=== PATIENT | male | born 1945 | race Caucasian/White ===

== ENCOUNTER 2025-03-20 02:02 | Inpatient (IN) | payer MEDICARE, SELFPAY ==
[2025-03-20] VITALS (24 sets, daily range): BP systolic 103–162; BP diastolic 69–100; PULSE 60–98; RESP 12–35; TEMP 36.1–36.6; O2SAT 90–100; BMI 31.8; BMI 26.6
--- NOTE | 2025-03-20 02:09 | EKG12_ITS ---
Test Reason : CP Blood Pressure : */* mmHG Vent. Rate : 97 BPM Atrial Rate : 97 BPM P-R Int : 174 ms QRS Dur : 152 ms QT Int : 402 ms P-R-T Axes : 20 11 187 degrees QTcB Int : 510 ms Sinus rhythm with occasional and consecutive Premature ventricular complexes Left bundle branch block Abnormal ECG Confirmed by Eder Pickett ([id number]), editor map LIN GIBSON ([id number]) on 03/22/2025 1:12:44 PM Referred By: KEMAR Confirmed By: Eder Pickett
[2025-03-20] MEDS: 0.9% Normal Saline (500mL Bag) 500 ML 999 ML IV (02:18)
[2025-03-20 02:21] LABS: Hematocrit 50.5 % (40-54); Hemoglobin 16.5 g/dL (13.0-16.5); Immature Granulocytes Count 0.040 X10^3/uL (0.0-0.0); Mean Corp Hgb Conc 32.7 g/dL (32-36); Mean Corpuscular Volume 99.6 fL (80-94); Mean Platelet Vol. 9.3 fl (6.2-12.0); NRBC Flagged by Analyzer 0 % (0-5); Platelet Count 245 K/mm3 (150-450); RBC Distribution Width CV 13.6 % (11.6-14.6); RBC Distribution Width SD 49.9 fl (35.1-43.9); Red Blood Count 5.07 M/mm3 (4.6-6.2); White Blood Count 10.4 K/mm3 (4.4-11.0)
--- NOTE | 2025-03-20 02:21 | ED.VIS.CHEST ---
HPI History of Present Illness Chief Complaint: Chest Pain Narrative Narrative: Chief complaint and HPI: 80-year-old male with past medical history of CAD with history of CABG/PCI, ICD/pacemaker, DM, CHF presents via EMS for evaluation of shortness of breath. Daughter gives majority of the history. Daughter states her father is visiting from [place] since January after he had a mechanical fall that resulted in rib fractures and pneumothorax. She states he has been doing well until the past couple days he has had increasing shortness of breath and cough. This evening shortness of breath worsened. He endorses chest tightness associated with it. He denies any fever, chills, abdominal pain, nausea, vomiting. Tobacco abuser. Review of systems: See HPI Medications: As listed on the chart Allergies: As listed on the chart PFSH: Per chart Vital signs: As listed on the chart. Reviewed. Physical exam: Gen: A&O x3 Head: Normocephalic, atraumatic Eyes: No sclera icterus, conjunctiva clear, PERRL ENT: Mildly dry mucous membranes Neck: Trachea midline, No JVD CV: RRR, no murmurs, +1 pitting peripheral bilateral edema, midline scar healed well, no cellulitis overlying pacemaker/ICD Resp: Lungs diminished in the bilateral bases, mildly coarse, tachypneic, respiratory distress GI: Abd soft, non-distended, non-tender, no r/r/g Musc: Full ROM, no deformity Skin: Warm, dry Neuro: Alert, oriented, grossly intact, sensation intact Psych: Cooperative [facility] Medical History (Updated 03/20/25 @ 02:06 by Nidia Leo) Heart failure Presence of combination internal cardiac defibrillator (ICD) and pacemaker Diabetes Home Medications ?Medication ?Instructions ?Recorded ?Last Taken ?Type aspirin 81 mg tablet 81 mg PO DAILY 03/20/25 Unknown History atorvastatin 40 mg tablet (Lipitor) 40 mg PO DAILY 03/20/25 Unknown History clopidogrel 75 mg tablet 75 mg PO DAILY 03/20/25 Unknown History empagliflozin 10 mg tablet 10 mg PO DAILY 03/20/25 Unknown History (Jardiance) finasteride 5 mg tablet 5 mg PO DAILY 03/20/25 Unknown History hydralazine 10 mg tablet 10 mg PO BID 03/20/25 Unknown History insulin lispro protamine-lispro 20 unit subcut BID 03/20/25 Unknown History 100 unit/mL (75-25) subcutaneous pen (Humalog Mix 75-25 KwikPen) isosorbide mononitrate 60 mg 60 mg PO DAILY 03/20/25 Unknown History tablet,extended release 24 hr methocarbamol 500 mg tablet 500 mg PO Q6H PRN muscle spasm 03/20/25 Unknown History ranolazine 1,000 mg 1,000 mg PO BID 03/20/25 Unknown History tablet,extended release,12 hr spironolactone 25 mg tablet 25 mg PO DAILY 03/20/25 Unknown History (Aldactone) Allergy/AdvReac Type Severity Reaction Status Date / Time No Known Allergies Allergy Verified 03/20/25 02:04 Surgical History (Updated 03/20/25 @ 02:06 by Nidia Leo) H/O heart artery stent Social History Smoking Status: Current every day smoker tobacco type: cigarettes EXAM Physical Exam Const Vital Signs: 03/20/25 02:03 03/20/25 02:09 03/20/25 02:09 Temperature 97.3 F L 97.3 F L Temperature Source Temporal Temporal Pulse Rate 98 96 Respiratory Rate 25 H 35 H Respiratory Effort Respiratory Depth Respiratory Pattern Blood Pressure 162/100 H 162/100 H Blood Pressure Mean 120 120 Pulse Ox 100 100 Oxygen Delivery Method CPAP CPAP Bi-pap Fraction of Inspired Oxygen (FIO2) 60 60 60 03/20/25 02:12 03/20/25 02:18 03/20/25 02:19 Temperature Temperature Source Pulse Rate 89 90 Respiratory Rate 33 H 30 H Respiratory Effort Short of Breath Respiratory Depth Deep Respiratory Pattern Tachypnea Tachypnea Tachypnea Blood Pressure Blood Pressure Mean Pulse Ox 99 Oxygen Delivery Method CPAP Fraction of Inspired Oxygen (FIO2) 60 30 03/20/25 02:33 03/20/25 03:09 03/20/25 03:30 Temperature 97.8 F Temperature Source Temporal Pulse Rate 78 87 85 Respiratory Rate 19 H 26 H 24 H Respiratory Effort Respiratory Depth Respiratory Pattern Blood Pressure 144/85 H 144/85 H Blood Pressure Mean 104 104 Pulse Ox 100 95 95 Oxygen Delivery Method Bi-pap Bi-pap Bi-pap Fraction of Inspired Oxygen (FIO2) 30 30 30 03/20/25 04:00 03/20/25 04:30 03/20/25 04:30 Temperature Temperature Source Pulse Rate 83 73 76 Respiratory Rate 20 H 21 H 21 H Respiratory Effort Respiratory Depth Respiratory Pattern Tachypnea Blood Pressure 136/90 H 133/76 H Blood Pressure Mean 105 95 Pulse Ox 96 95 97 Oxygen Delivery Method Bi-pap Bi-pap Fraction of Inspired Oxygen (FIO2) 30 30 30 MDM MDM MDM Narrative Medical decision making narrative: 80-year-old male with past medical history of CAD with history of CABG/PCI, ICD/pacemaker, DM, CHF presents via EMS for evaluation of shortness of breath. Daughter gives majority of the history. Daughter states her father is visiting from [place] since January after he had a mechanical fall that resulted in rib fractures and pneumothorax. She states he has been doing well until the past couple days he has had increasing shortness of breath and cough. This evening shortness of breath worsened. He endorses chest tightness associated with it. On arrival, patient arrives on CPAP machine. He is tachypneic in respiratory distress. He received nitro, 4 baby aspirin, and DuoNeb prior to arrival. Patient was switched over to BiPAP with improvement in respiratory distress. Differential diagnosis includes but is not limited to COPD exacerbation, pneumonia, CHF, ACS, PE, electrolyte abnormality, arrhythmia. EKG reviewed. Chest x-ray reviewed, suspect more pulmonary edema/CHF exacerbation however given I cannot rule out pneumonia we will give Rocephin and azithromycin. ABG with mild acidosis of 7.32. Oxygenating well on BiPAP. Will decrease FiO2. No hypercapnia. CBC without leukocytosis, anemia, platelet dysfunction. D-dimer elevated at 1.03. Cannot rule out PE. CT chest ordered. BMP shows renal insufficiency of 1.42. Unknown patient's baseline. May be chronic versus acute. Lactic acid 2.2. Patient receiving only 500 cc bolus. Will be judicial with fluids given CHF. BNP elevated at 7412. IV Lasix ordered. Troponin 61 and 56. CTA chest cannot be read by radiology secondary to having technical difficulties. I did personally review the CTA. No obvious PE. Patient has bilateral pulmonary effusions, worse on the right compared to the left. Right sided atelectasis. On reevaluation, patient's respiratory status has improved on BiPAP. We did try to take him off during CT however patient could not tolerate this. Patient was updated of all the results and the plan for admission. He confirmed understanding the plan. Patient discussed with Dr. Menezes. He accepted admission. EKG: Interpreted by me/EM physician: EKG shows sinus rhythm with PVCs. Left bundle branch block. Heart rate 97. Diagnostic: Interpreted by me/EM physician: No pneumothorax. Patient has cardiomegaly. Bilateral effusions. Worse on the right compared to the left. Cannot rule out pneumonia. Cannot compare to radiology read as we are having technical difficulties and they cannot see any of the imaging. 30 minutes of critical care time utilized in managing the patient. This is due to high probability of and deterioration of the patient based on the patient's condition and excludes any separately billable procedures. Impression: 1. Acute hypoxia with respiratory distress requiring BiPAP 2. CHF exacerbation 3. Possible pneumonia 4. Elevated troponin likely secondary to #2 5. Lactic acidosis 6. Renal insufficiency, acute versus chronic Lab Data Labs: Laboratory Results - last 24 hr 03/20/25 03/20/25 03/20/25 02:05 02:08 04:20 WBC 10.4 RBC 5.07 Hgb 16.5 Hct 50.5 MCV 99.6 H MCH 32.5 H MCHC 32.7 RDW Std Deviation 49.9 H RDW Coeff of Adri 13.6 Plt Count 245 MPV 9.3 Immature Gran % (Auto) 0.400 Neut % (Auto) 55.6 Lymph % (Auto) 30.1 Burke % (Auto) 12.9 H Eos % (Auto) 0.4 Baso % (Auto) 0.6 Absolute Neuts (auto) 5.8 Absolute Lymphs (auto) 3.12 Nucleated RBC % 0 D-Dimer Quant (PE/DVT) 1.03 H* Sodium 141 Potassium 4.2 Chloride 105 Carbon Dioxide 22.4 Anion Gap 13 BUN 22 H Creatinine 1.42 H Estim Creat Clear Calc 42.05 L Est GFR (MDRD) Non-Af 49 L BUN/Creatinine Ratio 15.1 Glucose 170 H Lactic Acid 2.2 H* Calcium 9.0 Troponin T High Sens 61 H* Troponin T Hi Sens 2 Hr 56 H* NT pro BNP II 7412 H ABG Data ABG results: ABG 03/20/25 02:20 Specimen Type ART Sample Site L Radial pH 7.32 L Bicarbonate Actual 23.1 Total CO2 25 Base Excess -3 L O2 Saturation 99 O2 % 40.0 ABG pCO2 45.0 ABG pO2 141 H Kee Test Positive O2 Delivery Device BiPAP Vent Mode Not entered POC PEEP 8 Peak Inspir Pressure 16 Discharge Plan Triage Chief Complaint: Chest Pain ED Provider: Jhoan Maldonado Dx/Rx/DC Orders Prescriptions: No Action methocarbamol 500 mg tablet 500 mg PO Q6H PRN (Reason: muscle spasm) isosorbide mononitrate 60 mg tablet extended release 24 hr 60 mg PO DAILY atorvastatin [Lipitor] 40 mg tablet 40 mg PO DAILY finasteride 5 mg tablet 5 mg PO DAILY spironolactone [Aldactone] 25 mg tablet 25 mg PO DAILY hydralazine 10 mg tablet 10 mg PO BID ranolazine 1,000 mg tablet extended release 12 hr 1,000 mg PO BID aspirin 81 mg tablet 81 mg PO DAILY clopidogrel 75 mg tablet 75 mg PO DAILY Jardiance 10 mg tablet 10 mg PO DAILY insulin lispro protamin-lispro [Humalog Mix 75-25 KwikPen] 100 unit/mL (75-25) insulin pen 20 unit subcut BID Primary Care Provider: ULI ALCALA Referrals: [facility] Doctor,Out of [Non-Staff] - Print Language: Macedonian
[2025-03-20 02:23] LABS: Allen Test Positive; Base Excess -3 mmol/L (-2 to +2); FI02 40.0; PEEP 8; PIP 16; PO2 141 mmHG (75-100); SITE L Radial; SO2 99 % (95-99)
--- NOTE | 2025-03-20 02:32 | RAD_ITS ---
PROCEDURE: CHEST 1 VIEW (PORTABLE) 03/20/2025 REASON FOR EXAM: SHORTNESS OF BREATH TECHNIQUE: Frontal view of the chest. COMPARISON: CT chest from earlier today FINDINGS: Hardware: EKG leads overlie the chest. Stable appearance of the left subclavian pacemaker Heart: Remote CABG Lungs: Lungs are expanded with superimposed interstitial edema and bilateral pleural effusions with bibasilar atelectasis suggesting CHF. Follow-up recommended to ensure resolution. Bones: Bony structures show degenerative change. There are acute displaced right rib fractures and old healed and healing left rib fractures. Other: Despite the right rib fractures, no pneumothorax is noted RAD/Chest 1 View (Portable) IMPRESSION: Diffuse interstitial edema with free-flowing bilateral pleural effusions and bi basilar atelectasis. Findings suggest CHF. Follow-up recommended to ensure resolution Minimally displaced right rib fractures, no clearly demonstrated pneumothorax Old healed and healing left rib fractures Remote CABG Reading Location: [id number]
--- NOTE | 2025-03-20 02:35 | CPS ---
[0218] 6mL Duoneb administered to pt. in ER at this time
[2025-03-20 02:48] LABS: Anion Gap 13 (5-15); BUN 22 mg/dL (4-19); BUN/Creat Ratio 15.1 RATIO (10-20); Calcium,Total 9.0 mg/dL (7.6-11.0); Carbon Dioxide 22.4 mmol/L (21.0-32.0); Chloride 105 mmol/L (98-108); Estimated Creatinine Clearance 42.05 ml/min (50-250); Glucose 170 mg/dL (70-99); Potassium 4.2 mmol/L (3.3-5.1)
[2025-03-20 02:49] LABS: Pro- Brain NATRIURETIC PEPTIDE 7412 pg/mL (<=1800); Troponin T High Sensitivity 61 ng/L (<=22)
[2025-03-20 02:51] LABS: D-Dimer Quantitative (DVT/PE) 1.03 FEU/ug/m (0.27-0.49)
--- NOTE | 2025-03-20 02:59 | CT_ITS ---
PROCEDURE: CTA CHEST W/WO CONTRAST 03/20/2025 REASON FOR EXAM: PE, ELEVATED DIMER TECHNIQUE: Procedure Code: [id number] Modality: CT Procedure: CTA CHEST W/WO CONTRAST Multiplanar Sagittal and Coronal images were obtained. CONTRAST: Isovue 370 VOLUME: 100 mL One or more dose reduction techniques were used (e.g., Automated exposure control, adjustment of the mA and/or kV according to patient size, use of iterative reconstruction technique). RADIATION DOSE SUMMARY: CTDlvol: 15.45 mGy DLP: 466 mGycm COMPARISON: Chest radiograph on 03/20/2025. FINDINGS: Mild cardiomegaly. Prior CABG. Moderate bilateral pleural effusions. Passive atelectatic airspace disease/consolidations of the lower lobes, possibly representing passive atelectasis and/or superimposed pneumonia. Mild interstitial pulmonary congestion. Moderate diffuse spondylosis. AICD is in good position. Mild hepatomegaly with diffuse irregularity of the hepatic contour, possibly chronic parenchymal liver disease. Mild ascites. Normal enhancement of the main pulmonary artery and right and left pulmonary arteries. Normal enhancement of the bilateral peripheral pulmonary arteries. There is no demonstrated pulmonary embolism. Suboptimal enhancement of the thoracic aorta limiting its evaluation. There is no demonstrated aortic dissection. Normal pericardium. Normal mediastinum. Normal hilar regions. Normal visualized trachea and bronchi. CT/CTA Chest W/WO Contrast IMPRESSION: No demonstrated pulmonary embolism. Mild cardiomegaly. Prior CABG. Moderate bilateral pleural effusions. Passive atelectatic airspace disease/consolidations of the lower lobes, possibl y representing passive atelectasis and/or superimposed pneumonia. Mild interstitial pulmonary congestion. Moderate diffuse spondylosis. AICD is in good position. Mild hepatomegaly with diffuse irregularity of the hepatic contour, possibly ch ronic parenchymal liver disease. Reading Location: [facility]
--- NOTE | 2025-03-20 03:37 | ED.RN ---
DAFNE from Dr. Braun to draw x1 blood culture now.
[2025-03-20] MEDS: Azithromycin 500 MG in 0.9% Normal Saline (250mL Bag) 250 ML 250 MG IV (04:20)
[2025-03-20 04:50] LABS: Troponin T High Sens 2 HR 56 ng/L (<=22)
--- NOTE | 2025-03-20 04:54 | HP.PCM.HOS_ITS ---
[facility] - General General Date of Admission: 03/20/25 Date of Service: 03/20/25 Chief Complaint: Chest Tightness and SOB. [facility] Narrative CECILIA FRAGOSO, is a 80 M with a past medical history of essential hypertension; on hydralazine and spironolactone, hyperlipidemia; on atorvastatin, chronic tobacco abuse, obesity (class I); with BMI of 31.9 this admission, DM-2; of unknown control on empagliflozin plus insulin lispro BID, CAD; s/p CABG and stent on BASA, clopidogrel, ISMO and ranolazine BID, history of CHF; of uncertain type, history of arrhythmia; s/p PPM/AICD, BPH; on finasteride, OA; with muscle spasms on methocarbamol QID prn and history of mechanical fall with multiple rib fractures and pneumothorax in January 2025 causing him to leave [place] to stay with his daughter locally who presents to [facility] ER complaining of chest tightness and SOB. Mr. Fragoso reports his symptoms began approximately 2-3 days prior to admission with SAUER that progressed to SOB at rest in addition to cough. He also admits to associated chest tightness that is mild but made worse with activity along with ~1+ bilateral lower extremity edema so his daughter activated EMS with patient treated en-route with SL NTG, 4 BASA and Duo-Neb. He arrived here on CPAP due to respiratory distress. There was no report of fever, chills, runny nose, sore throat, ear pain, abdominal pain, nausea, vomiting, diarrhea, constipation, dysuria, hematuria, headache or rash. In the ER he was noted to have an elevated NT pro-BNP of 7,412 pg/mL present on admission with a CXR that revealed pulmonary vascular congestion with moderate Right pleural effusion with PPM in place in addition to sternotomy wires in place consistent with AE CHF; of uncertain type complicated by clinical evidence of Acute Hypoxic Respiratory Failure evidenced by ABG of 7.32/ PCO2 45 mmHg/ PO2 141 mmHg/ HCO3 23.1 mmol/L on BiPAP with 40% FiO2 and rate of 16 with 8 PEEP compounded by mildly elevated troponin T of 61 ng/L and Lactic Acidosis of 2.2 mmol/L with ER physician suspecting superimposed AE COPD with underlying Pneumonia. He was then admitted to the PCU for ongoing care for a stay that is expected to extend beyond 2 midnights. [facility] Medical History (Updated 03/20/25 @ 05:[address] Matthew Ho DO) Pleural effusion Heart failure Presence of combination internal cardiac defibrillator (ICD) and pacemaker Diabetes Home Medications ?Medication ?Instructions ?Recorded ?Last Taken ?Type aspirin 81 mg tablet 81 mg PO DAILY 03/20/25 Unkn own History atorvastatin 40 mg tablet (Lipitor) 40 mg PO DAILY Unknown History clopidogrel 75 mg tablet 75 mg PO DAILY 03/20/25 Unkn own History empagliflozin 10 mg tablet 10 mg PO DAILY 03/20/25 Unk nown History (Jardiance) finasteride 5 mg tablet 5 mg PO DAILY 03/20/25 Unkno wn History hydralazine 10 mg tablet 10 mg PO BID 03/20/25 Unknow n History insulin lispro protamine-lispro 20 unit subcut BID Unknown History 100 unit/mL (75-25) subcutaneous pen (Humalog Mix 75-25 KwikPen) isosorbide mononitrate 60 mg 60 mg PO DAILY 03/20/25 U nknown History tablet,extended release 24 hr methocarbamol 500 mg tablet 500 mg PO Q6H PRN muscle s pasm 03/20/25 Unknown History ranolazine 1,000 mg 1,000 mg PO BID 03/20/25 Unk nown History tablet,extended release,12 hr spironolactone 25 mg tablet 25 mg PO DAILY 03/20/25 Un known History (Aldactone) Allergy/AdvReac Type Severity Reaction Status Date / Time No Known Allergies Allergy Verified 03/20/25 02:04 Surgical History (Updated 03/20/25 @ 05:[address] Matthew Ho DO) H/O heart artery stent Social History Smoking Status: Current every day smoker tobacco type: cigarettes ROS ROS Narrative Review of Systems: Constitutional: Patient denies fever or chills. Eyes: Patient denies changes in vision or discharge from eyes. ENT: Patient denies runny nose, sore throat or ear pain. Resp: Patient admits to SOB an cough. CV: Patient admits to chest tightness and ~1+ LE edema as per HPI. He denies palpitations or heart racing. GI: Patient denies abdominal pain, nausea, vomiting, diarrhea or constipation. : Patient denies dysuria or hematuria. MSK: Patient denies arthralgias or myalgias. Skin: Patient denies rash, abscess, wounds or jaundice. Psych: Patient denies symptoms of uncontrolled depression or anxiety. Neuro: Patient denies headache, paresthesias or focal neurologic deficits. Allergy: Patient denies lip swelling, tongue swelling or urticaria. Hematology: Patient denies easy bleeding or easy bruisability. Endocrinology: Patient denies polyuria, polydipsia, polyphagia or heat/cold intolerance. 14 point ROS otherwise negative except for positives noted above in HPI. Vital Signs Vital Signs Vital Signs: 03/20/25 02:03 03/20/25 02:09 03/20/25 02:09 Temperature 97.3 F L 97.3 F L Temperature Source Temporal Temporal Pulse Rate 98 96 Respiratory Rate 25 H 35 H Respiratory Effort Respiratory Depth Respiratory Pattern Blood Pressure 162/100 H 162/100 H Blood Pressure Mean 120 120 Pulse Ox 100 100 Oxygen Delivery Method CPAP CPAP Bi-pap Fraction of Inspired Oxygen (FIO2) 60 60 60 03/20/25 02:12 03/20/25 02:18 03/20/25 02:19 Temperature Temperature Source Pulse Rate 89 90 Respiratory Rate 33 H 30 H Respiratory Effort Short of Breath Respiratory Depth Deep Respiratory Pattern Tachypnea Tachypnea Tachypnea Blood Pressure Blood Pressure Mean Pulse Ox 99 Oxygen Delivery Method CPAP Fraction of Inspired Oxygen (FIO2) 60 30 03/20/25 02:33 03/20/25 03:09 03/20/25 03:30 Temperature 97.8 F Temperature Source Temporal Pulse Rate 78 87 85 Respiratory Rate 19 H 26 H 24 H Respiratory Effort Respiratory Depth Respiratory Pattern Blood Pressure 144/85 H 144/85 H Blood Pressure Mean 104 104 Pulse Ox 100 95 95 Oxygen Delivery Method Bi-pap Bi-pap Bi-pap Fraction of Inspired Oxygen (FIO2) 30 30 30 03/20/25 04:00 03/20/25 04:30 03/20/25 04:30 Temperature Temperature Source Pulse Rate 83 73 76 Respiratory Rate 20 H 21 H 21 H Respiratory Effort Respiratory Depth Respiratory Pattern Tachypnea Blood Pressure 136/90 H 133/76 H Blood Pressure Mean 105 95 Pulse Ox 96 95 97 Oxygen Delivery Method Bi-pap Bi-pap Fraction of Inspired Oxygen (FIO2) 30 30 30 Weight Weight: 197 lb 8.547 oz Body Mass Index (BMI) 31.8 Physical Exam Const alert and oriented x3 Constitutional Narrative: Patient appears comfortable on BiPAP. General Appearance: cooperative HEENT normocephalic, head/scalp atraumatic and hearing grossly normal bilaterally HEENT Narrative: Mucous membraes dry. Eyes PERRL, EOMs intact bilaterally and conjunctivae normal Neck no lymphadenopathy, supple and no JVD Resp Resp Narrative: Diminished breath sounds throughout with coarse bibasilar rales and increased work of breathing. Auscultation: rales Cardio regular rate and regular rhythm GI normal to inspection, nondistended, normoactive bowel sounds, soft to palpation, non-tender and non-distended GI Narrative: Obese. Extremity Extremity Narrative: ~1+ bilateral LE edema. Skin Skin Narrative: Patient has no evidence of rash, abscess, wounds or jaundice. Neuro oriented x3, CN's II-XII intact bilaterally, moves all extremities and no focal motor deficits Sensorium / Orientation: awake, alert, oriented to person, oriented to place and oriented to time Speech: speech normal Psych affect normal Results Medical Records Data Attestation: I reviewed the patient's medical records Lab / Micro Data Attestation: I reviewed the patient's lab results. 03/20/25 02:08 03/20/25 02:08 Labs: Laboratory Results - last 24 hr 03/20/25 02:05: Lactic Acid 2.2 H* 03/20/25 02:08: WBC 10.4, RBC 5.07, Hgb 16.5, Hct 50.5, MCV 99.6 H, MCH 32.5 H, MCHC 32.7, RDW Std Deviation 49.9 H, RDW Coeff of Adri 13.6, Plt Count 245, MPV 9.3, Immature Gran % (Auto) 0.400, Neut % (Auto) 55.6, Lymph % (Auto) 30.1, [place] % (Auto) 12.9 H, Eos % (Auto) 0.4, Baso % (Auto) 0.6, Absolute Neuts (auto) 5.8, Absolute Lymphs (auto) 3.12, Nucleated RBC % 0, D-Dimer Quant (PE/DVT) 1.03 H*, Sodium 141, Potassium 4.2, Chloride 105, Carbon Dioxide 22.4, Anion Gap 13, BUN 22 H, Creatinine 1.42 H, Estim Creat Clear Calc 42.05 L, Est GFR (MDRD) Non-Af 49 L, BUN/Creatinine Ratio 15.1, Glucose 170 H, Calcium 9.0, Troponin T High Sens 61 H*, NT pro BNP II 7412 H 03/20/25 04:20: Troponin T Hi Sens 2 Hr 56 H* Micro: Microbiology 03/20/25 02:16 Mucosa - Nose SARS-CoV-2, Influenza & RSV (PCR) - Final ABG Data ABG results: ABG 03/20/25 02:20 Specimen Type ART Sample Site L Radial pH 7.32 L Bicarbonate Actual 23.1 Total CO2 25 Base Excess -3 L O2 Saturation 99 O2 % 40.0 ABG pCO2 45.0 ABG pO2 141 H Kee Test Positive O2 Delivery Device BiPAP Vent Mode Not entered POC PEEP 8 Peak Inspir Pressure 16 Imaging [facility] Imaging Services [address] [place] [id number] Chest 1 View (Portable) MR#: [id number] Acct: [id number] Name: CECILIA FRAGOSO Rep #: [id number] : 1945 M 80 From: César Salazar MD PCP: [facility] ALCALA Status: ADM IN Study: Chest 1 View (Portable) Date of Exam: 03/20/25 Exam# [id number] Ordering Dr: Jhoan Maldonado DO PROCEDURE: CHEST 1 VIEW (PORTABLE) 03/20/2025 REASON FOR EXAM: SHORTNESS OF BREATH TECHNIQUE: Frontal view of the chest. COMPARISON: CT chest from earlier today FINDINGS: Hardware: EKG leads overlie the chest. Stable appearance of the left subclavian pacemaker Heart: Remote CABG Lungs: Lungs are expanded with superimposed interstitial edema and bilateral pleural effusions with bibasilar atelectasis suggesting CHF. Follow-up recommended to ensure resolution. Bones: Bony structures show degenerative change. There are acute displaced right rib fractures and old healed and healing left rib fractures. Other: Despite the right rib fractures, no pneumothorax is noted RAD/Chest 1 View (Portable) IMPRESSION: Diffuse interstitial edema with free-flowing bilateral pleural effusions and bibasilar atelectasis. Findings suggest CHF. Follow-up recommended to ensure resolution Minimally displaced right rib fractures, no clearly demonstrated pneumothorax Old healed and healing left rib fractures Remote CABG Reading Location: [id number] CC: Dr. Jhoan Maldonado DO; [facility] ~ [employer] Agent: Signed [facility] Imaging Services [address] [place] [address] CTA Chest W/WO Contrast MR#: [id number] Acct: [id number] Name: CECILIA FRAGOSO Rep #: [id number] : 1945 80 From: Blanco Salazar MD PCP: [facility] ALCALA Status: ADM IN Study: CTA Chest W/WO Contrast Date of Exam: 03/20/25 Exam# [id number] Ordering Dr: Jhoan Maldonado DO ADDENDUM by Dr. Blanco Salazar MD on 03/20/25 at 0606 Subacute fractures in the axillary and posterior arches of the right 5th, 6, 7th, 8th and 9th ribs. Reading Location: [facility] 03/20/25 0607 Date cc: Dr. Jhoan Maldonado DO; [facility] ALCALA ~* Signed PROCEDURE: CTA CHEST W/WO CONTRAST 03/20/2025 REASON FOR EXAM: PE, ELEVATED DIMER TECHNIQUE: Procedure Code: [id number] Modality: CT Procedure: CTA CHEST W/WO CONTRAST Multiplanar Sagittal and Coronal images were obtained. CONTRAST: Isovue 370 VOLUME: 100 mL One or more dose reduction techniques were used (e.g., Automated exposure control, adjustment of the mA and/or kV according to patient size, use of iterative reconstruction technique). RADIATION DOSE SUMMARY: CTDlvol: 15.45 mGy DLP: 466 mGycm COMPARISON: Chest radiograph on 03/20/2025. FINDINGS: Mild cardiomegaly. Prior CABG. Moderate bilateral pleural effusions. Passive atelectatic airspace disease/consolidations of the lower lobes, possibly representing passive atelectasis and/or superimposed pneumonia. Mild interstitial pulmonary congestion. Moderate diffuse spondylosis. AICD is in good position. Mild hepatomegaly with diffuse irregularity of the hepatic contour, possibly chronic parenchymal liver disease. Mild ascites. Normal enhancement of the main pulmonary artery and right and left pulmonary arteries. Normal enhancement of the bilateral peripheral pulmonary arteries. There is no demonstrated pulmonary embolism. Suboptimal enhancement of the thoracic aorta limiting its evaluation. There is no demonstrated aortic dissection. Normal pericardium. Normal mediastinum. Normal hilar regions. Normal visualized trachea and bronchi. CT/CTA Chest W/WO Contrast IMPRESSION: No demonstrated pulmonary embolism. Mild cardiomegaly. Prior CABG. Moderate bilateral pleural effusions. Passive atelectatic airspace disease/consolidations of the lower lobes, possibly representing passive atelectasis and/or superimposed pneumonia. Mild interstitial pulmonary congestion. Moderate diffuse spondylosis. AICD is in good position. Mild hepatomegaly with diffuse irregularity of the hepatic contour, possibly chronic parenchymal liver disease. Reading Location: [id number] CC: Dr. Jhoan Maldonado DO; [facility] ~ [employer] Agent: Signed Assessment & Plan Assessment/Plan (1) Acute exacerbation of chronic heart failure: (2) Pleural effusion: (3) COPD exacerbation: (4) Pneumonia: QUALIFIERS: Laterality: unspecified laterality Lung location: u nspecified part of lung Pneumonia type: due to unspecified organism Qualified Code(s): J18.9 - Pneumonia, unspecified organism (5) Acute hypoxic respiratory failure: (6) Elevated troponin: (7) Chest tightness: (8) History of coronary artery bypass graft: (9) History of coronary artery stent placement: (10) Lactic acidosis: (11) Obesity (BMI 30.0-34.9): (12) Tobacco abuse: PLAN: Plan 1. Elevated NT pro-BNP of 7,412 pg/mL present on admission with a CXR that revealed pulmonary vascular congestion with moderate Right pleural effusion with PPM in place in addition to sternotomy wires in place consistent with AE of chronic CHF; of uncertain type - Admit to PCU. Continue IV furosemide begun in the ER and add supplemental KCl and magnesium. Check echocardiogram to evaluate LVEF. Give ondansetron IV prn for nausea or vomiting. Give acetaminophen prn for [id number] (level 1-5/10) pain or fever. Give morphine IV prn for severe (level 6-10/10) pain. Finally, we will consult [facility] to see this patient on-rounds in the AM for further recommendations with help appreciated in advance. 2. AE COPD with possible superimposed Pneumonia causing Acute Hypoxic Respiratory Failure requiring BiPAP in the setting of ongoing Tobacco abuse complicating #1 - Continue IV methylprednisolone in addition to IV ceftriaxone and IV azithromycin begun in ER and check viral respiratory panel and urinary antigens to Streptococcus pneumonia and Legionella. Wean BiPAP as tolerated. Tobacco Cessation will be strongly encouraged with Nicotine patch offered to control cravings. 3. Elevated troponin T of 61 ng/L arising from Acute Cardiac Strain with Chest Tightness due to #1 & #2 in the setting of previously known CAD; s/p CABG plus stent and PPM/AICD - Serialize troponin. 4. Lactic Acidosis of 2.2 mmol/L present on admission adding to the medical complexity of #1 - #3 - Serialize lactate to follow trend. 5. Obesity (class I); with BMI of 31.9 this admission adding to the burden of disease outlined from #1 - #4 - Weight loss will be recommended. Check TSH. This complicates his case and may hamper recovery. 6. History of mechanical fall with multiple rib fractures and pneumothorax in January 2025 causing him to leave [place] to stay with his daughter locally - Noted. PT/OT and Case Management to consult and treat on-rounds in AM for further recommendations with help appreciated in advance. 7. Essential hypertension; on hydralazine and spironolactone - Home regimen to be maintained as previous. 8. Hyperlipidemia; on atorvastatin - Continue statin and check Lipid Profile. 9. DM-2; of unknown control on empagliflozin plus insulin lispro BID - Keep NPO while on BiPAP. Resume insulin lispro. Check FSBS q. 6 hours plus lowest intensity SSI. Check HgbA1c to objectively assess quality of diabetic control. 10. BPH; on finasteride - Maintain present therapy. 11. OA; with muscle spasms on methocarbamol QID prn - Continue current treatment. 12. DVT/GI prophylaxis - Start enoxaparin 40 mg sq daily plus SCD's. Pantoprazole 40 mg IV daily. Total time: Approximately (but not less than) 75 minutes. Charges/Coding Visit Charges Inpatient E&M: 58078 Init Hosp L3
[2025-03-20 06:17] LABS: Reflex Lactate? Y
--- NOTE | 2025-03-20 06:49 | ECHOCS_ITS ---
Reason For Study Reason For Study: chf Procedure This was a 2D Doppler, Color Flow transthoracic echocardiogram. The study was technically difficult. Contrast injection was performed. Exam performed portable in patient room. Left Ventricle Severely dilated left ventricle. Severe global left ventricular systolic dysfunction. The LV ejection fraction is 10 %. Stage 3 diastolic dysfunction. Right Ventricle ICD or pacer leads identified within the right ventricle. Mild segmental dysfunction of right ventricle. Atria The left and right atria are normal. Mitral Valve Trivial mitral valve insufficiency. Tricuspid Valve Unable to estimate RV systolic pressure due to inadequate jet, pulmonary artery pressure probably normal. Aortic Valve There is no aortic stenosis. No aortic valve insufficiency. Great Vessels Normal inferior vena cava. Pericardium/Pleural Moderate Pleural Effusion. Medication Diluted definity 3ml given slow IV push to enhance endocardial definition. MMode/2D Measurements & Calculations LVIDd: 5.8 cm IVSd: 1.7 cm LVOT diam: 2.0 cm LVIDs: 5.5 cm LVPWd: 1.1 cm LVOT area: 3.1 cm2 FS: 5.1 % Ao root diam: 3.8 cm LAV(MOD-bp): 68.4 ml LVAd ap4: 52.7 cm2 LAV(MOD-bp) Indexed: 35.4 ml/m2 LVLd ap4: 10.0 cm LAV(MOD-sp2): 59.1 ml EDV(MOD-sp4): 225.8 ml LAV(MOD-sp4): 75.0 ml EDV(sp4-el): 236.3 ml LVAs ap4: 49.9 cm2 LVLs ap4: 10.0 cm ESV(MOD-sp4): 203.2 ml ESV(sp4-el): 211.2 ml EF(MOD-sp4): 10.0 % EF(sp4-el): 10.6 % SV(MOD-sp4): 22.5 ml SV(sp4-el): 25.1 ml LA A4 area: 23.4 cm2 SI(MOD-sp4): 11.7 ml/m2 LA dimension(2D): 4.7 cm RA A4 area: 13.3 cm2 Time Measurements MV dec time: 0.16 sec Doppler Measurements & Calculations MV E max robin: 79.5 cm/sec Lat Peak E' Robin: 9.2 cm/sec Med Peak E' Robin: 3.6 cm/sec MV A max robin: 67.6 cm/sec E/E' lat: 8.6 E/E' med: 22.0 MV E/A: 1.2 MV V2 max: 86.3 cm/sec Ao V2 max: 118.3 cm/sec MV max P.0 mmHg MV dec slope: 497.0 cm/sec2 Ao max P.6 mmHg MV V2 mean: 52.1 cm/sec Ao V2 mean: 81.1 cm/sec MV mean P.2 mmHg Ao mean P.1 mmHg MV V2 VTI: 29.9 cm Ao V2 VTI: 20.5 cm AV (velocity ratio): 0.61 MVA(VTI): 1.3 cm2 JEN(I,D): 1.9 cm2 JEN(V,D): 2.1 cm2 LV V1 max: 81.1 cm/sec SV(LVOT): 38.4 ml PA V2 max: 82.9 cm/sec LV V1 max P.6 mmHg PA V2 mean: 61.9 cm/sec LV V1 mean P.1 mmHg LV V1 mean: 46.1 cm/sec LV V1 VTI: 12.5 cm ECHO/Echo Complete W/ Contrast Interpretation Summary The LV ejection fraction is 10 %. Stage 3 diastolic dysfunction. Severe global left ventricular systolic dysfunction. Severely dilated left ventricle. Mild segmental dysfunction of right ventricle. Ordering Physician: Matthew Ho Referring Physician: mason pcp Performed By: Qian White RCS
[2025-03-20 06:50] LABS: Magnesium 1.7 mg/dL (1.5-2.2)
--- NOTE | 2025-03-20 06:50 | EKG12_ITS ---
Test Reason : Blood Pressure : */* mmHG Vent. Rate : 81 BPM Atrial Rate : 81 BPM P-R Int : 188 ms QRS Dur : 190 ms QT Int : 478 ms P-R-T Axes : 15 -3 156 degrees QTcB Int : 555 ms Sinus rhythm with occasional atrial-paced complexes and Premature atrial complexes with Aberrant conduction Left bundle branch block Abnormal ECG When compared with ECG of 20-Mar-2025 02:08, MANUAL COMPARISON REQUIRED DATA IS UNCONFIRMED Confirmed by Eder Pickett ([id number]), assistant film editor LIN GIBSON ([id number]) on 03/22/2025 1:29:01 PM Referred By: GRULLON Confirmed By: Eder Pickett
[2025-03-20] MEDS: Nicotine (PBKC) 14 MG Patch TD (06:54)
--- NOTE | 2025-03-20 07:07 | PCM.PN.HOSP ---
Reason for Visit Chief Complaint: Chest Tightness and SOB. Subjective Subjective Patient states he feels much better overall. Still somewhat short of breath but was able to move with therapy and felt okay. Has not been seen here formally by cardiology. Unfortunately, no records are available at this time. Objective Data Objective Data Vital Signs: Vital Signs Temp Pulse Resp BP Pulse Ox O2 Del Method O2 Flow Rate 97.8 F 78 22 H 131/78 H 95 Bi-pap 30 03/20/25 05:02 03/20/25 06:00 03/20/25 06:00 03/20/25 06:00 03/20/25 06:00 03/20/25 06:00 03/20/25 05:30 FiO2 30 03/20/25 06:00 Oxygen Flow Rate (L/min) 30 Oxygen Delivery Method Bi-pap Weight: 89.6 kg Body Mass Index (BMI) 31.8 Intake & Output: Intake and Output for Last 24 Hours 03/18/25 03/19/25 03/20/25 23:59 23:59 23:59 Intake Total 550 / 550 Balance 550 / 550 Lab / Micro Data 03/20/25 02:08 03/20/25 02:08 Labs: Laboratory Results - last 24 hr 03/20/25 02:05: Lactic Acid 2.2 H* 03/20/25 02:08: WBC 10.4, RBC 5.07, Hgb 16.5, Hct 50.5, MCV 99.6 H, MCH 32.5 H, MCHC 32.7, RDW Std Deviation 49.9 H, RDW Coeff of Adri 13.6, Plt Count 245, MPV 9.3, Immature Gran % (Auto) 0.400, Neut % (Auto) 55.6, Lymph % (Auto) 30.1, [place] % (Auto) 12.9 H, Eos % (Auto) 0.4, Baso % (Auto) 0.6, Absolute Neuts (auto) 5.8, Absolute Lymphs (auto) 3.12, Nucleated RBC % 0, D-Dimer Quant (PE/DVT) 1.03 H*, Sodium 141, Potassium 4.2, Chloride 105, Carbon Dioxide 22.4, Anion Gap 13, BUN 22 H, Creatinine 1.42 H, Estim Creat Clear Calc 42.05 L, Est GFR (MDRD) Non-Af 49 L, BUN/Creatinine Ratio 15.1, Glucose 170 H, Calcium 9.0, Troponin T High Sens 61 H*, NT pro BNP II 7412 H 03/20/25 04:20: Magnesium 1.7, Troponin T Hi Sens 2 Hr 56 H* 03/20/25 06:08: Lactic Acid 1.1 Micro: Microbiology 03/20/25 02:16 Mucosa - Nose SARS-CoV-2, Influenza & RSV (PCR) - Final ABG Data ABG results: ABG 03/20/25 02:20 Specimen Type ART Sample Site L Radial pH 7.32 L Bicarbonate Actual 23.1 Total CO2 25 Base Excess -3 L O2 Saturation 99 O2 % 40.0 ABG pCO2 45.0 ABG pO2 141 H Kee Test Positive O2 Delivery Device BiPAP Vent Mode Not entered POC PEEP 8 Peak Inspir Pressure 16 Radiography Diagnostic Testing: Radiology Impression Chest X-Ray 03/20/25 02:32 IMPRESSION: Diffuse interstitial edema with free-flowing bilateral pleural effusions and bibasilar atelectasis. Findings suggest CHF. Follow-up recommended to ensure resolution Minimally displaced right rib fractures, no clearly demonstrated pneumothorax Old healed and healing left rib fractures Remote CABG Reading Location: [facility] Chest CTA 03/20/25 02:59 IMPRESSION: No demonstrated pulmonary embolism. Mild cardiomegaly. Prior CABG. Moderate bilateral pleural effusions. Passive atelectatic airspace disease/consolidations of the lower lobes, possibly representing passive atelectasis and/or superimposed pneumonia. Mild interstitial pulmonary congestion. Moderate diffuse spondylosis. AICD is in good position. Mild hepatomegaly with diffuse irregularity of the hepatic contour, possibly chronic parenchymal liver disease. Reading Location: [facility] Physical Exam Const alert, oriented x3, no apparent distress, average body habitus and well nourished; Negative for healthy appearing Constitutional Narrative: Elderly, white male, sitting up in a chair at the bedside, family at bedside, appears comfortable, nontoxic HEENT head/scalp atraumatic and moist oral mucous membranes Head and Scalp: normocephalic Resp normal respiratory effort, no retractions, no use of accessory muscles and No clear to auscultation bilaterally Resp Narrative: Crackles at bases bilaterally, no current conversational dyspnea or signs of distress Auscultation: Negative for wheezes Cardio regular rate, regular rhythm, S1 normal heart sound, S2 normal heart sound, no murmurs, no rub, no gallops and no clicks GI normal to inspection, nondistended, normoactive bowel sounds, soft to palpation and non-tender Extremity Extremity Narrative: 1+ bilateral lower extremity pitting edema, no cyanosis or clubbing Neuro oriented x3, moves all extremities and no focal motor deficits Speech: speech normal Psych affect normal Assessment & Plan Assessment/Plan (1) Acute hypoxic respiratory failure: (2) Acute exacerbation of chronic heart failure: (3) Elevated troponin: (4) Chest tightness: (5) Lactic acidosis: PLAN: Plan Acute hypoxic respiratory failure secondary to acute on chronic heart failure with reduced ejection fraction - Baseline EF is unknown but patient does appear to have ischemic cardiomyopathy -Currently has been weaned off BiPAP to 2 L nasal cannula and is doing well - Records have been requested from [facility] as that were his previous care had been provided - Current echocardiogram shows an EF of 10% with stage III diastolic dysfunction, severe global LV dysfunction, severely dilated LV and mild segmental dysfunction of the RV - Restart home Jardiance - Increase hydralazine to 25 3 times daily - Continue Imdur as ordered -Continue Aldactone - Hold off on beta-glo and show acute exacerbation has resolved but plan is to discharge with this unless previous records indicate why we should not - Continue IV diuretics as ordered and patient will likely need to be discharged on oral diuretics - Patient has defibrillator - Discontinue antibiotics and steroids as this does not appear to be consistent with COPD exacerbation - Cardiology following-appreciate input Lactic acidosis - Secondary to the above - Resolved quickly Elevated troponin/chest tightness - Suspect related to acute decompensated heart failure and demand ischemia from hypoxemia - Echocardiogram with no specific LV wall motion abnormality - Cardiology is following Elevated serum creatinine - No baseline established in our records - We have requested records from [facility] - Highly suspect patient has CKD but unclear at this time - Monitor response to diuresis as patient may have component of cardiorenal syndrome especially with EF of 10% DM-2 - A1c is pending - Continue home 75/25 insulin - Restart home Jardiance - SSI as ordered - Accu-Cheks as ordered Essential hypertension/hyperlipidemia/CAD - Continue aspirin - Continue atorvastatin - Continue Plavix - Continue hydralazine but increase dose as noted above - Continue isosorbide mononitrate - Continue home Ranexa - Continue home Aldactone Suspected COPD - Patient is a chronic longtime smoker of cigarettes and still smokes - nicotine patch available - Recommend cessation - Does not appear to be in acute exacerbation so we will discontinue steroids - continue as needed nebulizers 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 Extensive conversation with patient and his family at the bedside today with regards to overall prognosis especially with his markedly depressed EF and his overall cardiac conditions. They have elected to transition his CODE STATUS to DNR CCA okay for short-term intubation but patient indicates he would not want long-term mechanical ventilation. Charges/Coding Visit Charges Inpatient E&M: 84112 Subs Hosp L2
[2025-03-20 07:55] LABS: Mucous, Urine 0 SEEN /hpf (<or=2+); Red Blood Cells-Urine 0 SEEN /hpf (0-5)
[2025-03-20 08:06] LABS: Color, Urine Yellow (Yellow); Glucose, Dipstick 1000 mg/dl (Normal); Ketone-Dipstick Negative (Negative); Leukocyte Esterase-Dipstick 25 /ul (Negative); Nitrite-Dipstick Negative (Negative); Occult Blood-Urine Negative /ul (Negative); Protein-Dipstick 30 mg/dl (Negative); Specific Gravity, Urine 1.010 (1.002-1.030); Urine Bilirubin Dipstick Negative (Negative)
[2025-03-20 08:08] LABS: Squamous Epithelial Cells - UA 0-5 SEEN /hpf (0-5)
[2025-03-20 08:20] LABS: Troponin T High Sens 4 HR 75 ng/L (<=22)
[2025-03-20] MEDS: Pantoprazole Sodium 40 MG in 0.9% Normal Saline (100mL MB+) 100 ML 330 MG IV (09:45)
--- NOTE | 2025-03-20 09:47 | CASEMGMT ---
GEORGINA CM Assessment: Face to Face with pt for initial transition planning/care coordination assessment. Pt granddaughter in room as well; pt agreeable to granddaughter remaining present. SW introduced self and role at [facility], pt voices understanding and consents to assessment. Pt is A&O x4 and answers all questions appropriately at this time. Care providers, pharmacy, and demographics verified/updated. Admitting Dx: AE CHF, AE COPD, PNA, Resp failure PCP: Sj Donis Preferred Pharmacy: [facility] Insurance: [facility] Prescription Benefit: yes LNOK: Daughter, Alondra Living Arrangements: Pt lives in [place], but has been staying with daughter locally since a fall in January that resulted in fx ribs and a pneumothorax. Pt reports that there are 5 steps to enter. Pt has a room on the first floor and sleeps in a recliner due to not being able to lie down (d/t pain/breathing). There is a bathroom on the first floor with a shower chair. No grab bars. Pt uses a cane. Pt does not have oxygen at home and does not use a CPAP. Pt is staing with dtr and granddaughter. Someone is home at all times with pt. Pt dtr assists with bathing and dressing, as well as meal prep, household tasks such as laundry, and transportation. Pt reports strong relationships with family. There is a cousin that assists in transport as well. Transportation: Pt drives self and denies concerns with transportation. DME:Shower chair, cane HHC/SNF: previous SNF in [place]; no HHC hx Pt states no concerns with going home at time of dc. Pt states no further concerns/needs. Pt agreeable to [employer] for oxygen if needed at d/c. SW to follow. Advised pt to ask SW if any further questions/concerns/needs arise, voices understanding. Pt Goal: Return to daughter's home with plans to return to [place] when medically stable. NATE Knapp
[2025-03-20] MEDS: Aspirin E.C. 81 MG Tablet PO (09:53)
[2025-03-20] MEDS: Potassium Chloride Oral Tablet 20 MEQ PO (09:53)
[2025-03-20] MEDS: Magnesium Chloride 64 MG Delay Rel.Tablet 128 MG PO ×2 (09:56→21:27)
[2025-03-20] MEDS: Insulin Human 75/25 Kwickpen 20 UNIT SC ×2 (09:58→21:28)
--- NOTE | 2025-03-20 10:11 | PCM.CONS.C ---
Assessment & Plan Assessment/Plan (1) Acute exacerbation of chronic heart failure: PLAN: Acute on chronic decompensated HF 10% with RV failure Currently reaching euvolemia, switch IV lasix to once daily 40 mg Increase Hydralazine to 25 TID Continue with IMDUR 60 mg daily Once we have a better idea if this ANTHONY or CKD,we will switch him to ACEi restart Jardiance 10 mg daily Continue with Spironolactone 25 mg daily Hold off starting beta glo now in the setting of lactic acidosis and decompensated HF (2) History of coronary artery bypass graft: PLAN: Continue with aspirin 81 mg daily Continue with Atorvastatin 40 mg daily Continue with clopidogrel 75 mg daily Continue with Ranolazine Once kidney function improve. we will proceed with ischemic evaluation (3) Acute hypoxic respiratory failure: PLAN: In the setting of HFrEF and COPD exacerbation HPI Consult Data Date of Consult: 03/20/25 HPI Narrative HPI Narrative: CECILIA FRAGOSO, is a 80 M with a past medical history of: # Hypertension # Diabetes # CAD status post CABG and PCI in the past # COPD # Hyperlipidemia # History of HFrEF status post ICD # Smoker # Mechanical fall with multiple rib fractures and pneumothorax 01/2025 # BMI 31 He moved recently from [facility] and he lives with his daughter presented with shortness of breath, orthopnea and PND. On presentation he had chest tightness. He denies any chest pain now. He has NYHA class III. He has bilateral lower extremity edema. He denies any fever, chills and recent infection. He has shortness of breath with minimal exertion. His breathing has been getting worse over the last few months. n the ER he was noted to have an elevated NT pro-BNP of 7,412 pg/mL present on admission with a CXR that revealed pulmonary vascular congestion with moderate Right pleural effusion He had Acute Hypoxic Respiratory Failure requiring BIPAP. [facility] Medical History Pleural effusion Heart failure Presence of combination internal cardiac defibrillator (ICD) and pacemaker Diabetes Home Medications ?Medication ?Instructions ?Recorded ?Last Taken ?Type aspirin 81 mg tablet 81 mg PO DAILY 03/20/25 Unknown History atorvastatin 40 mg tablet (Lipitor) 40 mg PO DAILY 03/20/25 Unknown History clopidogrel 75 mg tablet 75 mg PO DAILY 03/20/25 Unknown History empagliflozin 10 mg tablet 10 mg PO DAILY 03/20/25 Unknown History (Jardiance) finasteride 5 mg tablet 5 mg PO DAILY 03/20/25 Unknown History hydralazine 10 mg tablet 10 mg PO BID 03/20/25 Unknown History insulin lispro protamine-lispro 20 unit subcut BID 03/20/25 Unknown History 100 unit/mL (75-25) subcutaneous pen (Humalog Mix 75-25 KwikPen) isosorbide mononitrate 60 mg 60 mg PO DAILY 03/20/25 Unknown History tablet,extended release 24 hr methocarbamol 500 mg tablet 500 mg PO Q6H PRN muscle spasm 03/20/25 Unknown History ranolazine 1,000 mg 1,000 mg PO BID 03/20/25 Unknown History tablet,extended release,12 hr spironolactone 25 mg tablet 25 mg PO DAILY 03/20/25 Unknown History (Aldactone) Allergy/AdvReac Type Severity Reaction Status Date / Time No Known Allergies Allergy Verified 03/20/25 02:04 Surgical History H/O heart artery stent Social History Smoking Status: Current some day smoker tobacco type: cigars Physical Exam Const alert and oriented x3 HEENT normocephalic Eyes PERRL Neck full ROM Lymph Lymphatic: no lymphadenopathy noted Chest inspection of chest normal Resp normal respiratory effort Cardio regular rate and regular rhythm Jugular Venous Distention: JVD GI normal to inspection, nondistended, normoactive bowel sounds no CVA tenderness Back/Spine no CVA tenderness Extremity normal to inspection Skin no rashes or lesions noted Objective Data Vital Signs: Vital Signs Temp Pulse Resp BP Pulse Ox O2 Del Method O2 Flow Rate 97.6 F L 65 24 H 145/83 H 96 Bi-pap 30 03/20/25 09:37 03/20/25 09:53 03/20/25 09:37 03/20/25 09:37 03/20/25 09:37 03/20/25 09:37 03/20/25 05:30 FiO2 25 03/20/25 09:37 Oxygen Flow Rate (L/min) 30 Oxygen Delivery Method Bi-pap Weight: 185 lb 6.54 oz Body Mass Index (BMI) 26.6 Intake & Output: Intake and Output for Last 24 Hours 03/18/25 03/19/25 03/20/25 23:59 23:59 23:59 Intake Total 800 / 800 Balance 800 / 800 Lab / Micro Data 03/20/25 02:08 03/20/25 02:08 Labs: Laboratory Results - last 24 hr 03/20/25 02:05: Lactic Acid 2.2 H* 03/20/25 02:08: WBC 10.4, RBC 5.07, Hgb 16.5, Hct 50.5, MCV 99.6 H, MCH 32.5 H, MCHC 32.7, RDW Std Deviation 49.9 H, RDW Coeff of Adri 13.6, Plt Count 245, MPV 9.3, Immature Gran % (Auto) 0.400, Neut % (Auto) 55.6, Lymph % (Auto) 30.1, [place] % (Auto) 12.9 H, Eos % (Auto) 0.4, Baso % (Auto) 0.6, Absolute Neuts (auto) 5.8, Absolute Lymphs (auto) 3.12, Nucleated RBC % 0, D-Dimer Quant (PE/DVT) 1.03 H*, Sodium 141, Potassium 4.2, Chloride 105, Carbon Dioxide 22.4, Anion Gap 13, BUN 22 H, Creatinine 1.42 H, Estim Creat Clear Calc 42.05 L, Est GFR (MDRD) Non-Af 49 L, BUN/Creatinine Ratio 15.1, Glucose 170 H, Calcium 9.0, Troponin T High Sens 61 H*, NT pro BNP II 7412 H 03/20/25 04:20: Magnesium 1.7, Troponin T Hi Sens 2 Hr 56 H*, TSH 1.400 03/20/25 06:08: Lactic Acid 1.1 03/20/25 07:08: Troponin T Hi Sens 4Hr 75 H* 03/20/25 07:10: POC Glucose 199 H 03/20/25 07:45: Urine Color Yellow, Urine Clarity Clear, Urine pH 6.0, Ur Specific [place] 1.010, Urine Protein 30 H, Urine Glucose (UA) 1000 H, Urine Ketones Negative, Urine Occult Blood Negative, Urine Nitrite Negative, Urine Bilirubin Negative, Urine Urobilinogen Normal, Ur Leukocyte Esterase 25 H, Urine RBC 0 SEEN, Urine WBC 0 SEEN, Ur Squamous Epith Cells 0-5 SEEN, Urine Bacteria 0 SEEN, Urine Mucus 0 SEEN Micro: Microbiology 03/20/25 07:30 Urine, Clean Catch Legionella Antigen - Final 03/20/25 07:30 Urine, Clean Catch Streptococcus pneumoniae Antigen (M - Final 03/20/25 02:16 Mucosa - Nose SARS-CoV-2, Influenza & RSV (PCR) - Final ABG Data ABG results: ABG 03/20/25 02:20 Specimen Type ART Sample Site L Radial pH 7.32 L Bicarbonate Actual 23.1 Total CO2 25 Base Excess -3 L O2 Saturation 99 O2 % 40.0 ABG pCO2 45.0 ABG pO2 141 H Kee Test Positive O2 Delivery Device BiPAP Vent Mode Not entered POC PEEP 8 Peak Inspir Pressure 16 Cardiology Labs/Tests 03/20/25 02:05: Lactic Acid 2.2 H* 03/20/25 02:08: WBC 10.4, RBC 5.07, Hgb 16.5, Hct 50.5, MCV 99.6 H, MCH 32.5 H, MCHC 32.7, Plt Count 245, MPV 9.3, Immature Gran % (Auto) 0.400, Neut % (Auto) 55.6, Lymph % (Auto) 30.1, [place] % (Auto) 12.9 H, Eos % (Auto) 0.4, Baso % (Auto) 0.6, Absolute Neuts (auto) 5.8, Nucleated RBC % 0, D-Dimer Quant (PE/DVT) 1.03 H*, Sodium 141, Potassium 4.2, Chloride 105, Carbon Dioxide 22.4, Anion Gap 13, BUN 22 H, Creatinine 1.42 H, Est GFR (MDRD) Non-Af 49 L, BUN/Creatinine Ratio 15.1, Glucose 170 H, Calcium 9.0 03/20/25 02:20: pH 7.32 L, Bicarbonate Actual 23.1, Base Excess -3 L, O2 Saturation 99, ABG pCO2 45.0, ABG pO2 141 H, Kee Test Positive 03/20/25 04:20: Magnesium 1.7 03/20/25 06:08: Lactic Acid 1.1 03/20/25 07:45: Urine Color Yellow, Urine Clarity Clear, Urine pH 6.0, Ur Specific [place] 1.010, Urine Protein 30 H, Urine Glucose (UA) 1000 H, Urine Ketones Negative, Urine Occult Blood Negative, Urine Nitrite Negative, Urine Bilirubin Negative, Urine Urobilinogen Normal, Ur Leukocyte Esterase 25 H, Urine RBC 0 SEEN, Urine WBC 0 SEEN EKG: NSR ECHO: EF 15% Radiography Diagnostic Testing: Radiology Impression Chest X-Ray 03/20/25 02:32 IMPRESSION: Diffuse interstitial edema with free-flowing bilateral pleural effusions and bibasilar atelectasis. Findings suggest CHF. Follow-up recommended to ensure resolution Minimally displaced right rib fractures, no clearly demonstrated pneumothorax Old healed and healing left rib fractures Remote CABG Reading Location: [id number] Chest CTA 03/20/25 02:59 IMPRESSION: No demonstrated pulmonary embolism. Mild cardiomegaly. Prior CABG. Moderate bilateral pleural effusions. Passive atelectatic airspace disease/consolidations of the lower lobes, possibly representing passive atelectasis and/or superimposed pneumonia. Mild interstitial pulmonary congestion. Moderate diffuse spondylosis. AICD is in good position. Mild hepatomegaly with diffuse irregularity of the hepatic contour, possibly chronic parenchymal liver disease. [facility] Risk Score for UA/STEMI Assesmment (YES = 1) Risk Stratification Applicable: No
[2025-03-20] MEDS: Doxycycline 100 MG in 0.9% Normal Saline (250mL Bag) 250 ML 250 MG IV (11:37)
[2025-03-21] VITALS (13 sets, daily range): BP systolic 110–141; BP diastolic 65–94; PULSE 54–73; RESP 12–24; TEMP 36.4–36.6; O2SAT 84–99; BMI 26.3
[2025-03-21 06:32] LABS: Hematocrit 44.5 % (40-54); Hemoglobin 15.0 g/dL (13.0-16.5); Immature Granulocytes Count 0.070 X10^3/uL (0.0-0.0); Mean Corp Hgb Conc 33.7 g/dL (32-36); Mean Corpuscular Volume 96.5 fL (80-94); Mean Platelet Vol. 9.2 fl (6.2-12.0); NRBC Flagged by Analyzer 0 % (0-5); Platelet Count 201 K/mm3 (150-450); RBC Distribution Width CV 13.5 % (11.6-14.6); RBC Distribution Width SD 48.4 fl (35.1-43.9); Red Blood Count 4.61 M/mm3 (4.6-6.2); White Blood Count 13.4 K/mm3 (4.4-11.0)
[2025-03-21 07:13] LABS: AST(SGOT) 20 U/L (<=37); Alanine Aminotransfer ALT/SGPT 13 U/L (<=46); Albumin, Serum 3.5 g/dL (3.4-4.8); Alkaline Phosphatase 64 U/L (40-129); Anion Gap 11 (5-15); BUN 32 mg/dL (4-19); BUN/Creat Ratio 19.6 RATIO (10-20); Calcium,Total 9.0 mg/dL (7.6-11.0); Carbon Dioxide 21.6 mmol/L (21.0-32.0); Chloride 102 mmol/L (98-108); Cholesterol 117 mg/dL (<=200); Estimated Creatinine Clearance 36.30 ml/min (50-250); Globulin 3.4 g/dL (2.2-4.2); Glucose 190 mg/dL (70-99); Low Density Lipoprotein Calc. 47 mg/dL; Potassium 4.6 mmol/L (3.3-5.1); Pro- Brain NATRIURETIC PEPTIDE 11422 pg/mL (<=1800); Triglycerides 65 mg/dL; Very Low Density Lipoprotein 13 mg/dL (5-40); cholesterol:hdl ratio screen 2.06
--- NOTE | 2025-03-21 07:28 | PCM.PN.HOSP ---
Reason for Visit Chief Complaint: Chest Tightness and SOB. Subjective Subjective Patient states he is feeling better today. States his shortness of breath is improved. States he had a good night overall and felt it was beneficial for him to wear BiPAP. Objective Data Objective Data Vital Signs: Vital Signs Temp Pulse Resp BP Pulse Ox O2 Del Method O2 Flow Rate 97.7 F L 54 L 21 H 118/94 H 96 Room Air 2 03/21/25 03:25 03/21/25 06:42 03/21/25 04:30 03/21/25 03:25 03/21/25 04:30 03/21/25 03:25 03/21/25 02:30 FiO2 03/21/25 04:30 Oxygen Flow Rate (L/min) 2 Oxygen Delivery Method Room Air Weight: 83.2 kg Body Mass Index (BMI) 26.3 Intake & Output: Intake and Output for Last 24 Hours 03/19/25 03/20/25 03/21/25 23:59 23:59 23:59 Intake Total 1150 / 1390 240 / 240 Output Total 775 / 775 Balance 1150 / 965 -535 / -535 Lab / Micro Data 03/21/25 05:25 03/21/25 05:25 Labs: Laboratory Results - last 24 hr 03/20/25 04:20: TSH 1.400 03/20/25 07:08: Troponin T Hi Sens 4Hr 75 H* 03/20/25 07:10: POC Glucose 199 H 03/20/25 07:45: Urine Color Yellow, Urine Clarity Clear, Urine pH 6.0, Ur Specific [place] 1.010, Urine Protein 30 H, Urine Glucose (UA) 1000 H, Urine Ketones Negative, Urine Occult Blood Negative, Urine Nitrite Negative, Urine Bilirubin Negative, Urine Urobilinogen Normal, Ur Leukocyte Esterase 25 H, Urine RBC 0 SEEN, Urine WBC 0 SEEN, Ur Squamous Epith Cells 0-5 SEEN, Urine Bacteria 0 SEEN, Urine Mucus 0 SEEN 03/20/25 11:33: POC Glucose 274 H 03/20/25 17:00: POC Glucose 175 H 03/20/25 21:22: POC Glucose 227 H 03/21/25 05:25: WBC 13.4 H, RBC 4.61, Hgb 15.0, Hct 44.5, MCV 96.5 H, MCH 32.5 H, MCHC 33.7, RDW Std Deviation 48.4 H, RDW Coeff of Adri 13.5, Plt Count 201, MPV 9.2, Immature Gran % (Auto) 0.500, Neut % (Auto) 87.1 H, Lymph % (Auto) 5.9 L, Bureau % (Auto) 6.4, Eos % (Auto) 0.0, Baso % (Auto) 0.1, Absolute Neuts (auto) 11.7 H, Absolute Lymphs (auto) 0.79 L, Nucleated RBC % 0, Sodium 135, Potassium 4.6, Chloride 102, Carbon Dioxide 21.6, Anion Gap 11, BUN 32 H, Creatinine 1.62 H, Estim Creat Clear Calc 36.30 L, Est GFR (MDRD) Non-Af 42 L, BUN/Creatinine Ratio 19.6, Glucose 190 H, Hemoglobin A1c 5.9 H, Calcium 9.0, Phosphorus 3.7, Total Bilirubin 0.54, AST 20, ALT 13, Alkaline Phosphatase 64, [place] [address] H, Total Protein 6.9, Albumin 3.5, Globulin 3.4, Albumin/Globulin Ratio 1.1, Triglycerides 65, Cholesterol 117, LDL Cholesterol, Calc 47, VLDL Cholesterol 13, HDL Cholesterol 57, Cholesterol/HDL Ratio 2.06 03/21/25 06:40: POC Glucose 196 H Micro: Microbiology 03/20/25 07:12 Mucosa - Nasopharyngeal Respiratory Panel (PCR) - Final 03/20/25 07:30 Urine, Clean Catch Legionella Antigen - Final 03/20/25 07:30 Urine, Clean Catch Streptococcus pneumoniae Antigen (M - Final 03/20/25 02:16 Mucosa - Nose SARS-CoV-2, Influenza & RSV (PCR) - Final Radiography Diagnostic Testing: Radiology Impression Echocardiogram 03/20/25 06:49 Interpretation Summary The LV ejection fraction is 10 %. Stage 3 diastolic dysfunction. Severe global left ventricular systolic dysfunction. Severely dilated left ventricle. Mild segmental dysfunction of right ventricle. Ordering Physician: Mattehw Ho Referring Physician: no pcp Performed By: Qian White RCS Physical Exam Const alert, oriented x3, no apparent distress, average body habitus and well nourished; Negative for healthy appearing Constitutional Narrative: Elderly, white male, reclining in a chair at the bedside, watching television, appears comfortable, nontoxic General Appearance: cooperative HEENT normocephalic, head/scalp atraumatic and moist oral mucous membranes HEENT Narrative: Mallampati 3, no thrush Resp normal respiratory effort, no retractions, no use of accessory muscles and No clear to auscultation bilaterally Resp Narrative: Diminished at bases bilaterally with decreased crackles Auscultation: crackles; Negative for rhonchi or wheezes Cardio regular rate, regular rhythm, S1 normal heart sound, S2 normal heart sound, no murmurs, no rub, no gallops and no clicks GI normal to inspection, nondistended, normoactive bowel sounds, soft to palpation and non-tender GI Narrative: Obese. Extremity Extremity Narrative: Trace to 1+ bilateral lower extremity pitting edema, no cyanosis or clubbing Neuro moves all extremities and no focal motor deficits Speech: speech normal Psych affect normal Assessment & Plan Assessment/Plan (1) Acute hypoxic respiratory failure: (2) Acute exacerbation of chronic heart failure: (3) Elevated troponin: (4) Chest tightness: (5) Lactic acidosis: PLAN: Plan Acute hypoxic respiratory failure secondary to acute on chronic heart failure with reduced ejection fraction - Baseline EF is unknown but patient does appear to have ischemic cardiomyopathy -Currently has been weaned off BiPAP to 2 L nasal cannula and is doing well - Records have been requested from [facility] as that were his previous care had been provided - Current echocardiogram shows an EF of 10% with stage III diastolic dysfunction, severe global LV dysfunction, severely dilated LV and mild segmental dysfunction of the RV - Continue home Jardiance - Continue hydralazine to 25 3 times daily - Continue Imdur as ordered - Continue Aldactone - Start metoprolol 25 mg XL daily - Will transition to oral diuretics - Patient has defibrillator - Cardiology following-appreciate input Bilateral pleural effusion - Small to moderate - May need to consider thoracentesis depending on respiratory status - Reevaluate tomorrow with ambulatory pulse ox - Repeat chest x-ray in a.m. Leukocytosis - Patient was initially given steroids - No signs of infection - Suspect demargination related to steroid dosing Lactic acidosis - Secondary to the above - Resolved quickly Elevated troponin/chest tightness - Suspect related to acute decompensated heart failure and demand ischemia from hypoxemia - Echocardiogram with no specific LV wall motion abnormality however patient does have a globally depressed EF - Plan is for cardiac catheterization once renal function stabilizes - Cardiology is following Elevated serum creatinine - No baseline established in our records - We have requested records from [facility] - Highly suspect patient has CKD but unclear at this time - Monitor response to diuresis as patient may have component of cardiorenal syndrome especially with EF of 10% - Creatinine is relatively stable with slight trend up despite diuresis will transition from IV diuretics to oral diuretics DM-2 - A1c is 5.9 - Continue home 75/25 insulin - Continue home Jardiance - SSI as ordered - Accu-Cheks as ordered Essential hypertension/hyperlipidemia/CAD - Continue aspirin - Continue atorvastatin - Continue Plavix - Continue hydralazine but increase dose as noted above - Continue isosorbide mononitrate - Continue home Ranexa - Continue home Aldactone Suspected COPD - Patient is a chronic longtime smoker of cigarettes and still smokes - nicotine patch available - Recommend cessation - Does not appear to be in acute exacerbation so we will discontinue steroids - continue as needed nebulizers 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
[2025-03-21] MEDS: Magnesium Chloride 64 MG Delay Rel.Tablet 128 MG PO ×2 (09:00→21:35)
[2025-03-21] MEDS: Potassium Chloride Oral Tablet 20 MEQ PO (09:01)
[2025-03-21] MEDS: Aspirin E.C. 81 MG Tablet PO (09:01)
[2025-03-21] MEDS: Insulin Human 75/25 Kwickpen 20 UNIT SC (09:02)
[2025-03-21] MEDS: Pantoprazole Sodium 40 MG in 0.9% Normal Saline (100mL MB+) 100 ML 330 MG IV (09:12)
--- NOTE | 2025-03-21 12:53 | PN.CARD_ITS ---
Subjective Subjective His breathing is getting better. Objective Data Vital Signs: Vital Signs Temp Pulse Resp BP Pulse Ox O2 Del Method O2 Flow Rate 97.7 F L 73 20 H 127/88 H 97 Nasal Cannula 2 03/21/25 09:25 03/21/25 09:25 03/21/25 09:25 03/21/25 09:25 03/21/25 09:25 03/21/25 10:00 03/21/25 10:00 FiO2 25 03/21/25 04:30 Oxygen Flow Rate (L/min) 2 Oxygen Delivery Method Nasal Cannula Weight: 183 lb 6.793 oz Body Mass Index (BMI) 26.3 Intake & Output: Intake and Output for Last 24 Hours 03/19/25 03/20/25 03/21/25 23:59 23:59 23:59 Intake Total 1150 / 1390 340 / 340 Output Total 775 / 775 Balance 1150 / 965 -435 / -435 Lab / Micro Data 03/21/25 05:25 03/21/25 05:25 Labs: Laboratory Results - last 24 hr 03/20/25 17:00: POC Glucose 175 H 03/20/25 21:22: POC Glucose 227 H 03/21/25 05:25: WBC 13.4 H, RBC 4.61, Hgb 15.0, Hct 44.5, MCV 96.5 H, MCH 32.5 H , MCHC 33.7, RDW Std Deviation 48.4 H, RDW Coeff of Adri 13.5, Plt Count 201, MPV 9.2, Immature Gran % (Auto) 0.500, Neut % (Auto) 87.1 H, Lymph % (Auto) 5.9 L, [place] % (Auto) 6.4, Eos % (Auto) 0.0, Baso % (Auto) 0.1, Absolute Neuts (auto) 11.7 H, Absolute Lymphs (auto) 0.79 L, Nucleated RBC % 0, Sodium 135, Potassium 4.6, Chloride 102, Carbon Dioxide 21.6, Anion Gap 11, BUN 32 H, Creatinine 1.62 H, Estim Creat Clear Calc 36.30 L, Est GFR (MDRD) Non-Af 42 L, BUN/Creatinine Ratio 19.6, Glucose 190 H, Hemoglobin A1c 5.9 H, Calcium 9.0, Phosphorus 3.7, Total Bilirubin 0.54, AST 20, ALT 13, Alkaline Phosphatase 64, [place] [address] H, Total Protein 6.9, Albumin 3.5, Globulin 3.4, Albumin/Globulin Ratio 1.1, Triglycerides 65, Cholesterol 117, LDL Cholesterol, Calc 47, VLDL Cholesterol 13, HDL Cholesterol 57, Cholesterol/HDL Ratio 2.06 03/21/25 06:40: POC Glucose 196 H Micro: Microbiology 03/20/25 07:12 Mucosa - Nasopharyngeal Respiratory Panel (PCR) - Final Cardiology Labs/Tests 03/21/25 05:25: WBC 13.4 H, RBC 4.61, Hgb 15.0, Hct 44.5, MCV 96.5 H, MCH 32.5 H , MCHC 33.7, Plt Count 201, MPV 9.2, Immature Gran % (Auto) 0.500, Neut % (Auto) 87.1 H, Lymph % (Auto) 5.9 L, [place] % (Auto) 6.4, Eos % (Auto) 0.0, Baso % (Auto) 0.1, Absolute Neuts (auto) 11.7 H, Nucleated RBC % 0, Sodium 135, Potassium 4.6, Chloride 102, Carbon Dioxide 21.6, Anion Gap 11, BUN 32 H, Creatinine 1.62 H, E st GFR (MDRD) Non-Af 42 L, BUN/Creatinine Ratio 19.6, Glucose 190 H, Hemoglobin A1c 5.9 H, Calcium 9.0, Phosphorus 3.7, Total Bilirubin 0.54, Triglycerides 65, Cholesterol 117, VLDL Cholesterol 13, HDL Cholesterol 57, Cholesterol/HDL Ratio 2.06 Rhythm: EKG: NSR ECHO: 10% Physical Exam Const alert HEENT normocephalic Eyes PERRL Neck full ROM Lymph Lymphatic: no lymphadenopathy noted Chest inspection of chest normal Resp Auscultation: crackles Cardio regular rate, regular rhythm, S1 normal heart sound and S2 normal heart sound GI normal to inspection, nondistended, normoactive bowel sounds no CVA tenderness Back/Spine no CVA tenderness Extremity normal to inspection Skin no rashes or lesions noted Assessment & Plan Assessment/Plan (1) Acute exacerbation of chronic heart failure: PLAN: Acute on chronic decompensated HF 10% with RV failure NYHA III stage C Currently reaching euvolemia, switch IV lasix to once daily 40 mg Continue with Hydralazine to 25 TID Continue with IMDUR 60 mg daily Once we have a better idea if this ANTHONY or CKD,we will switch him to ACEi Restart Jardiance 10 mg daily Continue with Spironolactone 25 mg daily Start metoprolol succinate 25 mg daily (2) Acute hypoxic respiratory failure: PLAN: In the setting of HFrEF and COPD exacerbation (3) History of coronary artery bypass graft: PLAN: Continue with aspirin 81 mg daily Continue with Atorvastatin 40 mg daily Continue with clopidogrel 75 mg daily Continue with Ranolazine Once kidney function improve. we will proceed with ischemic evaluation
[2025-03-22] VITALS (10 sets, daily range): BP systolic 117–126; BP diastolic 72–85; PULSE 60–62; RESP 12–23; TEMP 36.2–36.5; O2SAT 95–99
--- NOTE | 2025-03-22 04:55 | RAD_ITS ---
PROCEDURE: CHEST 1 VIEW (PORTABLE) 03/22/2025 REASON FOR EXAM: B PLEURAL EFFUSION FOLLOWUP TECHNIQUE: Frontal view of the chest. COMPARISON: 03/20/2025. FINDINGS: AICD is in good position. Unremarkable median sternotomy wires. Unchanged bilateral pleural effusions with passive atelectatic airspace disease of the lower lobes. Unchanged central pulmonary venous congestion. Enlarged cardiac silhouette. Unchanged displaced fractures of the right ribs. Normal mediastinum and apul. Normal visualized pulmonary arteries. Atheromatous plaques of the visualized aortic arch and descending thoracic aorta. Diffuse spondylosis of the visualized thoracic spine. Normal visualized ribs, clavicles. Degenerative joint disease. There is no demonstrated abnormality of the visualized soft tissue structures of the upper abdomen. RAD/Chest 1 View (Portable) IMPRESSION: AICD is in good position. Unremarkable median sternotomy wires. Unchanged bilateral pleural effusions with passive atelectatic airspace disease of the lower lobes. Unchanged central pulmonary venous congestion. Enlarged cardiac silhouette. Unchanged displaced fractures of the right ribs. Reading Location: [facility]
[2025-03-22 05:40] LABS: Hematocrit 46.9 % (40-54); Hemoglobin 15.6 g/dL (13.0-16.5); Mean Corp Hgb Conc 33.3 g/dL (32-36); Mean Corpuscular Volume 96.9 fL (80-94); Mean Platelet Vol. 9.4 fl (6.2-12.0); Platelet Count 198 K/mm3 (150-450); RBC Distribution Width CV 13.6 % (11.6-14.6); RBC Distribution Width SD 49.1 fl (35.1-43.9); Red Blood Count 4.84 M/mm3 (4.6-6.2); White Blood Count 9.5 K/mm3 (4.4-11.0)
[2025-03-22 06:06] LABS: Magnesium 2.3 mg/dL (1.5-2.2)
[2025-03-22 06:13] LABS: Anion Gap 11 (5-15); BUN 48 mg/dL (4-19); BUN/Creat Ratio 28.9 RATIO (10-20); Calcium,Total 9.1 mg/dL (7.6-11.0); Carbon Dioxide 22.8 mmol/L (21.0-32.0); Chloride 104 mmol/L (98-108); Estimated Creatinine Clearance 35.21 ml/min (50-250); Glucose 79 mg/dL (70-99); Potassium 4.6 mmol/L (3.3-5.1)
[2025-03-22] MEDS: Aspirin E.C. 81 MG Tablet PO (09:40)
[2025-03-22] MEDS: Magnesium Chloride 64 MG Delay Rel.Tablet 128 MG PO ×2 (09:40→21:03)
[2025-03-22] MEDS: Potassium Chloride Oral Tablet 20 MEQ PO (09:40)
[2025-03-22] MEDS: Pantoprazole Sodium 40 MG in 0.9% Normal Saline (100mL MB+) 100 ML 330 MG IV (09:44)
--- NOTE | 2025-03-22 10:25 | PN.CARD_ITS ---
Subjective Subjective Patient is tolerating his guideline directed medical therapy. He reports he is breathing easier his hemodynamics are adequate. His lower extremity edema is getting better his left is slightly worse than his right. The patient does have a history of ischemic mediated heart failure with reduced ejection fraction. 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 He is planning on going back to [place] for follow-up. Patient's telemetry shows that he is in normal sinus rhythm at 65 bpm with occasional atrially paced rhythm. ECG shows normal sinus rhythm left bundle branch block within demand atrial paced rhythm. Objective Data Vital Signs: Vital Signs Temp Pulse Resp BP Pulse Ox O2 Del Method O2 Flow Rate 97.4 F L 60 20 H 118/85 H 96 Nasal Cannula 2 03/22/25 09:30 03/22/25 09:30 03/22/25 09:30 03/22/25 09:30 03/22/25 09:30 03/22/25 09:30 03/22/25 09:30 FiO2 25 03/22/25 03:33 Oxygen Flow Rate (L/min) 2 Oxygen Delivery Method Nasal Cannula Weight: 183 lb 6.793 oz Body Mass Index (BMI) 26.3 Intake & Output: Intake and Output for Last 24 Hours 03/20/25 03/21/25 03/22/25 23:59 23:59 23:59 Intake Total 1150 / 1390 340 / 340 Output Total 775 / 1100 700 / 700 Balance 1150 / 965 -435 / -760 -700 / -700 Lab / Micro Data Attestation: I reviewed the patient's lab results. 03/22/25 04:53 03/22/25 04:53 Labs: Laboratory Results - last 24 hr 03/21/25 12:38: POC Glucose 182 H 03/21/25 16:51: POC Glucose 211 H 03/21/25 21:30: POC Glucose 103 03/22/25 04:53: WBC 9.5, RBC 4.84, Hgb 15.6, Hct 46.9, MCV 96.9 H, MCH 32.2 H, MCHC 33.3, RDW Std Deviation 49.1 H, RDW Coeff of Adri 13.6, Plt Count 198, MPV 9.4, Sodium 138, Potassium 4.6, Chloride 104, Carbon Dioxide 22.8, Anion Gap 11, BUN 48 H, Creatinine 1.67 H, Estim Creat Clear Calc 35.21 L, Est GFR (MDRD) Non- Af 41 L, BUN/Creatinine Ratio 28.9 H, Glucose 79, Calcium 9.1, Phosphorus 3.7, M agnesium 2.3 H 03/22/25 06:10: POC Glucose 104 Micro: Microbiology 03/20/25 03:42 Blood Culture (Wb) - Anticubital Right Blood Culture - Preliminary No growth in 48 hours. Rhythm Strip Rhythm Strip: Sinus Rhythm Rate: 65 Cardiology Labs/Tests 03/22/25 04:53: WBC 9.5, RBC 4.84, Hgb 15.6, Hct 46.9, MCV 96.9 H, MCH 32.2 H, MCHC 33.3, Plt Count 198, MPV 9.4, Sodium 138, Potassium 4.6, Chloride 104, Carbon Dioxide 22.8, Anion Gap 11, BUN 48 H, Creatinine 1.67 H, Est GFR (MDRD) Non-Af 41 L, BUN/Creatinine Ratio 28.9 H, Glucose 79, Calcium 9.1, Phosphorus 3.7, Magnesium 2.3 H Rhythm: EKG: ECHO: Stress Test: Cardiac Cath: PCI: CT Surgery: Holter monitor: EPS: PPM: CXR: Chest CT Scan: Radiography Diagnostic Testing: Radiology Impression Chest X-Ray 03/22/25 04:55 IMPRESSION: AICD is in good position. Unremarkable median sternotomy wires. Unchanged bilateral pleural effusions with passive atelectatic airspace disease of the lower lobes. Unchanged central pulmonary venous congestion. Enlarged cardiac silhouette. Unchanged displaced fractures of the right ribs. Reading Location: [place] [address] Physical Exam Const alert and oriented x3 HEENT normocephalic Neck no JVD Chest Chest: midline sternotomy incision and left pectoral incision Resp Effort and Inspection: uses accessory muscles Auscultation: crackles bilateral base and diminished lung sounds bilateral lower Cardio Cardio Narrative: Distant heart tones due to body habitus Rate: regular rate Rhythm: regular rhythm Heart Sounds: S1 normal and S2 normal; Negative for click, gallop or murmur GI GI Narrative: Obese Extremity General Extremity: edema right lower extremity mild and left lower extremity moderate Neuro Neuro Narrative: Alert and oriented x 3 Psych mental status grossly normal Assessment & Plan Assessment/Plan (1) Acute exacerbation of chronic heart failure: PLAN: Patient has a history of ischemic cardiomyopathy. He is known to be severely impaired with an EF in the 10% range. He does have an ICD in place and has a chronic left bundle branch block. His guideline directed medical therapy has been titrated over the last couple of days. He now appears to be tolerating 4 drug therapy. Patient is status post bypass graft surgery and stenting. He denies any anginal symptoms at this point in time. He does plan on following up with his waiter/waitress take out in [place] I have asked that we try to get records from [place] to know where his coronary anatomy is bypass. The patient is on Jardiance 10 mg daily, furosemide 40 mg daily, hydralazine 25 mg 3 times daily Imdur 60 mg daily, and metoprolol succinate 25 mg daily. He is also on spironolactone 25 mg daily. Renal function and electrolytes are tolerating his current medical regiment. The patient continues to have some lower extremity edema but he reports it is improving over the last couple of days. (2) Presence of combination internal cardiac defibrillator (ICD) and pacemaker: PLAN: Patient is not aware if this is COMM[employer]ICATION[employer] ASSISTANT?D implant or if it was not just an ICD with pacemaker. I do not have access to the records from [place] yet. (3) CKD (chronic kidney disease): QUALIFIERS: Chronic kidney disease stage: stage 3 (moderate) C hronic kidney disease stage 3 subtype: stage 3b (GFR 30-44) Qualified Code(s): N18.32 - Chronic kidney disease, stage 3b PLAN: Patient's GFR is 41. Need to monitor this closely and watch his potassium. PLAN: Plan 1. Continue current medical therapy. 2. Monitor electrolytes and renal function. Would avoid ARB/PADMINI inhibitor therapy at this point in time. 3. Continue hydralazine and nitrates in combination with spironolactone Jardiance and beta-glo therapy. 4. If the patient cannot get back to [place] for follow-up we would be more than happy to see him in the [place] office. Charges/Coding Visit Charges Inpatient E&M: 79499 Subs Hosp L2
[2025-03-22] MEDS: Metoprolol(XL)Succ 25 MG Tablet PO (10:34)
--- NOTE | 2025-03-22 14:45 | PN_ITS ---
Subjective Subjective Patient seen and examined. He was sitting comfortably in his chair and had no active complaints. He denied any shortness of breath, chest pain, fever chills or any other symptoms. He denied any shortness of breath also. Review of systems otherwise negative. Objective Data Objective Data Vital Signs: Vital Signs Temp Pulse Resp BP Pulse Ox O2 Del Method O2 Flow Rate 97.4 F L 60 20 H 118/85 H 96 Nasal Cannula 2 03/22/25 09:30 03/22/25 10:34 03/22/25 09:30 03/22/25 09:30 03/22/25 09:30 03/22/25 09:30 03/22/25 09:30 FiO2 25 03/22/25 03:33 Oxygen Flow Rate (L/min) 2 Oxygen Delivery Method Nasal Cannula Weight: 183 lb 6.793 oz Body Mass Index (BMI) 26.3 Intake & Output: Intake and Output for Last 24 Hours 03/20/25 03/21/25 03/22/25 23:59 23:59 23:59 Intake Total 1150 / 1390 340 / 340 400 / 400 Output Total 775 / 1100 700 / 700 Balance 1150 / 965 -435 / -760 -300 / -300 Lab / Micro Data 03/22/25 04:53 03/22/25 04:53 Labs: Laboratory Results - last 24 hr 03/21/25 16:51: POC Glucose 211 H 03/21/25 21:30: POC Glucose 103 03/22/25 04:53: WBC 9.5, RBC 4.84, Hgb 15.6, Hct 46.9, MCV 96.9 H, MCH 32.2 H, MCHC 33.3, RDW Std Deviation 49.1 H, RDW Coeff of Adri 13.6, Plt Count 198, MPV 9.4, Sodium 138, Potassium 4.6, Chloride 104, Carbon Dioxide 22.8, Anion Gap 11, BUN 48 H, Creatinine 1.67 H, Estim Creat Clear Calc 35.21 L, Est GFR (MDRD) Non- Af 41 L, BUN/Creatinine Ratio 28.9 H, Glucose 79, Calcium 9.1, Phosphorus 3.7, M agnesium 2.3 H 03/22/25 06:10: POC Glucose 104 03/22/25 11:31: POC Glucose 86 Micro: Microbiology 03/20/25 03:42 Blood Culture (Wb) - Anticubital Right Blood Culture - Preliminary No growth in 48 hours. 03/20/25 07:12 Mucosa - Nasopharyngeal Respiratory Panel (PCR) - Final 03/20/25 07:30 Urine, Clean Catch Legionella Antigen - Final 03/20/25 07:30 Urine, Clean Catch Streptococcus pneumoniae Antigen (M - Final 03/20/25 02:16 Mucosa - Nose SARS-CoV-2, Influenza & RSV (PCR) - Final Radiography Diagnostic Testing: Radiology Impression Chest X-Ray 03/22/25 04:55 IMPRESSION: AICD is in good position. Unremarkable median sternotomy wires. Unchanged bilateral pleural effusions with passive atelectatic airspace disease of the lower lobes. Unchanged central pulmonary venous congestion. Enlarged cardiac silhouette. Unchanged displaced fractures of the right ribs. Reading Location: [place] [address] Rhythm Strip Rhythm Strip: Sinus Rhythm Rate: 65 Physical Exam Const alert, oriented x3 and no apparent distress General Appearance: cooperative HEENT normocephalic, head/scalp atraumatic, moist oral mucous membranes and oropharynx normal Eyes EOMs intact bilaterally Neck supple and no JVD Lymph Lymphatic: no lymphedema noted Resp Resp Narrative: Mildly diminished breath sounds bibasilarly. No wheezes or crackles.On room air. Cardio regular rate, regular rhythm, S1 normal heart sound, S2 normal heart sound and no murmurs GI normal to inspection, nondistended, normoactive bowel sounds, soft to palpation and non-tender Extremity normal capillary refill, no clubbing, cyanosis or edema and no calf tenderness General Extremity: no tenderness to palpation of joints or extremities Skin General Skin Exam: no breakdown Neuro no focal motor deficits Motor Exam: general weakness Psych thought process normal, cooperative and affect normal Appearance: appropriate Assessment & Plan Assessment/Plan (1) Acute exacerbation of chronic heart failure: PLAN: Plan #Acute hypoxic respiratory failure due to acute on chronic heart failure with reduced ejection fraction * Currently on 2 L of oxygen. Previously was on BiPAP. * 2D echo done here showed EF of 10% with stage III diastolic dysfunction and severe global left ventricular dysfunction as well as severely dilated left ventricle and mild segmental systolic dysfunction of the right ventricle * On oral Lasix. On metoprolol, hydralazine and Jardiance as well as Imdur and Aldactone * Has ICD placed. Awaiting records follow[facility]up from [facility] where patient had his previous care. * Cardiology on board. Per cardiology note today, patient planning on going back to [place] for further follow-up. If he chooses to stay in [place] cardiology to follow him about outpatient basis. * #Elevated troponin: Thought to be due to demand ischemia in light of the hypoxia. 2D echo as above. For cardiac cath once kidney function improves #Elevated creatinine: Creatinine today is 1.67. Was 1.42 yesterday. No clear baseline 1. Records pending from [facility]. I do suspect that this is likely CKD and not ANTHONY. Will monitor closely. #Type 2 diabetes mellitus: On NPH insulin. On Jardiance. Insulin sliding scale. Accu-Cheks ACHS. #Benign essential hypertension: On Imdur and hydralazine as well as Aldactone and metoprolol #hyperlipidemia: On statin #CAD: On aspirin and statin as well as Plavix. 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 Patient is a longtime chronic smoker. Counseled to quit. 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 #DVT prophylaxis: On Lovenox Charges/Coding Visit Charges Inpatient E&M: 76408 Subs Hosp L2
--- NOTE | 2025-03-22 15:41 | CHAPLAIN ---
Type of Pastoral Visit ___ Initial Visit ___ Follow-up Visit ___ On-call Visit ___ General Patient Visit ___ Spiritual Assessment ___ Family Conference ___ Bereavement ___ Rapid Response ___ Code Blue ___ Other (describe below) Pastoral Care Referral From ___ Patient ___ Family ___ Nurse ___ Physician ___ Servicer Travel Trailers ___ Exec. Creative Director ___ Other (describe below) Sacrament/Intervention ___ Active listening ___ Anointing ___ Anabaptist ___ Bereavement ___ Communion ___ Michelle exploration ___ ___ Life review ___ Prayer ___ Reconciliation ___ Sacrament of Sick ___ Supportive presence ___ Wedding ___ Other (describe below) Pastoral Comments patient had several family members in the room; pt had a RN ENDOSCOPY assisting him at this time; offer of return visit another time or day is accepted
[2025-03-23] VITALS (13 sets, daily range): BP systolic 115–130; BP diastolic 65–74; PULSE 59–62; RESP 12–20; TEMP 36.2–36.6; O2SAT 92–99; BMI 25.9
--- NOTE | 2025-03-23 00:06 | CPS ---
Pt declined use of hospital bipap at this time.
[2025-03-23 05:48] LABS: Hematocrit 45.2 % (40-54); Hemoglobin 15.1 g/dL (13.0-16.5); Immature Granulocytes Count 0.040 X10^3/uL (0.0-0.0); Mean Corp Hgb Conc 33.4 g/dL (32-36); Mean Corpuscular Volume 96.8 fL (80-94); Mean Platelet Vol. 9.2 fl (6.2-12.0); NRBC Flagged by Analyzer 0 % (0-5); Platelet Count 191 K/mm3 (150-450); RBC Distribution Width CV 13.5 % (11.6-14.6); RBC Distribution Width SD 48.5 fl (35.1-43.9); Red Blood Count 4.67 M/mm3 (4.6-6.2); White Blood Count 7.3 K/mm3 (4.4-11.0)
[2025-03-23 06:23] LABS: Anion Gap 9 (5-15); BUN 47 mg/dL (4-19); BUN/Creat Ratio 29.6 RATIO (10-20); Calcium,Total 8.8 mg/dL (7.6-11.0); Carbon Dioxide 24.3 mmol/L (21.0-32.0); Chloride 103 mmol/L (98-108); Estimated Creatinine Clearance 37.22 ml/min (50-250); Glucose 100 mg/dL (70-99); Potassium 5.1 mmol/L (3.3-5.1)
--- NOTE | 2025-03-23 08:40 | PN.CARD_ITS ---
Subjective Subjective Patient sitting in chair at the bedside resting comfortably. He reports he slept well with his BiPAP machine. He also reports that his lower extremity edema has improved and he is breathing much easier. Renal function is stabilized his creatinine initially was 1.62 up to 1.67 now is 1.58 today with a GFR of 43. Objective Data Vital Signs: Vital Signs Temp Pulse Resp BP Pulse Ox O2 Del Method O2 Flow Rate 97.4 F L 60 18 122/74 H 97 Nasal Cannula 2 03/23/25 03:07 03/23/25 06:46 03/23/25 03:07 03/23/25 06:46 03/23/25 03:07 03/23/25 08:12 03/22/25 21:00 FiO2 25 03/23/25 03:05 Oxygen Flow Rate (L/min) 2 Oxygen Delivery Method Nasal Cannula Weight: 180 lb 12.465 oz Body Mass Index (BMI) 25.9 Intake & Output: Intake and Output for Last 24 Hours 03/21/25 03/22/25 03/23/25 23:59 23:59 23:59 Intake Total 340 / 340 800 / 800 Output Total 775 / 1100 700 / 700 250 / 250 Balance -435 / -760 100 / 100 -250 / -250 Lab / Micro Data Attestation: I reviewed the patient's lab results. 03/23/25 04:44 03/23/25 04:44 Labs: Laboratory Results - last 24 hr 03/22/25 11:31: POC Glucose 86 03/22/25 16:45: POC Glucose 74 03/22/25 20:50: POC Glucose 159 H 03/23/25 04:44: WBC 7.3, RBC 4.67, Hgb 15.1, Hct 45.2, MCV 96.8 H, MCH 32.3 H, MCHC 33.4, RDW Std Deviation 48.5 H, RDW Coeff of Adri 13.5, Plt Count 191, MPV 9.2, Immature Gran % (Auto) 0.500, Neut % (Auto) 71.2 H, Lymph % (Auto) 13.6 L, Sandoval % (Auto) 14.3 H, Eos % (Auto) 0.1, Baso % (Auto) 0.3, Absolute Neuts (auto) 5.2, Absolute Lymphs (auto) 1.00, Nucleated RBC % 0, Sodium 136, Potassium 5.1, Chloride 103, Carbon Dioxide 24.3, Anion Gap 9, BUN 47 H, Creatinine 1.58 H, E stim Creat Clear Calc 37.22 L, Est GFR (MDRD) Non-Af 43 L, BUN/Creatinine Ratio 29.6 H, Glucose 100 H, Calcium 8.8 03/23/25 06:44: POC Glucose 103 Micro: Microbiology 03/20/25 03:42 Blood Culture (Wb) - Anticubital Right Blood Culture - Preliminary No growth in 48 hours. Rhythm Strip Rhythm Strip: Atrially paced rhythm Rate: 61 Ectopy: PVC(s) Cardiology Labs/Tests 03/23/25 04:44: WBC 7.3, RBC 4.67, Hgb 15.1, Hct 45.2, MCV 96.8 H, MCH 32.3 H, MCHC 33.4, Plt Count 191, MPV 9.2, Immature Gran % (Auto) 0.500, Neut % (Auto) 71.2 H, Lymph % (Auto) 13.6 L, Sandoval % (Auto) 14.3 H, Eos % (Auto) 0.1, Baso % (Auto) 0.3, Absolute Neuts (auto) 5.2, Nucleated RBC % 0, Sodium 136, Potassium 5.1, Chloride 103, Carbon Dioxide 24.3, Anion Gap 9, BUN 47 H, Creatinine 1.58 H , Est GFR (MDRD) Non-Af 43 L, BUN/Creatinine Ratio 29.6 H, Glucose 100 H, Calcium 8.8 Rhythm: EKG: ECHO: Stress Test: Cardiac Cath: PCI: CT Surgery: Holter monitor: EPS: PPM: CXR: Chest CT Scan: Physical Exam Const alert and oriented x3 HEENT normocephalic Eyes EOMs intact bilaterally Neck no JVD Neck Narrative: No JVD at 90 degrees Chest inspection of chest normal Chest: midline sternotomy incision and left pectoral incision Resp normal respiratory effort Auscultation: crackles bilateral base (Scant relatively clear) and diminished lung sounds bilateral lower (Decreased breath sounds bilateral very basal segments.) Cardio Rate: regular rate Rhythm: regular rhythm Heart Sounds: S1 normal and S2 normal; Negative for click, gallop or murmur Extremity General Extremity: edema bilateral lower extremity Details: trace Skin Skin Narrative: Hyperpigmentation bilateral lower extremities Neuro Neuro Narrative: Alert and oriented x 3 Psych mental status grossly normal Assessment & Plan Assessment/Plan (1) Acute exacerbation of chronic heart failure: PLAN: Patient appears to me compensating for his severe LV dysfunction. EF is known to be chronically in the 10% range. His edema is improving he reports his respiratory status is also improving he remains on 2 L nasal cannula. Lower extremity edema is resolving slowly. The patient's initial BNP was 11,422. I recommend we recheck that today the order was placed. I would like to make certain that it is decreasing and get a new baseline for when he is better compensated. Given the addition of spironolactone would recommend discontinuing the potassium and monitoring of BMP tomorrow morning. (2) CKD (chronic kidney disease): QUALIFIERS: Chronic kidney disease stage: stage 3 (moderate) C hronic kidney disease stage 3 subtype: stage 3b (GFR 30-44) Qualified Code(s): N18.32 - Chronic kidney disease, stage 3b PLAN: Patient's renal function appears to have stabilized as with a GFR of around 43. Recheck BMP tomorrow off of potassium and on spironolactone. (3) Presence of combination internal cardiac defibrillator (ICD) and pacemaker: PLAN: Patient's ICD is currently followed through his [place] manager immunology office. The patient is to decide whether he is going to follow-up back in [place] or if he is going to be seek care in the [facility] office. (4) Elevated troponin: PLAN: Patient's troponins were minimally elevated at 61, 56, and 75. I feel this represents a demand ischemia in a patient with a known severe LV dysfunction and I do not feel that further invasive or noninvasive ischemic evaluation is indicated at this point in time. He has no signs or symptoms of clinical ischemia. PLAN: Plan 1. DC potassium supplement 2. Repeat BNP today and BMP tomorrow 3. From a cardiovascular perspective the patient is decided he is can to follow-up in [place] with his primary manager immunology or if he is going to be seen in the [facility] which ever he needs to be seen in 7 to 10 days after discharge. 4. From a cardiovascular perspective the patient should be able to be discharged in the next 24 to 48 hours. 5. If further assistance is needed please contact Dr. Ching starting tomorrow morning he will be taken over the service. If there are questions that arise please call me directly. Charges/Coding Visit Charges Inpatient E&M: 17958 Subs Hosp L2
[2025-03-23 10:04] LABS: Pro- Brain NATRIURETIC PEPTIDE 8187 pg/mL (<=1800)
[2025-03-23] MEDS: Magnesium Chloride 64 MG Delay Rel.Tablet 128 MG PO ×2 (10:15→21:43)
[2025-03-23] MEDS: Metoprolol(XL)Succ 25 MG Tablet PO (10:15)
[2025-03-23] MEDS: Aspirin E.C. 81 MG Tablet PO (10:15)
--- NOTE | 2025-03-23 11:41 | CHAPLAIN ---
Type of Pastoral Visit ___ Initial Visit _x__ Follow-up Visit ___ On-call Visit ___ General Patient Visit ___ Spiritual Assessment ___ Family Conference ___ Bereavement ___ Rapid Response ___ Code Blue ___ Other (describe below) Pastoral Care Referral From _x__ Patient _x__ Family ___ Nurse ___ Physician ___ Piercer Operator ___ Sales Professional ___ Other (describe below) Sacrament/Intervention _x__ Active listening ___ Anointing ___ Sikh ___ Bereavement ___ Communion ___ Michelle exploration ___ _x__ Life review _x__ Prayer ___ Reconciliation ___ Sacrament of Sick _x__ Supportive presence ___ Wedding ___ Other (describe below) Pastoral Comments patient is more available today as the attempt yesterday came up against more visitors and staff interventions; pt is shaving and 'wanting to look and feel better'; pt hopes to be discharged tomorrow and says he is better, not even using O2 at this time; daughter and granddaughter are in the room; daughter requests prayer and father agrees; asked about pt's life with work and family; family expresses thanks for the support
--- NOTE | 2025-03-23 13:50 | PN_ITS ---
Subjective Subjective Patient seen and examined. He was sitting comfortably in his chair having breakfast. He had no active complaints and review of systems otherwise negative. He was on 2 L of oxygen at time of review but was subsequently weaned down to room air. Review of systems otherwise negative. Objective Data Objective Data Vital Signs: Vital Signs Temp Pulse Resp BP Pulse Ox O2 Del Method O2 Flow Rate 97.8 F 62 18 130/65 H 95 Room Air 2 03/23/25 10:11 03/23/25 10:15 03/23/25 10:11 03/23/25 10:11 03/23/25 10:38 03/23/25 10:38 03/23/25 10:11 FiO2 25 03/23/25 03:05 Oxygen Flow Rate (L/min) 2 Oxygen Delivery Method Room Air Weight: 180 lb 12.465 oz Body Mass Index (BMI) 25.9 Intake & Output: Intake and Output for Last 24 Hours 03/21/25 03/22/25 03/23/25 23:59 23:59 23:59 Intake Total 340 / 340 800 / 800 Output Total 775 / 1100 700 / 700 250 / 250 Balance -435 / -760 100 / 100 -250 / -250 Lab / Micro Data 03/23/25 04:44 03/23/25 04:44 Labs: Laboratory Results - last 24 hr 03/22/25 16:45: POC Glucose 74 03/22/25 20:50: POC Glucose 159 H 03/23/25 04:44: WBC 7.3, RBC 4.67, Hgb 15.1, Hct 45.2, MCV 96.8 H, MCH 32.3 H, MCHC 33.4, RDW Std Deviation 48.5 H, RDW Coeff of Adri 13.5, Plt Count 191, MPV 9.2, Immature Gran % (Auto) 0.500, Neut % (Auto) 71.2 H, Lymph % (Auto) 13.6 L, Larue % (Auto) 14.3 H, Eos % (Auto) 0.1, Baso % (Auto) 0.3, Absolute Neuts (auto) 5.2, Absolute Lymphs (auto) 1.00, Nucleated RBC % 0, Sodium 136, Potassium 5.1, Chloride 103, Carbon Dioxide 24.3, Anion Gap 9, BUN 47 H, Creatinine 1.58 H, E stim Creat Clear Calc 37.22 L, Est GFR (MDRD) Non-Af 43 L, BUN/Creatinine Ratio 29.6 H, Glucose 100 H, Calcium 8.8, NT pro BNP II 8187 H 03/23/25 06:44: POC Glucose 103 03/23/25 12:40: POC Glucose 212 H Micro: Microbiology 03/20/25 03:42 Blood Culture (Wb) - Anticubital Right Blood Culture - Preliminary No growth in 48 hours. 03/20/25 07:12 Mucosa - Nasopharyngeal Respiratory Panel (PCR) - Final 03/20/25 07:30 Urine, Clean Catch Legionella Antigen - Final 03/20/25 07:30 Urine, Clean Catch Streptococcus pneumoniae Antigen (M - Final 03/20/25 02:16 Mucosa - Nose SARS-CoV-2, Influenza & RSV (PCR) - Final Rhythm Strip Rhythm Strip: Atrially paced rhythm Rate: 61 Ectopy: PVC(s) Physical Exam Const alert, oriented x3, no apparent distress and average body habitus General Appearance: cooperative HEENT normocephalic, head/scalp atraumatic, hearing grossly normal bilaterally, moist oral mucous membranes and oropharynx normal Eyes PERRL, EOMs intact bilaterally and conjunctivae normal Neck no lymphadenopathy, supple and no JVD Lymph Lymphatic: no lymphedema noted Resp normal respiratory effort Resp Narrative: Mildly diminished breath sounds bibasilarly. No wheezes or crackles.On room air. Auscultation: crackles and rales; Negative for rhonchi or wheezes Cardio regular rate, regular rhythm, S1 normal heart sound, S2 normal heart sound and no murmurs GI normal to inspection, nondistended, normoactive bowel sounds, soft to palpation, non-tender and non-distended GI Narrative: Obese. Extremity normal capillary refill Extremity Narrative: Trace to 1+ bilateral lower extremity pitting edema, no cyanosis or clubbing General Extremity: no tenderness to palpation of joints or extremities Skin General Skin Exam: no breakdown Neuro oriented x3, CN's II-XII intact bilaterally, moves all extremities and no focal motor deficits Sensorium / Orientation: awake and alert Speech: speech normal Motor Exam: general weakness Psych thought process normal, cooperative and affect normal Appearance: appropriate Assessment & Plan Assessment/Plan (1) Acute exacerbation of chronic heart failure: PLAN: Plan #Acute hypoxic respiratory failure due to acute on chronic heart failure with reduced ejection fraction * Now down to room air. * 2D echo done here showed EF of 10% with stage III diastolic dysfunction and severe global left ventricular dysfunction as well as severely dilated left ventricle and mild segmental systolic dysfunction of the right ventricle * On oral Lasix. On metoprolol, hydralazine and Jardiance as well as Imdur and Aldactone * Has ICD placed. Awaiting records follow-up from [facility] where patient had his previous care. * Cardiology on board. Per cardiology note today, patient planning on going back to [place] for further follow-up. If he chooses to stay in [place] cardiology to follow him about outpatient basis. * #Elevated troponin: Thought to be due to demand ischemia in light of the hypoxia. 2D echo as above. For cardiac cath once kidney function improves #Elevated creatinine: Creatinine today is 1.67. Was 1.42 yesterday. No clear baseline 1. Records pending from [facility]. I do suspect that this is likely CKD and not ANTHONY. Will monitor closely. #Type 2 diabetes mellitus: On NPH insulin. On Jardiance. Insulin sliding scale. Accu-Cheks ACHS. #Benign essential hypertension: On Imdur and hydralazine as well as Aldactone and metoprolol #hyperlipidemia: On statin #CAD: On aspirin and statin as well as Plavix. 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 Patient is a longtime chronic smoker. Counseled to quit. 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 * However today patient tells me that his daughter makes decisions for him and so he is waiting for his daughter to call so she has this discussion with cardiology to determine whether he will get follow up care in [place]. Charges/Coding Visit Charges Inpatient E&M: 51064 Subs Hosp L2
--- NOTE | 2025-03-23 15:44 | CASEMGMT ---
Social Work SW spoke with the patient regrading HH at discharge. Patient reported he does not want HH. Patient may need a RW at discharge. Patient is currently using a RW during therapy. KEIRA Tompkins
[2025-03-23] MEDS: Insulin Human 75/25 Kwickpen 20 UNIT SC (21:43)
[2025-03-24 01:20] VITALS: BP 110/70; PULSE 61; RESP 18; TEMP 35.9; O2SAT 96
[2025-03-24 05:13] VITALS: BP 136/74; PULSE 61
[2025-03-24 05:51] VITALS: BMI 25.0
[2025-03-24 05:59] LABS: Hematocrit 47.8 % (40-54); Hemoglobin 16.2 g/dL (13.0-16.5); Immature Granulocytes Count 0.040 X10^3/uL (0.0-0.0); Mean Corp Hgb Conc 33.9 g/dL (32-36); Mean Corpuscular Volume 95.2 fL (80-94); Mean Platelet Vol. 9.5 fl (6.2-12.0); NRBC Flagged by Analyzer 0 % (0-5); Platelet Count 191 K/mm3 (150-450); RBC Distribution Width CV 13.1 % (11.6-14.6); RBC Distribution Width SD 46.0 fl (35.1-43.9); Red Blood Count 5.02 M/mm3 (4.6-6.2); White Blood Count 7.2 K/mm3 (4.4-11.0)
[2025-03-24 06:11] LABS: Anion Gap 13 (5-15); BUN 48 mg/dL (4-19); BUN/Creat Ratio 31.0 RATIO (10-20); Calcium,Total 9.1 mg/dL (7.6-11.0); Carbon Dioxide 21.9 mmol/L (21.0-32.0); Chloride 100 mmol/L (98-108); Estimated Creatinine Clearance 38.44 ml/min (50-250); Glucose 80 mg/dL (70-99); Potassium 4.6 mmol/L (3.3-5.1)
[2025-03-24 08:14] VITALS: BP 117/72; PULSE 60; RESP 16; TEMP 36.4; O2SAT 96
[2025-03-24] MEDS: Aspirin E.C. 81 MG Tablet PO (09:35)
[2025-03-24] MEDS: Insulin Human 75/25 Kwickpen 20 UNIT SC (09:35)
[2025-03-24] MEDS: Magnesium Chloride 64 MG Delay Rel.Tablet 128 MG PO (09:36)
[2025-03-24 09:37] VITALS: BP 117/72; PULSE 60
[2025-03-24] MEDS: Metoprolol(XL)Succ 25 MG Tablet PO (09:37)
--- NOTE | 2025-03-24 11:57 | DCINST_ITS ---
Discharge Instructions DC O2, CPAP, BIPAP needs Home O2 Discharge instructions: No Dressing / Incision Discharge Activity: Return to Normal Activity Weight Bearing Status: Weight bearing as tolerated Dressing / Incision Call your doctor if you observe: Fever of 101 or Higher, Shortness of breath, Dizziness, Swelling in the ankles, Chest pain and Increased palpitations (irregular heartbeat) Follow Up Care Test Results: Test results from this visit will be discussed in further detail at your follow- up appointment, if applicable. Discharge Plan Admission Admit Date/Time: 03/20/25 05:38 Primary Reason for Your Visit: acute exacerbation of heart failure Attending Provider: Lisha Ramirez Primary Care Provider: ULI ALCALA Consulting Providers: ANGEL LUIS ZAMORA; Matthew Ho; Faheem Pantoja; Sherin Webb; Aniyah Fried; Rene Nava; Chun Dallas; Jordi Odell; Nate Tavarez; Jerome Ching; Matthew Dunne; Fred Machado; Eder Pickett; Balwinder Faustin; Romi Boss; Bryn Garcia; Ron Holman; Robert Ahn NP; Mariana Downs PA; Sam Tabor; Dipti Pathak Instructions Patient Instructions: Coping with Heart Failure Additional Instructions / Restrictions: 1. Limit fluid intake to 1.5 L daily 2. Limit salt and take to no more than 2 to 3 g daily 3. Weigh yourself in the morning without close on on a daily basis and keep track of your weight. If your weight increases by more than 2 to 3 pounds in a 24-hour period please take an extra dose of Lasix and call the cardiology office Discharge Orders/Prescriptions Prescriptions: New furosemide 40 mg Tablet 40 mg PO DAILY Qty: 30 2RF hydralazine 25 mg Tablet 25 mg PO TID Qty: 90 2RF metoprolol succinate 25 mg Tablet Extended Release 24 Hr 25 mg PO DAILY Qty: 30 2RF Continued methocarbamol 500 mg tablet 500 mg PO Q6H PRN (Reason: muscle spasm) isosorbide mononitrate 60 mg tablet extended release 24 hr 60 mg PO DAILY atorvastatin [Lipitor] 40 mg tablet 40 mg PO DAILY finasteride 5 mg tablet 5 mg PO DAILY spironolactone [Aldactone] 25 mg tablet 25 mg PO DAILY ranolazine 1,000 mg tablet extended release 12 hr 1,000 mg PO BID aspirin 81 mg tablet 81 mg PO DAILY clopidogrel 75 mg tablet 75 mg PO DAILY Jardiance 10 mg tablet 10 mg PO DAILY insulin lispro protamin-lispro [Humalog Mix 75-25 KwikPen] 100 unit/mL (75-25) insulin pen 20 unit subcut BID Discontinued hydralazine 10 mg tablet 10 mg PO BID Referrals / Follow Up: ULI ALCALA [Other] - Within 1 Week Chun Dallas MD [Med Staff - Active Staff, Cardiology] - Within 2 Weeks [facility],Out of [Non-Staff, Medical] Disposition Disposition (needs filled in before D/C Order can be placed): Home, Self Care
--- NOTE | 2025-03-24 11:58 | DS.PCM_ITS ---
Providers Date of Admission: 03/20/25 Primary Care Physician: ULI ALCALA Consultations 03/20/25 06:49 Consult: Cardiology Routine Consulting Provider: [facility] Reason for Consult: AE CHF and Chest Tightness. EMERGENT Consult: No MD Notified: Yes Date Notified: 03/20/25 Time Notified: 07:58 Method of Notification: Verbal Method of Consult:: In-Person Reason For Visit: AE CHF, AE COPD, PNA, RESP FAILURE & Diagnosis Discharge Diagnosis (1) Acute exacerbation of chronic heart failure: Status: Acute Code(s): I50.9 - Heart failure, unspecified Plan #Acute hypoxic respiratory failure due to acute on chronic heart failure with reduced ejection fraction * Now down to room air. * 2D echo done here showed EF of 10% with stage III diastolic dysfunction and severe global left ventricular dysfunction as well as severely dilated left ventricle and mild segmental systolic dysfunction of the right ventricle * On oral Lasix. On metoprolol, hydralazine and Jardiance as well as Imdur and Aldactone * Has ICD placed. Awaiting records follow-up from [facility] where patient had his previous care. * Cardiology on board. Per cardiology note today, patient planning on going back to [place] for further follow-up. If he chooses to stay in [place] cardiology to follow him about outpatient basis. * #Elevated troponin: Thought to be due to demand ischemia in light of the hypoxia. 2D echo as above. For cardiac cath once kidney function improves #Elevated creatinine: Creatinine today is 1.67. Was 1.42 yesterday. No clear baseline 1. Records pending from [facility]. I do suspect that this is likely CKD and not ANTHONY. Will monitor closely. #Type 2 diabetes mellitus: On NPH insulin. On Jardiance. Insulin sliding scale. Accu-Cheks ACHS. #Benign essential hypertension: On Imdur and hydralazine as well as Aldactone and metoprolol #hyperlipidemia: On statin #CAD: On aspirin and statin as well as Plavix. 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 Patient is a longtime chronic smoker. Counseled to quit. 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 * However today patient tells me that his daughter makes decisions for him and so he is waiting for his daughter to call so she has this discussion with cardiology to determine whether he will get follow up care in [place]. Medications at Discharge Home Medications aspirin 81 mg tablet 81 mg PO DAILY 03/20/25 atorvastatin 40 mg tablet (Lipitor) 40 mg PO DAILY 03/20/25 clopidogrel 75 mg tablet 75 mg PO DAILY 03/20/25 empagliflozin 10 mg tablet (Jardiance) 10 mg PO DAILY 03/20/25 finasteride 5 mg tablet 5 mg PO DAILY 03/20/25 insulin lispro protamine-lispro 100 unit/mL (75-25) subcutaneous pen (Humalog Mix 75-25 KwikPen) 20 unit subcut BID 03/20/25 isosorbide mononitrate 60 mg tablet,extended release 24 hr 60 mg PO DAILY 03/20/25 methocarbamol 500 mg tablet 500 mg PO Q6H PRN muscle spasm 03/20/25 ranolazine 1,000 mg tablet,extended release,12 hr 1,000 mg PO BID 03/20/25 spironolactone 25 mg tablet (Aldactone) 25 mg PO DAILY 03/20/25 furosemide 40 mg tablet 40 mg PO DAILY #30 tabs 03/24/25 hydralazine 25 mg tablet 25 mg PO TID #90 tabs 03/24/25 metoprolol succinate 25 mg tablet,extended release 24 hr 25 mg PO DAILY #30 tabs 03/24/25 Weight / BMI Weight Weight: 174 lb 13.225 oz Body Mass Index (BMI) 25.0 ABG / Lab / Microbiology Data 03/24/25 05:04 03/24/25 05:04 Laboratory: Laboratory Results - last 24 hr 03/23/25 12:40: POC Glucose 212 H 03/23/25 16:11: POC Glucose 222 H 03/23/25 21:37: POC Glucose 232 H 03/24/25 05:04: WBC 7.2, RBC 5.02, Hgb 16.2, Hct 47.8, MCV 95.2 H, MCH 32.3 H, MCHC 33.9, RDW Std Deviation 46.0 H, RDW Coeff of Adri 13.1, Plt Count 191, MPV 9.5, Immature Gran % (Auto) 0.600, Neut % (Auto) 72.5 H, Lymph % (Auto) 13.0 L, Dane % (Auto) 13.2 H, Eos % (Auto) 0.3, Baso % (Auto) 0.4, Absolute Neuts (auto) 5.2, Absolute Lymphs (auto) 0.94, Nucleated RBC % 0, Sodium 135, Potassium 4.6, Chloride 100, Carbon Dioxide 21.9, Anion Gap 13, BUN 48 H, Creatinine 1.53 H, E stim Creat Clear Calc 38.44 L, Est GFR (MDRD) Non-Af 45 L, BUN/Creatinine Ratio 31.0 H, Glucose 80, Calcium 9.1 03/24/25 06:34: POC Glucose 110 H Microbiology: Microbiology 03/20/25 03:42 Blood Culture (Wb) - Anticubital Right Blood Culture - Preliminary No growth in 48 hours. 03/20/25 07:12 Mucosa - Nasopharyngeal Respiratory Panel (PCR) - Final 03/20/25 07:30 Urine, Clean Catch Legionella Antigen - Final 03/20/25 07:30 Urine, Clean Catch Streptococcus pneumoniae Antigen (M - Final 03/20/25 02:16 Mucosa - Nose SARS-CoV-2, Influenza & RSV (PCR) - Final D/C Instructions Weight Bearing Status: Weight bearing as tolerated Call your doctor if you observe: Fever of 101 or Higher, Shortness of breath, Dizziness, Swelling in the ankles, Chest pain and Increased palpitations (irregular heartbeat) DC O2, CPAP, BIPAP Needs Home O2 Discharge instructions: No Discharge Plan Admission Admit Date/Time: 03/20/25 05:38 Primary Reason for Your Visit: acute exacerbation of heart failure Attending Provider: Lisha Ramirez Primary Care Provider: ULI ALCALA Consulting Providers: ANGEL LUIS ZAMORA; Matthew Ho; Faheem Pantoja; Sherin Webb; Aniyah Fried; Rene Nava; Chun Dallas; Jordi Odell; Nate Tavarez; Jerome Ching; Matthew Dunne; Fred Machado; Eder Pickett; Balwinder Faustin; Gera,Romi; Radha,Bryn; Ron Holman; Robert Ahn NP; Mariana Downs; Sam Tabor; Dipti Pathak Instructions Patient Instructions: Coping with Heart Failure Additional Instructions / Restrictions: 1. Limit fluid intake to 1.5 L daily 2. Limit salt and take to no more than 2 to 3 g daily 3. Weigh yourself in the morning without close on on a daily basis and keep track of your weight. If your weight increases by more than 2 to 3 pounds in a 24-hour period please take an extra dose of Lasix and call the cardiology office Discharge Orders/Prescriptions Prescriptions: New furosemide 40 mg Tablet 40 mg PO DAILY Qty: 30 2RF hydralazine 25 mg Tablet 25 mg PO TID Qty: 90 2RF metoprolol succinate 25 mg Tablet Extended Release 24 Hr 25 mg PO DAILY Qty: 30 2RF Continued methocarbamol 500 mg tablet 500 mg PO Q6H PRN (Reason: muscle spasm) isosorbide mononitrate 60 mg tablet extended release 24 hr 60 mg PO DAILY atorvastatin [Lipitor] 40 mg tablet 40 mg PO DAILY finasteride 5 mg tablet 5 mg PO DAILY spironolactone [Aldactone] 25 mg tablet 25 mg PO DAILY ranolazine 1,000 mg tablet extended release 12 hr 1,000 mg PO BID aspirin 81 mg tablet 81 mg PO DAILY clopidogrel 75 mg tablet 75 mg PO DAILY Jardiance 10 mg tablet 10 mg PO DAILY insulin lispro protamin-lispro [Humalog Mix 75-25 KwikPen] 100 unit/mL (75-25) insulin pen 20 unit subcut BID Discontinued hydralazine 10 mg tablet 10 mg PO BID Referrals / Follow Up: ULI ALCALA [Other] - Within 1 Week Chun Dallas MD [Med Staff - Active Staff] - Within 2 Weeks [facility] Doctor,Out of [Non-Staff] Disposition Disposition (needs filled in before D/C Order can be placed): Home, Self Care
--- NOTE | 2025-03-24 11:58 | PCM.DC.SUM ---
Providers Date of Admission: 03/20/25 Date of Discharge: 03/24/25 Primary Care Physician: ULI ALCALA Consultations 03/20/25 06:49 Consult: Cardiology Routine Consulting Provider: Conrad Welsh Reason for Consult: AE CHF and Chest Tightness. EMERGENT Consult: No MD Notified: Yes Date Notified: 03/20/25 Time Notified: 07:58 Method of Notification: Verbal Method of Consult:: In-Person Reason For Visit: AE CHF, AE COPD, PNA, RESP FAILURE & Diagnosis Discharge Diagnosis (1) Acute exacerbation of chronic heart failure: Status: Acute Code(s): I50.9 - Heart failure, unspecified Plan #Acute hypoxic respiratory failure due to acute on chronic heart failure with reduced ejection fraction Now down to room air. 2D echo done here showed EF of 10% with stage III diastolic dysfunction and severe global left ventricular dysfunction as well as severely dilated left ventricle and mild segmental systolic dysfunction of the right ventricle On oral Lasix. On metoprolol, hydralazine and Jardiance as well as Imdur and Aldactone Has ICD placed. Awaiting records follow-up from [facility] where patient had his previous care. Cardiology on board. Per cardiology note today, patient planning on going back to [place] for further follow-up. If he chooses to stay in [place] cardiology to follow him about outpatient basis. #Elevated troponin: Thought to be due to demand ischemia in light of the hypoxia. 2D echo as above. For cardiac cath once kidney function improves #Elevated creatinine: Creatinine today is 1.67. Was 1.42 yesterday. No clear baseline 1. Records pending from [facility]. I do suspect that this is likely CKD and not ANTHONY. Will monitor closely. #Type 2 diabetes mellitus: On NPH insulin. On Jardiance. Insulin sliding scale. Accu-Cheks ACHS. #Benign essential hypertension: On Imdur and hydralazine as well as Aldactone and metoprolol #hyperlipidemia: On statin #CAD: On aspirin and statin as well as Plavix. 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 Patient is a longtime chronic smoker. Counseled to quit. 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 However today patient tells me that his daughter makes decisions for him and so he is waiting for his daughter to call so she has this discussion with cardiology to determine whether he will get follow up care in [place]. Medications at Discharge Home Medications aspirin 81 mg tablet 81 mg PO DAILY heart health 03/20/25 atorvastatin 40 mg tablet (Lipitor) 40 mg PO DAILY cholesterol 03/20/25 clopidogrel 75 mg tablet 75 mg PO DAILY anti platelet 03/20/25 empagliflozin 10 mg tablet (Jardiance) 10 mg PO DAILY diabetes 03/20/25 finasteride 5 mg tablet 5 mg PO DAILY prostate 03/20/25 insulin lispro protamine-lispro 100 unit/mL (75-25) subcutaneous pen (Humalog Mix 75-25 KwikPen) 20 unit subcut BID diabetes 03/20/25 methocarbamol 500 mg tablet 500 mg PO Q6H PRN muscle spasm 03/20/25 ranolazine 1,000 mg tablet,extended release,12 hr 1,000 mg PO BID heart 03/20/25 spironolactone 25 mg tablet (Aldactone) 25 mg PO DAILY diuretic 03/20/25 furosemide 40 mg tablet 40 mg PO DAILY #30 tabs 03/24/25 hydralazine 25 mg tablet 25 mg PO TID #90 tabs 03/24/25 isosorbide mononitrate 60 mg tablet,extended release 24 hr 60 mg PO DAILY #30 tabs 03/24/25 metoprolol succinate 25 mg tablet,extended release 24 hr 25 mg PO DAILY #30 tabs 03/24/25 Hospital Course Operations None Procedures 2-D Echocardiogram Summary of Care Provided Minutes Spent on Discharge: 45 Hospital Course: Patient is an 80-year-old male with a past medical history as outlined was admitted to the ED on 03/20/2025 with complaint of chest tightness and shortness of breath. He has a history of CHF and CAD s/p CABG and stents. He had a history of mechanical fall with multiple rib fractures and resulting pneumothorax in January 2025 which have resulted in him leaving [place] to stay with his daughter locally. He came into the ED with the above-mentioned complaints which have been going on for 2 days. He claims compliance with his medications and said he had bilateral lower extremity edema. He has no other complaints. proBNP was elevated at 7412 and chest x-ray showed pulmonary vascular congestion with moderate right pleural effusion with pacemaker in place in addition to sternotomy wires in place consistent with acute exacerbation of heart failure. EF was unknown as he had had all his previous workup done and was retaining. He was admitted and managed for acute hypoxic respiratory failure also as he was requiring BiPAP. ABG done showed pH of 7.32 with pCO2 of 45 and pO2 of 141 whilst on BiPAP. There was also concern for pneumonia. He was admitted and managed for acute hypoxic respiratory failure due to acute exacerbation of COPD with probable superimposed pneumonia as well as acute exacerbation of heart failure with unknown EF. He was diuresed with IV Lasix and started on IV ceftriaxone and azithromycin. Urine for strep and Legionella were negative. Cardiology was consulted. He had 2D echo which showed EF of 10% and stage III diastolic dysfunction as well as severe global left ventricular systolic dysfunction and severely dilated left ventricle. His Lasix was switched to oral Lasix per cardiology. He was continued on his metoprolol, hydralazine and Jardiance. Records were requested from [facility] where patient had his previous care. Cardiology reviewed him and felt that patient could follow-up on outpatient basis for any further workup as needed after they reviewed his [place] cardiology reports. Of note his troponins were minimally elevated at 61, 56 and 75 and was thought that this represented a demand ischemia in a patient with known left ventricular dysfunction and cardiology did not feel that any further invasive or noninvasive ischemic evaluation was indicated at this point in time. Patient was therefore discharged home as his daughter preferred that he stayed in the area and did not return to [place] for follow-up care. He was discharged home on 03/24/2025 on p.o. Lasix. His hydralazine was increased from 10 mg 3 times daily to 25 mg 3 times daily. He was also placed on metoprolol 25 mg daily. He was continued on his Imdur and high intensity statin as well as aspirin, Plavix and ranolazine, Jardiance and spironolactone. He is to follow-up with his primary care doctor and follow-up with cardiology within 1 to 2 weeks. Patient seen and examined prior to discharge. He had no active complaints. He was on room air. He had an uneventful night. Review of systems otherwise negative. Labs and vitals reviewed. Home medication reviewed and reconciled. Physical Exam Const alert, oriented x3, no apparent distress and average body habitus General Appearance: cooperative and comfortable Orientation / Consciousness: awake HEENT normocephalic, head/scalp atraumatic, hearing grossly normal bilaterally, moist oral mucous membranes and oropharynx normal Mouth: oral and palatal mucosa normal Eyes PERRL, EOMs intact bilaterally and conjunctivae normal Neck no lymphadenopathy, supple and no JVD Lymph Lymphatic: no lymphedema noted Resp normal respiratory effort, no retractions, no use of accessory muscles and clear to auscultation bilaterally Cardio regular rate, regular rhythm, S1 normal heart sound, S2 normal heart sound and no murmurs GI normal to inspection, nondistended, normoactive bowel sounds, soft to palpation, non-tender and non-distended GI Narrative: Obese. Extremity normal to inspection, full ROM, normal capillary refill, no clubbing, cyanosis or edema and no calf tenderness General Extremity: no tenderness to palpation of joints or extremities Skin Skin Narrative: Patient has no evidence of rash, abscess, wounds or jaundice. General Skin Exam: no breakdown Neuro oriented x3, CN's II-XII intact bilaterally, moves all extremities and no focal motor deficits Sensorium / Orientation: awake, alert, oriented to person, oriented to place and oriented to time Speech: speech normal Motor Exam: general weakness Psych thought process normal, cooperative and affect normal Appearance: appropriate Weight / BMI Weight Weight: 174 lb 13.225 oz Body Mass Index (BMI) 25.0 ABG / Lab / Microbiology Data 03/24/25 05:04 03/24/25 05:04 Laboratory: Laboratory Results - last 24 hr 03/23/25 16:11: POC Glucose 222 H 03/23/25 21:37: POC Glucose 232 H 03/24/25 05:04: WBC 7.2, RBC 5.02, Hgb 16.2, Hct 47.8, MCV 95.2 H, MCH 32.3 H, MCHC 33.9, RDW Std Deviation 46.0 H, RDW Coeff of Adri 13.1, Plt Count 191, MPV 9.5, Immature Gran % (Auto) 0.600, Neut % (Auto) 72.5 H, Lymph % (Auto) 13.0 L, [place] % (Auto) 13.2 H, Eos % (Auto) 0.3, Baso % (Auto) 0.4, Absolute Neuts (auto) 5.2, Absolute Lymphs (auto) 0.94, Nucleated RBC % 0, Sodium 135, Potassium 4.6, Chloride 100, Carbon Dioxide 21.9, Anion Gap 13, BUN 48 H, Creatinine 1.53 H, Estim Creat Clear Calc 38.44 L, Est GFR (MDRD) Non-Af 45 L, BUN/Creatinine Ratio 31.0 H, Glucose 80, Calcium 9.1 03/24/25 06:34: POC Glucose 110 H 03/24/25 11:46: POC Glucose 190 H Microbiology: Microbiology 03/20/25 03:42 Blood Culture (Wb) - Anticubital Right Blood Culture - Preliminary No growth in 48 hours. 03/20/25 07:12 Mucosa - Nasopharyngeal Respiratory Panel (PCR) - Final 03/20/25 07:30 Urine, Clean Catch Legionella Antigen - Final 03/20/25 07:30 Urine, Clean Catch Streptococcus pneumoniae Antigen (M - Final 03/20/25 02:16 Mucosa - Nose SARS-CoV-2, Influenza & RSV (PCR) - Final D/C Instructions Discharge Activity: Return to Normal Activity Weight Bearing Status: Weight bearing as tolerated Call your doctor if you observe: Fever of 101 or Higher, Shortness of breath, Dizziness, Swelling in the ankles, Chest pain and Increased palpitations (irregular heartbeat) DC O2, CPAP, BIPAP Needs Home O2 Discharge instructions: No DC home with Oxygen: No Meaningful Use Info Meaningful Use Meaningful Use Diagnoses (Choose all that apply): CHF CHF PADMINI/ARB ordered at discharge?: No Reason PADMINI/ARB not ordered?: Worsening renal disease Documented LVEF (%): 10 Discharge Plan Admission Admit Date/Time: 03/20/25 05:38 Primary Reason for Your Visit: acute exacerbation of heart failure Attending Provider: Lisha Ramirez Primary Care Provider: ULI ALCALA Consulting Providers: ANGEL LUIS ZAMORA; Matthew Ho; Faheem Pantoja; Sherin Webb; Aniyah Fried; Rene Nava; Chun Dallas; Jordi Odell; Nate Tavarez; Jerome Ching; Matthew Dunne; Fred Machado; Eder Pickett; Balwinder Faustin; Romi Boss; Bryn Garcia; Ron Holman; Robert Ahn NP; Mariana Downs; Sam Tabor; Dipti Pathak Instructions Patient Instructions: Coping with Heart Failure Additional Instructions / Restrictions: 1. Limit fluid intake to 1.5 L daily 2. Limit salt and take to no more than 2 to 3 g daily 3. Weigh yourself in the morning without close on on a daily basis and keep track of your weight. If your weight increases by more than 2 to 3 pounds in a 24-hour period please take an extra dose of Lasix and call the cardiology office Discharge Orders/Prescriptions Prescriptions: New furosemide 40 mg Tablet 40 mg PO DAILY Qty: 30 2RF hydralazine 25 mg Tablet 25 mg PO TID Qty: 90 2RF metoprolol succinate 25 mg Tablet Extended Release 24 Hr 25 mg PO DAILY Qty: 30 2RF isosorbide mononitrate 60 mg Tablet Extended Release 24 Hr 60 mg PO DAILY Qty: 30 2RF Continued methocarbamol 500 mg tablet 500 mg PO Q6H PRN (Reason: muscle spasm) atorvastatin [Lipitor] 40 mg tablet 40 mg PO DAILY finasteride 5 mg tablet 5 mg PO DAILY spironolactone [Aldactone] 25 mg tablet 25 mg PO DAILY ranolazine 1,000 mg tablet extended release 12 hr 1,000 mg PO BID aspirin 81 mg tablet 81 mg PO DAILY clopidogrel 75 mg tablet 75 mg PO DAILY Jardiance 10 mg tablet 10 mg PO DAILY insulin lispro protamin-lispro [Humalog Mix 75-25 KwikPen] 100 unit/mL (75-25) insulin pen 20 unit subcut BID Discontinued isosorbide mononitrate 60 mg tablet extended release 24 hr 60 mg PO DAILY hydralazine 10 mg tablet 10 mg PO BID Referrals / Follow Up: ULI ALCALA [Other] - Within 1 Week Chun Dallas MD [Med Staff - Active Staff, Cardiology] - Within 2 Weeks [facility] Doctor,Out of [Non-Staff, Medical] Disposition Disposition (needs filled in before D/C Order can be placed): Home, Self Care Charges/Coding Visit Charges Inpatient E&M: 67919 Disch Hosp >30min
--- NOTE | 2025-03-24 12:38 | CASEMGMT ---
Addendum entered by Dahlia Chacon 03/24/25 12:49: SW spoke with the daughter and patient regarding HH. The daughter reported they do not want HH right now. The daughter reported the patient has an appt. at [facility] and she is going to wait until then and see how he is doing. Original Note: Social Work SW ordered the rolling walker. SW informed the patient that the rolling walker has been ordered. KEIRA Tompkins
--- NOTE | 2025-03-24 13:22 | CASEMGMT ---
Social Work SW delivered the patient a RW per [facility] at [facility] request. GEORGINA got the RW from stock on hand. KEIRA Tompkins
--- NOTE | 2025-03-24 15:19 | PHA.DC_ITS ---
Pharmacy [facility] Counseling Pharmacy Service has performed discharge medication reconciliation and counseling for this patient. 1. LASIX 40MG PO DAILY 2. METOPROLOL SUCCINATE 25MG PO DAILY 3. HYDRALAZINE CHANGED TO 25MG PO TID The patient's discharge medication list was reviewed for discrepancies and discrepancies were resolved. The patient was counseled on the following discharge medications and changes in medications for homegoing were reviewed. The Reason for Use, instructions for use, and potential side effects were reviewed for all new medications. The patient's questions regarding all of their medications were answered. The patient was able to verbally demonstrate an understanding of their discharge medications. Medications at Discharge Home Medications aspirin 81 mg tablet 81 mg PO DAILY heart health 03/20/25 atorvastatin 40 mg tablet (Lipitor) 40 mg PO DAILY cholesterol 03/20/25 clopidogrel 75 mg tablet 75 mg PO DAILY anti platelet 03/20/25 empagliflozin 10 mg tablet (Jardiance) 10 mg PO DAILY diabetes 03/20/25 finasteride 5 mg tablet 5 mg PO DAILY prostate 03/20/25 insulin lispro protamine-lispro 100 unit/mL (75-25) subcutaneous pen (Humalog Mix 75-25 KwikPen) 20 unit subcut BID diabetes 03/20/25 methocarbamol 500 mg tablet 500 mg PO Q6H PRN muscle spasm 03/20/25 ranolazine 1,000 mg tablet,extended release,12 hr 1,000 mg PO BID heart 03/20/25 spironolactone 25 mg tablet (Aldactone) 25 mg PO DAILY diuretic 03/20/25 furosemide 40 mg tablet 40 mg PO DAILY #30 tabs 03/24/25 hydralazine 25 mg tablet 25 mg PO TID #90 tabs 03/24/25 isosorbide mononitrate 60 mg tablet,extended release 24 hr 60 mg PO DAILY #30 tabs 03/24/25 metoprolol succinate 25 mg tablet,extended release 24 hr 25 mg PO DAILY #30 tabs 03/24/25
[2025-03-24 15:25] VITALS: BP 118/70; PULSE 60; RESP 16; TEMP 36.5; O2SAT 98
== END 2025-03-24 16:01 | disposition home or self-care (01) | DRG 291 ==
LOC: ED 02:48 → PCU 05:54
PROVIDERS: Internal Medicine; Internal Medicine Cardiovascular Disease; Admitting Provider Internal Medicine; Emergency Provider Surgery; Visit Provider Student in an Organized Health Care Education/Training Program
DX: I13.0 Hypertensive heart and chronic kidney disease with heart failure and stage 1 through stage 4 chronic kidney disease, or unspecified chronic kidney disease (principal); J96.01 Acute respiratory failure with hypoxia; J18.9 Pneumonia, unspecified organism; I50.23 Acute on chronic systolic (congestive) heart failure; I24.89 Other forms of acute ischemic heart disease; E87.20 Acidosis, unspecified; J44.1 Chronic obstructive pulmonary disease with (acute) exacerbation; N13.8 Other obstructive and reflux uropathy; Z66 Do not resuscitate; E11.22 Type 2 diabetes mellitus with diabetic chronic kidney disease; N18.32 Chronic kidney disease, stage 3b; Z68.31 Body mass index [BMI] 31.0-31.9, adult; I25.5 Ischemic cardiomyopathy; M47.9 Spondylosis, unspecified; I25.10 Atherosclerotic heart disease of native coronary artery without angina pectoris; E78.5 Hyperlipidemia, unspecified; F17.210 Nicotine dependence, cigarettes, uncomplicated; I44.7 Left bundle-branch block, unspecified; Z79.4 Long term (current) use of insulin; W19.XXXD Unspecified fall, subsequent encounter; F17.290 Nicotine dependence, other tobacco product, uncomplicated; Z95.5 Presence of coronary angioplasty implant and graft; Z79.52 Long term (current) use of systemic steroids; Z79.01 Long term (current) use of anticoagulants; Z79.899 Other long term (current) drug therapy; Z79.82 Long term (current) use of aspirin; E66.811 Obesity, class 1; Z79.02 Long term (current) use of antithrombotics/antiplatelets; N40.1 Benign prostatic hyperplasia with lower urinary tract symptoms; Z95.1 Presence of aortocoronary bypass graft; S22.49XD Multiple fractures of ribs, unspecified side, subsequent encounter for fracture with routine healing; Z95.810 Presence of automatic (implantable) cardiac defibrillator
CPT/HCPCS: 36415; 36600; 71045; 71275; 80048; 80053; 80061; 81001; 82803; 82962; 83036; 83605; 83735; 83880; 84100; 84443; 84484; 85025; 85027; 85379; 87040; 87449; 87631; 87633; 93005; 93306; 94002; 94003; 94640; 94668; 97116; 97162; 97166; 97530; 97535; 97802; 99252; 99285; Q9957; Q9967; A4216; C8929; G0463; J1938

== ENCOUNTER → 2025-04-23 | Outpatient (CLI) | payer MEDICARE, SELFPAY ==
[2025-04-23 11:34] LABS: AST(SGOT) 20 U/L (<=37); Alanine Aminotransfer ALT/SGPT 22 U/L (<=46); Albumin, Serum 3.8 g/dL (3.4-4.8); Alkaline Phosphatase 72 U/L (40-129); Anion Gap 9 (5-15); BUN 31 mg/dL (4-19); BUN/Creat Ratio 18.2 RATIO (10-20); Calcium,Total 9.2 mg/dL (7.6-11.0); Carbon Dioxide 24.4 mmol/L (21.0-32.0); Chloride 105 mmol/L (98-108); Globulin 3.5 g/dL (2.2-4.2); Glucose 69 mg/dL (70-99); Potassium 4.4 mmol/L (3.3-5.1); Pro- Brain NATRIURETIC PEPTIDE 5608 pg/mL (<=1800)
== END | disposition home or self-care (01) ==
LOC: LAB 10:52
PROVIDERS: Referring Provider Internal Medicine Cardiovascular Disease; Visit Provider Internal Medicine Cardiovascular Disease
DX: I50.9 Heart failure, unspecified (principal)
CPT/HCPCS: 36415; 80053; 83880

== ENCOUNTER → 2025-05-25 | Outpatient (CLI) | payer MEDICARE, SELFPAY ==
[2025-05-25 15:20] LABS: Hematocrit 50.7 % (40-54); Hemoglobin 17.0 g/dL (13.0-16.5); Immature Granulocytes Count 0.030 X10^3/uL (0.0-0.0); Mean Corp Hgb Conc 33.5 g/dL (32-36); Mean Corpuscular Volume 96.0 fL (80-94); Mean Platelet Vol. 9.4 fl (6.2-12.0); NRBC Flagged by Analyzer 0 % (0-5); Platelet Count 189 K/mm3 (150-450); RBC Distribution Width CV 12.8 % (11.6-14.6); RBC Distribution Width SD 45.5 fl (35.1-43.9); Red Blood Count 5.28 M/mm3 (4.6-6.2); White Blood Count 7.1 K/mm3 (4.4-11.0)
[2025-05-25 15:56] LABS: Cholesterol 137 mg/dL (<=200); Low Density Lipoprotein Calc. 50 mg/dL; PSA,Total - Annual Screen 0.96 ng/mL (0.02-4.00); Triglycerides 240 mg/dL; Very Low Density Lipoprotein 48 mg/dL (5-40); cholesterol:hdl ratio screen 2.78
--- OUTSIDE RECORDS SUMMARY | 2025-05-25 17:41 | XMS RPT_ITS | CCD ---
Author Organization [facility] Care Team Providers Care Computer Numerical Control Operator Name Role Phone Joel RAGLAND, Dr. Staples Emergency Provider ULI ALCALA Primary Care Provider [phone] ANGEL LUIS ZAMORA Other Provider de Sherman RAGLAND, Dr. Castro Admit Provider Unavail able Grullon DO, Dr. Castro Attending Provider Unav ailDr. Jhoan Begum DO Emergency Departmen t Physician ULI ALCALA Primary Care Physician [phone] ANGEL LUIS ZAMORA Nurse Practitioner de Sherman RAGLAND, Dr. Castro Admitting Physician Judit vailable de Sherman RAGLAND, Dr. Castro Nurse Practitioner Unav ailable Scarlett JUNIOR, Dr. Mayen Nurse Practitioner Unavailabl tsering Webb MD, Dr. Duff Nurse Practitioner Unavailab gabriela Fried MD, Dr. Dill Nurse Practitioner Unavailab gabriela Nava MD, Dr. López Nurse Practitioner Burt JUNIOR, Dr. Mccollum Nurse Practitioner Jose R JUNIOR, Dr. Bacon Nurse Practitioner Corby JUNIOR, Dr. Sullivan Nurse Practitioner Unavaildulce maria Ching MD, Dr. Cano Nurse Practitioner Dr. Matthew Dunne DO Nurse Practitioner Carter JUNIOR, Dr. Ibarra Nurse Practitioner Piyush JUNIOR, Dr. Gaines Nurse Practitioner Ramin JUNIOR, Dr. Britt Nurse Practitioner Gera JUNIOR, Dr. Llanos Nurse Practitioner Unavailab gabriela Garcia MD, Dr. Clemente Nurse Practitioner [phone] River JUNIOR, Dr. Velasquez Nurse Practitioner Jimy WALL COVERING CONTRACTOR-C, Robert Dyer Nurse Practitioner Himanshu GONCALVES, Mariana Santiago Nurse Practitioner [phone] Sam Enamorado Nurse Practitioner [phone] Ashley JUNIOR, Dr. Lisha Elizabeth Attending Physician Lawson RAGLAND, Dr. Resendez Nurse Practitioner Jon JUNIOR, Dr. Duff Attending Physician Unavaila [facility] Lawson RAGLAND, Dr. Resendez Attending Physician Piyush JUNIOR, Dr. Gaines Attending Physician [phone] Ashley JUNIOR, Dr. Lisha Elizabeth Nurse Practitioner Care Physician, No Primary Primary Care Unava ilable Care Physician, No Primary Referring Unava ilable Eder Pickett Attending Unavailable Jerome Ching Attending Unavailable Eryn Bolden Primary Care Unavailable Care Physician, No Primary Referring Unava ilable Eryn Bolden Primary Care Unavailable Aliyah Garvey Attending Unavailable Matthew Grullon Admitting Unavailable Lisha Ramirez Attending Unavailable DM Consulting Unavailable DM Primary Care Unavailable Matthew Grullon Consulting Unavailable Amro, Ahmed Consulting Unavailable Sherin Webb Consulting Unavailable Karim, Adham Consulting Unavailable Mostafa, Rene Consulting Unavailable Burt, Chun Consulting Unavailable Jordi Odell Consulting Unavailable Nate Tavarez Consulting Unavailable Ciro Chingril Consulting Unavailable Matthew Dunne Consulting Unavailable Fred Machado Consulting Unavailable Eder Pickett Consulting Unavailable Balwinder Faustin Consulting UnavailRomi Melvin Consulting Unavailable Bryn Garcia Consulting Unavailable Ron Holman Consulting Unavailable Jimy WALL COVERING CONTRACTOR, Robert Dyer Consulting Unavailable Himanshu GONCALVES, Mariana M Consulting Unavail able Sam Tabor Consulting Unavailable Dipti Pathak Consulting Unavailable Eder Pickett Referring Unavailable Eder Pickett Attending Unavailable Care Physician, No Primary Primary Care Unava ilable Matthew Grullon Admitting Unavailable DM Primary Care Unavailable DM Consulting Unavailable Eder Pickett Attending Unavailable Matthew Grullon Consulting Unavailable Faheem Pantoja Consulting Unavailable Sherin Webb Consulting Unavailable Aniyah Fried Consulting Unavailable Rene Nava Consulting Unavailable Chun Dallas Consulting Unavailable Jordi Odell Consulting Unavailable Nate Tavarez Consulting Unavailable Jerome Ching Consulting Unavailable Matthew Dunne Consulting Unavailable BelFred gaytan Consulting Unavailable Eder Pickett Consulting Unavailable Franciscojomary ann, Nagapradee Consulting Unavailcristian e Azouz, Samer Consulting Unavailable Satti, Bryn Consulting Unavailable River Ron Consulting Unavailable Jimy PATTERSON, Robert Dyer Consulting Unavailable Himanshu GONCALVES, Mariana Santiago Consulting Unavail able Sam Tabor Consulting Unavailable Dipti Pathak Consulting Unavailable Lisha Ramirez Clara Consulting Unavailable Ashley Lisha Clara Attending Unavailable Sherin Webb Attending Unavailable Dipti Pathak Attending Unavailable Matthew Grullon Attending Unavailable Care Physician, No Primary Primary Care Physicia n Unavailable Care Physician, No Primary Referring Provider Un available Dr. Eder Pickett MD Referring Provider Yuan PATTERSON-C, Eryn Primary Care Physician Dr. Jerome Ching MD Attending Physician Aliyah Garvey Attending Physician Unavailable Dr. Jhoan Maldonado DO Emergency Departmen t Physician ULI ALCALA Primary Care Physician ANGEL LUIS ZAMORA Nurse Practitioner Dr. Matthew Grullon DO Admitting Physician Judit vailable Grullon DO, Dr. Castro Nurse Practitioner Unav ailable Scarlett JUNIOR, Dr. Mayen Nurse Practitioner Unavailcristian Webb MD, Dr. Duff Nurse Practitioner Unavailab gabriela Fried MD, Dr. Dill Nurse Practitioner Unavailab gabriela Nava MD, Dr. López Nurse Practitioner Burt JUNIOR, Dr. Mccollum Nurse Practitioner Jose R JUNIOR, Dr. Bacon Nurse Practitioner Corby JUNIOR, Dr. Sullivan Nurse Practitioner Unavaildulce maria Ching MD, Dr. Cano Nurse Practitioner Uzair RAGLAND, Dr. Matthew Mahmood Nurse Practitioner Carter JUNIOR, Dr. Ibarra Nurse Practitioner Piyush JUNIOR, Dr. Gaines Nurse Practitioner Ramin JUNIOR, Dr. Britt Nurse Practitioner Gera JUNIOR, Dr. Llanos Nurse Practitioner Unavailab gabriela Garcia MD, Dr. lCemente Nurse Practitioner River JUNIOR, Dr. Velasquez Nurse Practitioner Jimy WALL COVERING CONTRACTOR-C, Robert Dyer Nurse Practitioner Mariana Doherty Nurse Practitioner Sam Enamorado Nurse Practitioner Ashley JUNIOR, Dr. Lisha Elizabeth Attending Physician Lawson RAGLAND, Dr. Resendez Nurse Practitioner Jon JUNIOR, Dr. Duff Attending Physician Unavaila omi Pathak DO, Dr. Resendez Attending Physician Dr. Eder Pickett MD Attending Physician Ashley JUNIOR, Dr. Lisha Elizabeth Nurse Practitioner Care Physician, No Primary Primary Care Physicia n Unavailable Care Physician, No Primary Referring Provider Un available Dr. Eder Pickett MD Referring Provider Yuan WALL COVERING CONTRACTOR-C, Eryn Primary Care Physician Humza JUNIOR, Dr. Cano Attending Physician [phone] Aliyah Garvey Attending Physician Unavailable Medications Current Medications Medication Drug Class(es) Dates Sig (Normalized) Sig (Original) aspirin 81 mg oral tablet (5 sources) Platelet Aggregation Inhibitor, Nonsteroidal Anti-inflammatory Drug Start: 03-20-2025 take 1 tablet by mouth once daily atorvastatin 40 mg oral tablet (8 sources) HMG-CoA Reductase Inhibitor Start: 03-20-2025 End: 04-23-2025 take 1 tablet by mouth once daily clopidogrel 75 mg oral tablet (8 sources) P2Y12 Platelet Inhibitor Start: 03-20-2025 End: 04-23-2025 take 1 tablet by mouth once daily empagliflozin 10 mg oral tablet (8 sources) Sodium-Glucose Cotransporter 2 Inhibitor Start: 03-20-2025 End: 04-23-2025 take 1 tablet by mouth once daily finasteride 5 mg oral tablet (5 sources) 5-alpha Reductase Inhibitor Start: 03-20-2025 take 1 tablet by mouth once daily furosemide 40 mg oral tablet (7 sources) Loop Diuretic Start: 03-24-2025 End: 04-23-2025 take 1 tablet by mouth once daily hydrALAZINE hydrochloride 25 mg oral tablet (12 sources) Arteriolar Vasodilator Start: 03-24-2025 End: 04-23-2025 take 1 tablet by mouth three times daily Start: 03-20-2025 End: 03-24-2025 take 1 tablet by mouth twice daily Hydralazine 10 mg tablet Discontinued 10 mg PO TWICE A DAY March 19, 2025 11:00pm March 24, 2025 10:54am 3 ml insulin lispro 25 unt/m l / insulin lispro protamine, human 75 unt/ml pen injector (11 sources) Insulin Analog Start: 04-23-2025 End: 04-23-2025 Start: 03-20-2025 End: 04-23-2025 Insulin Lispro Protamin-Lisp ro (Humalog Mix 75-25 Kwikpen) 100 unit/mL (75-25) insulin pen Discontinued 20 U SC TWICE A DAY March 19, 2025 11:00pm April 23, 2025 9:54am diabetes methocarbamol 500 mg oral tablet (5 sources) Muscle Relaxant Start: 03-20-2025 take 1 tablet by mouth every six hours as needed for muscle spasms 24 hr metoprolol succinate 25 mg extended release oral tablet (4 sources) beta-Adrenergic Glo Start: 03-24-2025 take 1 tablet by mouth once daily nitroglycerin 0.4 mg sublingual tablet (3 sources) Nitrate Vasodilator Start: 04-23-2025 12 hr ranolazine 1000 mg extended release oral tablet (8 sources) Anti-anginal Start: 03-20-2025 End: 04-23-2025 take 1 tablet by mouth twice daily Semaglutide (3 sources) Start: 04-23-2025 Start: 04-23-2025 spironolactone 25 mg oral tablet (8 sources) Aldosterone Antagonist Start: 03-20-2025 End: 04-23-2025 take 1 tablet by mouth once daily Completed/Discontinued Medications Medication Drug Class(es) Dates Sig (Normalized) Sig (Original) 24 hr isosorbide mononitrate 60 mg extended release oral tablet (12 sources) Nitrate Vasodilator Start: 03-20-2025 End: 04-23-2025 take 1 tablet by mouth once daily, then take 1 tablet by mouth every twenty-four hours Isosorbide Mononitrate 60 mg Tablet Extended Release 24 Hr Discontinued 60 mg PO DAILY 30 2 March 23, 2025 11:00pm April 23, 2025 9:53am Problems Problem Classification Problem Date Documented Date Episodic/Chronic Chronic kidney disease (14 sources) Chronic kidney disease; Translations: [Chronic kidney disease, unspecified] 03-22-2025 Chronic Chronic kidney disease (2 sources) Chronic kidney disease; Translations: [Chronic kidney disease, stage 3b] Onset: 04-14-2025 Chronic obstructive pulmonary disease and bronchiectasis (11 sources) Acute exacerbation of chronic obstructive airways disease; Translations: [Chronic obstructive pulmonary disease with (acute) exacerbation] Onset: 04-14-2025 03-20-2025 Chronic Conduction disorders (19 sources) Combination internal cardiac defibrillator and pacemaker in situ; Translations: [Presence of automatic (implantable) cardiac defibrillator] Onset: 04-14-2025 03-22-2025 Chronic Congestive heart failure; nonhypertensive (20 sources) Heart failure, unspecified; Translations: [Acute exacerbation of chronic heart failure] Onset: 04-14-2025 03-20-2025 Chronic Congestive heart failure; nonhypertensive (3 sources) Congestive heart failure; nonhypertensive Coronary atherosclerosis and other heart disease (7 sources) Ischemic cardiomyopathy; Translations: [Ischemic myocardial dysfunction] Onset: 04-28-2025 04-27-2025 Chronic Coronary atherosclerosis and other heart disease (2 sources) Presence of aortocoronary bypass graft; Translations: [Presence of coronary angioplasty implant and graft] Onset: 04-14-2025 Episodic Diabetes mellitus without complication (10 sources) Type 2 diabetes mellitus without complications; Translations: [Diabetes mellitus] Onset: 04-23-2025 Chronic Fluid and electrolyte disorders (10 sources) Lactic acidosis; Translations: [Lactic acidosis] 03-20-2025 Episodic Nonspecific chest pain (11 sources) Tight chest; Translations: [Other chest pain] Onset: 04-14-2025 03-20-2025 Episodic Other lower respiratory disease (1 source) Shortness of breath; Translations: [Shortness of breath] Onset: 04-14-2025 Episodic Other nutritional; endocrine; and metabolic disorders (10 sources) Obese class I; Translations: [Class 1 obesity] 03-20-2025 Chronic Other screening for suspected conditions (not mental disorders or infectious disease) (11 sources) Raised cardiac enzyme or marker; Translations: [Other specified abnormal findings of blood chemistry] Onset: 04-14-2025 03-20-2025 Episodic Pleurisy; pneumothorax; pulmonary collapse (11 sources) Pleural effusion; Translations: [Pleural effusion, not elsewhere classified] Onset: 04-14-2025 03-20-2025 Episodic Pneumonia (except that caused by tuberculosis or sexually transmitted disease) (11 sources) Pneumonia; Translations: [Pneumonia, unspecified organism] Onset: 04-14-2025 03-20-2025 Episodic Residual codes; unclassified (10 sources) Tobacco user; Translations: [Tobacco use] 03-20-2025 Episodic Residual codes; unclassified (1 source) Tobacco use; Translations: [Tobacco use] Onset: 04-14-2025 Episodic Respiratory failure; insufficiency; arrest (adult) (11 sources) Acute respiratory failure; Translations: [Acute respiratory failure with hypoxia] Onset: 04-14-2025 03-20-2025 Episodic Unclassified (1 source) Acidosis, unspecified; Translations: [Acidosis, unspecified] Onset: 04-14-2025 Unclassified (1 source) Obesity, class 1; Translations: [Obesity, class 1] Onset: 04-14-2025 Results Test Name Value Interpretation Reference Range Facility Pacemaker Checkon 04-27-2025 Pacemaker Check [facility] [address] [place] [address] Pacemaker Check Date of Service: 04/27/25 1539 MR#: [id number] Acct: [id number] Name: CECILIA KUHN LAWSON Rep #: [id number] : 1945 From: Aliyah Garvey Age/Sex: 80/M [place] [facility] [place]: Signed Billing Codes ICD Device Billin ICD Dev Prog Eval, Dual Assessment and Plan Assessment and Plan (1) Presence of combination internal cardiac defibrillator (ICD) and pacemaker: Status: Chronic (2) Ischemic cardiomyopathy: Status: Chronic 04/27/25 1541 Date Aliyah Shaver Signature: Date (if applicable) CC: Normal [facility] Anion gap in Serum or Plasma Ordered By: Eder Pickett on 04-23-2025 Anion gap [Moles/Vol] 9 mmol/L 11-19 [facility] BUN/creatinine ratioOrdered By: Eder Pickett on 04-23-2025 Urea nitrogen/Creatinine [Mass ratio] 18.2 mg/mg 04-26 [facility] Bilirubin, totalOrdered By: Eder Pickett on 04-23-2025 Bilirubin [Mass/Vol] 0.77 mg/dL 0.00-1.30 [facility] Carbon dioxide, total [Moles /volume] in Central venous bloodOrdered By: Eder Pickett on 04-23-2025 CO2 [Moles/Vol] 24.4 mmol/L 21.0-32.0 [facility] Cardiology Visit Reporton Cardiology Visit Report [facility] [address] [place] [address]. [address] [place], [place] [address] OFFICE VISIT Date of Service: 04/23/25 MR#: [id number] Acct: [id number] Name: BAMCECILIACapo PATHAK Rep #: [id number] : 1945 Provider: Dr. Eder cage MD Age/Sex: 80/M Location: [facility] Status: Signed with Addenda ADDENDUM by Dr. 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 He had a vein graft to the first diagonal with proximal stents that were patent there was a 90% hazy thrombotic lesion that was treated with restenting. The left circumflex artery had mild disease the vein graft to the OM branch was occluded. The right coronary in the mid was totally occluded the distal right coronary fills via collaterals from the left system and the vein graft to the RCA was noted to be occluded. The left ventricular end- diastolic pressure was normal. The LAD is well-perfused with a FLORES and the vein graft to the diagonal which was revascularized August 2022. The vein graft to the OM branch of the circumflex is occluded and the vein graft to the distal right coronary is occluded. I am not sure where the fifth graft was located it may have been that either the circumflex or the right coronary artery grafts were sequential grafts. Assessment and Plan Assessment and Plan (1) Heart failure: Status: Acute Qualifiers: Heart failure type: systolic Heart failure chronicity: chronic Qualified Code(s): I50.22 - Chronic systolic (congestive) heart failure (2) CKD (chronic kidney disease): Status: Chronic Qualifiers: Chronic kidney disease stage: stage 3 (moderate) Chronic kidney disease stage 3 subtype: stage 3b (GFR 30-44) Qualified Code(s): N18.32 - Chronic kidney disease, stage 3b (3) Presence of combination internal cardiac defibrillator (ICD) and pacemaker: Status: Acute (4) Diabetes: Status: Acute Qualifiers: Diabetes mellitus type: type 2 Diabetes mellitus group home insulin use: with middle or intermediate school principal use Diabetes mellitus complication status: with circulatory complication Diabetes mellitus complication detail: with other circulatory complications Qualified Code(s): E11.59 - Type 2 diabetes mellitus with other circulatory complications; Z79.4 - shelter (current) use of insulin Orders: Orders Comprehensive Metabolic Profil Today I50.9 - Heart failure, unspecified Pro- Brain NATRIURETIC PEPTIDE Today I50.9 - Heart failure, unspecified Referrals Cardiology E11.9 - Type 2 diabetes mellitus without complications, I50.9 - Heart failure, unspecified, N18.32 - Chronic kidney disease, stage 3b, Z95.810 - Presence of automatic (implantable) cardiac defibrillator Plan Details Follow Up: 3 Months (With JAREN and as needed) 6 Months (With Dr. Pickett and as needed) 04/23/25 164 Date Eder Pickett MD cc: * Signed HPI HPI History of Present Illness Details: Patient is a 80-year-old white male that comes in today for monitor of his cardiovascular status. Patient carries a history of heart failure with reduced ejection fraction EF was estimated 10% on the recent echocardiogram March 2025. Patient has a long history of an ischemic cardiomyopathy dating back to bypass surgery in 2005 that was redone at [facility]. He subsequently underwent a reevaluation invasively in [facility] in 2022 where he had a stent placed to an unknown vessel. He had a 5 vessel bypass in 2005 he does not know where the grafts are and I do not have access to any of his records. We are trying to obtain the records from [place]. The patient also has a history of an ICD implanted in 2016 in [place] he is transferring his device care to the [place] [facility] as he is relocated from [place] to live with his family here in [place]. The patient is also diabetic his last hemoglobin A1c was 6.3. He has a history of chronic kidney disease when he was hospitalized in March his BUN was 48 creatinine 1.53. Since discharge the patient reports that he is getting around in his home he uses a cane for ambulation he has no lower extremity edema he denies any PND orthopnea but he does have shortness of breath with activities. He feels that he is pretty much back to baseline. He denies any anginal type symptoms. Intake Vital Signs 03/20/25 13:44 04/23/25 06:57 Height 5 ft 10 in 5 ft 10 in Weight: 177 lb BMI 25.4 BP 128/72 H Blood Pressure Location Lt brachial Position Sitting Respiration 20 H Pulse 60 Pulse Source Monitor Pulse Oximetry (%) 98 (more content not included)... Normal [facility] Chloride assayOrdered By: Jaky Pickett on 04-23-2025 Chloride [Moles/Vol] 105 mmol/L 98-108 [facility] Comprehensive Metabolic Prof ilon 04-23-2025 Albumin [Mass/Vol] 3.8 g/dL Normal 3.4-4.8 [facility] Comment on above: Performed By: #### L 501.2300, L501.5200, L500.2500 #### [facility] [address] [place], [address] Albumin/Globulin [Mass ratio] 1.1 {ratio} Normal 0.9-2.4 [facility] Comment on above: Performed By: #### L 501.2300, L501.5200, L500.2500 #### [facility] [address] [place], [address] ALK PHOS 72 U/L Normal 40-129 [facility] Comment on above: Performed By: #### L 501.2300, L501.5200, L500.2500 #### [facility] [address] [place], [address] ALT [Catalytic activity/Vol] 22 U/L Normal <=46 [facility] Comment on above: Performed By: #### L 501.2300, L501.5200, L500.2500 #### [facility] [address] [place], [address] AST [Catalytic activity/Vol] 20 U/L Normal <=37 [facility] Comment on above: Performed By: #### L 501.2300, L501.5200, L500.2500 #### [facility] [address] [place], [address] Bilirubin [Mass/Vol] 0.77 mg/dL Normal 0.00-1.30 [facility] Comment on above: Performed By: #### L 501.2300, L501.5200, L500.2500 #### [facility] [address] [place], [address] BUN/CRE 18.2 RATIO Normal 10-20 [facility] Comment on above: Performed By: #### L 501.2300, L501.5200, L500.2500 #### [facility] [address] [place], [address] Calcium [Mass/Vol] 9.2 mg/dL Normal 7.6-11.0 [facility] Comment on above: Performed By: #### L 501.2300, L501.5200, L500.2500 #### [facility] [address] [place], [address] Chloride [Moles/Vol] 105 mmol/L Normal 98-108 [facility] Comment on above: Performed By: #### L 501.2300, L501.5200, L500.2500 #### [facility] [address] [place], [address] CO2 [Moles/Vol] 24.4 mmol/L Normal 21.0-32.0 [facility] Comment on above: Performed By: #### L 501.2300, L501.5200, L500.2500 #### [facility] [address] [place], [address] Creatinine [Mass/Vol] 1.70 mg/dL High 0.70-1.20 [facility] Comment on above: Performed By: #### L 501.2300, L501.5200, L500.2500 #### [facility] [address] [place], [address] GAP 9 Normal 5-15 [facility] Comment on above: Performed By: #### L 501.2300, L501.5200, L500.2500 #### [facility] [address] [place], [address] GFR/1.73 sq M.predicted among non-blacks MDRD (S/P/Bld) [Vol rate/Area] 40 mL/min/{1.73_m2} Low >60 [facility] Comment on above: Result Comment: mL/m in/1.73m2 CKD-EPI Creatinine Equation (2020) Performed By: #### L 501.2300, L501.5200, L500.2500 #### [facility] [address] [place], [address] Globulin (S) [Mass/Vol] 3.5 g/dL Normal 2.2-4.2 [facility] Comment on above: Performed By: #### L 501.2300, L501.5200, L500.2500 #### [facility] [address] [place], [address] Glucose [Mass/Vol] 69 mg/dL Low 70-99 [facility] Comment on above: Performed By: #### L 501.2300, L501.5200, L500.2500 #### [facility] [address] [place], [address] Potassium [Moles/Vol] 4.4 mmol/L Normal 3.3-5.1 [facility] Comment on above: Performed By: #### L 501.2300, L501.5200, L500.2500 #### [facility] [address] [place], [address] Sodium [Moles/Vol] 139 mmol/L Normal 133-145 [facility] Comment on above: Performed By: #### L 501.2300, L501.5200, L500.2500 #### [facility] [address] [place], [address] T PROT 7.3 g/dL Normal 5.9-8.4 [facility] Comment on above: Performed By: #### L 501.2300, L501.5200, L500.2500 #### [facility] [address] [place], [address] Urea nitrogen [Mass/Vol] 31 mg/dL High 4-19 [facility] Comment on above: Performed By: #### L 501.2300, L501.5200, L500.2500 #### [facility] [address] [place], [address] Glomerular filtration rate ( GFR) estimation/1.73 sq m using serum, plasma, or whole bOrdered By: Eder Pickett on 04-23-2025 GFR/1.73 sq M.predicted among non-blacks MDRD (S/P/Bld) [Vol rate/Area] 40 mL/min/{1.73_m2} Low >60 [facility] [facility] Comment on above: mL/min/1.73m2 CKD-EP I Creatinine Equation (2020) Laboratory - Chemistry and C hemistry - challengeOrdered By: Eder Pickett on 04-23-2025 AST [Catalytic activity/Vol] 20 U/L <38 [facility] Natriuretic peptide.B prohor mónica N-Terminal [Mass/volume] in Serum or PlasmaOrdered By: Eder Pickett on 04-23-2025 Natriuretic peptide.B prohormone N-Terminal [Mass/Vol] 5608 pg/mL High <1800 [facility] Comment on above: Heart Failure Unlike ly: < 300 pg/mLHeart Failure Likely< 50 Years: > 450 pg/mL50-75 Years: > 900 pg/mL>75 Years: > 1800 pg/mL Potassium measurement (mass/ volume)Ordered By: Eder Pickett on 04-23-2025 Potassium (Unsp spec) [Mass/Vol] 4.4 mmol/L 3.3-5.1 [facility] Pro- Brain NATRIURETIC PEPTI Lyssa 04-23-2025 Natriuretic peptide B (Bld) [Mass/Vol] 5608 pg/mL High <=1800 [facility] Comment on above: Result Comment: Hear t Failure Unlikely: < 300 pg/mL Heart Failure Likely < 50 Years: > 450 pg/mL 50-75 Years: > 900 pg/mL >75 Years: > 1800 pg/mL Performed By: #### L 501.2300, L501.5200, L500.2500 #### [facility] Laboratory [address] [place], [place], [id number] Serum creatinine measurement (mass/volume)Ordered By: Eder Pickett on 04-23-2025 Creatinine [Mass/Vol] 1.70 mg/dL High 0.70-1.20 [facility] Serum globulin measurementOr dered By: Eder Pickett on 04-23-2025 Globulin (S) [Mass/Vol] 3.5 g/dL 2.2-4.2 [facility] Serum glucose measurement (m ass/volume)Ordered By: Eder Pickett on 04-23-2025 Glucose [Mass/Vol] 69 mg/dL Low 70-99 [facility] Serum or plasma alanine campbell otransferase (ALT) measurementOrdered By: Eder Pickett on 04-23-2025 ALT [Catalytic activity/Vol] 22 U/L <47 [facility] Serum or plasma albumin adalgisa urement (mass/volume)Ordered By: Eder Pickett on 04-23-2025 Albumin [Mass/Vol] 3.8 g/dL 3.4-4.8 [facility] Serum or plasma albumin/glob ulin mass ratioOrdered By: Eedr Pickett on 04-23-2025 Albumin/Globulin [Mass ratio] 1.1 {ratio} 0.9-2.4 [facility] Serum or plasma alkaline gustavo sphatase measurementOrdered By: Eder Pickett on 04-23-2025 ALP [Catalytic activity/Vol] 72 U/L 40-129 [facility] Serum or plasma calcium adalgisa urement (mass/volume)Ordered By: Eder Pickett on 04-23-2025 Calcium [Mass/Vol] 9.2 mg/dL 7.6-11.0 [facility] Serum or plasma urea nitroge n measurement (mass/volume)Ordered By: Eder Pickett on 04-23-2025 Urea nitrogen [Mass/Vol] 31 mg/dL High 4-19 [facility] Sodium levelOrdered By: Drew Pickett on 04-23-2025 Sodium [Moles/Vol] 139 mmol/L 133-145 [facility] Total proteinOrdered By: Ernst Pickett on 04-23-2025 Protein [Mass/Vol] 7.3 g/dL 5.9-8.4 [facility] Basic Metabolic Profile (BMP )on 03-30-2025 BUN Normal - [facility] Comment on above: Result Comment: Canc elled via OM: Order cancelled - Patient discharged Performed By: #### L 501.2300, L501.5200, L500.2500 #### [facility] Laboratory [address] [place], [address] BUN/CRE Normal 10- [facility] Comment on above: Result Comment: Canc elled via OM: Order cancelled - Patient discharged Performed By: #### L 501.2300, L501.5200, L500.2500 #### [facility] Laboratory [address] [place], [address] Calcium Normal 7.6-11.0 [facility] Comment on above: Result Comment: Canc elled via OM: Order cancelled - Patient discharged Performed By: #### L 501.2300, L501.5200, L500.2500 #### [facility] Laboratory [address] [place], [address] CL Normal 98-108 [facility] Comment on above: Result Comment: Canc elled via OM: Order cancelled - Patient discharged Performed By: #### L 501.2300, L501.5200, L500.2500 #### [facility] Laboratory [address] [place], [address] CO2 Normal 21.0-32.0 [facility] Comment on above: Result Comment: Canc elled via OM: Order cancelled - Patient discharged Performed By: #### L 501.2300, L501.5200, L500.2500 #### [facility] Laboratory [address] [place], [address] CREAT,SERUM Normal 0.70-1.20 [facility] Comment on above: Result Comment: Canc elled via OM: Order cancelled - Patient discharged Performed By: #### L 501.2300, L501.5200, L500.2500 #### [facility] Laboratory [address] [place], [address] eGFR Normal >60 [facility] Comment on above: Result Comment: Canc elled via OM: Order cancelled - Patient discharged Performed By: #### L 501.2300, L501.5200, L500.2500 #### [facility] Laboratory [address] [place], [address] GAP Normal 5-15 [facility] Comment on above: Result Comment: Canc elled via OM: Order cancelled - Patient discharged Performed By: #### L 501.2300, L501.5200, L500.2500 #### [facility] Laboratory [address] [place], [address] GLU Normal 70-99 [facility] Comment on above: Result Comment: Canc elled via OM: Order cancelled - Patient discharged Performed By: #### L 501.2300, L501.5200, L500.2500 #### [facility] Laboratory [address] [place], [address] Potassium Normal 3.3-5.1 [facility] Comment on above: Result Comment: Canc elled via OM: Order cancelled - Patient discharged Performed By: #### L 501.2300, L501.5200, L500.2500 #### [facility] [address] [place], [address] Basic Metabolic Profile (BMP) Normal 133-145 [facility] Comment on above: Result Comment: Canc elled via OM: Order cancelled - Patient discharged Performed By: #### L 501.2300, L501.5200, L500.2500 #### [facility] Laboratory [address] [place], [address] CBC W/Diff, Automatedon 09-2 Absolute Neut Normal 2.0-7.7 [facility] Comment on above: Result Comment: Canc elled via OM: Order cancelled - Patient discharged Performed By: #### L 501.2300, L501.5200, L500.2500 #### [facility] Laboratory [address] [place], [address] HCT Normal 40-54 [facility] Comment on above: Result Comment: Canc elled via OM: Order cancelled - Patient discharged Performed By: #### L 501.2300, L501.5200, L500.2500 #### [facility] Laboratory [address] [place], [address] HGB Normal 13.0-16.5 [facility] Comment on above: Result Comment: Canc elled via OM: Order cancelled - Patient discharged Performed By: #### L 501.2300, L501.5200, L500.2500 #### [facility] Laboratory [address] [place], [address] MCH Normal 27.0-32.0 [facility] Comment on above: Result Comment: Canc elled via OM: Order cancelled - Patient discharged Performed By: #### L 501.2300, L501.5200, L500.2500 #### [facility] Laboratory [address] [place], [address] MCHC Normal 32-36 [facility] Comment on above: Result Comment: Canc elled via OM: Order cancelled - Patient discharged Performed By: #### L 501.2300, L501.5200, L500.2500 #### [facility] Laboratory [address] [place], [address] MCV Normal 80-94 [facility] Comment on above: Result Comment: Canc elled via OM: Order cancelled - Patient discharged Performed By: #### L 501.2300, L501.5200, L500.2500 #### [facility] Laboratory [address] [place], [address] NEUT% Normal 47-70 [facility] Comment on above: Result Comment: Canc elled via OM: Order cancelled - Patient discharged Performed By: #### L 501.2300, L501.5200, L500.2500 #### [facility] Laboratory [address] [place], [address] PLT Normal 150-450 [facility] Comment on above: Result Comment: Canc elled via OM: Order cancelled - Patient discharged Performed By: #### L 501.2300, L501.5200, L500.2500 #### [facility] Laboratory [address] [place], [address] RBC Normal 4.6-6.2 [facility] Comment on above: Result Comment: Canc elled via OM: Order cancelled - Patient discharged Performed By: #### L 501.2300, L501.5200, L500.2500 #### [facility] Laboratory [address] [place], [address] RDW CV Normal 11.6-14.6 [facility] Comment on above: Result Comment: Canc elled via OM: Order cancelled - Patient discharged Performed By: #### L 501.2300, L501.5200, L500.2500 #### [facility] Laboratory [address] [place], [address] RDW SD Normal 35.1-43.9 [facility] Comment on above: Result Comment: Canc elled via OM: Order cancelled - Patient discharged Performed By: #### L 501.2300, L501.5200, L500.2500 #### [facility] Laboratory [address] [place], [address] WBC Normal 4.4-11.0 [facility] Comment on above: Result Comment: Canc elled via OM: Order cancelled - Patient discharged Performed By: #### L 501.2300, L501.5200, L500.2500 #### [facility] Laboratory [address] [place], [address] Basic Metabolic Profile (BMP )on 03-29-2025 BUN Normal 4-19 [facility] Comment on above: Result Comment: Canc elled via OM: Order cancelled - Patient discharged Performed By: #### L 501.2300, L501.5200, L500.2500 #### [facility] Laboratory [address] [place], [address] BUN/CRE Normal 10-20 [facility] Comment on above: Result Comment: Canc elled via OM: Order cancelled - Patient discharged Performed By: #### L 501.2300, L501.5200, L500.2500 #### [facility] Laboratory [address] [place], [address] Calcium Normal 7.6-11.0 [facility] Comment on above: Result Comment: Canc elled via OM: Order cancelled - Patient discharged Performed By: #### L 501.2300, L501.5200, L500.2500 #### [facility] Laboratory [address] [place], [address] CL Normal 98-108 [facility] Comment on above: Result Comment: Canc elled via OM: Order cancelled - Patient discharged Performed By: #### L 501.2300, L501.5200, L500.2500 #### [facility] Laboratory [address] [place], [address] CO2 Normal 21.0-32.0 [facility] Comment on above: Result Comment: Canc elled via OM: Order cancelled - Patient discharged Performed By: #### L 501.2300, L501.5200, L500.2500 #### [facility] Laboratory [address] [place], [address] CREAT,SERUM Normal 0.70-1.20 [facility] Comment on above: Result Comment: Canc elled via OM: Order cancelled - Patient discharged Performed By: #### L 501.2300, L501.5200, L500.2500 #### [facility] Laboratory [address] [place], [address] eGFR Normal >60 [facility] Comment on above: Result Comment: Canc elled via OM: Order cancelled - Patient discharged Performed By: #### L 501.2300, L501.5200, L500.2500 #### [facility] Laboratory [address] [place], [address] GAP Normal 5-15 [facility] Comment on above: Result Comment: Canc elled via OM: Order cancelled - Patient discharged Performed By: #### L 501.2300, L501.5200, L500.2500 #### [facility] [address] [place], [address] GLU Normal 70-99 [facility] Comment on above: Result Comment: Canc elled via OM: Order cancelled - Patient discharged Performed By: #### L 501.2300, L501.5200, L500.2500 #### [facility] Laboratory [address] [place], [address] Potassium Normal 3.3-5.1 [facility] Comment on above: Result Comment: Canc elled via OM: Order cancelled - Patient discharged Performed By: #### L 501.2300, L501.5200, L500.2500 #### [facility] [address] [place], [address] Basic Metabolic Profile (BMP) Normal 133-145 [facility] Comment on above: Result Comment: Canc elled via OM: Order cancelled - Patient discharged Performed By: #### L 501.2300, L501.5200, L500.2500 #### [facility] [address] [place], [address] CBC W/Diff, Automatedon 09-2 Absolute Neut Normal 2.0-7.7 [facility] Comment on above: Result Comment: Canc elled via OM: Order cancelled - Patient discharged Performed By: #### L 100.0500 #### [facility] Laboratory [address] [place], [address] HCT Normal 40-54 [facility] Comment on above: Result Comment: Canc elled via OM: Order cancelled - Patient discharged Performed By: #### L 100.0500 #### [facility] [address] [place], [address] HGB Normal 13.0-16.5 [facility] Comment on above: Result Comment: Canc elled via OM: Order cancelled - Patient discharged Performed By: #### L 100.0500 #### [facility] [address] [place], [address] MCH Normal 27.0-32.0 [facility] Comment on above: Result Comment: Canc elled via OM: Order cancelled - Patient discharged Performed By: #### L 100.0500 #### [facility] Laboratory [address] [place], [address] MCHC Normal 32-36 [facility] Comment on above: Result Comment: Canc elled via OM: Order cancelled - Patient discharged Performed By: #### L 100.0500 #### [facility] [address] [place], [address] MCV Normal 80-94 [facility] Comment on above: Result Comment: Canc elled via OM: Order cancelled - Patient discharged Performed By: #### L 100.0500 #### [facility] Laboratory [address] [place], [address] NEUT% Normal 47-70 [facility] Comment on above: Result Comment: Canc elled via OM: Order cancelled - Patient discharged Performed By: #### L 100.0500 #### [facility] [address] [place], [address] PLT Normal 150-450 [facility] Comment on above: Result Comment: Canc elled via OM: Order cancelled - Patient discharged Performed By: #### L 100.0500 #### [facility] [address] [place], [address] RBC Normal 4.6-6.2 [facility] Comment on above: Result Comment: Canc elled via OM: Order cancelled - Patient discharged Performed By: #### L 100.0500 #### [facility] [address] [place], [address] RDW CV Normal 11.6-14.6 [facility] Comment on above: Result Comment: Canc elled via OM: Order cancelled - Patient discharged Performed By: #### L 100.0500 #### [facility] Laboratory [address] [place], [address] RDW SD Normal 35.1-43.9 [facility] Comment on above: Result Comment: Canc elled via OM: Order cancelled - Patient discharged Performed By: #### L 100.0500 #### [facility] Laboratory [address] [place], [address] WBC Normal 4.4-11.0 [facility] Comment on above: Result Comment: Canc elled via OM: Order cancelled - Patient discharged Performed By: #### L 100.0500 #### [facility] [address] [place], [address] Basic Metabolic Profile (BMP )on 03-28-2025 BUN Normal 4-19 [facility] Comment on above: Result Comment: Canc elled via OM: Order cancelled - Patient discharged Performed By: #### L 501.2300, L501.5200, L500.2500 #### [facility] [address] [place], [address] BUN/CRE Normal 10-20 [facility] Comment on above: Result Comment: Canc elled via OM: Order cancelled - Patient discharged Performed By: #### L 501.2300, L501.5200, L500.2500 #### [facility] [address] [place], [address] Calcium Normal 7.6-11.0 [facility] Comment on above: Result Comment: Canc elled via OM: Order cancelled - Patient discharged Performed By: #### L 501.2300, L501.5200, L500.2500 #### [facility] [address] [place], [address] CL Normal 98-108 [facility] Comment on above: Result Comment: Canc elled via OM: Order cancelled - Patient discharged Performed By: #### L 501.2300, L501.5200, L500.2500 #### [facility] [address] [place], [address] CO2 Normal 21.0-32.0 [facility] Comment on above: Result Comment: Canc elled via OM: Order cancelled - Patient discharged Performed By: #### L 501.2300, L501.5200, L500.2500 #### [facility] [address] [place], [address] CREAT,SERUM Normal 0.70-1.20 [facility] Comment on above: Result Comment: Canc elled via OM: Order cancelled - Patient discharged Performed By: #### L 501.2300, L501.5200, L500.2500 #### [facility] [address] [place], [address] eGFR Normal >60 [facility] Comment on above: Result Comment: Canc elled via OM: Order cancelled - Patient discharged Performed By: #### L 501.2300, L501.5200, L500.2500 #### [facility] [address] [place], [address] GAP Normal 5-15 [facility] Comment on above: Result Comment: Canc elled via OM: Order cancelled - Patient discharged Performed By: #### L 501.2300, L501.5200, L500.2500 #### [facility] [address] [place], [address] GLU Normal 70-99 [facility] Comment on above: Result Comment: Canc elled via OM: Order cancelled - Patient discharged Performed By: #### L 501.2300, L501.5200, L500.2500 #### [facility] [address] [place], [address] Potassium Normal 3.3-5.1 [facility] Comment on above: Result Comment: Canc elled via OM: Order cancelled - Patient discharged Performed By: #### L 501.2300, L501.5200, L500.2500 #### [facility] [address] [place], [address] Basic Metabolic Profile (BMP) Normal 133-145 [facility] Comment on above: Result Comment: Canc elled via OM: Order cancelled - Patient discharged Performed By: #### L 501.2300, L501.5200, L500.2500 #### [facility] [address] [place], [address] CBC W/Diff, Automatedon 09-2 Absolute Neut Normal 2.0-7.7 [facility] Comment on above: Result Comment: Canc elled via OM: Order cancelled - Patient discharged Performed By: #### L 501.2300, L501.5200, L500.2500 #### [facility] [address] [place], [address] HCT Normal 40-54 [facility] Comment on above: Result Comment: Canc elled via OM: Order cancelled - Patient discharged Performed By: #### L 501.2300, L501.5200, L500.2500 #### [facility] [address] [place], [address] HGB Normal 13.0-16.5 [facility] Comment on above: Result Comment: Canc elled via OM: Order cancelled - Patient discharged Performed By: #### L 501.2300, L501.5200, L500.2500 #### [facility] [address] [place], [address] MCH Normal 27.0-32.0 [facility] Comment on above: Result Comment: Canc elled via OM: Order cancelled - Patient discharged Performed By: #### L 501.2300, L501.5200, L500.2500 #### [facility] [address] [place], [address] MCHC Normal 32-36 [facility] Comment on above: Result Comment: Canc elled via OM: Order cancelled - Patient discharged Performed By: #### L 501.2300, L501.5200, L500.2500 #### [facility] [address] [place], [address] MCV Normal 80-94 [facility] Comment on above: Result Comment: Canc elled via OM: Order cancelled - Patient discharged Performed By: #### L 501.2300, L501.5200, L500.2500 #### [facility] [address] [place], [address] NEUT% Normal 47-70 [facility] Comment on above: Result Comment: Canc elled via OM: Order cancelled - Patient discharged Performed By: #### L 501.2300, L501.5200, L500.2500 #### [facility] [address] [place], [address] PLT Normal 150-450 [facility] Comment on above: Result Comment: Canc elled via OM: Order cancelled - Patient discharged Performed By: #### L 501.2300, L501.5200, L500.2500 #### [facility] [address] [place], [address] RBC Normal 4.6-6.2 [facility] Comment on above: Result Comment: Canc elled via OM: Order cancelled - Patient discharged Performed By: #### L 501.2300, L501.5200, L500.2500 #### [facility] [address] [place], [address] RDW CV Normal 11.6-14.6 [facility] Comment on above: Result Comment: Canc elled via OM: Order cancelled - Patient discharged Performed By: #### L 501.2300, L501.5200, L500.2500 #### [facility] [address] [place], [address] RDW SD Normal 35.1-43.9 [facility] Comment on above: Result Comment: Canc elled via OM: Order cancelled - Patient discharged Performed By: #### L 501.2300, L501.5200, L500.2500 #### [facility] [address] [place], [address] WBC Normal 4.4-11.0 [facility] [facility] Comment on above: Result Comment: Canc elled via OM: Order cancelled - Patient discharged Performed By: #### L 501.2300, L501.5200, L500.2500 #### [facility] [address] [place], [address] Basic Metabolic Profile (BMP )on 03-27-2025 BUN Normal 4-19 [facility] Comment on above: Result Comment: Canc elled via OM: Order cancelled - Patient discharged Performed By: #### L 100.0500 #### [facility] [address] [place], [address] BUN/CRE Normal 10-20 [facility] Comment on above: Result Comment: Canc elled via OM: Order cancelled - Patient discharged Performed By: #### L 100.0500 #### [facility] [address] [place], [address] Calcium Normal 7.6-11.0 [facility] Comment on above: Result Comment: Canc elled via OM: Order cancelled - Patient discharged Performed By: #### L 100.0500 #### [facility] [address] [place], [address] CL Normal 98-108 [facility] Comment on above: Result Comment: Canc elled via OM: Order cancelled - Patient discharged Performed By: #### L 100.0500 #### [facility] [address] [place], [address] CO2 Normal 21.0-32.0 [facility] Comment on above: Result Comment: Canc elled via OM: Order cancelled - Patient discharged Performed By: #### L 100.0500 #### [facility] [address] [place], [address] CREAT,SERUM Normal 0.70-1.20 [facility] Comment on above: Result Comment: Canc elled via OM: Order cancelled - Patient discharged Performed By: #### L 100.0500 #### [facility] [address] [place], [address] eGFR Normal >60 [facility] Comment on above: Result Comment: Canc elled via OM: Order cancelled - Patient discharged Performed By: #### L 100.0500 #### [facility] [address] [place], [address] GAP Normal 5-15 [facility] Comment on above: Result Comment: Canc elled via OM: Order cancelled - Patient discharged Performed By: #### L 100.0500 #### [facility] [address] [place], [address] GLU Normal 70-99 [facility] Comment on above: Result Comment: Canc elled via OM: Order cancelled - Patient discharged Performed By: #### L 100.0500 #### [facility] [address] [place], [address] Potassium Normal 3.3-5.1 [facility] Comment on above: Result Comment: Canc elled via OM: Order cancelled - Patient discharged Performed By: #### L 100.0500 #### [facility] [address] [place], [address] Basic Metabolic Profile (BMP) Normal 133-145 [facility] Comment on above: Result Comment: Canc elled via OM: Order cancelled - Patient discharged Performed By: #### L 100.0500 #### [facility] [address] [place], [address] CBC W/Diff, Automatedon 09-2 0-2024 Absolute Neut Normal 2.0-7.7 [facility] Comment on above: Result Comment: Canc elled via OM: Order cancelled - Patient discharged Performed By: #### L 100.0500 #### [facility] [address] [place], [address] HCT Normal 40-54 [facility] Comment on above: Result Comment: Canc elled via OM: Order cancelled - Patient discharged Performed By: #### L 100.0500 #### [facility] [address] [place], [address] HGB Normal 13.0-16.5 [facility] Comment on above: Result Comment: Canc elled via OM: Order cancelled - Patient discharged Performed By: #### L 100.0500 #### [facility] [address] [place], [address] MCH Normal 27.0-32.0 [facility] Comment on above: Result Comment: Canc elled via OM: Order cancelled - Patient discharged Performed By: #### L 100.0500 #### [facility] [address] [place], [address] MCHC Normal 32-36 [facility] Comment on above: Result Comment: Canc elled via OM: Order cancelled - Patient discharged Performed By: #### L 100.0500 #### [facility] [address] [place], [address] MCV Normal 80-94 [facility] Comment on above: Result Comment: Canc elled via OM: Order cancelled - Patient discharged Performed By: #### L 100.0500 #### [facility] [address] [place], [address] NEUT% Normal 47-70 [facility] Comment on above: Result Comment: Canc elled via OM: Order cancelled - Patient discharged Performed By: #### L 100.0500 #### [facility] [address] [place], [address] PLT Normal 150-450 [facility] Comment on above: Result Comment: Canc elled via OM: Order cancelled - Patient discharged Performed By: #### L 100.0500 #### [facility] [address] [place], [address] RBC Normal 4.6-6.2 [facility] Comment on above: Result Comment: Canc elled via OM: Order cancelled - Patient discharged Performed By: #### L 100.0500 #### [facility] [address] [place], [address] RDW CV Normal 11.6-14.6 [facility] Comment on above: Result Comment: Canc elled via OM: Order cancelled - Patient discharged Performed By: #### L 100.0500 #### [facility] [address] [place], [address] RDW SD Normal 35.1-43.9 [facility] Comment on above: Result Comment: Canc elled via OM: Order cancelled - Patient discharged Performed By: #### L 100.0500 #### [facility] [address] [place], [address] WBC Normal 4.4-11.0 [facility] Comment on above: Result Comment: Canc elled via OM: Order cancelled - Patient discharged Performed By: #### L 100.0500 #### [facility] [address] [place], [address] Basic Metabolic Profile (BMP )on 03-26-2025 BUN Normal 4-19 [facility] Comment on above: Result Comment: Canc elled via OM: Order cancelled - Patient discharged Performed By: #### L 100.0500 #### [facility] [address] [place], [address] BUN/CRE Normal 10-20 [facility] Comment on above: Result Comment: Canc elled via OM: Order cancelled - Patient discharged Performed By: #### L 100.0500 #### [facility] [address] [place], [address] Calcium Normal 7.6-11.0 [facility] Comment on above: Result Comment: Canc elled via OM: Order cancelled - Patient discharged Performed By: #### L 100.0500 #### [facility] [address] [place], [address] CL Normal 98-108 [facility] Comment on above: Result Comment: Canc elled via OM: Order cancelled - Patient discharged Performed By: #### L 100.0500 #### [facility] [address] [place], [address] CO2 Normal 21.0-32.0 [facility] Comment on above: Result Comment: Canc elled via OM: Order cancelled - Patient discharged Performed By: #### L 100.0500 #### [facility] [address] [place], [address] CREAT,SERUM Normal 0.70-1.20 [facility] Comment on above: Result Comment: Canc elled via OM: Order cancelled - Patient discharged Performed By: #### L 100.0500 #### [facility] [address] [place], [address] eGFR Normal >60 [facility] Comment on above: Result Comment: Canc elled via OM: Order cancelled - Patient discharged Performed By: #### L 100.0500 #### [facility] [address] [place], [address] GAP Normal 5-15 [facility] Comment on above: Result Comment: Canc elled via OM: Order cancelled - Patient discharged Performed By: #### L 100.0500 #### [facility] [address] [place], [address] GLU Normal 70-99 [facility] Comment on above: Result Comment: Canc elled via OM: Order cancelled - Patient discharged Performed By: #### L 100.0500 #### [facility] [address] [place], [address] Potassium Normal 3.3-5.1 [facility] Comment on above: Result Comment: Canc elled via OM: Order cancelled - Patient discharged Performed By: #### L 100.0500 #### [facility] [address] [place], [address] Basic Metabolic Profile (BMP) Normal 133-145 [facility] Comment on above: Result Comment: Canc elled via OM: Order cancelled - Patient discharged Performed By: #### L 100.0500 #### [facility] [address] [place], [address] CBC W/Diff, Automatedon 09-1 Absolute Neut Normal 2.0-7.7 [facility] Comment on above: Result Comment: Canc elled via OM: Order cancelled - Patient discharged Performed By: #### L 100.0500 #### [facility] [address] [place], [address] HCT Normal 40-54 [facility] Comment on above: Result Comment: Canc elled via OM: Order cancelled - Patient discharged Performed By: #### L 100.0500 #### [facility] [address] [place], [address] HGB Normal 13.0-16.5 [facility] Comment on above: Result Comment: Canc elled via OM: Order cancelled - Patient discharged Performed By: #### L 100.0500 #### [facility] [address] [place], [address] MCH Normal 27.0-32.0 [facility] Comment on above: Result Comment: Canc elled via OM: Order cancelled - Patient discharged Performed By: #### L 100.0500 #### [facility] [address] [place], [address] MCHC Normal 32-36 [facility] Comment on above: Result Comment: Canc elled via OM: Order cancelled - Patient discharged Performed By: #### L 100.0500 #### [facility] [address] [place], [address] MCV Normal 80-94 [facility] Comment on above: Result Comment: Canc elled via OM: Order cancelled - Patient discharged Performed By: #### L 100.0500 #### [facility] [address] [place], [address] NEUT% Normal 47-70 [facility] Comment on above: Result Comment: Canc elled via OM: Order cancelled - Patient discharged Performed By: #### L 100.0500 #### [facility] [address] [place], [address] PLT Normal 150-450 [facility] Comment on above: Result Comment: Canc elled via OM: Order cancelled - Patient discharged Performed By: #### L 100.0500 #### [facility] [address] [place], [address] RBC Normal 4.6-6.2 [facility] Comment on above: Result Comment: Canc elled via OM: Order cancelled - Patient discharged Performed By: #### L 100.0500 #### [facility] [address] [place], [address] RDW CV Normal 11.6-14.6 [facility] Comment on above: Result Comment: Canc elled via OM: Order cancelled - Patient discharged Performed By: #### L 100.0500 #### [facility] [address] [place], [address] RDW SD Normal 35.1-43.9 [facility] Comment on above: Result Comment: Canc elled via OM: Order cancelled - Patient discharged Performed By: #### L 100.0500 #### [facility] [address] [place], [address] WBC Normal 4.4-11.0 [facility] Comment on above: Result Comment: Canc elled via OM: Order cancelled - Patient discharged Performed By: #### L 100.0500 #### [facility] [address] [place], [address] Basic Metabolic Profile (BMP )on 03-25-2025 BUN Normal 4-19 [facility] Comment on above: Result Comment: Canc elled via OM: Order cancelled - Patient discharged Performed By: #### L 400.0001 #### [facility] [address] [place], [address] BUN/CRE Normal 10-20 [facility] Comment on above: Result Comment: Canc elled via OM: Order cancelled - Patient discharged Performed By: #### L 400.0001 #### [facility] [address] [place], [address] Calcium Normal 7.6-11.0 [facility] Comment on above: Result Comment: Canc elled via OM: Order cancelled - Patient discharged Performed By: #### L 400.0001 #### [facility] [address] [place], [address] CL Normal 98-108 [facility] Comment on above: Result Comment: Canc elled via OM: Order cancelled - Patient discharged Performed By: #### L 400.0001 #### [facility] [address] [place], [address] CO2 Normal 21.0-32.0 [facility] Comment on above: Result Comment: Canc elled via OM: Order cancelled - Patient discharged Performed By: #### L 400.0001 #### [facility] [address] [place], [address] CREAT,SERUM Normal 0.70-1.20 [facility] Comment on above: Result Comment: Canc elled via OM: Order cancelled - Patient discharged Performed By: #### L 400.0001 #### [facility] [address] [place], [address] eGFR Normal >60 [facility] Comment on above: Result Comment: Canc elled via OM: Order cancelled - Patient discharged Performed By: #### L 400.0001 #### [facility] [address] [place], [address] GAP Normal 5-15 [facility] Comment on above: Result Comment: Canc elled via OM: Order cancelled - Patient discharged Performed By: #### L 400.0001 #### [facility] [address] [place], [address] GLU Normal 70-99 [facility] Comment on above: Result Comment: Canc elled via OM: Order cancelled - Patient discharged Performed By: #### L 400.0001 #### [facility] [address] [place], [address] Potassium Normal 3.3-5.1 [facility] Comment on above: Result Comment: Canc elled via OM: Order cancelled - Patient discharged Performed By: #### L 400.0001 #### [facility] [address] [place], [address] Basic Metabolic Profile (BMP) Normal 133-145 [facility] Comment on above: Result Comment: Canc elled via OM: Order cancelled - Patient discharged Performed By: #### L 400.0001 #### [facility] [address] [place], [address] CBC W/Diff, Automatedon - Absolute Neut Normal 2.0-7.7 [facility] Comment on above: Result Comment: Canc elled via OM: Order cancelled - Patient discharged Performed By: #### L 400.0001 #### [facility] [address] [place], [address] HCT Normal 40-54 [facility] Comment on above: Result Comment: Canc elled via OM: Order cancelled - Patient discharged Performed By: #### L 400.0001 #### [facility] [address] [place], [address] HGB Normal 13.0-16.5 [facility] Comment on above: Result Comment: Canc elled via OM: Order cancelled - Patient discharged Performed By: #### L 400.0001 #### [facility] [address] [place], [address] MCH Normal 27.0-32.0 [facility] Comment on above: Result Comment: Canc elled via OM: Order cancelled - Patient discharged Performed By: #### L 400.0001 #### [facility] [address] [place], [address] MCHC Normal 32-36 [facility] Comment on above: Result Comment: Canc elled via OM: Order cancelled - Patient discharged Performed By: #### L 400.0001 #### [facility] [address] [place], [address] MCV Normal 80-94 [facility] Comment on above: Result Comment: Canc elled via OM: Order cancelled - Patient discharged Performed By: #### L 400.0001 #### [facility] [address] [place], [address] NEUT% Normal 47-70 [facility] Comment on above: Result Comment: Canc elled via OM: Order cancelled - Patient discharged Performed By: #### L 400.0001 #### [facility] [address] [place], [address] PLT Normal 150-450 [facility] Comment on above: Result Comment: Canc elled via OM: Order cancelled - Patient discharged Performed By: #### L 400.0001 #### [facility] [address] [place], [address] RBC Normal 4.6-6.2 [facility] Comment on above: Result Comment: Canc elled via OM: Order cancelled - Patient discharged Performed By: #### L 400.0001 #### [facility] [address] [place], [address] RDW CV Normal 11.6-14.6 [facility] Comment on above: Result Comment: Canc elled via OM: Order cancelled - Patient discharged Performed By: #### L 400.0001 #### [facility] [address] [place], [address] RDW SD Normal 35.1-43.9 [facility] Comment on above: Result Comment: Canc elled via OM: Order cancelled - Patient discharged Performed By: #### L 400.0001 #### [facility] [address] [place], [address] WBC Normal 4.4-11.0 [facility] Comment on above: Result Comment: Canc elled via OM: Order cancelled - Patient discharged Performed By: #### L 400.0001 #### [facility] [address] [place], [address] Culture, Blood (WB)on 2024 CUB No growth in [address] [facility] Comment on above: Performed By: #### L 501.5200, L503.6005 #### [facility] [address] [place], [address] Absolute lymphocyte countOrd ered By: Lisha Ramirez on 03-24-2025 Lymphocytes Auto (Unsp spec) [#/Vol] 0.94 10*3/uL 0.83-4.51 [facility] Absolute neutrophil countOrd ered By: Lisha Ramirez on 03-24-2025 Neutrophils (Bld) [#/Vol] 5.2 10*3/uL 2.0-7.7 [facility] Anion gap in Serum or Plasma Ordered By: Lisha Ramirez on 03-24-2025 Anion gap [Moles/Vol] 13 mmol/L 5-15 [facility] Automated lymphocyte count a s percentage of total leukocytesOrdered By: Lisha Ramirez on 03-24-2025 Lymphocytes/100 WBC Auto (Unsp spec) 13.0 % Low 19-41 [facility] BUN/creatinine ratioOrdered By: Lisha Ramirez on 03-24-2025 Urea nitrogen/Creatinine [Mass ratio] 31.0 mg/mg High 10-20 [facility] Basic Metabolic Profile (BMP )on 03-24-2025 BUN/CRE 31.0 RATIO High 04-26 [facility] Comment on above: Performed By: #### L 501.5200, L503.6005 #### [facility] [address] [place], [address] Calcium [Mass/Vol] 9.1 mg/dL Normal 7.6-11.0 [facility] Comment on above: Performed By: #### L 501.5200, L503.6005 #### [facility] [address] [place], [address] Chloride [Moles/Vol] 100 mmol/L Normal 98-108 [facility] Comment on above: Performed By: #### L 501.5200, L503.6005 #### [facility] [address] [place], [address] CO2 [Moles/Vol] 21.9 mmol/L Normal 21.0-32.0 [facility] Comment on above: Performed By: #### L 501.5200, L503.6005 #### [facility] [address] [place], [address] Creatinine [Mass/Vol] 1.53 mg/dL High 0.70-1.20 [facility] Comment on above: Performed By: #### L 501.5200, L503.6005 #### [facility] [address] [place], [address] ECRCL 38.44 ml/min Low 50-250 [facility] Comment on above: Performed By: #### L 501.5200, L503.6005 #### [facility] [address] [place], [address] GAP 13 Normal 5-15 [facility] Comment on above: Performed By: #### L 501.5200, L503.6005 #### [facility] [address] [place], [address] GFR/1.73 sq M.predicted among non-blacks MDRD (S/P/Bld) [Vol rate/Area] 45 mL/min/{1.73_m2} Low >60 [facility] Comment on above: Result Comment: mL/m in/1.73m2 CKD-EPI Creatinine Equation (2020) Performed By: #### L 501.5200, L503.6005 #### [facility] [address] [place], [address] Glucose [Mass/Vol] 80 mg/dL Normal 70-99 [facility] Comment on above: Performed By: #### L 501.5200, L503.6005 #### [facility] [address] [place], [address] Potassium [Moles/Vol] 4.6 mmol/L Normal 3.3-5.1 [facility] Comment on above: Result Comment: Hemo lysis present, Results??could be affected. ?? Performed By: #### L 501.5200, L503.6005 #### [facility] [address] [place], [address] Sodium [Moles/Vol] 135 mmol/L Normal 133-145 [facility] Comment on above: Performed By: #### L 501.5200, L503.6005 #### [facility] [address] [place], [address] Urea nitrogen [Mass/Vol] 48 mg/dL High 4-19 [facility] Comment on above: Performed By: #### L 501.5200, L503.6005 #### [facility] [address] [place], [address] Basophil percentageOrdered B y: Lisha Ashley on 03-24-2025 Basophils/100 WBC (Bld) 0.4 % 0-1 [facility] Bedside Glucoseon 03-24-2025 FINGERSTICK GLU 190 mg/dL High 74-106 [facility] Comment on above: Result Comment: JACKLYN DUDLEY OF PATIENT CARE PER NURSING PROTOCOL Performed By: #### L 501.2300, L501.5200, L500.2500 #### [facility] [address] [place], [address] FINGERSTICK GLU 110 mg/dL High 74-106 [facility] Comment on above: Result Comment: JACKLYN DUDLEY OF PATIENT CARE PER NURSING PROTOCOL Performed By: #### L 501.2300, L501.5200, L500.2500 #### [facility] [address] [place], [address] CBC W/Diff, Automatedon 03-08 Absolute Lymph 0.94 X10 3/uL Normal 0.83-4.51 [facility] Comment on above: Performed By: #### L 501.5200, L503.6005 #### [facility] [address] [place], [address] Absolute Neut 5.2 X10 3/uL Normal 2.0-7.7 [facility] Comment on above: Performed By: #### L 501.5200, L503.6005 #### [facility] [address] [place], [address] Basophils/100 WBC (Bld) 0.4 % Normal 0-1 [facility] Comment on above: Performed By: #### L 501.5200, L503.6005 #### [facility] [address] [place], [address] Eosinophils/100 WBC (Bld) 0.3 % Normal 0-5 [facility] Comment on above: Performed By: #### L 501.5200, L503.6005 #### [facility] [address] [place], [address] Erythrocyte distribution width (RBC) [Ratio] 13.1 % Normal 11.6-14.6 [facility] Comment on above: Performed By: #### L 501.5200, L503.6005 #### [facility] [address] [place], [address] Hematocrit (Bld) [Volume fraction] 47.8 % Normal 40-54 [facility] Comment on above: Performed By: #### L 501.5200, L503.6005 #### [facility] [address] [place], [address] Hemoglobin (Bld) [Mass/Vol] 16.2 g/dL Normal 13.0-16.5 [facility] Comment on above: Performed By: #### L 501.5200, L503.6005 #### [facility] [address] [place], [address] IG% 0.600 Normal 0.0-0.9 [facility] Comment on above: Result Comment: IG% - Immature Granulocytes (promyelocytes, myelocytes and metamyelocytes) > 1% indicates that a LEFT SHIFT is Present. Performed By: #### L 501.5200, L503.6005 #### [facility] [address] [place], [address] Lymphocytes/100 WBC (Bld) 13.0 % Low 19-41 [facility] Comment on above: Performed By: #### L 501.5200, L503.6005 #### [facility] [address] [place], [address] MCH (RBC) [Entitic mass] 32.3 pg High 27.0-32.0 [facility] Comment on above: Performed By: #### L 501.5200, L503.6005 #### [facility] [address] [place], [address] MCHC (RBC) [Mass/Vol] 33.9 g/dL Normal 32-36 [facility] Comment on above: Performed By: #### L 501.5200, [id number] #### [facility] [address] [place], [address] MCV (RBC) [Entitic vol] 95.2 fL High 80-94 [facility] Comment on above: Performed By: #### L 501.5200, L503.6005 #### [facility] [address] [place], [address] Monocytes/100 WBC (Bld) 13.2 % High 0-10 [facility] Comment on above: Performed By: #### L 501.5200, L503.6005 #### [facility] [address] [place], [address] Neutrophils/100 WBC (Bld) 72.5 % High 47-70 [facility] Comment on above: Performed By: #### L 501.5200, L503.6005 #### [facility] [address] [place], [address] Nucleated RBC (Bld) [#/Vol] 0 10*3/uL Normal 0-5 [facility] Comment on above: Performed By: #### L 501.5200, L503.6005 #### [facility] [address] [place], [address] Platelet mean volume (Bld) [Entitic vol] 9.5 fL Normal 6.2-12.0 [facility] Comment on above: Performed By: #### L 501.5200, L503.6005 #### [facility] [address] [place], [address] Platelets (Bld) [#/Vol] 191 10*3/uL Normal 150-450 [facility] Comment on above: Performed By: #### L 501.5200, L503.6005 #### [facility] [address] [place], [address] RBC (Bld) [#/Vol] 5.02 10*6/uL Normal 4.6-6.2 [facility] Comment on above: Performed By: #### L 501.5200, L503.6005 #### [facility] [address] [place], [address] RDW SD 46.0 fl High 35.1-43.9 [facility] Comment on above: Performed By: #### L 501.5200, L503.6005 #### [facility] [address] [place], [place], [address] WBC (Bld) [#/Vol] 7.2 10*3/uL Normal 4.4-11.0 [facility] Comment on above: Performed By: #### L 501.5200, L503.6005 #### [facility] [address] [place], [address] Carbon dioxide, total [Moles /volume] in Central venous bloodOrdered By: Lisha Ramirez on 03-24-2025 CO2 [Moles/Vol] 21.9 mmol/L 21.0-32.0 [facility] Chloride assayOrdered By: Marian Ramirez on 03-24-2025 Chloride [Moles/Vol] 100 mmol/L 98-108 [facility] Discharge Instructionon 03-08 Discharge Instruction [facility] Medical Records Department [address] [place] [address] Instructions for Home/Discharge Instructions 03/24/25 1157 MR#: [id number] Acct: [id number] Name: CECILIA KUHN Rep #: [id number] : 1945 80 From: Lisha Ramirez MD PCP: [facility] ALCALA Status:ADM IN Discharge Instructions DC O2, CPAP, BIPAP needs Home O2 Discharge instructions: No Dressing / Incision Discharge Activity: Return to Normal Activity Weight Bearing Status: Weight bearing as tolerated Dressing / Incision Call your doctor if you observe: Fever of 101 or Higher, Shortness of breath, Dizziness, Swelling in the ankles, Chest pain and Increased palpitations (irregular heartbeat) Follow Up Care Test Results: Test results from this visit will be discussed in further detail at your follow-up appointment, if applicable. Discharge Plan Admission Admit Date/Time: 03/20/25 05:38 Primary Reason for Your Visit: acute exacerbation of heart failure Attending Provider: Lisha Ramirez Primary Care Provider: ULI ALCALA Consulting Providers: ANGEL LUIS ZAMORA; Matthew Grullon; Faheem Pantoja; Sherin Webb; Aniyah Fried; Rene Nava; Chun Dallas; Jordi Odell; Nate Tavarez; Jerome Ching; Matthew Dunne; Fred Machado; Eder Pickett; Balwinder Faustin ; Romi Boss; Bryn Garcia; Ron Holman; Robert Ahn NP; Mariana Downs; Sam Tabor; Dipti Pathak Instructions Patient Instructions: Coping with Heart Failure Additional Instructions / Restrictions: 1. Limit fluid intake to 1.5 L daily 2. Limit salt and take to no more than 2 to 3 g daily 3. Weigh yourself in the morning without close on on a daily basis and keep track of your weight. If your weight increases by more than 2 to 3 pounds in a 24-hour period please take an extra dose of Lasix and call the cardiology office Discharge Orders/Prescriptions Prescriptions: New furosemide 40 mg Tablet 40 mg PO DAILY Qty: 30 2RF hydralazine 25 mg Tablet 25 mg PO TID Qty: 90 2RF metoprolol succinate 25 mg Tablet Extended Release 24 Hr 25 mg PO DAILY Qty: 30 2RF Continued methocarbamol 500 mg tablet 500 mg PO Q6H PRN (Reason: muscle spasm) isosorbide mononitrate 60 mg tablet extended release 24 hr 60 mg PO DAILY atorvastatin [Lipitor] 40 mg tablet 40 mg PO DAILY finasteride 5 mg tablet 5 mg PO DAILY spironolactone [Aldactone] 25 mg tablet 25 mg PO DAILY ranolazine 1,000 mg tablet extended release 12 hr 1,000 mg PO BID aspirin 81 mg tablet 81 mg PO DAILY clopidogrel 75 mg tablet 75 mg PO DAILY Jardiance 10 mg tablet 10 mg PO DAILY insulin lispro protamin-lispro [Humalog Mix 75-25 KwikPen] 100 unit/mL (75-25) insulin pen 20 unit subcut BID Discontinued hydralazine 10 mg tablet 10 mg PO BID Referrals / Follow Up: [facility] ALCALA [Other] - Within 1 Week Chun Dallas MD [Med Staff - Active Staff, Cardiology] - Within 2 Weeks [facility] Doctor,Out of [Non-Staff, Medical] Disposition Disposition (needs filled in before D/C Order can be placed): Home, Self Care 03/24/25 1158 Lisha Ramirez MD CC: SUSAN Ahn; Dr. Aniyah Fried MD; Dr. Sherin Webb MD; Dr. Faheem Pantoja MD; Dr. Chun Dallas MD; Dr. Rene Nava MD; Dr. Jordi Odell MD; Dr. Nate Tavarez MD; Dr. Jerome Ching MD; Dr. Matthew Dunne DO; Dr. Matthew Grullon DO; Dr. Fred Machado MD; Dr. Dipti Pathak DO; Dr. Eder Pickett MD; Dr. Balwinder Faustin MD; Dr. Ron Holman MD; Dr. Romi Boss MD; Dr. Bryn Garcia MD; IVANNA Turner; ANGEL LUIS ZAMORA; IVANNA Newman; ULI ALCALA Signed Normal [facility] Eosinophil percentageOrdered By: Lisha Ramirez on 03-24-2025 Eosinophils/100 WBC (Bld) 0.3 % 0-5 [facility] Erythrocyte distribution wid th ratioOrdered By: Lisha Ramirez on 03-24-2025 Erythrocyte distribution width (RBC) [Ratio] 13.1 % 11.6-14.6 [facility] Erythrocyte distribution wid th standard deviationOrdered By: Lisha Ramirez on 03-24-2025 Erythrocyte distribution width (RBC) [Ratio] 46.0 fl High 35.1-43.9 [facility] Glomerular filtration rate ( GFR) estimation/1.73 sq m using serum, plasma, or whole bOrdered By: Lisha Ramirez on 03-24-2025 GFR/1.73 sq M.predicted among non-blacks MDRD (S/P/Bld) [Vol rate/Area] 45 mL/min/{1.73_m2} Low >60 [facility] Comment on above: mL/min/1.73m2 CKD-EP I Creatinine Equation (2020) Glucose measurement at bedsi deOrdered By: Lisha Ramirez on 03-24-2025 Glucose [Mass/Vol] 190 mg/dL High 74-106 [facility] Comment on above: MANAGEMENT OF PATIEN T CARE PER NURSING PROTOCOL Hematocrit Auto (Bld) [Volum e fraction]Ordered By: Lisha Ramirez on 03-24-2025 Hematocrit (Bld) [Volume fraction] 47.8 % 40-54 [facility] Hemoglobin measurementOrdere d By: Lisha Ramirez on 03-24-2025 Hemoglobin (Bld) [Mass/Vol] 16.2 g/dL 13.0-16.5 [facility] Immature granulocytes/100 WB C Auto (Bld)Ordered By: Lisha Ramirez on 03-24-2025 Immature granulocytes/100 WBC (Bld) 0.600 % 0.0-0.9 [facility] Comment on above: IG% - Immature Granu locytes (promyelocytes, myelocytes and metamyelocytes) > 1% indicates that a LEFT SHIFT is Present. MCV (mean corpuscular volume ) determinationOrdered By: Lisha Ramirez on 03-24-2025 MCV (RBC) [Entitic vol] 95.2 fL High 80-94 [facility] Mean corpuscular hemoglobin (MCH) determinationOrdered By: Lisha Ramirez 03-24-2025 MCH (RBC) [Entitic mass] 32.3 pg High 27.0-32.0 [facility] Mean corpuscular hemoglobin concentration (MCHC) determinationOrdered By: Lisha Ramirez 03-24-2025 MCHC (RBC) [Mass/Vol] 33.9 g/dL 32-36 [facility] Mean platelet volume determi nationOrdered By: Lisha Ramirez on 03-24-2025 Platelet mean volume (Bld) [Entitic vol] 9.5 fL 6.2-12.0 [facility] Monocyte percentageOrdered B y: Lisha Ramirez on 03-24-2025 Monocytes/100 WBC (Bld) 13.2 % High 0-10 [facility] Neutrophil percentageOrdered By: Lisha Ramirez on 03-24-2025 Neutrophils/100 WBC (Bld) 72.5 % High 47-70 [facility] Nucleated red blood cell per centageOrdered By: Lisha Ramirez on 03-24-2025 Nucleated RBC/100 WBC (Bld) [Ratio] 0 % 0-5 [facility] Platelet countOrdered By: Marian Ramirez on 03-24-2025 Platelets (Bld) [#/Vol] 191 10*3/uL 150-450 [facility] Potassium measurement (mass/ volume)Ordered By: Lisha Ramirez on 03-24-2025 Potassium (Unsp spec) [Mass/Vol] 4.6 mmol/L 3.3-5.1 [facility] Comment on above: Hemolysis present, R esults could be affected. RBC Auto (Bld) [#/Vol]Ordere d By: Lisha Ramirez on 03-24-2025 RBC (Bld) [#/Vol] 5.02 10*6/uL 4.6-6.2 [facility] Serum creatinine measurement (mass/volume)Ordered By: Lisha Ramirez on 03-24-2025 Creatinine [Mass/Vol] 1.53 mg/dL High 0.70-1.20 [facility] Serum glucose measurement (m ass/volume)Ordered By: Lisha Ramirez on 03-24-2025 Glucose [Mass/Vol] 80 mg/dL 70-99 [facility] Serum or plasma calcium adalgisa urement (mass/volume)Ordered By: Lisha Ramirez on 03-24-2025 Calcium [Mass/Vol] 9.1 mg/dL 7.6-11.0 [facility] Serum or plasma urea nitroge n measurement (mass/volume)Ordered By: Lisha Ramirez on 03-24-2025 Urea nitrogen [Mass/Vol] 48 mg/dL High 4-19 [facility] Sodium levelOrdered By: Lisha Ramirez on 03-24-2025 Sodium [Moles/Vol] 135 mmol/L 133-145 [facility] White blood cell (WBC) count Ordered By: Lisha Ramirez on 03-24-2025 WBC (Bld) [#/Vol] 7.2 10*3/uL 4.4-11.0 [facility] Basic Metabolic Profile (BMP )on 03-23-2025 BUN/CRE 29.6 RATIO High 10-20 [facility] Comment on above: Performed By: #### L 100.0500 #### [facility] [address] [place], [address] Calcium [Mass/Vol] 8.8 mg/dL Normal 7.6-11.0 [facility] Comment on above: Performed By: #### L 100.0500 #### [facility] [address] [place], [address] Chloride [Moles/Vol] 103 mmol/L Normal 98-108 [facility] Comment on above: Performed By: #### L 100.0500 #### [facility] [address] [place], [address] CO2 [Moles/Vol] 24.3 mmol/L Normal 21.0-32.0 [facility] Comment on above: Performed By: #### L 100.0500 #### [facility] [address] [place], [address] Creatinine [Mass/Vol] 1.58 mg/dL High 0.70-1.20 [facility] Comment on above: Performed By: #### L 100.0500 #### [facility] [address] [place], [address] ECRCL 37.22 ml/min Low 50-250 [facility] Comment on above: Performed By: #### L 100.0500 #### [facility] [address] [place], [address] GAP 9 Normal 5-15 [facility] Comment on above: Performed By: #### L 100.0500 #### [facility] [address] [place], [address] GFR/1.73 sq M.predicted among non-blacks MDRD (S/P/Bld) [Vol rate/Area] 43 mL/min/{1.73_m2} Low >60 [facility] Comment on above: Result Comment: mL/m in/1.73m2 CKD-EPI Creatinine Equation (2020) Performed By: #### L 100.0500 #### [facility] [address] [place], [address] Glucose [Mass/Vol] 100 mg/dL High 70-99 [facility] Comment on above: Performed By: #### L 100.0500 #### [facility] [address] [place], [address] Potassium [Moles/Vol] 5.1 mmol/L Normal 3.3-5.1 [facility] Comment on above: Performed By: #### L 100.0500 #### [facility] [address] [place], [address] Sodium [Moles/Vol] 136 mmol/L Normal 133-145 [facility] Comment on above: Performed By: #### L 100.0500 #### [facility] [address] [place], [address] Urea nitrogen [Mass/Vol] 47 mg/dL High 4-19 [facility] Comment on above: Performed By: #### L 100.0500 #### [facility] [address] [place], [address] Bedside Glucoseon 03-23-2025 FINGERSTICK GLU 232 mg/dL High 74-106 [facility] Comment on above: Result Comment: JACKLYN GEMENT OF PATIENT CARE PER NURSING PROTOCOL Performed By: #### L 100.0500 #### [facility] [address] [place], [address] FINGERSTICK GLU 222 mg/dL High 74-106 [facility] Comment on above: Result Comment: JACKLYN GEMENT OF PATIENT CARE PER NURSING PROTOCOL Performed By: #### L 100.0500 #### [facility] [address] [place], [address] FINGERSTICK GLU 212 mg/dL High 74-106 [facility] Comment on above: Result Comment: JACKLNY GEMENT OF PATIENT CARE PER NURSING PROTOCOL Performed By: #### L 100.0500 #### [facility] [address] [place], [address] FINGERSTICK GLU 103 mg/dL Normal 74-106 [facility] Comment on above: Result Comment: JACKLYN GEMENT OF PATIENT CARE PER NURSING PROTOCOL Performed By: #### L 400.0001 #### [facility] [address] [place], [address] CBC W/Diff, Automatedon 03-08 Absolute Lymph 1.00 X10 3/uL Normal 0.83-4.51 [facility] Comment on above: Performed By: #### L 100.0500 #### [facility] [address] [place], [address] Absolute Neut 5.2 X10 3/uL Normal 2.0-7.7 [facility] Comment on above: Performed By: #### L 100.0500 #### [facility] [address] [place], [address] Basophils/100 WBC (Bld) 0.3 % Normal 0-1 [facility] Comment on above: Performed By: #### L 100.0500 #### [facility] [address] [place], [address] Eosinophils/100 WBC (Bld) 0.1 % Normal 0-5 [facility] Comment on above: Performed By: #### L 100.0500 #### [facility] [address] [place], [address] Erythrocyte distribution width (RBC) [Ratio] 13.5 % Normal 11.6-14.6 [facility] Comment on above: Performed By: #### L 100.0500 #### [facility] [address] [place], [address] Hematocrit (Bld) [Volume fraction] 45.2 % Normal 40-54 [facility] Comment on above: Performed By: #### L 100.0500 #### [facility] [address] [place], [address] Hemoglobin (Bld) [Mass/Vol] 15.1 g/dL Normal 13.0-16.5 [facility] Comment on above: Performed By: #### L 100.0500 #### [facility] [address] [place], [address] IG% 0.500 Normal 0.0-0.9 [facility] Comment on above: Result Comment: IG% - Immature Granulocytes (promyelocytes, myelocytes and metamyelocytes) > 1% indicates that a LEFT SHIFT is Present. Performed By: #### L 100.0500 #### [facility] [address] [place], [address] Lymphocytes/100 WBC (Bld) 13.6 % Low 19-41 [facility] Comment on above: Performed By: #### L 100.0500 #### [facility] [address] [place], [address] MCH (RBC) [Entitic mass] 32.3 pg High 27.0-32.0 [facility] Comment on above: Performed By: #### L 100.0500 #### [facility] [address] [place], [address] MCHC (RBC) [Mass/Vol] 33.4 g/dL Normal 32-36 [facility] Comment on above: Performed By: #### L 100.0500 #### [facility] [address] [place], [address] MCV (RBC) [Entitic vol] 96.8 fL High 80-94 [facility] Comment on above: Performed By: #### L 100.0500 #### [facility] [address] [place], [address] Monocytes/100 WBC (Bld) 14.3 % High 0-10 [facility] Comment on above: Performed By: #### L 100.0500 #### [facility] [address] [place], [address] Neutrophils/100 WBC (Bld) 71.2 % High 47-70 [facility] Comment on above: Performed By: #### L 100.0500 #### [facility] [address] [place], [address] Nucleated RBC (Bld) [#/Vol] 0 10*3/uL Normal 0-5 [facility] Comment on above: Performed By: #### L 100.0500 #### [facility] [address] [place], [address] Platelet mean volume (Bld) [Entitic vol] 9.2 fL Normal 6.2-12.0 [facility] Comment on above: Performed By: #### L 100.0500 #### [facility] [address] [place], [address] Platelets (Bld) [#/Vol] 191 10*3/uL Normal 150-450 [facility] Comment on above: Performed By: #### L 100.0500 #### [facility] [address] [place], [address] RBC (Bld) [#/Vol] 4.67 10*6/uL Normal 4.6-6.2 [facility] Comment on above: Performed By: #### L 100.0500 #### [facility] [address] [place], [address] RDW SD 48.5 fl High 35.1-43.9 [facility] Comment on above: Performed By: #### L 100.0500 #### [facility] [address] [place], [address] WBC (Bld) [#/Vol] 7.3 10*3/uL Normal 4.4-11.0 [facility] Comment on above: Performed By: #### L 100.0500 #### [facility] [address] [place], [address] Natriuretic peptide.B prohor mónica N-Terminal [Mass/volume] in Serum or PlasmaOrdered By: Eder Pickett on 03-23-2025 Natriuretic peptide.B prohormone N-Terminal [Mass/Vol] 8187 pg/mL High <1800 [facility] Comment on above: Heart Failure Unlike ly: < 300 pg/mLHeart Failure Likely< 50 Years: > 450 pg/mL50-75 Years: > 900 pg/mL>75 Years: > 1800 pg/mL Pro- Brain NATRIURETIC PEPTI Lyssa 03-23-2025 Natriuretic peptide B (Bld) [Mass/Vol] 8187 pg/mL High <=1800 [facility] Comment on above: Result Comment: Hear t Failure Unlikely: < 300 pg/mL Heart Failure Likely < 50 Years: > 450 pg/mL 50-75 Years: > 900 pg/mL >75 Years: > 1800 pg/mL Performed By: #### L 501.5200, L503.6005 #### [facility] [address] [place], [address] Basic Metabolic Profile (BMP )on 03-22-2025 BUN/CRE 28.9 RATIO High 10-20 [facility] Comment on above: Performed By: #### L 501.2300, L501.5200, L500.2500 #### [facility] [address] [place], [address] Calcium [Mass/Vol] 9.1 mg/dL Normal 7.6-11.0 [facility] Comment on above: Performed By: #### L 501.2300, L501.5200, L500.2500 #### [facility] [address] [place], [address] Chloride [Moles/Vol] 104 mmol/L Normal 98-108 [facility] Comment on above: Performed By: #### L 501.2300, L501.5200, L500.2500 #### [facility] [address] [place], [address] CO2 [Moles/Vol] 22.8 mmol/L Normal 21.0-32.0 [facility] Comment on above: Performed By: #### L 501.2300, L501.5200, L500.2500 #### [facility] [address] [place], [address] Creatinine [Mass/Vol] 1.67 mg/dL High 0.70-1.20 [facility] Comment on above: Performed By: #### L 501.2300, L501.5200, L500.2500 #### [facility] [address] [place], [address] ECRCL 35.21 ml/min Low 50-250 [facility] Comment on above: Performed By: #### L 501.2300, L501.5200, L500.2500 #### [facility] [address] [place], [address] GAP 11 Normal 5-15 [facility] Comment on above: Performed By: #### L 501.2300, L501.5200, L500.2500 #### [facility] [address] [place], [address] GFR/1.73 sq M.predicted among non-blacks MDRD (S/P/Bld) [Vol rate/Area] 41 mL/min/{1.73_m2} Low >60 [facility] Comment on above: Result Comment: mL/m in/1.73m2 CKD-EPI Creatinine Equation (2020) Performed By: #### L 501.2300, L501.5200, L500.2500 #### [facility] [address] [place], [address] Glucose [Mass/Vol] 79 mg/dL Normal 70-99 [facility] Comment on above: Performed By: #### L 501.2300, L501.5200, L500.2500 #### [facility] [address] [place], [address] Potassium [Moles/Vol] 4.6 mmol/L Normal 3.3-5.1 [facility] Comment on above: Result Comment: Hemo lysis present, Results??could be affected. ?? Performed By: #### L 501.2300, L501.5200, L500.2500 #### [facility] [address] [place], [address] Sodium [Moles/Vol] 138 mmol/L Normal 133-145 [facility] Comment on above: Performed By: #### L 501.2300, L501.5200, L500.2500 #### [facility] [address] [place], [address] Urea nitrogen [Mass/Vol] 48 mg/dL High 4-19 [facility] Comment on above: Performed By: #### L 501.2300, L501.5200, L500.2500 #### [facility] [address] [place], [address] Bedside Glucoseon 03-22-2025 FINGERSTICK GLU 159 mg/dL High 74-106 [facility] Comment on above: Result Comment: JACKLYN GEMENT OF PATIENT CARE PER NURSING PROTOCOL Performed By: #### L 501.5200, L503.6005 #### [facility] [address] [place], [address] FINGERSTICK GLU 74 mg/dL Normal 74-106 [facility] Comment on above: Result Comment: JACKLYN GEMENT OF PATIENT CARE PER NURSING PROTOCOL Performed By: #### L 501.080 #### [facility] [address] [place], [address] FINGERSTICK GLU 86 mg/dL Normal 74-106 [facility] Comment on above: Result Comment: JACKLYN GEMENT OF PATIENT CARE PER NURSING PROTOCOL Performed By: #### L 400.0001 #### [facility] [address] [place], [address] FINGERSTICK GLU 104 mg/dL Normal 74-106 [facility] Comment on above: Result Comment: JACKLYN GEMENT OF PATIENT CARE PER NURSING PROTOCOL Performed By: #### L 501.080 #### [facility] [address] [place], [address] CBC-Complete Blood Cnt No Di ffon 03-22-2025 Erythrocyte distribution width (RBC) [Ratio] 13.6 % Normal 11.6-14.6 [facility] Comment on above: Performed By: #### L 100.0500 #### [facility] [address] [place], [address] Hematocrit (Bld) [Volume fraction] 46.9 % Normal 40-54 [facility] Comment on above: Performed By: #### L 100.0500 #### [facility] [address] [place], [address] Hemoglobin (Bld) [Mass/Vol] 15.6 g/dL Normal 13.0-16.5 [facility] Comment on above: Performed By: #### L 100.0500 #### [facility] [address] [place], [address] MCH (RBC) [Entitic mass] 32.2 pg High 27.0-32.0 [facility] Comment on above: Performed By: #### L 100.0500 #### [facility] [address] [place], [address] MCHC (RBC) [Mass/Vol] 33.3 g/dL Normal 32-36 [facility] Comment on above: Performed By: #### L 100.0500 #### [facility] [address] [place], [address] MCV (RBC) [Entitic vol] 96.9 fL High 80-94 [facility] Comment on above: Performed By: #### L 100.0500 #### [facility] [address] [place], [address] Platelet mean volume (Bld) [Entitic vol] 9.4 fL Normal 6.2-12.0 [facility] Comment on above: Performed By: #### L 100.0500 #### [facility] [address] [place], [address] Platelets (Bld) [#/Vol] 198 10*3/uL Normal 150-450 [facility] Comment on above: Performed By: #### L 100.0500 #### [facility] [address] [place], [address] RBC (Bld) [#/Vol] 4.84 10*6/uL Normal 4.6-6.2 [facility] Comment on above: Performed By: #### L 100.0500 #### [facility] [address] [place], [address] RDW SD 49.1 fl High 35.1-43.9 [facility] Comment on above: Performed By: #### L 100.0500 #### [facility] [address] [place], [address] WBC (Bld) [#/Vol] 9.5 10*3/uL Normal 4.4-11.0 [facility] Comment on above: Performed By: #### L 100.0500 #### [facility] [address] [place], [address] CNPNon 03-22-2025 CNPN Telephone ([facility]) CECILIA KUHN ([id number]) 1945 M Date Time Provider Department 03/22/25 RUTHY NGO [facility] During your visit today, we recorded the following information about you: Hailey Nash 03/22/2025 12:16 PM Signed Daughter Alondra called in to start referral with Dr. Ngo, email to daughter informing info and records still needed for a proper review. Cath 08/17/22 FCO 08/18/22 CT Chest 02/04/25 CTA Chest 01/18/25 Patient is currently admitted in the [facility], informed daughter if he had current tests performed we need those recent tests sent, electronically or mailed on a disc. Info provided to patients daughter, along with requesting copies of insurance card images. Hailey Nash 03/24/2025 1:05 PM Signed Email to alondra the daughter of the patient informing her of items still needed, and sent a [employer] message. Hailey Nash 03/30/2025 2:24 PM Signed Per email from daughter, stated all images were sent, we have yet to receive only Echo 03/20/25 but need report for that test. Informed the patients daughter. Hailey Nash 03/30/2025 3:47 PM Signed [facility] will send images and reports per daughter Alondra. Hailey Nash 04/02/2025 11:13 AM Signed Images and reports received, informed patient and we need the insurance cards for an auth check and will pass onto clinical for the review by Dr. Ngo once received. Hailey Nash 04/05/2025 9:48 AM Signed I replied to the daughter via email we are in need of the insurance card images still. Hailey Nash 04/12/2025 10:53 AM Signed Insurance cards received and uploaded into [employer], auth check sent over. Hailey Nash 04/12/2025 10:53 AM Signed LOCAL PATIENT Received Call from Patients daughter Alondra Vick Balbir Mancillaam is being referred to Ruthy Ngo MD by SELF Phone: N/A Fax: Patient diagnosis/Reason for consult: CAD Referral triage process explained: Yes Patient will receive a call from Cardiac NPM after triage review with surgeon to discuss any additional testing and/or consults that will be scheduled. Pt will then receive a call from our scheduling office for scheduling. Please call pt at [phone]. Patient Registration: Registration complete/updated: yes Insurance card(s) scanned in [facility] with in the past year: Yes: Date: 2024 INN Pt's [employer] is active. Ok to communicate to pt via [employer] yes Medical Records: Records in [facility] (internal CC records): N/A Imaging in [facility] (internal CC records): N/A Care Everywhere - queried yes, downloaded Yes Linked Outside Organizations (list): OSH Records Received: Yes Uploaded to [facility]: Yes Additional OSH Records Requested: Yes: Date: 03/22, 03/24, 03/30, 04/02, 04/05 Outside Hospital(s) requested records from: PATIENT Records Requested: N/A Radiology Imaging: OSH Radiology Imaging Received: Yes Uploaded: Yes Additional OS Radiology Imaging Requested: Yes: Date: 03/22, 03/24, 03/30, 04/02, 04/05 Outside Hospital(s) requested imaging from: PATIENT Imaging will be received via: Electronic Transfer Imaging Requested: Cath, CTA, CT, FCO, and TTE Additional providers added to Care Teams: Yes Additional Notes/Comments: Enct routed to: Yes, Cardiac NPM for triage Nahomi Chavis, RICARDO 04/14/2025 8:40 AM Signed Chart reviewed April 14, 2025. File given to Dr. Ngo for her review/plan of care. Cecilia Mcgregor Bam [id number] 80 year old Diagnosis: CAD Secondary Dx: CHF, HTN, AICD, HLD, DM2, CKD-3, BPH Previous Surgeries: 07/08/13 S/P CABG, 2019 S/P PCI, S/P AICD Symptoms: CP, Dyspnea on exertion EF%: 22 Thinners: Pavix Smoking status: Current-Cigars Note:Lacy Leggett RN Castillo, Auda, RN 04/20/2025 4:[address] Ngo has reviewed case and is not offering any surgery. Spoke to daughter Alondra and she has been following up with local [facility]. Will close chart. Nahomi Curtis RN Referring Provider: SELF [200] Allergies As of Date: 03/22/2025 (Not on File) Date Reviewed: Never Reviewed Reason for Visit: Referral Information [4063] Chart Review [Other] Problem List As Of Date: 03/22/2025 (None) Encounter Status:Closed by NAHOMI CURTIS on 04/20/25 Normal [facility] Chest 1 View (Portable)on Chest 1 View (Portable) [facility] Imaging Services [address] [place] [address] [id number] Chest 1 View (Portable) MR#: [id number] Acct: [id number] Name: CECILIA KUHN Rep #: [id number] : 1945 M 80 From: Blanco rivero MD PCP: ULI ALCALA Status: ADM IN Study: Chest 1 View (Portable) Date of Exam: 03/22/25 Exam# [id number] Ordering Dr: Dipti Pathak DO PROCEDURE: CHEST 1 VIEW (PORTABLE) 03/22/2025 REASON FOR EXAM: B PLEURAL EFFUSION FOLLOWUP TECHNIQUE: Frontal view of the chest. COMPARISON: 03/20/2025. FINDINGS: AICD is in good position. Unremarkable median sternotomy wires. Unchanged bilateral pleural effusions with passive atelectatic airspace disease of the lower lobes. Unchanged central pulmonary venous congestion. Enlarged cardiac silhouette. Unchanged displaced fractures of the right ribs. Normal mediastinum and paul. Normal visualized pulmonary arteries. Atheromatous plaques of the visualized aortic arch and descending thoracic aorta. Diffuse spondylosis of the visualized thoracic spine. Normal visualized ribs, clavicles. Degenerative joint disease. There is no demonstrated abnormality of the visualized soft tissue structures of the upper abdomen. RAD/Chest 1 View (Portable) IMPRESSION: AICD is in good position. Unremarkable median sternotomy wires. Unchanged bilateral pleural effusions with passive atelectatic airspace disease of the lower lobes. Unchanged central pulmonary venous congestion. Enlarged cardiac silhouette. Unchanged displaced fractures of the right ribs. Reading Location: [place] [address] CC: Dr. Dipti Pathak DO; ULI ALCALA Counter Maker: Signed Normal [facility] Electrocardiogram reportOrde red By: Eder Pickett on 03-22-2025 EKG study [facility] Cardiovascular Services [address] [place] [address] 12 Lead EKG 03/20/25 0703 MR#: [id number] Acct: [id number] Name: CECILIA KUHN Rep #:[id number] : 1945 80 From: Eder cage MD Attending Dr: Dr. Lisha Ramirez MD Status: ADM IN Ordering Dr: Matthew Grullon DO Date: 03/20/25 Location: [facility] Sex: M C Admitted: 03/20/25 Test Reason : Blood Pressure : */* mmHG Vent. Rate : 81 BPM Atrial Rate : 81 BPM P-R Int : 188 ms QRS Dur : 190 ms QT Int : 478 ms P-R-T Axes : 15 -3 156 degrees QTcB Int : 555 ms Sinus rhythm with occasional atrial-paced complexes and Premature atrial complexes with Aberrant conduction Left bundle branch block Abnormal ECG When compared with ECG of 20-Mar-2025 02:08, MANUAL COMPARISON REQUIRED DATA IS UNCONFIRMED Confirmed by Eder Pickett ([id number]), desk editor LIN GIBSON ([id number]) on 03/22/2025 1:29:01 PM Referred By: GRULLON Confirmed By: Eder Pickett 03/22/25 1329 Date _ Eder Pickett MD CC: Dr. Matthew Grullon DO; Dr. Lisha Ramirez MD; ULI ALCALA ~ Signed [facility] Work Phone: EKG study [facility] Cardi[facility] Services [address] [place] [address] 12 Lead EKG 03/20/25 0208 MR#: [id number] Acct: [id number] Name: CECILIA KUHN Rep #:[id number] : 1945 80 From: Eder cage MD Attending Dr: Dr. Lisha Ramirez MD Status: ADM IN Ordering Dr: Jhoan Maldonado ate: 03/20/25 Location: [facility] Sex: M C Admitted: 03/20/25 Test Reason : CP Blood Pressure : */* mmHG Vent. Rate : 97 BPM Atrial Rate : 97 BPM P-R Int : 174 ms QRS Dur : 152 ms QT Int : 402 ms P-R-T Axes : 20 11 187 degrees QTcB Int : 510 ms Sinus rhythm with occasional and consecutive Premature ventricular complexes Left bundle branch block Abnormal ECG Confirmed by Eder Pickett ([id number]), desk editor LIN GIBSON ([id number]) on 03/22/2025 1:12:44 PM Referred By: AK Confirmed By: Eder Pickett 03/22/25 1312 Date _ Eder Pickett MD CC: Dr. Jhoan Maldonado DO; Dr. Lisha Ramirez MD; ULI ALCALA ~ Signed [facility] Work Phone: [phone] Magnesiumon 03-22-2025 Magnesium [Mass/Vol] 2.3 mg/dL High 1.5-2.2 [facility] Comment on above: Performed By: #### L 324.1162, L572.0231, L500.8929 #### [facility] [address] [place], [address] Magnesium measurement (mass/ volume)Ordered By: Dipti Pathak on 03-22-2025 Magnesium (Unsp spec) [Mass/Vol] 2.3 mg/dL High 1.5-2.2 [facility] Phosphoruson 03-22-2025 Phosphate [Mass/Vol] 3.7 mg/dL Normal 2.7-4.5 [facility] Comment on above: Performed By: #### L 501.2300, L501.5200, L500.2500 #### [facility] [address] [place], [address] Bedside Glucoseon 03-21-2025 FINGERSTICK GLU 103 mg/dL Normal 74-106 [facility] Comment on above: Result Comment: JACKLYN GEMENT OF PATIENT CARE PER NURSING PROTOCOL Performed By: #### L 501.080 #### [facility] [address] [place], [address] FINGERSTICK GLU 211 mg/dL High -106 [facility] Comment on above: Result Comment: JACKLYN GEMENT OF PATIENT CARE PER NURSING PROTOCOL Performed By: #### L 501.080 #### [facility] [address] [place], [address] FINGERSTICK GLU 182 mg/dL High -[address] [place] [address] Comment on above: Result Comment: JACKLYN GEMENT OF PATIENT CARE PER NURSING PROTOCOL Performed By: #### L 501.080 #### [facility] [address] [place], [address] FINGERSTICK GLU 196 mg/dL High -[address] [place] [address] Comment on above: Result Comment: JACKLYN GEMENT OF PATIENT CARE PER NURSING PROTOCOL Performed By: #### L 501.2300, L501.5200, L500.2500 #### [facility] [address] [place], [address] FINGERSTICK GLU 227 mg/dL High 74-106 [facility] Comment on above: Result Comment: JACKLYN GEMENT OF PATIENT CARE PER NURSING PROTOCOL Performed By: #### L 501.2300, L501.5200, L500.2500 #### [facility] [address] [place], [address] Bilirubin, totalOrdered By: Matthew Whitaker on 03-21-2025 Bilirubin [Mass/Vol] 0.54 mg/dL 0.00-1.30 [facility] CBC W/Diff, Automatedon 03-08 Absolute Lymph 0.79 X10 3/uL Low 0.83-4.51 [facility] Comment on above: Performed By: #### L 501.080 #### [facility] [address] [place], [address] Absolute Neut 11.7 X10 3/uL High 2.0-7.7 [facility] Comment on above: Performed By: #### L 501.080 #### [facility] [address] [place], [address] Basophils/100 WBC (Bld) 0.1 % Normal 0-1 [facility] Comment on above: Performed By: #### L 501.080 #### [facility] [address] [place], [address] Eosinophils/100 WBC (Bld) 0.0 % Normal 0-5 [facility] Comment on above: Performed By: #### L 501.080 #### [facility] [address] [place], [address] Erythrocyte distribution width (RBC) [Ratio] 13.5 % Normal 11.6-14.6 [facility] Comment on above: Performed By: #### L 501.080 #### [facility] [address] [place], [address] Hematocrit (Bld) [Volume fraction] 44.5 % Normal 40-54 [facility] Comment on above: Performed By: #### L 501.080 #### [facility] [address] [place], [address] Hemoglobin (Bld) [Mass/Vol] 15.0 g/dL Normal 13.0-16.5 [facility] Comment on above: Performed By: #### L 501.080 #### [facility] [address] [place], [address] IG% 0.500 Normal 0.0-0.9 [facility] Comment on above: Result Comment: IG% - Immature Granulocytes (promyelocytes, myelocytes and metamyelocytes) > 1% indicates that a LEFT SHIFT is Present. Performed By: #### L 501.080 #### [facility] [address] [place], [address] Lymphocytes/100 WBC (Bld) 5.9 % Low 19-41 [facility] Comment on above: Performed By: #### L 501.080 #### [facility] [address] [place], [address] MCH (RBC) [Entitic mass] 32.5 pg High 27.0-32.0 [facility] Comment on above: Performed By: #### L 501.080 #### [facility] [address] [place], [address] MCHC (RBC) [Mass/Vol] 33.7 g/dL Normal 32-36 [facility] Comment on above: Performed By: #### L 501.080 #### [facility] [address] [place], [address] MCV (RBC) [Entitic vol] 96.5 fL High 80-94 [facility] Comment on above: Performed By: #### L 501.080 #### [facility] [address] [place], [address] Monocytes/100 WBC (Bld) 6.4 % Normal 0-10 [facility] Comment on above: Performed By: #### L 501.080 #### [facility] [address] [place], [address] Neutrophils/100 WBC (Bld) 87.1 % High 47-70 [facility] Comment on above: Performed By: #### L 501.080 #### [facility] [address] [place], [address] Nucleated RBC (Bld) [#/Vol] 0 10*3/uL Normal 0-5 [facility] Comment on above: Performed By: #### L 501.080 #### [facility] [address] [place], [address] Platelet mean volume (Bld) [Entitic vol] 9.2 fL Normal 6.2-12.0 [facility] Comment on above: Performed By: #### L 501.080 #### [facility] [address] [place], [address] Platelets (Bld) [#/Vol] 201 10*3/uL Normal 150-450 [facility] Comment on above: Performed By: #### L 501.080 #### [facility] [address] [place], [address] RBC (Bld) [#/Vol] 4.61 10*6/uL Normal 4.6-6.2 [facility] Comment on above: Performed By: #### L 501.080 #### [facility] [address] [place], [address] RDW SD 48.4 fl High 35.1-43.9 [facility] Comment on above: Performed By: #### L 501.080 #### [facility] [address] [place], [address] WBC (Bld) [#/Vol] 13.4 10*3/uL High 4.4-11.0 [facility] Comment on above: Performed By: #### L 501.080 #### [facility] [address] [place], [address] Calculated very low density lipoprotein (VLDL) cholesterol measurementOrdered By: Matthew Whitaker on 03-21-2025 Calculated very low density lipoprotein (VLDL) cholesterol measurement 13 mg/dL 5-40 [facility] Comprehensive Metabolic Prof ilon 03-21-2025 Albumin [Mass/Vol] 3.5 g/dL Normal 3.4-4.8 [facility] Comment on above: Performed By: #### L 501.080 #### [facility] [address] [place], [address] Albumin/Globulin [Mass ratio] 1.1 {ratio} Normal 0.9-2.4 [facility] Comment on above: Performed By: #### L 501.080 #### [facility] [address] [place], [address] ALK PHOS 64 U/L Normal 40-129 [facility] Comment on above: Performed By: #### L 501.080 #### [facility] [address] [place], [address] ALT [Catalytic activity/Vol] 13 U/L Normal <=46 [facility] Comment on above: Performed By: #### L 501.080 #### [facility] [address] [place], [address] AST [Catalytic activity/Vol] 20 U/L Normal <=37 [facility] Comment on above: Performed By: #### L 501.080 #### [facility] [address] [place], [address] Bilirubin [Mass/Vol] 0.54 mg/dL Normal 0.00-1.30 [facility] Comment on above: Performed By: #### L 501.080 #### [facility] [address] [place], [address] BUN/CRE 19.6 RATIO Normal 10-20 [facility] Comment on above: Performed By: #### L 501.080 #### [facility] [address] [place], [address] Calcium [Mass/Vol] 9.0 mg/dL Normal 7.6-11.0 [facility] Comment on above: Performed By: #### L 501.080 #### [facility] [address] [place], [address] Chloride [Moles/Vol] 102 mmol/L Normal 98-108 [facility] Comment on above: Performed By: #### L 501.080 #### [facility] [address] [place], [address] CO2 [Moles/Vol] 21.6 mmol/L Normal 21.0-32.0 [facility] Comment on above: Performed By: #### L 501.080 #### [facility] [address] [place], [address] Creatinine [Mass/Vol] 1.62 mg/dL High 0.70-1.20 [facility] Comment on above: Performed By: #### L 501.080 #### [facility] [address] [place], [address] ECRCL 36.30 ml/min Low 50-250 [facility] Comment on above: Performed By: #### L 501.080 #### [facility] [address] [place], [address] GAP 11 Normal 5-15 [facility] Comment on above: Performed By: #### L 501.080 #### [facility] [address] [place], [address] GFR/1.73 sq M.predicted among non-blacks MDRD (S/P/Bld) [Vol rate/Area] 42 mL/min/{1.73_m2} Low >60 [facility] Comment on above: Result Comment: mL/m in/1.73m2 CKD-EPI Creatinine Equation (2021) Performed By: #### L 501.080 #### [facility] [address] [place], [address] Globulin (S) [Mass/Vol] 3.4 g/dL Normal 2.2-4.2 [facility] Comment on above: Performed By: #### L 501.080 #### [facility] [address] [place], [address] Glucose [Mass/Vol] 190 mg/dL High 70-99 [facility] Comment on above: Performed By: #### L 501.080 #### [facility] [address] [place], [address] Potassium [Moles/Vol] 4.6 mmol/L Normal 3.3-5.1 [facility] Comment on above: Performed By: #### L 501.080 #### [facility] [address] [place], [address] Sodium [Moles/Vol] 135 mmol/L Normal 133-145 [facility] Comment on above: Performed By: #### L 501.080 #### [facility] [address] [place], [address] T PROT 6.9 g/dL Normal 5.9-8.4 [facility] Comment on above: Performed By: #### L 501.080 #### [facility] [address] [place], [address] Urea nitrogen [Mass/Vol] 32 mg/dL High 4-19 [facility] Comment on above: Performed By: #### L 501.080 #### [facility] [address] [place], [address] Hemoglobin A1con 03-21-2025 HbA1c (Bld) [Mass fraction] 5.9 % High <=5.6 [facility] Comment on above: Result Comment: Norm al < 5.7 % Prediabetic 5.7 - 6.4 % Diabetic >or= 6.5 % Please note range changes. Performed By: #### L 501.080 #### [facility] [address] [place], [address] (414) Hemoglobin A1c percentageOrd ered By: Matthew Whitaker on 03-21-2025 HbA1c (Bld) [Mass fraction] 5.9 % High <5.7 [facility] Comment on above: Normal < 5.7 % Predi abetic 5.7 - 6.4 % Diabetic >or= 6.5 % Please note range changes. LDL calc ser/plasOrdered By: Matthew Whitaker on 03-21-2025 Cholesterol in LDL [Mass/Vol] 47 mg/dL [facility] Comment on above: Xbmwhproca=715-200 m g/dL & Higher Qtmm=804 mg/dL or greaterFriedwald Equation for LDL-C Laboratory - Chemistry and C hemistry - challengeOrdered By: Matthew Whitaker on 03-21-2025 AST [Catalytic activity/Vol] 20 U/L <38 [facility] Lipid Profileon 03-21-2025 CHOL:HDL 2.06 Normal [facility] Comment on above: Performed By: #### L 501.080 #### [facility] [address] [place], [address] Cholesterol [Mass/Vol] 117 mg/dL Normal <=200 [facility] Comment on above: Result Comment: Chol esterol level, Desirable <200 mg/dL Borderline high cholesterol 200-239 mg/dL High cholesterol >=240 mg/dL Recommendations of the NCEP Adult Treatment Panel for the following risk-cutoff thresholds for the [place] population. Performed By: #### L 501.080 #### [facility] [address] [place], [place], [address] [phone] Cholesterol in HDL [Mass/Vol] 57 mg/dL Normal [facility] Comment on above: Result Comment: Peggy onal Cholesterol Education Program (NCEP) guidelines: <40 mg/dL: Low HDL-cholesterol (major risk factor for CHD) >= 60 mg/dL: High HDL-cholesterol (negative risk factor for CHD) HDL-cholesterol is affected by a number of factors, e.g. smoking, exercise, hormones, sex and age. Performed By: #### L 501.080 #### [facility] [address] [place], [address] Cholesterol in LDL [Mass/Vol] 47 mg/dL Normal [facility] Comment on above: Result Comment: Bord myjdtd=827-884 mg/dL Higher Zbya=604 mg/dL or greater Friedwald Equation for LDL-C Performed By: #### L 501.080 #### [facility] [address] [place], [address] Cholesterol in VLDL [Mass/Vol] 13 mg/dL Normal 5-40 [facility] Comment on above: Performed By: #### L 501.080 #### [facility] [address] [place], [address] Triglyceride [Mass/Vol] 65 mg/dL Normal [facility] Comment on above: Result Comment: The drugs N-Acetylcysteine and Metamizole may falsely depress this assay. Normal range: <150 mg/dL Borderline High: 150-199 mg/dL High: 200-499 mg/dL Very High: >500 mg/dL Performed By: #### L 501.080 #### [facility] [address] [place], [address] Phosphoruson 03-21-2025 Phosphate [Mass/Vol] 3.7 mg/dL Normal 2.7-4.5 [facility] Comment on above: Performed By: #### L 501.080 #### [facility] [address] [place], [address] Pro- Brain NATRIURETIC PEPTI Lyssa 03-21-2025 Natriuretic peptide B (Bld) [Mass/Vol] 42276 pg/mL High <=1800 [facility] Comment on above: Result Comment: Hear t Failure Unlikely: < 300 pg/mL Heart Failure Likely < 50 Years: > 450 pg/mL 50-75 Years: > 900 pg/mL >75 Years: > 1800 pg/mL Performed By: #### L 501.080 #### [facility] [address] [place], [address] Screening total cholesterol/ high density lipoprotein (HDL) cholesterol ratioOrdered By: Matthew Whitaker on 03-21-2025 Cholesterol.total/Choles terol in HDL [Mass ratio] 2.06 {ratio} [facility] Serum globulin measurementOr dered By: Matthew Whitaker on 03-21-2025 Globulin (S) [Mass/Vol] 3.4 g/dL 2.2-4.2 [facility] Serum or plasma alanine campbell otransferase (ALT) measurementOrdered By: Matthew Whitaker on 03-21-2025 ALT [Catalytic activity/Vol] 13 U/L <47 [facility] Serum or plasma albumin adalgisa urement (mass/volume)Ordered By: Matthew Whitaker on 03-21-2025 Albumin [Mass/Vol] 3.5 g/dL 3.4-4.8 [facility] Serum or plasma albumin/glob ulin mass ratioOrdered By: Matthew Whitaker on 03-21-2025 Albumin/Globulin [Mass ratio] 1.1 {ratio} 0.9-2.4 [facility] Serum or plasma alkaline gustavo sphatase measurementOrdered By: Matthew Whitaker on 03-21-2025 ALP [Catalytic activity/Vol] 64 U/L 40-129 [facility] Serum or plasma cholesterol in HDL measurement (mass/volume)Ordered By: Matthew Whitaker on 03-21-2025 Cholesterol in HDL [Mass/Vol] 57 mg/dL >40 [facility] Comment on above: National Cholesterol Education Program (NCEP) guidelines:<40 mg/dL: Low HDL-cholesterol (major risk factor for CHD)>= 60 mg/dL: High HDL-cholesterol (negative risk factor for CHD)HDL-cholesterol is affected by a number of factors, e.g. smoking, exercise, hormones, sex and age. Serum or plasma cholesterol measurement (mass/volume)Ordered By: Matthew Whitaker on 03-21-2025 Cholesterol [Mass/Vol] 117 mg/dL <201 [facility] Comment on above: Cholesterol level, D esirable <200 mg/dLBorderline high cholesterol 200-239 mg/dLHigh cholesterol >=240 mg/dLRecommendations of the NCEP Adult Treatment Panel for the following risk-cutoff thresholds for the [place] population. Total proteinOrdered By: Rafiq Whitaker on 03-21-2025 Protein [Mass/Vol] 6.9 g/dL 5.9-8.4 [facility] Triglycerides measurementOrd ered By: Matthew Whitaker on 03-21-2025 Triglyceride [Mass/Vol] 65 mg/dL <199 [facility] Comment on above: The drugs N-Acetylcy steine and Metamizole may falsely depress this assay. Normal range: <150 mg/dLBorderline High: 150-199 mg/dLHigh: 200-499 mg/dLVery High: >500 mg/dL 12 Lead EKGon 03-20-2025 12 Lead EKG [facility] [address] [place] [address] 12 Lead EKG 03/20/25 0703 MR#: [id number] Acct: [id number] Name: CECILIA KUHN Rep #: [id number] : 1945 80 From: Eder Pickett MD Attending Dr: Dr. Lisha Ramirez MD Status: AD M IN Ordering Dr: Matthew Grullon DO Date: 03/20/25 Location: [facility] Sex: M C Admitted: 03/20/25 Test Reason : Blood Pressure : */* mmHG Vent. Rate : 81 BPM Atrial Rate : 81 BPM P-R Int : 188 ms QRS Dur : 190 ms QT Int : 478 ms P-R-T Axes : 15 -3 156 degrees QTcB Int : 555 ms Sinus rhythm with occasional atrial-paced complexes and Premature atrial complexes with Aberrant conduction Left bundle branch block Abnormal ECG When compared with ECG of 20-Mar-2025 02:08, MANUAL COMPARISON REQUIRED DATA IS UNCONFIRMED Confirmed by Eder Pickett ([id number]), desk editor LIN GIBSON ([id number]) on 03/22/2025 1:29:01 PM Referred By: GRULLON Confirmed By: Eder Pickett 03/22/25 1329 Date Eder Pickett MD CC: Dr. Matthew Grullon DO; Dr. Lisha Ramirez MD; ULI ALCALA Signed Normal [facility] 12 Lead EKG [facility] [address] [place] [address] 12 Lead EKG 03/20/25 0208 MR#: [id number] Acct: [id number] Name: CECILIA KUHN Rep #: [id number] : 1945 80 From: Eder Pickett MD Attending Dr: Dr. Lisha Ramirez MD Status: AD M IN Ordering Dr: Jhoan Maldonado DO Date: 5 Location: [facility] Sex: M C Admitted: 03/20/25 Test Reason : CP Blood Pressure : */* mmHG Vent. Rate : 97 BPM Atrial Rate : 97 BPM P-R Int : 174 ms QRS Dur : 152 ms QT Int : 402 ms P-R-T Axes : 20 11 187 degrees QTcB Int : 510 ms Sinus rhythm with occasional and consecutive Premature ventricular complexes Left bundle branch block Abnormal ECG Confirmed by Eder Pickett ([id number]), desk editor LIN GIBSON ([id number]) on 03/22/2025 1:12:44 PM Referred By: AK Confirmed By: Eder Pickett 03/22/25 1312 Date Eder Pickett MD CC: Dr. Jhoan Maldonado DO; Dr. Lisha Ramirez MD; ULI ALCALA Signed [facility] Absolute lymphocyte countOrd ered By: Jhoan Maldonado on 03-20-2025 Lymphocytes Auto (Unsp spec) [#/Vol] 3.12 10*3/uL 0.83-4.51 [facility] Absolute neutrophil countOrd ered By: Jhoan Maldonado on 03-20-2025 Neutrophils (Bld) [#/Vol] 5.8 10*3/uL 2.0-7.7 [facility] Anion gap in Serum or Plasma Ordered By: Jhoan Maldonado on 03-20-2025 Anion gap [Moles/Vol] 13 mmol/L 11-19 [facility] Assessment of wrist artery p atency prior to arterial punctureOrdered By: Jhoan Maldonado on 03-20-2025 Arterial patency Wrist artery --pre arterial puncture Positive [facility] Automated lymphocyte count a s percentage of total leukocytesOrdered By: Jhoanelo Maldonado on 03-20-2025 Lymphocytes/100 WBC Auto (Unsp spec) 30.1 % [facility] BUN/creatinine ratioOrdered By: [facility] Center[facility] on 03-20-2025 Urea nitrogen/Creatinine [Mass ratio] 15.1 mg/mg - [facility] Basic Metabolic Profile (BMP )on 03-20-2025 BUN/CRE 15.1 RATIO Normal 04-26 [facility] Comment on above: Performed By: #### L 400.0001 #### [facility] [address] [place], [address] Calcium [Mass/Vol] 9.0 mg/dL Normal 7.6-11.0 [facility] Comment on above: Performed By: #### L 400.0001 #### [facility] [address] [place], [address] Chloride [Moles/Vol] 105 mmol/L Normal 98-108 [facility] Comment on above: Performed By: #### L 400.0001 #### [facility] [address] [place], [address] CO2 [Moles/Vol] 22.4 mmol/L Normal 21.0-32.0 [facility] Comment on above: Performed By: #### L 400.0001 #### [facility] [address] [place], [address] Creatinine [Mass/Vol] 1.42 mg/dL High 0.70-1.20 [facility] Comment on above: Performed By: #### L 400.0001 #### [facility] [address] [place], [address] ECRCL 42.05 ml/min Low 50-250 [facility] Comment on above: Performed By: #### L 400.0001 #### [facility] [address] [place], [address] GAP 13 Normal 5-15 [facility] Comment on above: Performed By: #### L 400.0001 #### [facility] [address] [place], [address] GFR/1.73 sq M.predicted among non-blacks MDRD (S/P/Bld) [Vol rate/Area] 49 mL/min/{1.73_m2} Low >60 [facility] Comment on above: Result Comment: mL/m in/1.73m2 CKD-EPI Creatinine Equation (2020) Performed By: #### L 400.0001 #### [facility] [address] [place], [address] Glucose [Mass/Vol] 170 mg/dL High 70-99 [facility] Comment on above: Performed By: #### L 400.0001 #### [facility] [address] [place], [address] Potassium [Moles/Vol] 4.2 mmol/L Normal 3.3-5.1 [facility] Comment on above: Performed By: #### L 400.0001 #### [facility] [address] [place], [address] Sodium [Moles/Vol] 141 mmol/L Normal 133-145 [facility] Comment on above: Performed By: #### L 400.0001 #### [facility] [address] [place], [address] Urea nitrogen [Mass/Vol] 22 mg/dL High 4-19 [facility] Comment on above: Performed By: #### L 400.0001 #### [facility] [address] [place], [address] Basophil percentageOrdered B y: Jhoan Braun-Yuri on 03-20-2025 Basophils/100 WBC (Bld) 0.6 % 0-1 [facility] Bedside Glucoseon 03-20-2025 FINGERSTICK GLU 175 mg/dL High 74-106 [facility] Comment on above: Result Comment: JACKLYN GEMENT OF PATIENT CARE PER NURSING PROTOCOL Performed By: #### L 400.0001 #### [facility] [address] [place], [address] FINGERSTICK GLU 274 mg/dL High 74-106 [facility] Comment on above: Result Comment: JACKLYN GEMENT OF PATIENT CARE PER NURSING PROTOCOL Performed By: #### L 501.2300, L501.5200, L500.2500 #### [facility] [address] [place], [address] FINGERSTICK GLU 199 mg/dL High 74-106 [facility] Comment on above: Result Comment: JACKLYN GEMENT OF PATIENT CARE PER NURSING PROTOCOL Performed By: #### L 501.2300, L501.5200, L500.2500 #### [facility] [address] [place], [address] Bilirubin Test strip Ql (U)O rdered By: Matthew Whitaker on 03-20-2025 Bilirubin Ql (U) Negative Negative [facility] Blood Gases by CPSon 025 MARTHA TEST Positive Normal [facility] Comment on above: Performed By: #### L 501.2300, L501.5200, L500.2500 #### [facility] [address] [place], [address] Base excess Calc (Bld) [Moles/Vol] -3 mmol/L Low -2 to +2 [facility] Comment on above: Performed By: #### L 501.2300, L501.5200, L500.2500 #### [facility] [address] [place], [address] Blood Gas Type ART Normal [facility] Comment on above: Performed By: #### L 501.2300, L501.5200, L500.2500 #### [facility] [address] [place], [address] CO2 [Moles/Vol] 25 mmol/L Normal [facility] Comment on above: Performed By: #### L 501.2300, L501.5200, L500.2500 #### [facility] [address] [place], [address] FI02 40.0 Normal [facility] Comment on above: Performed By: #### L 501.2300, L501.5200, L500.2500 #### [facility] [address] [place], [address] HCO3 (Bld) [Moles/Vol] 23.1 mmol/L Normal 22-26 [facility] Comment on above: Performed By: #### L 501.2300, L501.5200, L500.2500 #### [facility] [address] [place], [address] Mode Not entered Normal [facility] Comment on above: Performed By: #### L 501.2300, L501.5200, L500.2500 #### [facility] [address] [place], [address] O2 Delivery Dev BiPAP Normal [facility] Comment on above: Performed By: #### L 501.2300, L501.5200, L500.2500 #### [facility] [address] [place], [address] pCO2 45.0 mmHg Normal 35-45 [facility] Comment on above: Performed By: #### L 501.2300, L501.5200, L500.2500 #### [facility] [address] [place], [address] PEEP 8 Normal [facility] Comment on above: Performed By: #### L 501.2300, L501.5200, L500.2500 #### [facility] [address] [place], [address] pH (Bld) 7.32 [pH] Low 7.35-7.45 [facility] Comment on above: Performed By: #### L 501.2300, L501.5200, L500.2500 #### [facility] [address] [place], [address] PIP 16 Normal [facility] Comment on above: Performed By: #### L 501.2300, L501.5200, L500.2500 #### [facility] [address] [place], [address] PO2 141 mmHG High 75-100 [facility] Comment on above: Performed By: #### L 501.2300, L501.5200, L500.2500 #### [facility] [address] [place], [address] SITE L Radial Normal [facility] Comment on above: Performed By: #### L 501.2300, L501.5200, L500.2500 #### [facility] [address] [place], [address] SO2 99 Normal 95-99 [facility] Comment on above: Performed By: #### L 501.2300, L501.5200, L500.2500 #### [facility] [address] [place], [address] Blood base excess determinat ionOrdered By: Jhoan Maldonado on 03-20-2025 Base excess Calc (BldV) [Moles/Vol] -3 mmol/L Low -2-2 [facility] Blood bicarbonate measuremen tOrdered By: Jhoan Maldonado on 03-20-2025 HCO3 (Bld) [Moles/Vol] 23.1 mmol/L 22-26 [facility] Blood cultureOrdered By: Marshall elo Maldonado on 03-20-2025 Bacteria identified Cx Nom (Bld) No growth in 5 days. [facility] Bacteria identified Cx Nom (Bld) No growth in 5 days. [facility] CBC W/Diff, Automatedon 03-08 Absolute Lymph 3.12 X10 3/uL Normal 0.83-4.51 [facility] Comment on above: Performed By: #### L 400.0001 #### [facility] [address] [place], [address] Absolute Neut 5.8 X10 3/uL Normal 2.0-7.7 [facility] Comment on above: Performed By: #### L 400.0001 #### [facility] [address] [place], [address] Basophils/100 WBC (Bld) 0.6 % Normal 0-1 [facility] Comment on above: Performed By: #### L 400.0001 #### [facility] [address] [place], [address] Eosinophils/100 WBC (Bld) 0.4 % Normal 0-5 [facility] Comment on above: Performed By: #### L 400.0001 #### [facility] [address] [place], [address] Erythrocyte distribution width (RBC) [Ratio] 13.6 % Normal 11.6-14.6 [facility] Comment on above: Performed By: #### L 400.0001 #### [facility] [address] [place], [address] Hematocrit (Bld) [Volume fraction] 50.5 % Normal 40-54 [facility] Comment on above: Performed By: #### L 400.0001 #### [facility] [address] [place], [address] Hemoglobin (Bld) [Mass/Vol] 16.5 g/dL Normal 13.0-16.5 [facility] Comment on above: Performed By: #### L 400.0001 #### [facility] [address] [place], [address] IG% 0.400 Normal 0.0-0.9 [facility] Comment on above: Result Comment: IG% - Immature Granulocytes (promyelocytes, myelocytes and metamyelocytes) > 1% indicates that a LEFT SHIFT is Present. Performed By: #### L 400.0001 #### [facility] [address] [place], [address] Lymphocytes/100 WBC (Bld) 30.1 % Normal 19-41 [facility] Comment on above: Performed By: #### L 400.0001 #### [facility] [address] [place], [address] MCH (RBC) [Entitic mass] 32.5 pg High 27.0-32.0 [facility] Comment on above: Performed By: #### L 400.0001 #### [facility] [address] [place], [address] MCHC (RBC) [Mass/Vol] 32.7 g/dL Normal 32-36 [facility] Comment on above: Performed By: #### L 400.0001 #### [facility] [address] [place], [address] MCV (RBC) [Entitic vol] 99.6 fL High 80-94 [facility] Comment on above: Performed By: #### L 400.0001 #### [facility] [address] [place], [address] Monocytes/100 WBC (Bld) 12.9 % High 0-10 [facility] Comment on above: Performed By: #### L 400.0001 #### [facility] [address] [place], [address] Neutrophils/100 WBC (Bld) 55.6 % Normal 47-70 [facility] Comment on above: Performed By: #### L 400.0001 #### [facility] [address] [place], [address] Nucleated RBC (Bld) [#/Vol] 0 10*3/uL Normal 0-5 [facility] Comment on above: Performed By: #### L 400.0001 #### [facility] [address] [place], [address] Platelet mean volume (Bld) [Entitic vol] 9.3 fL Normal 6.2-12.0 [facility] Comment on above: Performed By: #### L 400.0001 #### [facility] [address] [place], [address] Platelets (Bld) [#/Vol] 245 10*3/uL Normal 150-450 [facility] Comment on above: Performed By: #### L 400.0001 #### [facility] [address] [place], [address] RBC (Bld) [#/Vol] 5.07 10*6/uL Normal 4.6-6.2 [facility] Comment on above: Performed By: #### L 400.0001 #### [facility] [address] [place], [address] RDW SD 49.9 fl High 35.1-43.9 [facility] Comment on above: Performed By: #### L 400.0001 #### [facility] [address] [place], [address] WBC (Bld) [#/Vol] 10.4 10*3/uL Normal 4.4-11.0 [facility] Comment on above: Performed By: #### L 400.0001 #### [facility] [address] [place], [address] CTA Chest W/WO Contraston CTA Chest W/WO Contrast [facility] Imaging Services [address] [place], [place] [address] CTA Chest W/WO Contrast MR#: [id number] Acct: [id number] Name: CECILIA KUHN Rep #: [id number] : 1945 M 80 From: Blanco rivero MD PCP: ULI ALCALA Status: ADM IN Study: CTA Chest W/WO Contrast Date of Exam: 03/20/25 Exam# [id number] Ordering Dr: Jhoan Maldonado DO ADDENDUM by Dr. Blanco Salazar MD on 03/20/25 at 0606 Subacute fractures in the axillary and posterior arches of the right 5th, 6, 7th, 8th and 9th ribs. Reading Location: [place] [address] 03/20/25 0607 Date cc: Dr. Jhoan Maldonado DO; ULI ALCALA * Signed PROCEDURE: CTA CHEST W/WO CONTRAST 03/20/2025 REASON FOR EXAM: PE, ELEVATED DIMER TECHNIQUE: Procedure Code: [id number] Modality: CT Procedure: CTA CHEST W/WO CONTRAST Multiplanar Sagittal and Coronal images were obtained. CONTRAST: Isovue 370 VOLUME: 100 mL One or more dose reduction techniques were used (e.g., Automated exposure control, adjustment of the mA and/or kV according to patient size, use of iterative reconstruction technique). RADIATION DOSE SUMMARY: CTDlvol: 15.45 mGy DLP: 466 mGycm COMPARISON: Chest radiograph on 03/20/2025. FINDINGS: Mild cardiomegaly. Prior CABG. Moderate bilateral pleural effusions. Passive atelectatic airspace disease/consolidatio ns of the lower lobes, possibly representing passive atelectasis and/or superimposed pneumonia. Mild interstitial pulmonary congestion. Moderate diffuse spondylosis. AICD is in good position. Mild hepatomegaly with diffuse irregularity of the hepatic contour, possibly chronic parenchymal liver disease. Mild ascites. Normal enhancement of the main pulmonary artery and right and left pulmonary arteries. Normal enhancement of the bilateral peripheral pulmonary arteries. There is no demonstrated pulmonary embolism. Suboptimal enhancement of the thoracic aorta limiting its evaluation. There is no demonstrated aortic dissection. Normal pericardium. Normal mediastinum. Normal hilar regions. Normal visualized trachea and bronchi. CT/CTA Chest W/WO Contrast IMPRESSION: No demonstrated pulmonary embolism. Mild cardiomegaly. Prior CABG. Moderate bilateral pleural effusions. Passive atelectatic airspace disease/consolidatio ns of the lower lobes, possibly representing passive atelectasis and/or superimposed pneumonia. Mild interstitial pulmonary congestion. Moderate diffuse spondylosis. AICD is in good position. Mild hepatomegaly with diffuse irregularity of the hepatic contour, possibly chronic parenchymal liver disease. Reading Location: [place] [address] CC: Dr. Jhoan Maldonado DO; ULI ALCALA Counter Maker: Signed Normal [facility] Carbon dioxide, total [Moles /volume] in Central venous bloodOrdered By: Jhoan Maldonado on 03-20-2025 CO2 [Moles/Vol] 22.4 mmol/L 21.0-32.0 [facility] Chest 1 View (Portable)on Chest 1 View (Portable) [facility] Imaging Services [address] [place], [place] [address] Chest 1 View (Portable) MR#: [id number] Acct: [id number] Name: CECILIA KUHN Rep #: [id number] : 1945 M 80 From: César Salazar MD PCP: ULI ALCALA Status: ADM IN Study: Chest 1 View (Portable) Date of Exam: 03/20/25 Exam# [id number] Ordering Dr: Jhoan Maldonado DO PROCEDURE: CHEST 1 VIEW (PORTABLE) 03/20/2025 REASON FOR EXAM: SHORTNESS OF BREATH TECHNIQUE: Frontal view of the chest. COMPARISON: CT chest from earlier today FINDINGS: Hardware: EKG leads overlie the chest. Stable appearance of the left subclavian pacemaker Heart: Remote CABG Lungs: Lungs are expanded with superimposed interstitial edema and bilateral pleural effusions with bibasilar atelectasis suggesting CHF. Follow-up recommended to ensure resolution. Bones: Bony structures show degenerative change. There are acute displaced right rib fractures and old healed and healing left rib fractures. Other: Despite the right rib fractures, no pneumothorax is noted RAD/Chest 1 View (Portable) IMPRESSION: Diffuse interstitial edema with free-flowing bilateral pleural effusions and bibasilar atelectasis. Findings suggest CHF. Follow-up recommended to ensure resolution Minimally displaced right rib fractures, no clearly demonstrated pneumothorax Old healed and healing left rib fractures Remote CABG Reading Location: [id number] CC: Dr. Jhoan Maldonado DO; ULI ALCALA Counter Maker: Signed Normal [facility] Chloride assayOrdered By: Reginaldo Maldonado on 03-20-2025 Chloride [Moles/Vol] 105 mmol/L 98-108 [facility] Consultation - Cardiologyon 03-20-2025 Consultation - Cardiology [facility] Medical Records Department [address] [place] [address] Consultation - Cardiology 03/20/25 1011 MR#: [id number] Acct: [id number] Name: CECILIA KUHN Rep #: [id number] : 1945 80 From: Sherin Webb MD PCP: ULI ALCALA Status:ADM IN Location: [facility] [id number] Assessment Plan Assessment/Plan (1) Acute exacerbation of chronic heart failure: PLAN: Acute on chronic decompensated HF 10% with RV failure Currently reaching euvolemia, switch IV lasix to once daily 40 mg Increase Hydralazine to 25 TID Continue with IMDUR 60 mg daily Once we have a better idea if this ANTHONY or CKD,we will switch him to ACEi restart Jardiance 10 mg daily Continue with Spironolactone 25 mg daily Hold off starting beta glo now in the setting of lactic acidosis and decompensated HF (2) History of coronary artery bypass graft: PLAN: Continue with aspirin 81 mg daily Continue with Atorvastatin 40 mg daily Continue with clopidogrel 75 mg daily Continue with Ranolazine Once kidney function improve. we will proceed with ischemic evaluation (3) Acute hypoxic respiratory failure: PLAN: In the setting of HFrEF and COPD exacerbation HPI Consult Data Date of Consult: 03/20/25 HPI Narrative HPI Narrative: CECILIA KUHN, is a 80 M with a past medical history of: # Hypertension # Diabetes # CAD status post CABG and PCI in the past # COPD # Hyperlipidemia # History of HFrEF status post ICD # Smoker # Mechanical fall with multiple rib fractures and pneumothorax 01/2025 # BMI 31 He moved recently from [facility] and he lives with his daughter presented with shortness of breath, orthopnea and PND. On presentation he had chest tightness. He denies any chest pain now. He has NYHA class III. He has bilateral lower extremity edema. He denies any fever, chills and recent infection. He has shortness of breath with minimal exertion. His breathing has been getting worse over the last few months. n the ER he was noted to have an elevated NT pro-BNP of 7,412 pg/mL present on admission with a CXR that revealed pulmonary vascular congestion with moderate Right pleural effusion He had Acute Hypoxic Respiratory Failure requiring BIPAP. [facility] Medical History Pleural effusion Heart failure Presence of combination internal cardiac defibrillator (ICD) and pacemaker Diabetes Home Medications ???Medication ???Instructions ???Recorded ???Last Taken ???Type aspirin 81 mg tablet 81 mg PO DAILY 03/20/25 Unknown Hi story atorvastatin 40 mg tablet (Lipitor) 40 mg PO DAILY 03/20/25 Unknown History clopidogrel 75 mg tablet 75 mg PO DAILY 03/20/25 Unknown Hi story empagliflozin 10 mg tablet 10 mg PO DAILY 03/20/25 Unknown Hi story (Jardiance) finasteride 5 mg tablet 5 mg PO DAILY 03/20/25 Unknown His tory hydralazine 10 mg tablet 10 mg PO BID 03/20/25 Unknown Hist ory insulin lispro protamine-lispro 20 unit subcut BID 03/20/25 Unknow n History 100 unit/mL (75-25) subcutaneous pen (Humalog Mix 75-25 KwikPen) isosorbide mononitrate 60 mg 60 mg PO DAILY 03/20/25 Unknown Hi story tablet,extended release 24 hr methocarbamol 500 mg tablet 500 mg PO Q6H PRN muscle spasm Unknown History ranolazine 1,000 mg 1,000 mg PO BID 03/20/25 Unknown H istory tablet,extended release,12 hr spironolactone 25 mg tablet 25 mg PO DAILY 03/20/25 Unknown Hi story (Aldactone) Allergy/AdvReac Type Severity Reaction Status Date / Time No Known Allergies Allergy Verified 03/20/25 02:04 Surgical History H/O heart artery stent Social History Smoking Status: Current some day smoker tobacco type: cigars Physical Exam Const alert and oriented x3 HEENT normocephalic Eyes PERRL Neck full ROM Lymph Lymphatic: no lymphadenopathy noted Chest inspection of chest normal Resp normal respiratory effort Cardio regular rate and regular rhythm Jugular Venous Distention: JVD GI normal to inspection, nondistended, normoactive bowel sounds no CVA tenderness Back/Spine no CVA tenderness Extremity normal to inspection Skin no rashes or lesions noted Objective Data Vital Signs: Vital Signs Temp Pulse Resp BP Pulse Ox O2 Del Method O2 Flow Rate 97.6 F L 65 24 H 145/83 H 96 Bi-pap 30 03/20/25 09:37 03/20/25 09:53 03/20/25 09:37 03/20/25 09:37 03/20/25 09:37 03/20/25 09:37 03/20/25 05:30 FiO2 25 03/20/25 09:37 Oxygen Flow Rate (L/min) 30 Oxygen Delivery Method Bi-pap Weight: 185 lb 6.54 oz Body Mass Index (BMI) 26.6 Intake Output: Intake and Output for Last 24 Hours 03/18/25 03/19/25 03/20/25 23:59 23:59 23:59 Int (more content not included)... Normal [facility] D-Dimer Quantitative (DVT/PE )on 03-20-2025 D-DIMER QUANT 1.03 FEU/ug/m Invalid Interpretation Code 0.27-0.49 [facility] Comment on above: Result Comment: D-Di alan ELEVATED (>0.49): Additional studies and clinical assessments are indicated to conclude diagnosis of: Deep Vein Thrombosis (DVT) or Pulmonary Embolism (PE) CRITICAL VALUE CALLED TO LANDON 03/20/25 0251 Thom Chau. RESULTS READ BACK BY SAME. Performed By: #### L 400.0001 #### [facility] [address] [place], [address] Echo Complete W/ Contraston 03-20-2025 Echo Complete W/ Contrast [facility] Cardiovascular Services [address] [place] [address] Echo Complete W/ Contrast 03/20/25 1022 MR#: [id number] Acct: [id number] Name: CECILIA KUHN Rep #: [id number] : 1945 80 From: Sherin Webb MD Attending Dr: Dr. Dipti Pathak, DO Status: ADM I N Ordering Dr: Matthew Grullon DO Date: 03/20/25 Location: [facility] Sex: M C Admitted: 03/20/25 Reason For Study Reason For Study: chf Procedure This was a 2D Doppler, Color Flow transthoracic echocardiogram. The study was technically difficult. Contrast injection was performed. Exam performed portable in patient room. Left Ventricle Severely dilated left ventricle. Severe global left ventricular systolic dysfunction. The LV ejection fraction is 10 %. Stage 3 diastolic dysfunction. Right Ventricle ICD or pacer leads identified within the right ventricle. Mild segmental dysfunction of right ventricle. Atria The left and right atria are normal. Mitral Valve Trivial mitral valve insufficiency. Tricuspid Valve Unable to estimate RV systolic pressure due to inadequate jet, pulmonary artery pressure probably normal. Aortic Valve There is no aortic stenosis. No aortic valve insufficiency. Great Vessels Normal inferior vena cava. Pericardium/Pleural Moderate Pleural Effusion. Medication Diluted definity 3ml given slow IV push to enhance endocardial definition. MMode/2D Measurements Calculations LVIDd: 5.8 cm IVSd: 1.7 cm LVOT diam: 2.0 cm LVIDs: 5.5 cm LVPWd: 1.1 cm LVOT area: 3.1 cm2 FS: 5.1 % Ao root diam: 3.8 cm LAV(MOD-bp): 68.4 ml LVAd ap4: 52.7 cm2 LAV(MOD-bp) Indexed: 35.4 ml/m2 LVLd ap4: 10.0 cm LAV(MOD-sp2): 59.1 ml EDV(MOD-sp4): 225.8 ml LAV(MOD-sp4): 75.0 ml EDV(sp4-el): 236.3 ml LVAs ap4: 49.9 cm2 LVLs ap4: 10.0 cm ESV(MOD-sp4): 203.2 ml ESV(sp4-el): 211.2 ml EF(MOD-sp4): 10.0 % EF(sp4-el): 10.6 % SV(MOD-sp4): 22.5 ml SV(sp4-el): 25.1 ml LA A4 area: 23.4 cm2 SI(MOD-sp4): 11.7 ml/m2 LA dimension(2D): 4.7 cm RA A4 area: 13.3 cm2 Time Measurements MV dec time: 0.16 sec Doppler Measurements Calculations MV E max jeana: 79.5 cm/sec Lat Peak E' Jeana: 9.2 cm/sec Med Peak E' Jeana: 3.6 cm/sec MV A max jeana: 67.6 cm/sec E/E' lat: 8.6 E/E' med: 22.0 MV E/A: 1.2 MV V2 max: 86.3 cm/sec Ao V2 max: 118.3 cm/sec MV max P.0 mmHg MV dec slope: 497.0 cm/sec2 Ao max P.6 mmHg MV V2 mean: 52.1 cm/sec Ao V2 mean: 81.1 cm/sec MV mean P.2 mmHg Ao mean P.1 mmHg MV V2 VTI: 29.9 cm Ao V2 VTI: 20.5 cm AV (velocity ratio): 0.61 MVA(VTI): 1.3 cm2 JEN(I,D): 1.9 cm2 JEN(V,D): 2.1 cm2 LV V1 max: 81.1 cm/sec SV(LVOT): 38.4 ml PA V2 max: 82.9 cm/sec LV V1 max P.6 mmHg PA V2 mean: 61.9 cm/sec LV V1 mean P.1 mmHg LV V1 mean: 46.1 cm/sec LV V1 VTI: 12.5 cm ECHO/Echo Complete W/ Contrast Interpretation Summary The LV ejection fraction is 10 %. Stage 3 diastolic dysfunction. Severe global left ventricular systolic dysfunction. Severely dilated left ventricle. Mild segmental dysfunction of right ventricle. Ordering Physician: Matthew Grullon Referring Physician: mason pcp Performed By: Qian White RCS 03/20/25 1234 Date Sherin Webb MD CC: Dr. Matthew Grullon DO; Dr. Dipti Pathak DO; ULI ALCALA Date Dictated: 03/20/25 1022 Date Transcribed: 03/20/25 1234 Counter Maker: Signed Normal [facility] Echocardiogram study reportO rdered By: Sherin Webb on 03-20-2025 Study report [facility] Cardiovascular Services [address] [place] [address] Echo Complete W/ Contrast 03/20/25 1022 MR#: [id number] Acct: [id number] Name: CECILIA KUHN Rep #:[id number] : 1945 80 From: Sherin Koch Attending Dr: Dr. Dipti Pathak DO S tatus: ADM IN Ordering Dr: Matthew Grullon DO Date: 03/20/25 Location: [facility] Sex: M C Admitted: 03/20/25 Reason For Study Reason For Study: chf Procedure This was a 2D Doppler, Color Flow transthoracic echocardiogram. The study was technically difficult. Contrast injection was performed. Exam performed portable in patient room. Left Ventricle Severely dilated left ventricle. Severe global left ventricular systolic dysfunction. The LV ejection fraction is 10 %. Stage 3 diastolic dysfunction. Right Ventricle ICD or pacer leads identified within the right ventricle. Mild segmental dysfunction of right ventricle. Atria The left and right atria are normal. Mitral Valve Trivial mitral valve insufficiency. Tricuspid Valve Unable to estimate RV systolic pressure due to inadequate jet, pulmonary artery pressure probably normal. Aortic Valve There is no aortic stenosis. No aortic valve insufficiency. Great Vessels Normal inferior vena cava. Pericardium/Pleural Moderate Pleural Effusion. Medication Diluted definity 3ml given slow IV push to enhance endocardial definition. MMode/2D Measurements & Calculations LVIDd: 5.8 cm IVSd: 1.7 cm LVOT diam: 2.0 cm LVIDs: 5.5 cm LVPWd: 1.1 cm LVOT area: 3.1 cm2 FS: 5.1 % Ao root diam: 3.8 cm LAV(MOD-bp): 68.4 ml LVAd ap4: 52.7 cm2 LAV(MOD-bp) Indexed: 35.4 ml/m2 LVLd ap4: 10.0 cm LAV(MOD-sp2): 59.1 ml EDV(MOD-sp4): 225.8 ml LAV(MOD-sp4): 75.0 ml EDV(sp4-el): 236.3 ml LVAs ap4: 49.9 cm2 LVLs ap4: 10.0 cm ESV(MOD-sp4): 203.2 ml ESV(sp4-el): 211.2 ml EF(MOD-sp4): 10.0 % EF(sp4-el): 10.6 % SV(MOD-sp4): 22.5 ml SV(sp4-el): 25.1 ml LA A4 area: 23.4 cm2 SI(MOD-sp4): 11.7 ml/m2 LA dimension(2D): 4.7 cm RA A4 area: 13.3 cm2 Time Measurements MV dec time: 0.16 sec Doppler Measurements & Calculations MV E max jeana: 79.5 cm/sec Lat Peak E' Jeana: 9.2 cm/sec Med Peak E' Jeana: 3.6 cm/sec MV A max jeana: 67.6 cm/sec E/E' lat: 8.6 E/E' med: 22.0 MV E/A: 1.2 MV V2 max: 86.3 cm/sec Ao V2 max: 118.3 cm/sec MV max P.0 mmHg MV dec slope: 497.0 cm/sec2 Ao max P.6 mmHg MV V2 mean: 52.1 cm/sec Ao V2 mean: 81.1 cm/sec MV mean P.2 mmHg Ao mean P.1 mmHg MV V2 VTI: 29.9 cm Ao V2 VTI: 20.5 cm AV (velocity ratio): 0.61 MVA(VTI): 1.3 cm2 JEN(I,D): 1.9 cm2 JEN(V,D): 2.1 cm2 LV V1 max: 81.1 cm/sec SV(LVOT): 38.4 ml PA V2 max: 82.9 cm/sec LV V1 max P.6 mmHg PA V2 mean: 61.9 cm/sec LV V1 mean P.1 mmHg LV V1 mean: 46.1 cm/sec LV V1 VTI: 12.5 cm ECHO/Echo Complete W/ Contrast Interpretation Summary The LV ejection fraction is 10 %. Stage 3 diastolic dysfunction. Severe global left ventricular systolic dysfunction. Severely dilated left ventricle. Mild segmental dysfunction of right ventricle. Ordering Physician: Matthew Grullon Referring Physician: no pcp Performed By: Qian White RCS 03/20/25 1234 Date _ Sherin Webb MD CC: Dr. Matthew Grullon DO; Dr. Ditpi Pathak, DO; ULI ALCALA ~ Date Dictated: 03/20/25 1022 Date Transcribed: 03/20/25 1234 Counter Maker: Signed [facility] Emergency Department Summary on 03-20-2025 Emergency Department Summary [facility] Medical Records Department [address] [place] [address] Emergency Department Summary 03/20/25 MR#: [id number] Acct: [id number] Name: CECILIA KUHN Rep #: [id number] : 1945 80 From: Jhoan Maldonado DO PCP: ULI ALCALA Status:ADM IN Location: [place] [address] HPI History of Present Illness Chief Complaint: Chest Pain Narrative Narrative: Chief complaint and HPI: 80-year-old male with past medical history of CAD with history of CABG/PCI, ICD/pacemaker, DM, CHF presents via EMS for evaluation of shortness of breath. Daughter gives majority of the history. Daughter states her father is visiting from [place] since January after he had a mechanical fall that resulted in rib fractures and pneumothorax. She states he has been doing well until the past couple days he has had increasing shortness of breath and cough. This evening shortness of breath worsened. He endorses chest tightness associated with it. He denies any fever, chills, abdominal pain, nausea, vomiting. Tobacco abuser. Review of systems: See HPI Medications: As listed on the chart Allergies: As listed on the chart PFSH: Per chart Vital signs: As listed on the chart. Reviewed. Physical exam: Gen: A O x3 Head: Normocephalic, atraumatic Eyes: No sclera icterus, conjunctiva clear, PERRL ENT: Mildly dry mucous membranes Neck: Trachea midline, No JVD CV: RRR, no murmurs, +1 pitting peripheral bilateral edema, midline scar healed well, no cellulitis overlying pacemaker/ICD Resp: Lungs diminished in the bilateral bases, mildly coarse, tachypneic, respiratory distress GI: Abd soft, non-distended, non-tender, no r/r/g Musc: Full ROM, no deformity Skin: Warm, dry Neuro: Alert, oriented, grossly intact, sensation intact Psych: Cooperative [facility] Medical History (Updated 03/20/25 @ 02:06 by Nidia Leo) Heart failure Presence of combination internal cardiac defibrillator (ICD) and pacemaker Diabetes Home Medications ???Medication ???Instructions ???Recorded ???Last Taken ???Type aspirin 81 mg tablet 81 mg PO DAILY 03/20/25 Unknown Hi story atorvastatin 40 mg tablet (Lipitor) 40 mg PO DAILY 03/20/25 Unknown History clopidogrel 75 mg tablet 75 mg PO DAILY 03/20/25 Unknown Hi story empagliflozin 10 mg tablet 10 mg PO DAILY 03/20/25 Unknown Hi story (Jardiance) finasteride 5 mg tablet 5 mg PO DAILY 03/20/25 Unknown His tory hydralazine 10 mg tablet 10 mg PO BID 03/20/25 Unknown Hist ory insulin lispro protamine-lispro 20 unit subcut BID 03/20/25 Unknow n History 100 unit/mL (75-25) subcutaneous pen (Humalog Mix 75-25 KwikPen) isosorbide mononitrate 60 mg 60 mg PO DAILY 03/20/25 Unknown Hi story tablet,extended release 24 hr methocarbamol 500 mg tablet 500 mg PO Q6H PRN muscle spasm Unknown History ranolazine 1,000 mg 1,000 mg PO BID 03/20/25 Unknown H istory tablet,extended release,12 hr spironolactone 25 mg tablet 25 mg PO DAILY 03/20/25 Unknown Hi story (Aldactone) Allergy/AdvReac Type Severity Reaction Status Date / Time No Known Allergies Allergy Verified 03/20/25 02:04 Surgical History (Updated 03/20/25 @ 02:06 by Nidia Leo) H/O heart artery stent Social History Smoking Status: Current every day smoker tobacco type: cigarettes EXAM Physical Exam Const Vital Signs: 03/20/25 02:03 03/20/25 02:09 03/20/25 02:09 Temperature 97.3 F L 97.3 F L Temperature Source Temporal Temporal Pulse Rate 98 96 Respiratory Rate 25 H 35 H Respiratory Effort Respiratory Depth Respiratory Pattern Blood Pressure 162/100 H 162/100 H Blood Pressure Mean 120 120 Pulse Ox 100 100 Oxygen Delivery Method CPAP CPAP Bi-pap Fraction of Inspired Oxygen (FIO2) 60 60 60 03/20/25 02:12 03/20/25 02:18 03/20/25 02:19 Temperature Temperature Source Pulse Rate 89 90 Respiratory Rate 33 H 30 H Respiratory Effort Short of Breath Respiratory Depth Deep Respiratory Pattern Tachypnea Tachypnea Tachypnea Blood Pressure Blood Pressure Mean Pulse Ox 99 Oxygen Delivery Method CPAP Fraction of Inspired Oxygen (FIO2) 60 30 03/20/25 02:33 03/20/25 03:09 03/20/25 03:30 Temperature 97.8 F Temperature Source Temporal Pulse Rate 78 87 85 Respiratory Rate 19 H 26 H 24 H Respiratory Effort Respiratory Depth Respiratory Pattern Blood Pressure 144/85 H 144/85 H Blood Pressure Mean 104 104 Pulse Ox 100 95 95 Oxygen Delivery Method Bi-pap Bi-pap Bi-pap Fraction of Inspired Oxygen (FIO2) 30 30 30 03/20/25 04:00 03/20/25 04:30 03/20/25 04:30 Temperature Temperature Source Pulse Rate 83 73 76 Respiratory Rate 20 H 21 H 21 H Respiratory Effort Res (more content not included)... Normal [facility] Eosinophil percentageOrdered By: Jhoan Maldonado on 03-20-2025 Eosinophils/100 WBC (Bld) 0.4 % 0-5 [facility] Erythrocyte distribution wid th ratioOrdered By: [facility] Hospitalgett on 03-20-2025 Erythrocyte distribution width (RBC) [Ratio] 13.6 % 11.6-14.6 [facility] Erythrocyte distribution wid th standard deviationOrdered By: [facility] Hospitalyosi Welch on 03-20-2025 Erythrocyte distribution width (RBC) [Ratio] 49.9 fl High 35.1-43.9 [facility] Glomerular filtration rate ( GFR) estimation/1.73 sq m using serum, plasma, or whole bOrdered By: Leola Joel on 03-20-2025 GFR/1.73 sq M.predicted among non-blacks MDRD (S/P/Bld) [Vol rate/Area] 49 mL/min/{1.73_m2} Low >60 [facility] Comment on above: mL/min/1.73m2 CKD-EP I Creatinine Equation (2020) [facility] H&P Exam - Hospitalist [facility] Medical Records Department [address] [place] [address] H P Exam - Hospitalist 03/20/25 0454 MR#: [id number] Acct: [id number] Name: CECILIA KUHN Rep #: [id number] : 1945 80 From: Matthew Grullon DO PCP: ULI ALCALA Status:ADM IN Location: [place] [address] HPI - General General Date of Admission: 03/20/25 Date of Service: 03/20/25 Chief Complaint: Chest Tightness and SOB. HPI Narrative CECILIA KUHN, is a 80 M with a past medical history of essential hypertension; on hydralazine and spironolactone, hyperlipidemia; on atorvastatin, chronic tobacco abuse, obesity (class I); with BMI of 31.9 this admission, DM-2; of unknown control on empagliflozin plus insulin lispro BID, CAD; s/p CABG and stent on BASA, clopidogrel, ISMO and ranolazine BID, history of CHF; of uncertain type, history of arrhythmia; s/p PPM/AICD, BPH; on finasteride, OA; with muscle spasms on methocarbamol QID prn and history of mechanical fall with multiple rib fractures and pneumothorax in January 2025 causing him to leave [place] to stay with his daughter locally who presents to [facility] ER complaining of chest tightness and SOB. Mr. Kuhn reports his symptoms began approximately 2-3 days prior to admission with SAUER that progressed to SOB at rest in addition to cough. He also admits to associated chest tightness that is mild but made worse with activity along with 1+ bilateral lower extremity edema so his daughter activated EMS with patient treated en-route with SL NTG, 4 BASA and Duo-Neb. He arrived here on CPAP due to respiratory distress. There was no report of fever, chills, runny nose, sore throat, ear pain, abdominal pain, nausea, vomiting, diarrhea, constipation, dysuria, hematuria, headache or rash. In the ER he was noted to have an elevated NT pro-BNP of 7,412 pg/mL present on admission with a CXR that revealed pulmonary vascular congestion with moderate Right pleural effusion with PPM in place in addition to sternotomy wires in place consistent with AE CHF; of uncertain type complicated by clinical evidence of Acute Hypoxic Respiratory Failure evidenced by ABG of 7.32/ PCO2 45 mmHg/ PO2 141 mmHg/ HCO3 23.1 mmol/L on BiPAP with 40% FiO2 and rate of 16 with 8 PEEP compounded by mildly elevated troponin T of 61 ng/L and Lactic Acidosis of 2.2 mmol/L with ER physician suspecting superimposed AE COPD with underlying Pneumonia. He was then admitted to the PCU for ongoing care for a stay that is expected to extend beyond 2 midnights. [facility] Medical History (Updated 03/20/25 @ 05:[address] Matthew Grullon DO) Pleural effusion Heart failure Presence of combination internal cardiac defibrillator (ICD) and pacemaker Diabetes Home Medications ???Medication ???Instructions ???Recorded ???Last Taken ???Type aspirin 81 mg tablet 81 mg PO DAILY 03/20/25 Unknown Hi story atorvastatin 40 mg tablet (Lipitor) 40 mg PO DAILY 03/20/25 Unknown History clopidogrel 75 mg tablet 75 mg PO DAILY 03/20/25 Unknown Hi story empagliflozin 10 mg tablet 10 mg PO DAILY 03/20/25 Unknown Hi story (Jardiance) finasteride 5 mg tablet 5 mg PO DAILY 03/20/25 Unknown His tory hydralazine 10 mg tablet 10 mg PO BID 03/20/25 Unknown Hist ory insulin lispro protamine-lispro 20 unit subcut BID 03/20/25 Unknow n History 100 unit/mL (75-25) subcutaneous pen (Humalog Mix 75-25 KwikPen) isosorbide mononitrate 60 mg 60 mg PO DAILY 03/20/25 Unknown Hi story tablet,extended release 24 hr methocarbamol 500 mg tablet 500 mg PO Q6H PRN muscle spasm Unknown History ranolazine 1,000 mg 1,000 mg PO BID 03/20/25 Unknown H istory tablet,extended release,12 hr spironolactone 25 mg tablet 25 mg PO DAILY 03/20/25 Unknown Hi story (Aldactone) Allergy/AdvReac Type Severity Reaction Status Date / Time No Known Allergies Allergy Verified 03/20/25 02:04 Surgical History (Updated 03/20/25 @ 05:[address] Matthew Grullon DO) H/O heart artery stent Social History Smoking Status: Current every day smoker tobacco type: cigarettes ROS ROS Narrative Review of Systems: Constitutional: Patient denies fever or chills. Eyes: Patient denies changes in vision or discharge from eyes. ENT: Patient denies runny nose, sore throat or ear pain. Resp: Patient admits to SOB an cough. CV: Patient admits to chest tightness and 1+ LE edema as per HPI. He denies palpitations or heart racing. GI: Patient denies abdominal pain, nausea, vomiting, diarrhea or constipation. : Patient denies dysuria or hematuria. MSK: Patient denies arthralgias or myalgias. Skin: Patient denies rash, abscess, wounds or jaundice. Psych: Patient denies symptoms of uncontrolled depression or anxiety. Neuro: Patient denies hea (more content not included)... Normal [facility] Hematocrit Auto (Bld) [Volum e fraction]Ordered By: Jhoan Larisa on 03-20-2025 Hematocrit (Bld) [Volume fraction] 50.5 % 40-54 [facility] Hemoglobin measurementOrdere d By: [facility]hoan [facility] 03-20-2025 Hemoglobin (Bld) [Mass/Vol] 16.5 g/dL 13.0-16.5 [facility] Immature granulocytes/100 WB C Auto (Bld)Ordered By: [facility] on 03-20-2025 Immature granulocytes/100 WBC (Bld) 0.400 % 0.0-0.9 [facility] Comment on above: IG% - Immature Granu locytes (promyelocytes, myelocytes and metamyelocytes) > 1% indicates that a LEFT SHIFT is Present. Influenza virus A and B and SARS-CoV-2 (COVID-19) and Respiratory syncytial virus RNAOrdered By: Jhoan Maldonado on 03-20-2025 SARS-CoV-2 (COVID-19) RNA ANGELA+probe Ql (Unsp spec) [facility] SARS-CoV-2 (COVID-19) RNA ANGELA+probe Ql (Unsp spec) [facility] Ketones Test strip Ql (U)Ord ered By: Matthew Whitaker on 03-20-2025 Ketones Ql (U) Negative Negative [facility] L501.4021on 03-20-2025 Trop T High Sen 61 ng/L Invalid Interpretation Code <=22 [facility] Comment on above: Result Comment: Crit ical Result(s) Called at: 02:48 03-20-25 to Jose Leo 2 by:??Shima Clark Results read back by same. Performed By: #### L 501.2300, L501.5200, L500.2500 #### [facility] Laboratory [address] [place], [address] Lactic Acidon 03-20-2025 Lactate [Moles/Vol] 1.1 mmol/L Normal 0.0-2.0 [facility] Comment on above: Order Comment: Y Performed By: #### L 501.5200, L503.6005 #### [facility] [address] [place], [address] Lactate [Moles/Vol] 2.2 mmol/L Invalid Interpretation Code 0.0-2.0 [facility] Comment on above: Order Comment: Y Result Comment: Crit ical Result(s) Called at: 02:50 03-20-25 to Jose Leo 2by:??Shima Clark Results read back by same. Performed By: #### L 501.4021, L503.6005, L503.7505 #### [facility] [address] [place], [address] Lactic acid measurementOrder ed By: Matthew Whitaker on 03-20-2025 Lactate [Moles/Vol] 1.1 mmol/L 0.0-2.0 [facility] Lactic acid measurementOrder ed By: Jhoan Maldonado on 03-20-2025 Lactate [Moles/Vol] 2.2 mmol/L High 0.0-2.0 [facility] Comment on above: Critical Result(s) C alled at: 02:50 03-20-25 to Jose Leo 2by: Shima Clark Results read back by same. Legionella Antigen Urineon 0 03-20-2025 LEGU URINE, CLEAN CATCH Legionella Antigen result interpretation: L pneumo Ag Ur Ql Negative Presumptive negative for Legionella pneumophila serogroup 1 antigen in urine, suggesting no recent or current infection. Legionella Ag, Urine Negative (See interpretation below) Normal [facility] Comment on above: Performed By: #### L 501.5200, L503.6005 #### [facility] [address] [place], [address] M100.678on 03-20-2025 M100.678 SARS-CoV-2 (COVID 19) Negative INFLUENZA A Negative INFLUENZA B Negative RSV PCR Negative Normal [facility] Comment on above: Performed By: #### L 501.2300, L501.5200, L500.2500 #### [facility] [address] [place], [address] MCV (mean corpuscular volume ) determinationOrdered By: Jhoan Maldonado on 03-20-2025 MCV (RBC) [Entitic vol] 99.6 fL High 80-94 [facility] Magnesiumon 03-20-2025 Magnesium [Mass/Vol] 1.7 mg/dL Normal 1.5-2.2 [facility] Comment on above: Performed By: #### L 501.5200, L503.6005 #### [facility] Laboratory [address] [place], [address] Mean corpuscular hemoglobin (MCH) determinationOrdered By: Jhoan Maldonado on 03-20-2025 MCH (RBC) [Entitic mass] 32.5 pg High 27.0-32.0 [facility] Mean corpuscular hemoglobin concentration (MCHC) determinationOrdered By: Jhoan Maldonado on 03-20-2025 MCHC (RBC) [Mass/Vol] 32.7 g/dL 32-36 [facility] Mean platelet volume determi nationOrdered By: Jhoan Maldonado on 03-20-2025 Platelet mean volume (Bld) [Entitic vol] 9.3 fL 6.2-12.0 [facility] Measurement, pHOrdered By: Dulce Maria Maldonado on 03-20-2025 pH (Unsp spec) 7.32 [pH] Low 7.35-7.45 [facility] Microscopic analysis of urin e for red blood cells (RBC)Ordered By: Matthew Whitaker on 03-20-2025 Microscopic analysis of urine for red blood cells (RBC) 0 SEEN /hpf 0-5 [facility] Monocyte percentageOrdered B y: Jhoan Maldonado on 03-20-2025 Monocytes/100 WBC (Bld) 12.9 % High 0-10 [facility] Mucus LM Ql (Urine sed)Order ed By: Matthew Whitaker on 03-20-2025 Mucus Ql (Urine sed) 0 SEEN /hpf [facility] Natriuretic peptide.B prohor mónica N-Terminal [Mass/volume] in Serum or PlasmaOrdered By: Jhoan Maldonado on 03-20-2025 Natriuretic peptide.B prohormone N-Terminal [Mass/Vol] 7412 pg/mL High <1800 [facility] Comment on above: Heart Failure Unlike ly: < 300 pg/mLHeart Failure Likely< 50 Years: > 450 pg/mL50-75 Years: > 900 pg/mL>75 Years: > 1800 pg/mL Neutrophil percentageOrdered By: Jhoan Maldonado on 03-20-2025 Neutrophils/100 WBC (Bld) 55.6 % 47-70 [facility] Nitrite Test strip Ql (U)Ord ered By: Matthew Whitaker on 03-20-2025 Nitrite Ql (U) Negative Negative [facility] No Panel InformationOrdered By: Jhoan Maldonado on 03-20-2025 Bedside Blood Gas PEEP 8 [facility] Bld Gas Peak Inspiratory Pressure 16 [facility] Blood Gas Sample Site L Radial [facility] Blood Gas Specimen Type ART [facility] Blood Gas Vent Mode Not entered [facility] Oxygen Delivery Device BiPAP [facility] Nucleated red blood cell per centageOrdered By: Jhoan Maldonado on 03-20-2025 Nucleated RBC/100 WBC (Bld) [Ratio] 0 % 0-5 [facility] Platelet countOrdered By: Reginaldo Maldonado on 03-20-2025 Platelets (Bld) [#/Vol] 245 10*3/uL 150-450 [facility] Potassium measurement (mass/ volume)Ordered By: Jhoan Maldonado on 03-20-2025 Potassium (Unsp spec) [Mass/Vol] 4.2 mmol/L 3.3-5.1 [facility] Pro- Brain NATRIURETIC PEPTI Lyssa 03-20-2025 Natriuretic peptide B (Bld) [Mass/Vol] 7412 pg/mL High <=1800 [facility] Comment on above: Result Comment: Hear t Failure Unlikely: < 300 pg/mL Heart Failure Likely < 50 Years: > 450 pg/mL 50-75 Years: > 900 pg/mL >75 Years: > 1800 pg/mL Performed By: #### L 501.2300, L501.5200, L500.2500 #### [facility] [address] [place], [address] Protein Test strip Ql (U)Ord ered By: Matthew Whitaker on 03-20-2025 Protein Ql (U) 30 mg/dl High Negative [facility] RBC Auto (Bld) [#/Vol]Ordere d By: Jhoan Maldonado on 03-20-2025 RBC (Bld) [#/Vol] 5.07 10*6/uL 4.6-6.2 [facility] RESPIRATORY PANEL MOLECULARo n 03-20-2025 RP PANEL ADENOVIRUS Not Detected INFLUENZA A Not Detected INFLUENZA A (SUBTYPE H1) Not Detected INFLUENZA A (SUBTYPE H3) Not Detected INFLUENZA B Not Detected HUMAN METAPHNEUMO Not Detected PARAINFLUENZA 1 Not Detected PARAINFLUENZA 2 Not Detected PARAINFLUENZA 3 Not Detected PARAINFLUENZA 4 Not Detected RHINOVIRUS Not Detected RSV A Not Detected RSV B Not Detected Normal [facility] Comment on above: Performed By: #### L 501.5200, L503.6005 #### [facility] [address] [place], [address] Respiratory pathogens detect ion panel by molecular detection methodOrdered By: Matthew Whitaker on 03-20-2025 Respiratory pathogens DNA and RNA panel ANGELA+probe (Resp) [facility] Respiratory pathogens DNA and RNA panel ANGELA+probe (Resp) [facility] Serum creatinine measurement (mass/volume)Ordered By: Jhoan Maldonado on 03-20-2025 Creatinine [Mass/Vol] 1.42 mg/dL High 0.70-1.20 [facility] Serum glucose measurement (m ass/volume)Ordered By: Jhoan Maldonado on 03-20-2025 Glucose [Mass/Vol] 170 mg/dL High 70-99 [facility] Serum or plasma calcium adalgisa urement (mass/volume)Ordered By: [facility]ha Yuri on 03-20-2025 Calcium [Mass/Vol] 9.0 mg/dL 7.6-11.0 [facility] Serum or plasma urea nitroge n measurement (mass/volume)Ordered By: Jhoan Maldonado on 03-20-2025 Urea nitrogen [Mass/Vol] 22 mg/dL High 4-19 [facility] Sodium levelOrdered By: José LeggettYuri on 03-20-2025 Sodium [Moles/Vol] 141 mmol/L 133-145 [facility] Squamous epithelial cells de tection in urine sediment by light microscopyOrdered By: Matthew Whitaker on 03-20-2025 Epithelial cells.squamous LM Ql (Urine sed) 0-5 SEEN /hpf 0-5 [facility] Strep pneumoniae Antig(UR,CS F)on 03-20-2025 STPAG URINE INTERPRETATION Strep pneumoniae Antig(UR,CSF) Strep pneumoniae Antig(UR,CSF) Negative Urine Presumptive negative for pneumococcal pneumonia, suggesting no current or recent pneumococcal infection. Infection due to S pneumoniae cannot be ruled out since the antigen present in the sample may be below the detection limit of the test. Strep pneumo Test Negative URINE (See interpretation below) Normal [facility] Comment on above: Performed By: #### L 501.5200, L503.6005 #### [facility] Laboratory [facility] [place], [address] TSH DL <= 0.005 mIU/L QnOrde red By: Matthew Whitaker on 03-20-2025 TSH Qn 1.400 uIU/mL 0.300-4.200 [facility] Thyroid Stim Hormone (TSH)on 03-20-2025 TSH 1.400 uIU/mL Normal 0.300-4.200 [facility] Comment on above: Performed By: #### L 501.9520 #### [facility] [address] [place], [address] Total carbon dioxide measure mentOrdered By: Jhoan Maldonado on 03-20-2025 CO2 [Moles/Vol] 25 mmol/L [facility] Troponin T HS 2 HRon 025 Trop T High Sen 56 ng/L Invalid Interpretation Code <=22 [facility] Comment on above: Result Comment: Crit ical Result(s) Called at: 04:49 03-20-25 TO PHYLLIS ORTA by: SHIMA CLARK??Results read back by same. Performed By: #### L 501.2300, L501.5200, L500.2500 #### [facility] [address] [place], [address] Troponin T HS 4 HRon 025 Trop T High Sen 75 ng/L Invalid Interpretation Code <=22 [facility] Comment on above: Result Comment: Crit ical Result(s) Called to: Rosa SILVA ([facility]) by: Kera??Results read back by same. Performed By: #### L 400.0001 #### [facility] [address] [place], [address] Troponin T.cardiac [Mass/vol ume] in Serum or Plasma by High sensitivity methodOrdered By: Matthew Whitaker on 03-20-2025 Troponin T.cardiac High sensitivity method [Mass/Vol] 75 ng/L Critically high <22 [facility] Comment on above: Critical Result(s) C alled to: Rosa SILVA ([facility]) by: Kera Results read back by same. Troponin T.cardiac [Mass/vol ume] in Serum or Plasma by High sensitivity methodOrdered By: Jhoan Maldonado on 03-20-2025 Troponin T.cardiac High sensitivity method [Mass/Vol] 56 ng/L Critically high <22 [facility] Comment on above: Critical Result(s) C alled at: 04:49 03-20-25 TO PHYLLIS ORTA by: SHIMA CLARK Results read back by same. Troponin T.cardiac High sensitivity method [Mass/Vol] 61 ng/L Critically high <22 [facility] Comment on above: Critical Result(s) C alled at: 02:48 03-20-25 to Jose Leo 2 by: Shima Clark Results read back by same. Urinalysis, Completeon 03-20 EPI,SQUAMOUS 0-5 SEEN Normal 0-5 [facility] Comment on above: Order Comment: CLEAN CATCH Performed By: #### L 400.0001 #### [facility] [address] [place], [address] BACTERIA 0 SEEN Normal None Seen [facility] Comment on above: Order Comment: CLEAN CATCH Performed By: #### L 400.0001 #### [facility] [address] [place], [address] Mucus Ql (Urine sed) [address] [facility] Comment on above: Order Comment: CLEAN CATCH Performed By: #### L 400.0001 #### [facility] [address] [place], [address] RBC 0 SEEN Normal 0-5 [facility] Comment on above: Order Comment: CLEAN CATCH Performed By: #### L 400.0001 #### [facility] [address] [place], [address] WBC 0 SEEN Normal 0-5 [facility] Comment on above: Order Comment: CLEAN CATCH Performed By: #### L 400.0001 #### [facility] [address] [place], [address] Urine Legionella pneumophila antigen detectionOrdered By: Matthew Whitaker on 03-20-2025 L. pneumophila Ag Ql (U) [facility] L. pneumophila Ag Ql (U) [facility] Urine clarityOrdered By: Rafiq Whitaker on 03-20-2025 Clarity (U) Clear Clear [facility] Urine color determinationOrd ered By: Matthew Whitaker on 03-20-2025 Color (U) Yellow Yellow [facility] Urine glucose detectionOrder ed By: Matthew Whitaker on 03-20-2025 Glucose Ql (U) 1000 mg/dl High Normal [facility] Urine leukocyte esterase det ection by dipstickOrdered By: Matthew Whitaker on 03-20-2025 Leukocyte esterase Test strip Ql (U) 25 /ul High Negative [facility] Urine pHOrdered By: Matthew silva on 03-20-2025 pH (U) 6.0 [pH] 5.0 - 8.0 [facility] Urine sediment bacteria coun t by microscopy (number/high power field)Ordered By: Matthew Whitaker on 03-20-2025 Bacteria LM.HPF (Urine sed) [#/Area] 0 /[HPF] None Seen [facility] Urine specific gravity measu rementOrdered By: Matthew Whitaker on 03-20-2025 Specific gravity (U) [Rel density] 1.010 1.002-1.030 [facility] Urine urobilinogen measureme ntOrdered By: Matthew Whitaker on 03-20-2025 Urobilinogen Ql (U) Normal mg/dl Normal [facility] White blood cell (WBC) count Ordered By: Jhoan Maldonado on 03-20-2025 WBC (Bld) [#/Vol] 10.4 10*3/uL 4.4-11.0 [facility] White blood cell countOrdere d By: Matthew Whitaker on 03-20-2025 White blood cell count 0 SEEN /hpf 0-5 [facility] Vital Signs Date Time Vital Sign Value Performing Clinician Facility 04-23-2025 06:57-0400 Body mass index (BMI) [Ratio] 25.4 kg/m2 Dr. Jhoan Maldonado DO Work Phone: 8(711)128-780263 [place] [address] 04-23-2025 06:57-0400 Body weight 80.[address] Jhoan Maldonado DO Work Phone: 3(301)129-444963 [place] [address] 04-23-2025 06:57-0400 Diastolic blood pressure 72 mm[Hg] Dr. Jhoan Maldonado DO Work Phone: 8(319)542-986763 [place] [address] 04-23-2025 06:57-0400 Heart rate 60 /min Dr. Jhoan Maldonado DO Work Phone: 2(175)702-476963 [place] [address] 04-23-2025 06:57-0400 Respiratory rate 20 /min Dr. Jhoan Maldonado DO Work Phone: 1(989)332-576163 [place] [address] 04-23-2025 06:57-0400 SaO2% (BldA) [Mass fraction] 98 % Dr. Jhoan Maldonado DO Work Phone: 6(070)496-517063 [place] [address] 04-23-2025 06:57-0400 Systolic blood pressure 128 mm[Hg] Dr. Jhoan Maldonado DO Work Phone: 8(817)363-664363 [place] [address] 03-24-2025 15:25-0400 Body temperature 97.7 [degF] Dr. Jhoan Maldonado DO Work Phone: 3(190)037-069563 [place] [address] 03-24-2025 15:25-0400 Diastolic blood pressure 70 mm[Hg] Dr. Jhoan Maldonado DO Work Phone: 2(021)243-757863 [place] [address] 03-24-2025 15:25-0400 Heart rate 60 /min Dr. Jhoan Maldonado DO Work Phone: 6(386)800-869563 [place] [address] 03-24-2025 15:25-0400 Respiratory rate 16 /min Dr. Jhoan Maldonado DO Work Phone: 4(384)920-039663 [place] [address] 03-24-2025 15:25-0400 SaO2% (BldA) [Mass fraction] 98 % Dr. Jhoan Maldonado DO Work Phone: 5(545)679-028863 [place] [address] 03-24-2025 15:25-0400 Systolic blood pressure 118 mm[Hg] Dr. Jhoan Maldonado DO Work Phone: [facility] 03-24-2025 05:51-0400 Body mass index (BMI) [Ratio] 25 kg/m2 Dr. Jhoan Maldonado DO Work Phone: 5(582)694-775930 [place] [address] 03-24-2025 05:51-0400 Body weight 79.[address] Jhoan Maldonado DO Work Phone: 2(679)529-058330 [place] [address] 03-23-2025 10:11-0400 Inhaled oxygen flow rate 2 L/min Dr. Jhoan Maldonado DO Work Phone: 1(459)967-401430 [place] [address] 03-23-2025 03:05-0400 Inhaled oxygen concentration 25 % Dr. Jhoan Maldonado DO Work Phone: 1(161)394-926163 [place] [address] 03-20-2025 13:44-0400 Body height 177.[address] Jhoan Maldonado DO Work Phone: 3(359)737-803230 [place] [address] 03-20-2025 06:00-0400 Diastolic blood pressure 78 mm[Hg] Dr. Jhoan Maldonado DO Work Phone: 0(642)880-763363 [place] [address] 03-20-2025 06:00-0400 Heart rate 78 /min Dr. Jhoan Maldonado DO Work Phone: 9(540)590-907163 [place] [address] 03-20-2025 06:00-0400 Inhaled oxygen concentration 30 % Dr. Jhoan Maldonado DO Work Phone: 6(322)751-626063 [place] [address] 03-20-2025 06:00-0400 Respiratory rate 22 /min Dr. Jhoan Maldonado DO Work Phone: 0(224)647-994163 [place] [address] 03-20-2025 06:00-0400 SaO2% (BldA) [Mass fraction] 95 % Dr. Jhoan Maldonado DO Work Phone: [facility] 03-20-2025 06:00-0400 Systolic blood pressure 131 mm[Hg] Dr. Jhoan Maldonado DO Work Phone: [facility] 03-20-2025 05:30-0400 Inhaled oxygen flow rate 30 L/min Dr. Jhoan Maldonado DO Work Phone: [facility] [facility] 03-20-2025 05:02-0400 Body temperature 97.8 [degF] Dr. Jhoan Maldonado DO Work Phone: [phone] [place] [address] 03-20-2025 02:03-0400 Body height 167.[address] Jhoan Maldonado DO Work Phone: [phone] [place] [address] 03-20-2025 02:03-0400 Body mass index (BMI) [Ratio] 31.8 kg/m2 Dr. Jhoan Maldonado DO Work Phone: [facility] 03-20-2025 02:03-0400 Body weight 89.[address] Jhoan Maldonado DO Work Phone: [phone] [place] [address] Encounters Encounter Date Encounter Type Care Provider Facility Start: 04-27-2025 End: 04-27-2025 ambulatory No Primary Care Physician Facility:[facility] Start: 04-27-2025 End: 04-27-[address] Jerome Ching MD -[facility] Work Phone: Start: 04-23-2025 End: 04-23-[address] Eder Pickett MD -[facility] Work Phone: Start: 04-23-2025 End: 04-23-2025 ambulatory No Primary Care Physician Facility:[facility] Start: 04-23-2025 End: 04-23-2025 rupa Pickett Facility:[facility] Start: 03-24-2025 Non-patient / Non-visit Dr. Lisha Ramirez MD [facility] Work Phone: Start: 03-23-2025 Non-patient / Non-visit Dr. Lisha Ramirez MD [facility] Work Phone: Start: 03-23-2025 Non-patient / Non-visit Dr. Eder Pickett MD [facility] Start: 03-22-2025 Non-patient / Non-visit Dr. Lisha Ramirez MD [facility] Work Phone: Start: 03-22-2025 Non-patient / Non-visit Dr. Eder Pickett MD [facility] Start: 03-21-2025 Non-patient / Non-visit Dr. Sherin barker MD [facility] Start: 03-21-2025 Non-patient / Non-visit Dr. Dipti Pathak DO [facility] Work Phone: Start: 03-20-2025 Non-patient / Non-visit Dr. Sherin barker MD [facility] Start: 03-20-2025 ambulatory Matthew Chavarria ty:[facility] Start: 03-20-2025 End: 03-24-2025 Evaluation and management of inpatient Dr. Matthew Grullon DO [facility] Work Phone: Procedures Date Procedure Procedure Detail Performing Clinician Start: 03-24-[address] Jhoan Maldonado DO Work Phone: Start: 03-22-2025 Plain chest X-ray Dr. Dulce Maria Maldonado DO Work Phone: Start: 03-22-2025 Serum inorganic phos phate measurement Dr. Jhoan Maldonado DO Work Phone: Start: 03-20-[address] Jhoan Maldonado DO Work Phone: Start: 03-20-2025 Legionella pneumophi la antigen assay Dr. Jhoan Maldonado DO Work Phone: Start: 03-20-[address] Jhoan Maldonado DO Work Phone: Start: 03-20-2025 SARS-CoV-2, Influenz a & RSV (PCR) Dr. Jhoan Maldonado DO Work Phone: Start: 03-20-2025 End: 03-20-2025 Streptococcus pneumoniae antigen assay Dr. Jhoan Maldonado DO Work Phone: Start: 03-20-2025 Urnls dip stick/tabl et reagent auto microscopy Dr. Jhoan Maldonado DO Work Phone: Start: 03-20-2025 CT angiography of ch est with contrast Dr. Jhoan Maldonado DO Work Phone: Start: 03-20-2025 Plain chest X-ray Dr. Dulce Maria Maldonado DO Work Phone: Start: 03-20-2025 Carbon dioxide measu rement, partial pressure Dr. Jhoan Maldonado DO Work Phone: Start: 03-20-2025 Gases blood o2 satur ation only direct adalgisa Dr. Jhoan Maldonado DO Work Phone: Start: 03-20-2025 Measurement of parti al pressure of oxygen in blood Dr. Jhoan Maldonado DO Work Phone: Start: 03-20-[address] Jhoan Maldonado DO Work Phone: Start: 03-20-[address] Jhoan Maldonado DO Work Phone: Start: 03-20-2025 D-dimer assay, quantitative Dr. Jhoan Maldonado DO Work Phone: Comment on above: D-Dimer ELEVATED (>0 .49): Additional studies and clinicalassessments are indicated to conclude diagnosis of:Deep Vein Thrombosis (DVT) or Pulmonary Embolism (PE)CRITICAL VALUE CALLED TO [id number]/13/25 0251 Thom R Chau.RESULTS READ BACK BY SAME. Start: 03-20-[address] Jhoan Maldonado DO Work Phone: History of coronary artery bypass grafting History of coronary artery bypass graft Dr. Matthew Grullon DO History of placement of stent for coronary artery disease History of coronary artery stent placement Dr. Matthew Grullon DO Plan of Treatment Date Care Activity Detail Author Start: 04-27-2025 End: 04-27-2025 Patient encounter procedure -[facility] Work Phone: Start: 03-24-2025 Patient discharge [facility] Start: 03-24-2025 [facility] Start: 03-21-2025 [facility] Start: 03-20-2025 Bacteria identified in Blood by Culture Blood Culture [facility] Start: 03-20-2025 Blood culture Blood Culture [facility] Start: 03-20-2025 Following clinical p athway protocol [facility] Start: 03-20-2025 Assessment of risk o f venous thromboembolism [facility] Start: 03-20-2025 Care regimes management [facility] Start: 03-20-2025 Catheterization of vein [facility] Start: 03-20-2025 Incentive spirometry [facility] Start: 03-20-2025 Insertion of cathete r into peripheral vein [facility] Start: 03-20-2025 Measuring intake and output [facility] Start: 03-20-2025 Notification of physician [facility] Start: 03-20-2025 Oxygen therapy [facility] Start: 03-20-2025 Providing care accor ding to standard [facility] Start: 03-20-2025 Provision of activit y privileges [facility] Start: 03-20-2025 Referral for physica l therapy [facility] Start: 03-20-2025 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 [facility] Start: 03-20-2025 Referral to occupati onal therapist [facility] Start: 03-20-2025 Referral to service [facility] Start: 03-20-2025 Tobacco use cessatio n education [facility] Start: 03-20-2025 End: 03-20-2025 [facility] Start: 03-20-2025 Respiratory pathogen s DNA and RNA panel - Respiratory specimen by ANGELA with probe detection [facility] Start: 03-20-2025 Urinalysis complete panel - Urine [facility] Start: 03-20-2025 Verification routine [facility] Start: 03-20-2025 Admission procedure [facility] Start: 03-20-2025 Hospital admission, emergency, from emergency room, medical nature [facility] Start: 03-20-2025 [facility] Start: 03-20-2025 Continuous pulse oximetry [facility] Start: 03-20-2025 Dual pressure sponta neous ventilation support [facility] Start: 03-20-2025 [facility] Start: 03-20-2025 Chart related admini strative procedure [facility] Start: 03-20-2025 Patient referral to dietitian [facility] Start: 03-20-2025 [facility] Lactic acid measurement [facility] Magnesium measurement [facility] Patient Education Coping with He art Failure [facility] Work Phone: Payers Date Payer Category Payer Medicare [id number] 2025 Self-pay Unknown [id number] 2.. [id number] Unknown [id number] 2..8 [id number] Unknown [id number] 2..8 [id number] Unknown [id number] 2..8 [id number] Unknown [id number] 2.16.8 [id number] Unknown [id number] 2..8 [id number] Unknown [id number] 2..8 [id number] Unknown [id number] 2.16.8 [id number] Unknown [id number] 2.16.8 [id number] Unknown [id number] 2.16.8 [id number] Unknown [id number] 2.16.8 [id number] Unknown [id number] 2.16.8 [id number] Unknown [id number] 2.16.8 [id number] Unknown [id number] 2.16.8 [id number] Social History Date Type Detail Facility Start: 03-20-2025 Tobacco smoking stat us GAIS Smokes tobacco daily (finding) [facility] Start: 1945 Sex Assigned At Male [facility] Start: 03-21-2025 End: 03-21-2025 Tobacco smoking status NHIS Current some day smoker [facility] Sex Male [facility] Goals Date Patient Goal Desired Activity /State Functional Status Date Assessment Result Facility 03-24-2025 Functional status Ambulates [facility] Work Phone: Mental Status Date Assessment Result Facility 03-24-2025 Cognitive function Voice/Name [facility] Work Phone: 03-20-2025 Cognitive function Voice/Name [facility] Work Phone: Clinical Notes 03-20-2025 to 04-27-2025 Note Date & Type Note Facility 04-27-2025 Procedure note [facility] 04-23-2025 Progress note [facility] 03-24-2025 Consult note [facility] 03-24-2025 Discharge summary [facility] 03-24-2025 Discharge summary Note Date/Time March 24, 2025 11:58am [facility] Medical Records [place] [address] Instructions for Home/Discharge Instructions 03/24/25 1157 MR#: [id number] Acct: [id number] Name: CECILIA KUHN Rep #:[id number] : 1945 80 From: Lisha Ramirez MD PCP: [facility] ALCALA Status:ADM IN Discharge Instructions DC O2, CPAP, BIPAP needs Home O2 Discharge instructions: No Dressing / Incision Discharge Activity: Return to Normal Activity Weight Bearing Status: Weight bearing as tolerated Dressing / Incision Call your doctor if you observe: Fever of 101 or Higher, Shortness of breath, Dizziness, Swelling in the ankles, Chest pain and Increased palpitations (irregular heartbeat) Follow Up Care Test Results: Test results from this visit will be discussed in further detail at your follow-up appointment, if applicable. Discharge Plan Admission Admit Date/Time: 03/20/25 05:38 Primary Reason for Your Visit: acute exacerbation of heart failure Attending Provider: Lisha Ramirez Primary Care Provider: [facility] ALCALA Consulting Providers: ANGEL LUIS ZAMORA; Matthew Grullon; Faheem Pantoja; Sherin Webb; Aniyah Fried; Rene Nava; Chun Dallas; Jordi Odell; Nate Tavarez; Jerome Ching; Matthew Dunne; Fred Machado; Eder Pickett; Balwinder Faustin; Romi Boss; Bryn Garcia; Ron Holman; Robert Ahn NP; Mariana Downs; Sam Tabor; Dipti Pathak Instructions Patient Instructions: Coping with Heart Failure Additional Instructions / Restrictions: 1. Limit fluid intake to 1.5 L daily 2. Limit salt and take to no more than 2 to 3 g daily 3. Weigh yourself in the morning without close on on a daily basis and keep track of your weight. If your weight increases by more than 2 to 3 pounds in a 24-hour period please take an extra dose of Lasix and call the cardiology office Discharge Orders/Prescriptions Prescriptions: New furosemide 40 mg Tablet 40 mg PO DAILY Qty: 30 2RF hydralazine 25 mg Tablet 25 mg PO TID Qty: 90 2RF metoprolol succinate 25 mg Tablet Extended Release 24 Hr 25 mg PO DAILY Qty: 30 2RF Continued methocarbamol 500 mg tablet 500 mg PO Q6H PRN (Reason: muscle spasm) isosorbide mononitrate 60 mg tablet extended release 24 hr 60 mg PO DAILY atorvastatin [Lipitor] 40 mg tablet 40 mg PO DAILY finasteride 5 mg tablet 5 mg PO DAILY spironolactone [Aldactone] 25 mg tablet 25 mg PO DAILY ranolazine 1,000 mg tablet extended release 12 hr 1,000 mg PO BID aspirin 81 mg tablet 81 mg PO DAILY clopidogrel 75 mg tablet 75 mg PO DAILY Jardiance 10 mg tablet 10 mg PO DAILY insulin lispro protamin-lispro [Humalog Mix 75-25 KwikPen] 100 unit/mL (75-25)insulin pen 20 unit subcut BID Discontinued hydralazine 10 mg tablet 10 mg PO BID Referrals / Follow Up: [facility] ALCAL[facility] [Other] - Within 1 Week Chun Dallas MD [Med Staff - Active Staff, Cardiology] - Within 2 Weeks [facility] Doctor,Out of [Non-Staff, Medical] Disposition Disposition (needs filled in before D/C Order can be placed): Home, Self Care 03/24/25 1158<Electronically signed by Lisha Ramirez MD>Lisha Ramirez MD CC: SUSAN Ahn; Dr. Aniyah Fried MD; Dr. Sherin Webb MD; Dr. Faheem Pantoja MD; Dr. Chun Dallas MD; Dr. Rene Nava MD; Dr. Jordi Odell MD; Dr. Nate Tavarez MD; Dr. Jerome Ching MD; Dr. Matthew Dunne DO; Dr. Matthew Grullon DO; Dr. Fred Machado MD; Dr. Dipti Pathak DO; Dr. Eder Pickett MD; Dr. Balwinder Faustin MD; Dr. Ron Holman MD; Dr. Romi Boss MD; Dr.Srinivasa Radha MD; IVANNA Turner; ANGEL LUIS ZAMORA; IVANNA Newman; ULI ALCALA ~ Signed [facility] Work Phone: [phone]) 346-807709-17-2025 Discharge summary Author Lisha Cesariosheila [facility] Note Date/Time March 24, 2025 3:28pm [facility] Medical Records Department [address] [place] [address] Discharge Summary 03/24/25 1158 MR#: [id number] Acct: [id number] Name: CECILIA KUHN Rep #:[id number] : 1945 80 From: Lisha Ramirez MD PCP: [facility] ALCALA Status:ADM IN Location: [place] [address] Providers Date of Admission: 03/20/25 Date of Discharge: 03/24/25 Primary Care Physician: ULI ALCALA Consultations 03/20/25 06:49 Consult: Cardiology Routine Consulting Provider: [facility] Reason for Consult: AE CHF and Chest Tightness. EMERGENT Consult: No MD Notified: Yes Date Notified: 03/20/25 Time Notified: 07:58 Method of Notification: Verbal Method of Consult:: In-Person Reason For Visit: AE CHF, AE COPD, PNA, RESP FAILURE & Diagnosis Discharge Diagnosis (1) Acute exacerbation of chronic heart failure: Status: Acute Code(s): I50.9 - Heart failure, unspecified Plan #Acute hypoxic respiratory failure due to acute on chronic heart failure with reduced ejection fraction * Now down to room air. * 2D echo done here showed EF of 10% with stage III diastolic dysfunction and severe global left ventricular dysfunction as well as severely dilated left ventricle and mild segmental systolic dysfunction of the right ventricle * On oral Lasix. On metoprolol, hydralazine and Jardiance as well as Imdur and Aldactone * Has ICD placed. Awaiting records follow-up from [facility] where patient had his previous care. * Cardiology on board. Per cardiology note today, patient planning on going back to [place] for further follow-up. If he chooses to stay in [place] cardiology to follow him about outpatient basis. * #Elevated troponin: Thought to be due to demand ischemia in light of the hypoxia. 2D echo as above. For cardiac cath once kidney function improves #Elevated creatinine: Creatinine today is 1.67. Was 1.42 yesterday. No clear baseline 1. Records pending from [facility]. I do suspect that this is likely CKD and not ANTHONY. Will monitor closely. #Type 2 diabetes mellitus: On NPH insulin. On Jardiance. Insulin sliding scale. Accu-Cheks ACHS. #Benign essential hypertension: On Imdur and hydralazine as well as Aldactone and metoprolol #hyperlipidemia: On statin #CAD: On aspirin and statin as well as Plavix. 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 Patient is a longtime chronic smoker. Counseled to quit. 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 * However today patient tells me that his daughter makes decisions for him and so he is waiting for his daughter to call so she has this discussion with cardiology to determine whether he will get follow up care in [place]. Medications at Discharge Home Medications aspirin 81 mg tablet 81 mg PO DAILY heart health 03/20/25 atorvastatin 40 mg tablet (Lipitor) 40 mg PO DAILY cholesterol 03/20/25 clopidogrel 75 mg tablet 75 mg PO DAILY anti platelet 03/20/25 empagliflozin 10 mg tablet (Jardiance) 10 mg PO DAILY diabetes 03/20/25 finasteride 5 mg tablet 5 mg PO DAILY prostate 03/20/25 insulin lispro protamine-lispro 100 unit/mL (75-25) subcutaneous pen (Humalog Mix 75-25 KwikPen) 20 unit subcut BID diabetes 03/20/25 methocarbamol 500 mg tablet 500 mg PO Q6H PRN muscle spasm 03/20/25 ranolazine 1,000 mg tablet,extended release,12 hr 1,000 mg PO BID heart 03/20/25 spironolactone 25 mg tablet (Aldactone) 25 mg PO DAILY diuretic 03/20/25 furosemide 40 mg tablet 40 mg PO DAILY #30 tabs 03/24/25 hydralazine 25 mg tablet 25 mg PO TID #90 tabs 03/24/25 isosorbide mononitrate 60 mg tablet,extended release 24 hr 60 mg PO DAILY #30 tabs 03/24/25 metoprolol succinate 25 mg tablet,extended release 24 hr 25 mg PO DAILY #30 tabs03/24/25 Hospital Course Operations None Procedures 2-D Echocardiogram Summary of Care Provided Minutes Spent on Discharge: 45 Hospital Course: Patient is an 80-year-old male with a past medical history as outlined was admitted to the ED on 03/20/2025 with complaint of chest tightness and shortness of breath. He has a history of CHF and CAD s/p CABG and stents. He had a history of mechanical fall with multiple rib fractures and resulting pneumothorax in January 2025 which have resulted in him leaving [place] to stay with his daughter locally. He came into the ED with the above-mentioned complaints which have been going on for 2 days. He claims compliance with his medications and said he had bilateral lower extremity edema. He has no other complaints. proBNP was elevated at 7412 and chest x-ray showed pulmonary vascular congestion with moderate right pleural effusion with pacemaker in placein addition to sternotomy wires in place consistent with acute exacerbation of heart failure. EF was unknown as he had had all his previous workup done and was retaining. He was admitted and managed for acute hypoxic respiratory failure also as he was requiring BiPAP. ABG done showed pH of 7.32 with pCO2 of45 and pO2 of 141 whilst on BiPAP. There was also concern for pneumonia. He was admitted and managed for acute hypoxic respiratory failure due to acute exacerbation of COPD with probable superimposed pneumonia as well as acute exacerbation of heart failure with unknown EF. He was diuresed with IV Lasix and started on IV ceftriaxone and azithromycin. Urine for strep and Legionella were negative. Cardiology was consulted. He had 2D echo which showed EF of 10%and stage III diastolic dysfunction as well as severe global left ventricular systolic dysfunction and severely dilated left ventricle. His Lasix was switched to oral Lasix per cardiology. He was continued on his metoprolol, hydralazine and Jardiance. Records were requested from [facility] where patient had his previous care. Cardiology reviewed him and felt that patient could follow-up on outpatient basis for any further workup as needed after they reviewed his [place] cardiology reports. Of note his troponins were minimally elevated at 61, 56 and 75 and was thought that this represented a demand ischemia in a patient with known left ventricular dysfunction and cardiology did not feel that any further invasive or noninvasiveischemic evaluation was indicated at this point in time. Patient was therefore discharged home as his daughter preferred that he stayed in the area and did notreturn to [place] for follow-up care. He was discharged home on 03/24/2025on p.o. Lasix. His hydralazine was increased from 10 mg 3 times daily to 25 mg 3 times daily. He was also placed on metoprolol 25 mg daily. He was continued on his Imdur and high intensity statin as well as aspirin, Plavix and ranolazine, Jardiance and spironolactone. He is to follow-up with his primary care doctor and follow-up with cardiology within 1 to 2 weeks. Patient seen and examined prior to discharge. He had no active complaints. He was on room air. He had an uneventful night. Review of systems otherwise negative. Labs and vitals reviewed. Home medication reviewed and reconciled. Physical Exam Const alert, oriented x3, no apparent distress and average body habitus General Appearance: cooperative and comfortable Orientation / Consciousness: awake HEENT normocephalic, head/scalp atraumatic, hearing grossly normal bilaterally, moist oral mucous membranes and oropharynx normal Mouth: oral and palatal mucosa normal Eyes PERRL, EOMs intact bilaterally and conjunctivae normal Neck no lymphadenopathy, supple and no JVD Lymph Lymphatic: no lymphedema noted Resp normal respiratory effort, no retractions, no use of accessory muscles and clearto auscultation bilaterally Cardio regular rate, regular rhythm, S1 normal heart sound, S2 normal heart sound and no murmurs GI normal to inspection, nondistended, normoactive bowel sounds, soft to palpation,non-tender and non-distended GI Narrative: Obese. Extremity normal to inspection, full ROM, normal capillary refill, no clubbing, cyanosis or edema and no calf tenderness General Extremity: no tenderness to palpation of joints or extremities Skin Skin Narrative: Patient has no evidence of rash, abscess, wounds or jaundice. General Skin Exam: no breakdown Neuro oriented x3, CN's II-XII intact bilaterally, moves all extremities and no focal motor deficits Sensorium / Orientation: awake, alert, oriented to person, oriented to place andoriented to time Speech: speech normal Motor Exam: general weakness Psych thought process normal, cooperative and affect normal Appearance: appropriate Weight / BMI Weight Weight: 174 lb 13.225 oz Body Mass Index (BMI) 25.0 ABG / Lab / Microbiology Data 03/24/25 05:04 03/24/25 05:04 Laboratory: Laboratory Results - last 24 hr 03/23/25 16:11: POC Glucose 222 H 03/23/25 21:37: POC Glucose 232 H 03/24/25 05:04: WBC 7.2, RBC 5.02, Hgb 16.2, Hct 47.8, MCV 95.2 H, MCH 32.3 H, MCHC 33.9, RDW Std Deviation 46.0 H, RDW Coeff of Adri 13.1, Plt Count 191, MPV 9.5, Immature Gran % (Auto) 0.600, Neut % (Auto) 72.5 H, Lymph % (Auto) 13.0 L, [place] % (Auto) 13.2 H, Eos % (Auto) 0.3, Baso % (Auto) 0.4, Absolute Neuts (auto)5.2, Absolute Lymphs (auto) 0.94, Nucleated RBC % 0, Sodium 135, Potassium 4.6, Chloride 100, Carbon Dioxide 21.9, Anion Gap 13, BUN 48 H, Creatinine 1.53 H, Estim Creat Clear Calc 38.44 L, Est GFR (MDRD) Non-Af 45 L, BUN/Creatinine Ratio 31.0 H, Glucose 80, Calcium 9.1 03/24/25 06:34: POC Glucose 110 H 03/24/25 11:46: POC Glucose 190 H Microbiology: Microbiology 03/20/25 03:42 Blood Culture (Wb) - Anticubital Right Blood Culture - Preliminary No growth in 48 hours. 03/20/25 07:12 Mucosa - Nasopharyngeal Respiratory Panel (PCR) - Final 03/20/25 07:30 Urine, Clean Catch Legionella Antigen - Final 03/20/25 07:30 Urine, Clean Catch Streptococcus pneumoniae Antigen (M - Final 03/20/25 02:16 Mucosa - Nose SARS-CoV-2, Influenza & RSV (PCR) - Final D/C Instructions Discharge Activity: Return to Normal Activity Weight Bearing Status: Weight bearing as tolerated Call your doctor if you observe: Fever of 101 or Higher, Shortness of breath, Dizziness, Swelling in the ankles, Chest pain and Increased palpitations (irregular heartbeat) DC O2, CPAP, BIPAP Needs Home O2 Discharge instructions: No DC home with Oxygen: No Meaningful Use Info Meaningful Use Meaningful Use Diagnoses (Choose all that apply): CHF CHF PADMINI/ARB ordered at discharge?: No Reason PADMINI/ARB not ordered?: Worsening renal disease Documented LVEF (%): 10 Discharge Plan Admission Admit Date/Time: 03/20/25 05:38 Primary Reason for Your Visit: acute exacerbation of heart failure Attending Provider: Lisha Ramirez Primary Care Provider: ULI ALCALA Consulting Providers: ANGEL LUIS ZAMORA; Matthew Grullon; Faheem Pantoja; Sherin Webb; Aniyah Fried; Rene Nava; Chun Dallas; Jordi Odell; Nate Tavarez; Jerome Ching; Matthew Dunne; Fred Machado; Eder Pickett; Balwinder Faustin; Romi Boss; Bryn Garcia; Ron Holman; Robert Ahn NP; Mariana Downs; Sam Tabor; Dpiti Pathak Instructions Patient Instructions: Coping with Heart Failure Additional Instructions / Restrictions: 1. Limit fluid intake to 1.5 L daily 2. Limit salt and take to no more than 2 to 3 g daily 3. Weigh yourself in the morning without close on on a daily basis and keep track of your weight. If your weight increases by more than 2 to 3 pounds in a 24-hour period please take an extra dose of Lasix and call the cardiology office Discharge Orders/Prescriptions Prescriptions: New furosemide 40 mg Tablet 40 mg PO DAILY Qty: 30 2RF hydralazine 25 mg Tablet 25 mg PO TID Qty: 90 2RF metoprolol succinate 25 mg Tablet Extended Release 24 Hr 25 mg PO DAILY Qty: 30 2RF isosorbide mononitrate 60 mg Tablet Extended Release 24 Hr 60 mg PO DAILY Qty: 30 2RF Continued methocarbamol 500 mg tablet 500 mg PO Q6H PRN (Reason: muscle spasm) atorvastatin [Lipitor] 40 mg tablet 40 mg PO DAILY finasteride 5 mg tablet 5 mg PO DAILY spironolactone [Aldactone] 25 mg tablet 25 mg PO DAILY ranolazine 1,000 mg tablet extended release 12 hr 1,000 mg PO BID aspirin 81 mg tablet 81 mg PO DAILY clopidogrel 75 mg tablet 75 mg PO DAILY Jardiance 10 mg tablet 10 mg PO DAILY insulin lispro protamin-lispro [Humalog Mix 75-25 KwikPen] 100 unit/mL (75- 25)insulin pen 20 unit subcut BID Discontinued isosorbide mononitrate 60 mg tablet extended release 24 hr 60 mg PO DAILY hydralazine 10 mg tablet 10 mg PO BID Referrals / Follow Up: [facility] ALCAL[facility] [Other] - Within 1 Week Chun Dallas MD [Med Staff - Active Staff, Cardiology] - Within 2 Weeks [facility] Doctor,Out of [Non-Staff, Medical] Disposition Disposition (needs filled in before D/C Order can be placed): Home, Self Care Charges/Coding Visit Charges Inpatient E&M: 63680 Disch Hosp >30min 03/24/25 1528 <Electronically signed by Lisha Ramirez MD> Cosigner Signature (if applicable): CC: Dr. Lisha Ramirez MD; [facility] ALCALA~ Signed [facility] Work Phone: [phone] 542-655709-17-2025 Discharge summary [facility] Medical Records Department [address] [place] [address] Instructions for Home/Discharge Instructions 03/24/25 1157 MR#: [id number] Acct: [id number] Name: CECILIA KUHN Rep #:[id number] : 1945 80 From: Lisha Ramirez MD PCP: [facility] ALCALA Status:ADM IN Discharge Instructions DC O2, CPAP, BIPAP needs Home O2 Discharge instructions: No Dressing / Incision Discharge Activity: Return to Normal Activity Weight Bearing Status: Weight bearing as tolerated Dressing / Incision Call your doctor if you observe: Fever of 101 or Higher, Shortness of breath, Dizziness, Swelling in the ankles, Chest pain and Increased palpitations (irregular heartbeat) Follow Up Care Test Results: Test results from this visit will be discussed in further detail at your follow- up appointment, if applicable. Discharge Plan Admission Admit Date/Time: 03/20/25 05:38 Primary Reason for Your Visit: acute exacerbation of heart failure Attending Provider: Lisha Ramirez Primary Care Provider: [facility] ALCALA Consulting Providers: ANGEL LUIS ZAMORA; Matthew Grullon; Faheem Pantoja; Sherin Webb; Aniyah Fried; Rene Nava; Chun Dallas; Jordi Odell; Nate Tavarez; Jerome Ching; Matthew Dunne; Fred Machado;Eder Pickett; Balwinder Faustin; Romi Boss; Bryn Garcia; Ron Holman; Robert Ahn NP; Mariana Downs PA; Sam Tabor; Dipti Pathak Instructions Patient Instructions: Coping with Heart Failure Additional Instructions / Restrictions: 1. Limit fluid intake to 1.5 L daily 2. Limit salt and take to no more than 2 to 3 g daily 3. Weigh yourself in the morning without close on on a daily basis and keep track of your weight. If your weight increases by more than 2 to 3 pounds in a 24-hour period please take an extra dose of Lasix and call the cardiology office Discharge Orders/Prescriptions Prescriptions: New furosemide 40 mg Tablet 40 mg PO DAILY Qty: 30 2RF hydralazine 25 mg Tablet 25 mg PO TID Qty: 90 2RF metoprolol succinate 25 mg Tablet Extended Release 24 Hr 25 mg PO DAILY Qty: 30 2RF Continued methocarbamol 500 mg tablet 500 mg PO Q6H PRN (Reason: muscle spasm) isosorbide mononitrate 60 mg tablet extended release 24 hr 60 mg PO DAILY atorvastatin [Lipitor] 40 mg tablet 40 mg PO DAILY finasteride 5 mg tablet 5 mg PO DAILY spironolactone [Aldactone] 25 mg tablet 25 mg PO DAILY ranolazine 1,000 mg tablet extended release 12 hr 1,000 mg PO BID aspirin 81 mg tablet 81 mg PO DAILY clopidogrel 75 mg tablet 75 mg PO DAILY Jardiance 10 mg tablet 10 mg PO DAILY insulin lispro protamin-lispro [Humalog Mix 75-25 KwikPen] 100 unit/mL (75- 25)insulin pen 20 unit subcut BID Discontinued hydralazine 10 mg tablet 10 mg PO BID Referrals / Follow Up: [facility] AL[facility] [Other] - Within 1 Week Chun Dallas MD [Med Staff - Active Staff, Cardiology] - Within 2 Weeks [facility] Doctor,Out of [Non-Staff, Medical] Disposition Disposition (needs filled in before D/C Order can be placed): Home, Self Care 03/24/25 1158Lisha Ramirez MD CC: SUSAN Ahn; Dr. Aniyah Fried MD; Dr. Sherin Webb MD; Dr. Faheem Pantoja MD; Dr. Chun Dallas MD; Dr. Rene Nava MD; Dr. Jordi Odell MD; Dr. Nate Tavarez MD; Dr. Jerome Ching MD; Dr.David Timoteo Dunne DO; Dr. Matthew Grullon DO; Dr. Fred Machado MD; Dr. Dipti Pathak DO; Dr. Fiona MD; Dr. Balwinder Faustin MD; Dr. Ron Holman MD; Dr. Romi Boss MD; Dr.Srinivasa Radha MD; IVANNA Turner; ANGEL LUIS ZAMORA; IVANNA Newman; ULI ALCALA ~ Signed [facility]09-17-2025 [facility] Medical Records Department [address] [place] [address] Discharge Summary 03/24/25 1158 MR#: [id number] Acct: [id number] Name: CECILIA KUHN Rep #: [id number] : 1945 80 From: Lisha Ramirez MD PCP: ULI ALCALA Status:ADM IN Location: [place] [address] Providers Date of Admission: 03/20/25 Date of Discharge: 03/24/25 Primary Care Physician: ULI ALCALA Consultations 03/20/25 06:49 Consult: Cardiology Routine Consulting Provider: [facility] Reason for Consult: AE CHF and Chest Tightness. EMERGENT Consult: No MD Notified: Yes Date Notified: 03/20/25 Time Notified: 07:58 Method of Notification: Verbal Method of Consult:: In-Person Reason For Visit: AE CHF, AE COPD, PNA, RESP FAILURE Diagnosis Discharge Diagnosis (1) Acute exacerbation of chronic heart failure: Status: Acute Code(s): I50.9 - Heart failure, unspecified Plan #Acute hypoxic respiratory failure due to acute on chronic heart failure with reduced ejection fraction * Now down to room air. * 2D echo done here showed EF of 10% with stage III diastolic dysfunction and severe global left ventricular dysfunction as well as severely dilated left ventricle and mild segmental systolic dysfunction of the right ventricle * On oral Lasix. On metoprolol, hydralazine and Jardiance as well as Imdur and Aldactone * Has ICD placed. Awaiting records follow-up from [facility] where patient had his previous care. * Cardiology on board. Per cardiology note today, patient planning on going back to [place] for further follow-up. If he chooses to stay in [place] cardiology to follow him about outpatient basis. * #Elevated troponin: Thought to be due to demand ischemia in light of the hypoxia. 2D echo as above. For cardiac cath once kidney function improves #Elevated creatinine: Creatinine today is 1.67. Was 1.42 yesterday. No clear baseline 1. Records pending from [facility]. I do suspect that this is likely CKD and not ANTHONY. Will monitor closely. #Type 2 diabetes mellitus: On NPH insulin. On Jardiance. Insulin sliding scale. Accu-Cheks ACHS. #Benign essential hypertension: On Imdur and hydralazine as well as Aldactone and metoprolol #hyperlipidemia: On statin #CAD: On aspirin and statin as well as Plavix. 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 Patient is a longtime chronic smoker. Counseled to quit. 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 * However today patient tells me that his daughter makes decisions for him and so he is waiting for his daughter to call so she has this discussion with cardiology to determine whether he will get follow up care in [place]. Medications at Discharge Home Medications aspirin 81 mg tablet 81 mg PO DAILY heart health 03/20/25 atorvastatin 40 mg tablet (Lipitor) 40 mg PO DAILY cholesterol 03/20/25 clopidogrel 75 mg tablet 75 mg PO DAILY anti platelet 03/20/25 empagliflozin 10 mg tablet (Jardiance) 10 mg PO DAILY diabetes 03/20/25 finasteride 5 mg tablet 5 mg PO DAILY prostate 03/20/25 insulin lispro protamine-lispro 100 unit/mL (75-25) subcutaneous pen (Humalog Mix 75-25 KwikPen) 20 unit subcut BID diabetes 03/20/25 methocarbamol 500 mg tablet 500 mg PO Q6H PRN muscle spasm 03/20/25 ranolazine 1,000 mg tablet,extended release,12 hr 1,000 mg PO BID heart 03/20/25 spironolactone 25 mg tablet (Aldactone) 25 mg PO DAILY diuretic 03/20/25 furosemide 40 mg tablet 40 mg PO DAILY #30 tabs 03/24/25 hydralazine 25 mg tablet 25 mg PO TID #90 tabs 03/24/25 isosorbide mononitrate 60 mg tablet,extended release 24 hr 60 mg PO DAILY #30 tabs 03/24/25 metoprolol succinate 25 mg tablet,extended release 24 hr 25 mg PO DAILY #30 tabs 03/24/25 Hospital Course Operations None Procedures 2-D Echocardiogram Summary of Care Provided Minutes Spent on Discharge: 45 Hospital Course: Patient is an 80-year-old male with a past medical history as outlined was admitted to the ED on 03/20/2025 with complaint of chest tightness and shortness of breath. He has a history of CHF and CAD s/p CABG and stents. He had a history of mechanical fall with multiple rib fractures and resulting pneumothorax in January 2025 which have resulted in him leaving [place] to stay with his daughter locally. He came into the ED with the above-mentioned complaints which have been going on for 2 days. He claims compliance with his medications and said he had bilateral lower extremity edema. He has no other complaints. proBNP was elevated at 7412 and chest x-ray showed pulmonary vascular congestion with moderate right pleural effusion with pacemaker in place in addition to sternotomy wires in place consistent with acute exacerbation of h (more content not included)...[facility]09-17-2025 Hospital Discharge instructionsAdditional Instructions 1. Limit fluid intake to 1.5 L daily 2. Limit salt and take to no more than 2 to 3 g daily 3. Weigh yourself in the morning without close on on a daily basis and keep track of your weight. If your weight increases by more than 2 to 3 pounds in a 24-hour period please take an extra dose of Lasix and call the cardiology office Date of Discharge: 03/24/25[facility] Work Phone: [phone]) 506-821009-16-2025 Progress note Author Lisha Ramirez [facility] Note Date/Time March 23, 2025 4:50pm [facility] Medical Records Department [address] [place] [address] Progress Note 03/23/25 1350 MR#: [id number] Acct: [id number] Name: CECILIA KUHN Rep #:[id number] : 1945 80 From: Lisha Ramirez MD PCP: [facility] ALCALA Status:ADM IN Location: [place] [address] Subjective Subjective Patient seen and examined. He was sitting comfortably in his chair having breakfast. He had no active complaints and review of systems otherwise negative. He was on 2 L of oxygen at time of review but was subsequently weaneddown to room air. Review of systems otherwise negative. Objective Data Objective Data Vital Signs: Vital Signs Temp Pulse Resp BP Pulse Ox O2 Del Method O2 Flow Rate 97.8 F 62 18 130/65 H 95 Room Air 2 03/23/25 10:11 03/23/25 10:15 03/23/25 10:11 03/23/25 10:11 03/23/25 10:38 03/23/25 10:38 03/23/25 10:11 FiO2 25 03/23/25 03:05 Oxygen Flow Rate (L/min) 2 Oxygen Delivery Method Room Air Weight: 180 lb 12.465 oz Body Mass Index (BMI) 25.9 Intake & Output: Intake and Output for Last 24 Hours 03/21/25 03/22/25 03/23/25 23:59 23:59 23:59 Intake Total 340 / 340 800 / 800 Output Total 775 / 1100 700 / 700 250 / 250 Balance -435 / -760 100 / 100 -250 / -250 Lab / Micro Data 03/23/25 04:44 03/23/25 04:44 Labs: Laboratory Results - last 24 hr 03/22/25 16:45: POC Glucose 74 03/22/25 20:50: POC Glucose 159 H 03/23/25 04:44: WBC 7.3, RBC 4.67, Hgb 15.1, Hct 45.2, MCV 96.8 H, MCH 32.3 H, MCHC 33.4, RDW Std Deviation 48.5 H, RDW Coeff of Adri 13.5, Plt Count 191, MPV 9.2, Immature Gran % (Auto) 0.500, Neut % (Auto) 71.2 H, Lymph % (Auto) 13.6 L, [place] % (Auto) 14.3 H, Eos % (Auto) 0.1, Baso % (Auto) 0.3, Absolute Neuts (auto)5.2, Absolute Lymphs (auto) 1.00, Nucleated RBC % 0, Sodium 136, Potassium 5.1, Chloride 103, Carbon Dioxide 24.3, Anion Gap 9, BUN 47 H, Creatinine 1.58 H, Estim Creat Clear Calc 37.22 L, Est GFR (MDRD) Non-Af 43 L, BUN/Creatinine Ratio 29.6 H, Glucose 100 H, Calcium 8.8, NT pro BNP II 8187 H 03/23/25 06:44: POC Glucose 103 03/23/25 12:40: POC Glucose 212 H Micro: Microbiology 03/20/25 03:42 Blood Culture (Wb) - Anticubital Right Blood Culture - Preliminary No growth in 48 hours. 03/20/25 07:12 Mucosa - Nasopharyngeal Respiratory Panel (PCR) - Final 03/20/25 07:30 Urine, Clean Catch Legionella Antigen - Final 03/20/25 07:30 Urine, Clean Catch Streptococcus pneumoniae Antigen (M - Final 03/20/25 02:16 Mucosa - Nose SARS-CoV-2, Influenza & RSV (PCR) - Final Rhythm Strip Rhythm Strip: Atrially paced rhythm Rate: 61 Ectopy: PVC(s) Physical Exam Const alert, oriented x3, no apparent distress and average body habitus General Appearance: cooperative HEENT normocephalic, head/scalp atraumatic, hearing grossly normal bilaterally, moist oral mucous membranes and oropharynx normal Eyes PERRL, EOMs intact bilaterally and conjunctivae normal Neck no lymphadenopathy, supple and no JVD Lymph Lymphatic: no lymphedema noted Resp normal respiratory effort Resp Narrative: Mildly diminished breath sounds bibasilarly. No wheezes or crackles.On room air. Auscultation: crackles and rales; Negative for rhonchi or wheezes Cardio regular rate, regular rhythm, S1 normal heart sound, S2 normal heart sound and no murmurs GI normal to inspection, nondistended, normoactive bowel sounds, soft to palpation,non-tender and non-distended GI Narrative: Obese. Extremity normal capillary refill Extremity Narrative: Trace to 1+ bilateral lower extremity pitting edema, no cyanosis or clubbing General Extremity: no tenderness to palpation of joints or extremities Skin General Skin Exam: no breakdown Neuro oriented x3, CN's II-XII intact bilaterally, moves all extremities and no focal motor deficits Sensorium / Orientation: awake and alert Speech: speech normal Motor Exam: general weakness Psych thought process normal, cooperative and affect normal Appearance: appropriate Assessment & Plan Assessment/Plan (1) Acute exacerbation of chronic heart failure: PLAN: Plan #Acute hypoxic respiratory failure due to acute on chronic heart failure with reduced ejection fraction * Now down to room air. * 2D echo done here showed EF of 10% with stage III diastolic dysfunction and severe global left ventricular dysfunction as well as severely dilated left ventricle and mild segmental systolic dysfunction of the right ventricle * On oral Lasix. On metoprolol, hydralazine and Jardiance as well as Imdur and Aldactone * Has ICD placed. Awaiting records follow-up from [facility] where patient had his previous care. * Cardiology on board. Per cardiology note today, patient planning on going back to [place] for further follow-up. If he chooses to stay in [place] cardiology to follow him about outpatient basis. * #Elevated troponin: Thought to be due to demand ischemia in light of the hypoxia. 2D echo as above. For cardiac cath once kidney function improves #Elevated creatinine: Creatinine today is 1.67. Was 1.42 yesterday. No clear baseline 1. Records pending from [facility]. I do suspect that this is likely CKD and not ANTHONY. Will monitor closely. #Type 2 diabetes mellitus: On NPH insulin. On Jardiance. Insulin sliding scale. Accu-Cheks ACHS. #Benign essential hypertension: On Imdur and hydralazine as well as Aldactone and metoprolol #hyperlipidemia: On statin #CAD: On aspirin and statin as well as Plavix. 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 Patient is a longtime chronic smoker. Counseled to quit. 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 * However today patient tells me that his daughter makes decisions for him and so he is waiting for his daughter to call so she has this discussion with cardiology to determine whether he will get follow up care in [place]. Charges/Coding Visit Charges Inpatient E&M: 23242 Subs Hosp L2 03/23/25 1650 <Electronically signed by Lisha Ramirez MD> Lisha Ramirez MD Cosigner Signature (if applicable): CC: ~ Signed [facility] Work Phone: [phone]) 908-874309-16-2025 Progress note [facility] Medical Records Department [address] [place] [address] Progress Note 03/23/25 1350 MR#: [id number] Acct: [id number] Name: CECILIA KUHN Rep #:[id number] : 1945 80 From: Lisha Ramirez MD PCP: [facility] ALCALA Status:ADM IN Location: [place] [address] Subjective Subjective Patient seen and examined. He was sitting comfortably in his chair having breakfast. He had no active complaints and review of systems otherwise negative. He was on 2 L of oxygen at time of review but was subsequently weaneddown to room air. Review of systems otherwise negative. Objective Data Objective Data Vital Signs: Vital Signs Temp Pulse Resp BP Pulse Ox O2 Del Method O2 Flow Rate 97.8 F 62 18 130/65 H 95 Room Air 2 03/23/25 10:11 03/23/25 10:15 03/23/25 10:11 03/23/25 10:11 03/23/25 10:38 03/23/25 10:38 03/23/25 10:11 FiO2 25 03/23/25 03:05 Oxygen Flow Rate (L/min) 2 Oxygen Delivery Method Room Air Weight: 180 lb 12.465 oz Body Mass Index (BMI) 25.9 Intake & Output: Intake and Output for Last 24 Hours 03/21/25 03/22/25 03/23/25 23:59 23:59 23:59 Intake Total 340 / 340 800 / 800 Output Total 775 / 1100 700 / 700 250 / 250 Balance -435 / -760 100 / 100 -250 / -250 Lab / Micro Data 03/23/25 04:44 03/23/25 04:44 Labs: Laboratory Results - last 24 hr 03/22/25 16:45: POC Glucose 74 03/22/25 20:50: POC Glucose 159 H 03/23/25 04:44: WBC 7.3, RBC 4.67, Hgb 15.1, Hct 45.2, MCV 96.8 H, MCH 32.3 H, MCHC 33.4, RDW Std Deviation 48.5 H, RDW Coeff of Adri 13.5, Plt Count 191, MPV 9.2, Immature Gran % (Auto) 0.500, Neut %(Auto) 71.2 H, Lymph % (Auto) 13.6 L, [place] % (Auto) 14.3 H, Eos % (Auto) 0.1, Baso % (Auto) 0.3, Absolute Neuts (auto)5.2, Absolute Lymphs (auto) 1.00, Nucleated RBC % 0, Sodium 136, Potassium 5.1, Chloride 103, Carbon Dioxide 24.3, Anion Gap 9, BUN 47 H, Creatinine 1.58 H, Estim Creat Clear Calc 37.22 L, Est GFR (MDRD) Non-Af 43 L, BUN/Creatinine Ratio 29.6 H, Glucose 100 H, Calcium 8.8, NT pro BNP II 8187 H 03/23/25 06:44: POC Glucose 103 03/23/25 12:40: POC Glucose 212 H Micro: Microbiology 03/20/25 03:42 Blood Culture (Wb) - Anticubital Right Blood Culture - Preliminary No growth in 48 hours. 03/20/25 07:12 Mucosa - Nasopharyngeal Respiratory Panel (PCR) - Final 03/20/25 07:30 Urine, Clean Catch Legionella Antigen - Final 03/20/25 07:30 Urine, Clean Catch Streptococcus pneumoniae Antigen (M - Final 03/20/25 02:16 Mucosa - Nose SARS-CoV-2, Influenza & RSV (PCR) - Final Rhythm Strip Rhythm Strip: Atrially paced rhythm Rate: 61 Ectopy: PVC(s) Physical Exam Const alert, oriented x3, no apparent distress and average body habitus General Appearance: cooperative HEENT normocephalic, head/scalp atraumatic, hearing grossly normal bilaterally, moist oral mucous membranes and oropharynx normal Eyes PERRL, EOMs intact bilaterally and conjunctivae normal Neck no lymphadenopathy, supple and no JVD Lymph Lymphatic: no lymphedema noted Resp normal respiratory effort Resp Narrative: Mildly diminished breath sounds bibasilarly. No wheezes or crackles.On room air. Auscultation: crackles and rales; Negative for rhonchi or wheezes Cardio regular rate, regular rhythm, S1 normal heart sound, S2 normal heart sound and no murmurs GI normal to inspection, nondistended, normoactive bowel sounds, soft to palpation,non-tender and non-distended GI Narrative: Obese. Extremity normal capillary refill Extremity Narrative: Trace to 1+ bilateral lower extremity pitting edema, no cyanosis or clubbing General Extremity: no tenderness to palpation of joints or extremities Skin General Skin Exam: no breakdown Neuro oriented x3, CN's II-XII intact bilaterally, moves all extremities and no focal motor deficits Sensorium / Orientation: awake and alert Speech: speech normal Motor Exam: general weakness Psych thought process normal, cooperative and affect normal Appearance: appropriate Assessment & Plan Assessment/Plan (1) Acute exacerbation of chronic heart failure: PLAN: Plan #Acute hypoxic respiratory failure due to acute on chronic heart failure with reduced ejection fraction * Now down to room air. * 2D echo done here showed EF of 10% with stage III diastolic dysfunction and severe global left ventricular dysfunction as well as severely dilated left ventricle and mild segmental systolic dysfunction of the right ventricle * On oral Lasix. On metoprolol, hydralazine and Jardiance as well as Imdur and Aldactone * Has ICD placed. Awaiting records follow-up from [facility] where patient had his previous care. * Cardiology on board. Per cardiology note today, patient planning on going back to [place] for further follow-up. If he chooses to stay in [place] cardiology to follow him about outpatient basis. * #Elevated troponin: Thought to be due to demand ischemia in light of the hypoxia. 2D echo as above.For cardiac cath once kidney function improves #Elevated creatinine: Creatinine today is 1.67. Was 1.42 yesterday. No clear baseline 1. Records pending from [facility]. I do suspect that this is likely CKD and not ANTHONY. Will monitor closely. #Type 2 diabetes mellitus: On NPH insulin. On Jardiance. Insulin sliding scale. Accu-Cheks ACHS. #Benign essential hypertension: On Imdur and hydralazine as well as Aldactone and metoprolol #hyperlipidemia: On statin #CAD: On aspirin and statin as well as Plavix. 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 Patient is a longtime chronic smoker. Counseled to quit. 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 * However today patient tells me that his daughter makes decisions for him and so he is waiting forhis daughter to call so she has this discussion with cardiology to determine whether he will get follow up care in [place]. Charges/Coding Visit Charges Inpatient E&M: 93856 [facility] Hosp L2 03/23/25 1650 Lisha Ramirez MD Cosigner Signature (if applicable): CC: ~ Signed [facility]09-16-2025 Progress note Author Eder Pickett [facility] Note Date/Time March 23, 2025 8:52am [facility] Medical Records Department [address] [place] [address] Progress Note - Cardiology 03/23/25 0840 MR#: [id number] Acct: [id number] Name: CECILIA KUHN Rep #:[id number] : 1945 80 From: Eder Pickett MD PCP: [facility] ALCALA Status:ADM IN Location: [place] [address] Subjective Subjective Patient sitting in chair at the bedside resting comfortably. He reports he slept well with his BiPAP machine. He also reports that his lower extremity edema has improved and he is breathing much easier. Renal function is stabilized his creatinine initially was 1.62 up to 1.67 now is1.58 today with a GFR of 43. Objective Data Vital Signs: Vital Signs Temp Pulse Resp BP Pulse Ox O2 Del Method O2 Flow Rate 97.4 F L 60 18 122/74 H 97 Nasal Cannula 2 03/23/25 03:07 03/23/25 06:46 03/23/25 03:07 03/23/25 06:46 03/23/25 03:07 03/23/25 08:12 03/22/25 21:00 FiO2 25 03/23/25 03:05 Oxygen Flow Rate (L/min) 2 Oxygen Delivery Method Nasal Cannula Weight: 180 lb 12.465 oz Body Mass Index (BMI) 25.9 Intake & Output: Intake and Output for Last 24 Hours 09/03/22/25 03/23/25 23:59 23:59 23:59 Intake Total 340 / 340 800 / 800 Output Total 775 / 1100 700 / 700 250 / 250 Balance -435 / -760 100 / 100 -250 / -250 Lab / Micro Data Attestation: I reviewed the patient's lab results. 03/23/25 04:44 03/23/25 04:44 Labs: Laboratory Results - last 24 hr 03/22/25 11:31: POC Glucose 86 03/22/25 16:45: POC Glucose 74 03/22/25 20:50: POC Glucose 159 H 03/23/25 04:44: WBC 7.3, RBC 4.67, Hgb 15.1, Hct 45.2, MCV 96.8 H, MCH 32.3 H, MCHC 33.4, RDW Std Deviation 48.5 H, RDW Coeff of Adri 13.5, Plt Count 191, MPV 9.2, Immature Gran % (Auto) 0.500, Neut % (Auto) 71.2 H, Lymph % (Auto) 13.6 L, [place] % (Auto) 14.3 H, Eos % (Auto) 0.1, Baso % (Auto) 0.3, Absolute Neuts (auto)5.2, Absolute Lymphs (auto) 1.00, Nucleated RBC % 0, Sodium 136, Potassium 5.1, Chloride 103, Carbon Dioxide 24.3, Anion Gap 9, BUN 47 H, Creatinine 1.58 H, Estim Creat Clear Calc 37.22 L, Est GFR (MDRD) Non-Af 43 L, BUN/Creatinine Ratio 29.6 H, Glucose 100 H, Calcium 8.8 03/23/25 06:44: POC Glucose 103 Micro: Microbiology 03/20/25 03:42 Blood Culture (Wb) - Anticubital Right Blood Culture - Preliminary No growth in 48 hours. Rhythm Strip Rhythm Strip: Atrially paced rhythm Rate: 61 Ectopy: PVC(s) Cardiology Labs/Tests 03/23/25 04:44: WBC 7.3, RBC 4.67, Hgb 15.1, Hct 45.2, MCV 96.8 H, MCH 32.3 H, MCHC 33.4, Plt Count 191, MPV 9.2, Immature Gran % (Auto) 0.500, Neut % (Auto) 71.2 H, Lymph % (Auto) 13.6 L, [place] % (Auto) 14.3 H, Eos % (Auto) 0.1, Baso % (Auto) 0.3, Absolute Neuts (auto) 5.2, Nucleated RBC % 0, Sodium 136, Potassium 5.1, Chloride 103, Carbon Dioxide 24.3, Anion Gap 9, BUN 47 H, Creatinine 1.58 H, Est GFR (MDRD) Non-Af 43 L, BUN/Creatinine Ratio 29.6 H, Glucose 100 H, Calcium 8.8 Rhythm: EKG: ECHO: Stress Test: Cardiac Cath: PCI: CT Surgery: Holter monitor: EPS: PPM: CXR: Chest CT Scan: Physical Exam Const alert and oriented x3 HEENT normocephalic Eyes EOMs intact bilaterally Neck no JVD Neck Narrative: No JVD at 90 degrees Chest inspection of chest normal Chest: midline sternotomy incision and left pectoral incision Resp normal respiratory effort Auscultation: crackles bilateral base (Scant relatively clear) and diminished lung sounds bilateral lower (Decreased breath sounds bilateral very basal segments.) Cardio Rate: regular rate Rhythm: regular rhythm Heart Sounds: S1 normal and S2 normal; Negative for click, gallop or murmur Extremity General Extremity: edema bilateral lower extremity Details: trace Skin Skin Narrative: Hyperpigmentation bilateral lower extremities Neuro Neuro Narrative: Alert and oriented x 3 Psych mental status grossly normal Assessment & Plan Assessment/Plan (1) Acute exacerbation of chronic heart failure: PLAN: Patient appears to me compensating for his severe LV dysfunction. EF is known to be chronically in the 10% range. His edema is improving he reports hisrespiratory status is also improving he remains on 2 L nasal cannula. Lower extremity edema is resolving slowly. The patient's initial BNP was 11,422. I recommend we recheck that today the order was placed. I would like to make certain that it is decreasing and get a new baseline for when he is better compensated. Given the addition of spironolactone would recommend discontinuing the potassiumand monitoring of BMP tomorrow morning. (2) CKD (chronic kidney disease): QUALIFIERS: Chronic kidney disease stage: stage 3 (moderate) Chronic kidney disease stage 3 subtype: stage 3b (GFR 30-44) Qualified Code(s): N18.32 - Chronic kidney disease, stage 3b PLAN: Patient's renal function appears to have stabilized as with a GFR of around 43. Recheck BMP tomorrow off of potassium and on spironolactone. (3) Presence of combination internal cardiac defibrillator (ICD) and pacemaker: PLAN: Patient's ICD is currently followed through his [place] cardiologistoffice. The patient is to decide whether he is going to follow-up back in [place] or if he is going to be seek care in the [place] [facility] office. (4) Elevated troponin: PLAN: Patient's troponins were minimally elevated at 61, 56, and 75. I feel this represents a demand ischemia in a patient with a known severe LV dysfunction and I do not feel that further invasive or noninvasive ischemic evaluation is indicated at this point in time. He has no signs or symptoms of clinical ischemia. PLAN: Plan 1. DC potassium supplement 2. Repeat BNP today and BMP tomorrow 3. 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 4. From a cardiovascular perspective the patient should be able to be discharged in the next 24 to 48 hours. 5. If further assistance is needed please contact Dr. Ching starting tomorrow morning he will be taken over the service. If there are questions that arise please call me directly. Charges/Coding Visit Charges Inpatient E&M: 77117 Subs Hosp L2 03/23/25 0852 <Electronically signed by Eder Pickett MD> Cosigner Signature (if applicable): CC: ~ Signed [facility] Work Phone: [phone] Progress note [facility] Medical Records Department [address] [place] [address] Progress Note - Cardiology 03/23/25 0840 MR#: [id number] Acct: [id number] Name: CECILIA KUHN Rep #:[id number] : 1945 80 From: Eder Pickett MD PCP: ULI ALCALA Status:ADM IN Location: [place] [address] Subjective Subjective Patient sitting in chair at the bedside resting comfortably. He reports he slept well with his BiPAP machine. He also reports that his lower extremity edema has improved and he is breathing much easier. Renal function is stabilized his creatinine initially was 1.62 up to 1.67 now is1.58 today with a GFR of 43. Objective Data Vital Signs: Vital Signs Temp Pulse Resp BP Pulse Ox O2 Del Method O2 Flow Rate 97.4 F L 60 18 122/74 H 97 Nasal Cannula 2 03/23/25 03:07 03/23/25 06:46 03/23/25 03:07 03/23/25 06:46 03/23/25 03:07 03/23/25 08:12 03/22/25 21:00 FiO2 03/23/25 03:05 Oxygen Flow Rate (L/min) 2 Oxygen Delivery Method Nasal Cannula Weight: 180 lb 12.465 oz Body Mass Index (BMI) 25.9 Intake & Output: Intake and Output for Last 24 Hours 03/21/25 03/22/25 03/23/25 23:59 23:59 23:59 Intake Total 340 / 340 800 / 800 Output Total 775 / 1100 700 / 700 250 / 250 Balance -435 / -760 100 / 100 -250 / -250 Lab / Micro Data Attestation: I reviewed the patient's lab results. 03/23/25 04:44 03/23/25 04:44 Labs: Laboratory Results - last 24 hr 03/22/25 11:31: POC Glucose 86 03/22/25 16:45: POC Glucose 74 03/22/25 20:50: POC Glucose 159 H 03/23/25 04:44: WBC 7.3, RBC 4.67, Hgb 15.1, Hct 45.2, MCV 96.8 H, MCH 32.3 H, MCHC 33.4, RDW Std Deviation 48.5 H, RDW Coeff of Adri 13.5, Plt Count 191, MPV 9.2, Immature Gran % (Auto) 0.500, Neut %(Auto) 71.2 H, Lymph % (Auto) 13.6 L, [place] % (Auto) 14.3 H, Eos % (Auto) 0.1, Baso % (Auto) 0.3, Absolute Neuts (auto)5.2, Absolute Lymphs (auto) 1.00, Nucleated RBC % 0, Sodium 136, Potassium 5.1, Chloride 103, Carbon Dioxide 24.3, Anion Gap 9, BUN 47 H, Creatinine 1.58 H, Estim Creat Clear Calc 37.22 L, Est GFR (MDRD) Non-Af 43 L, BUN/Creatinine Ratio 29.6 H, Glucose 100 H, Calcium 8.8 03/23/25 06:44: POC Glucose 103 Micro: Microbiology 03/20/25 03:42 Blood Culture (Wb) - Anticubital Right Blood Culture - Preliminary No growth in 48 hours. Rhythm Strip Rhythm Strip: Atrially paced rhythm Rate: 61 Ectopy: PVC(s) Cardiology Labs/Tests 03/23/25 04:44: WBC 7.3, RBC 4.67, Hgb 15.1, Hct 45.2, MCV 96.8 H, MCH 32.3 H, MCHC 33.4, Plt [id number], MPV 9.2, Immature Gran % (Auto) 0.500, Neut % (Auto) 71.2 H, Lymph % (Auto) 13.6 L, [place] % (Auto) 14.3 H, Eos % (Auto) 0.1, Baso % (Auto) 0.3, Absolute Neuts (auto) 5.2, Nucleated RBC % 0, Sodium 136, Potassium 5.1, Chloride 103, Carbon Dioxide 24.3, Anion Gap 9, BUN 47 H, Creatinine 1.58 H, Est GFR (MDRD) Non-Af 43 L, BUN/Creatinine Ratio 29.6 H, Glucose 100 H, Calcium 8.8 Rhythm: EKG: ECHO: Stress Test: Cardiac Cath: PCI: CT Surgery: Holter monitor: EPS: PPM: CXR: Chest CT Scan: Physical Exam Const alert and oriented x3 HEENT normocephalic Eyes EOMs intact bilaterally Neck no JVD Neck Narrative: No JVD at 90 degrees Chest inspection of chest normal Chest: midline sternotomy incision and left pectoral incision Resp normal respiratory effort Auscultation: crackles bilateral base (Scant relatively clear) and diminished lung sounds bilaterallower (Decreased breath sounds bilateral very basal segments.) Cardio Rate: regular rate Rhythm: regular rhythm Heart Sounds: S1 normal and S2 normal; Negative for click, gallop or murmur Extremity General Extremity: edema bilateral lower extremity Details: trace Skin Skin Narrative: Hyperpigmentation bilateral lower extremities Neuro Neuro Narrative: Alert and oriented x 3 Psych mental status grossly normal Assessment & Plan Assessment/Plan (1) Acute exacerbation of chronic heart failure: PLAN: Patient appears to me compensating for his severe LV dysfunction. EF is known to be chronically in the 10% range. His edema is improving he reports hisrespiratory status is also improving he remains on 2 L nasal cannula. Lower extremity edema is resolving slowly. The patient's initial BNP was 11,422. I recommend we recheck that today the order was placed. I would like to make certain that it is decreasing and get a new baseline for when he is better compensated. Given the addition of spironolactone would recommend discontinuing the potassiumand monitoring of BMP tomorrow morning. (2) CKD (chronic kidney disease): QUALIFIERS: Chronic kidney disease stage: stage 3 (moderate) Chronic kidney disease stage 3 subtype: stage 3b (GFR 30-44) Qualified Code(s): N18.32 - Chronic kidney disease, stage 3b PLAN: Patient's renal function appears to have stabilized as with a GFR of around 43. Recheck BMP tomorrow off of potassium and on spironolactone. (3) Presence of combination internal cardiac defibrillator (ICD) and pacemaker: PLAN: Patient's ICD is currently followed through his [place] cardiologistoffice. The patient is to decide whether he is going to follow-up back in [place] or if he is going to be seek care in the [place] [facility] office. (4) Elevated troponin: PLAN: Patient's troponins were minimally elevated at 61, 56, and 75. I feel this represents a demand ischemia in a patient with a known severe LV dysfunction and I do not feel that further invasive or noninvasive ischemic evaluation is indicated at this point in time. He has no signs or symptoms ofclinical ischemia. PLAN: Plan 1. DC potassium supplement 2. Repeat BNP today and BMP tomorrow 3. From a cardiovascular perspective the patient is decided he [place] or if he is going to beseen in the [place] [facility] which ever he needs to be seen in 7 to 10 days after discharge. 4. From a cardiovascular perspective the patient should be able to be discharged in the next 24 to 48 hours. 5. If further assistance is needed please contact Dr. Ching starting tomorrow morning he will be taken over the service. If there are questions that arise please call me directly. Charges/Coding Visit Charges Inpatient E&M: 43753 Subs Hosp L2 03/23/25 0852 Cosigner Signature (if applicable): CC: ~ Signed [facility]09-15-2025 Progress note Author Lisha Ramirez [facility] Note Date/Time March 22, 2025 4:09pm [facility] Medical Records Department [address] [place] [address] Progress Note 03/22/25 1445 MR#: [id number] Acct: [id number] Name: CECILIA KUHN Rep #:[id number] : 1945 80 From: Lisha Ramirez MD PCP: ULI ALCALA Status:ADM IN Location: [place] [address] Subjective Subjective Patient seen and examined. He was sitting comfortably in his chair and had no active complaints. He denied any shortness of breath, chest pain, fever chills or any other symptoms. He denied any shortness of breath also. Review of systems otherwise negative. Objective Data Objective Data Vital Signs: Vital Signs Temp Pulse Resp BP Pulse Ox O2 Del Method O2 Flow Rate 97.4 F L 60 20 H 118/85 H 96 Nasal Cannula 2 03/22/25 09:30 03/22/25 10:34 03/22/25 09:30 03/22/25 09:30 03/22/25 09:30 03/22/25 09:30 03/22/25 09:30 FiO2 25 03/22/25 03:33 Oxygen Flow Rate (L/min) 2 Oxygen Delivery Method Nasal Cannula Weight: 183 lb 6.793 oz Body Mass Index (BMI) 26.3 Intake & Output: Intake and Output for Last 24 Hours 03/20/25 03/21/25 03/22/25 23:59 23:59 23:59 Intake Total 1150 / 1390 340 / 340 400 / 400 Output Total 775 / 1100 700 / 700 Balance 1150 / 965 -435 / -760 -300 / -300 Lab / Micro Data 03/22/25 04:53 03/22/25 04:53 Labs: Laboratory Results - last 24 hr 03/21/25 16:51: POC Glucose 211 H 03/21/25 21:30: POC Glucose 103 03/22/25 04:53: WBC 9.5, RBC 4.84, Hgb 15.6, Hct 46.9, MCV 96.9 H, MCH 32.2 H, MCHC 33.3, RDW Std Deviation 49.1 H, RDW Coeff of Adri 13.6, Plt Count 198, MPV 9.4, Sodium 138, Potassium 4.6, Chloride 104, Carbon Dioxide 22.8, Anion Gap 11,BUN 48 H, Creatinine 1.67 H, Estim Creat Clear Calc 35.21 L, Est GFR (MDRD) Non-Af 41 L, BUN/Creatinine Ratio 28.9 H, Glucose 79, Calcium 9.1, Phosphorus 3.7, Magnesium 2.3 H 03/22/25 06:10: POC Glucose 104 03/22/25 11:31: POC Glucose 86 Micro: Microbiology 03/20/25 03:42 Blood Culture (Wb) - Anticubital Right Blood Culture - Preliminary No growth in 48 hours. 03/20/25 07:12 Mucosa - Nasopharyngeal Respiratory Panel (PCR) - Final 03/20/25 07:30 Urine, Clean Catch Legionella Antigen - Final 03/20/25 07:30 Urine, Clean Catch Streptococcus pneumoniae Antigen (M - Final 03/20/25 02:16 Mucosa - Nose SARS-CoV-2, Influenza & RSV (PCR) - Final Radiography Diagnostic Testing: Radiology Impression Chest X-Ray 03/22/25 04:55 IMPRESSION: AICD is in good position. Unremarkable median sternotomy wires. Unchanged bilateral pleural effusions with passive atelectatic airspace disease of the lower lobes. Unchanged central pulmonary venous congestion. Enlarged cardiac silhouette. Unchanged displaced fractures of the right ribs. Reading Location: [place] [address] Rhythm Strip Rhythm Strip: Sinus Rhythm Rate: 65 Physical Exam Const alert, oriented x3 and no apparent distress General Appearance: cooperative HEENT normocephalic, head/scalp atraumatic, moist oral mucous membranes and oropharynxnormal Eyes EOMs intact bilaterally Neck supple and no JVD Lymph Lymphatic: no lymphedema noted Resp Resp Narrative: Mildly diminished breath sounds bibasilarly. No wheezes or crackles.On room air. Cardio regular rate, regular rhythm, S1 normal heart sound, S2 normal heart sound and no murmurs GI normal to inspection, nondistended, normoactive bowel sounds, soft to palpation and non-tender Extremity normal capillary refill, no clubbing, cyanosis or edema and no calf tenderness General Extremity: no tenderness to palpation of joints or extremities Skin General Skin Exam: no breakdown Neuro no focal motor deficits Motor Exam: general weakness Psych thought process normal, cooperative and affect normal Appearance: appropriate Assessment & Plan Assessment/Plan (1) Acute exacerbation of chronic heart failure: PLAN: Plan #Acute hypoxic respiratory failure due to acute on chronic heart failure with reduced ejection fraction * Currently on 2 L of oxygen. Previously was on BiPAP. * 2D echo done here showed EF of 10% with stage III diastolic dysfunction and severe global left ventricular dysfunction as well as severely dilated left ventricle and mild segmental systolic dysfunction of the right ventricle * On oral Lasix. On metoprolol, hydralazine and Jardiance as well as Imdur and Aldactone * Has ICD placed. Awaiting records follow-up from [facility] where patient had his previous care. * Cardiology on board. Per cardiology note today, patient planning on going back to [place] for further follow-up. If he chooses to stay in [place] cardiology to follow him about outpatient basis. * #Elevated troponin: Thought to be due to demand ischemia in light of the hypoxia. 2D echo as above. For cardiac cath once kidney function improves #Elevated creatinine: Creatinine today is 1.67. Was 1.42 yesterday. No clear baseline 1. Records pending from [facility]. I do suspect that this is likely CKD and not ANTHONY. Will monitor closely. #Type 2 diabetes mellitus: On NPH insulin. On Jardiance. Insulin sliding scale. Accu-Cheks ACHS. #Benign essential hypertension: On Imdur and hydralazine as well as Aldactone and metoprolol #hyperlipidemia: On statin #CAD: On aspirin and statin as well as Plavix. 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 Patient is a longtime chronic smoker. Counseled to quit. 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 #DVT prophylaxis: On Lovenox Charges/Coding Visit Charges Inpatient E&M: 31330 Subs Hosp L2 03/22/25 4441 <Electronically signed by Lisha Ramirez MD> Lisha Ramirez MD Cosigner Signature (if applicable): CC: ~ Signed [facility] Work Phone: [phone]) [phone] Progress note [facility] Medical Records Department [address] [place] [address] Progress Note 03/22/25 1445 MR#: [id number] Acct: [id number] Name: CECILIA KUHN Rep #:[id number] : 1945 80 From: Lisha Ramirez MD PCP: ULI ALCALA Status:ADM IN Location: [place] [address] Subjective Subjective Patient seen and examined. He was sitting comfortably in his chair and had no active complaints. Hedenied any shortness of breath, chest pain, fever chills or any other symptoms. He denied any shortness of breath also. Review of systems otherwise negative. Objective Data Objective Data Vital Signs: Vital Signs Temp Pulse Resp BP Pulse Ox O2 Del Method O2 Flow Rate 97.4 F L 60 20 H 118/85 H 96 Nasal Cannula 2 03/22/25 09:30 03/22/25 10:34 03/22/25 09:30 03/22/25 09:30 03/22/25 09:30 03/22/25 09:30 03/22/25 09:30 FiO2 25 03/22/25 03:33 Oxygen Flow Rate (L/min) 2 Oxygen Delivery Method Nasal Cannula Weight: 183 lb 6.793 oz Body Mass Index (BMI) 26.3 Intake & Output: Intake and Output for Last 24 Hours 03/20/25 03/21/25 03/22/25 23:59 23:59 23:59 Intake Total 1150 / 1390 340 / 340 400 / 400 Output Total 775 / 1100 700 / 700 Balance 1150 / 965 -435 / -760 -300 / -300 Lab / Micro Data 03/22/25 04:53 03/22/25 04:53 Labs: Laboratory Results - last 24 hr 03/21/25 16:51: POC Glucose 211 H 03/21/25 21:30: POC Glucose 103 03/22/25 04:53: WBC 9.5, RBC 4.84, Hgb 15.6, Hct 46.9, MCV 96.9 H, MCH 32.2 H, MCHC 33.3, RDW Std Deviation 49.1 H, RDW Coeff of Adri 13.6, Plt Count 198, MPV 9.4, Sodium 138, Potassium 4.6, Chloride 104, Carbon Dioxide 22.8, Anion Gap 11,BUN 48 H, Creatinine 1.67 H, Estim Creat Clear Calc 35.21 L, Est GFR (MDRD) Non-Af 41 L, BUN/Creatinine Ratio 28.9 H, Glucose 79, Calcium 9.1, Phosphorus 3.7, Magnesium 2.3 H 03/22/25 06:10: POC Glucose 104 03/22/25 11:31: POC Glucose 86 Micro: Microbiology 03/20/25 03:42 Blood Culture (Wb) - Anticubital Right Blood Culture - Preliminary No growth in 48 hours. 03/20/25 07:12 Mucosa - Nasopharyngeal Respiratory Panel (PCR) - Final 03/20/25 07:30 Urine, Clean Catch Legionella Antigen - Final 03/20/25 07:30 Urine, Clean Catch Streptococcus pneumoniae Antigen (M - Final 03/20/25 02:16 Mucosa - Nose SARS-CoV-2, Influenza & RSV (PCR) - Final Radiography Diagnostic Testing: Radiology Impression Chest X-Ray 03/22/25 04:55 IMPRESSION: AICD is in good position. Unremarkable median sternotomy wires. Unchanged bilateral pleural effusions with passive atelectatic airspace disease of the lower lobes. Unchanged central pulmonary venous congestion. Enlarged cardiac silhouette. Unchanged displaced fractures of the right ribs. Reading Location: [place] [address] Rhythm Strip Rhythm Strip: Sinus Rhythm Rate: 65 Physical Exam Const alert, oriented x3 and no apparent distress General Appearance: cooperative HEENT normocephalic, head/scalp atraumatic, moist oral mucous membranes and oropharynxnormal Eyes EOMs intact bilaterally Neck supple and no JVD Lymph Lymphatic: no lymphedema noted Resp Resp Narrative: Mildly diminished breath sounds bibasilarly. No wheezes or crackles.On room air. Cardio regular rate, regular rhythm, S1 normal heart sound, S2 normal heart sound and no murmurs GI normal to inspection, nondistended, normoactive bowel sounds, soft to palpation and non-tender Extremity normal capillary refill, no clubbing, cyanosis or edema and no calf tenderness General Extremity: no tenderness to palpation of joints or extremities Skin General Skin Exam: no breakdown Neuro no focal motor deficits Motor Exam: general weakness Psych thought process normal, cooperative and affect normal Appearance: appropriate Assessment & Plan Assessment/Plan (1) Acute exacerbation of chronic heart failure: PLAN: Plan #Acute hypoxic respiratory failure due to acute on chronic heart failure with reduced ejection fraction * Currently on 2 L of oxygen. Previously was on BiPAP. * 2D echo done here showed EF of 10% with stage III diastolic dysfunction and severe global left ventricular dysfunction as well as severely dilated left ventricle and mild segmental systolic dysfunction of the right ventricle * On oral Lasix. On metoprolol, hydralazine and Jardiance as well as Imdur and Aldactone * Has ICD placed. Awaiting records follow-up from [facility] where patient had his previous care. * Cardiology on board. Per cardiology note today, patient planning on going back to [place] for further follow-up. If he chooses to stay in [place] cardiology to follow him about outpatient basis. * #Elevated troponin: Thought to be due to demand ischemia in light of the hypoxia. 2D echo as above.For cardiac cath once kidney function improves #Elevated creatinine: Creatinine today is 1.67. Was 1.42 yesterday. No clear baseline 1. Records pending from [facility]. I do suspect that this is likely CKD and not ANTHONY. Will monitor closely. #Type 2 diabetes mellitus: On NPH insulin. On Jardiance. Insulin sliding scale. Accu-Cheks ACHS. #Benign essential hypertension: On Imdur and hydralazine as well as Aldactone and metoprolol #hyperlipidemia: On statin #CAD: On aspirin and statin as well as Plavix. 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 Patient is a longtime chronic smoker. Counseled to quit. 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 #DVT prophylaxis: On Lovenox Charges/Coding Visit Charges Inpatient E&M: 41669 Subs Hosp L2 03/22/25 1609 Lisha Shaver Signature (if applicable): CC: ~ Signed [facility]09-15-2025 Progress note Author Eder Pickett [facility] Note Date/Time March 22, 2025 10:34am [facility] Medical Records Department [address] [place] [address] Progress Note - Cardiology 03/22/25 1025 MR#: [id number] Acct: [id number] Name: CECILIA KUHN Rep #:[id number] : 1945 80 From: Eder Pickett MD PCP: ULI ALCALA Status:ADM IN Location: [place] [address] Subjective Subjective Patient is tolerating his guideline directed medical therapy. He reports he is breathing easier his hemodynamics are adequate. His lower extremity edema is getting better his left is slightly worse than his right. The patient does have a history of ischemic mediated heart failure with reduced ejection fraction. 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 He is planning on going back to [place] for follow-up. Patient's telemetry shows that he is in normal sinus rhythm at 65 bpm with occasional atrially paced rhythm. ECG shows normal sinus rhythm left bundle branch block within demand atrial paced rhythm. Objective Data Vital Signs: Vital Signs Temp Pulse Resp BP Pulse Ox O2 Del Method O2 Flow Rate 97.4 F L 60 20 H 118/85 H 96 Nasal Cannula 2 03/22/25 09:30 03/22/25 09:30 03/22/25 09:30 03/22/25 09:30 03/22/25 09:30 03/22/25 09:30 03/22/25 09:30 FiO2 25 03/22/25 03:33 Oxygen Flow Rate (L/min) 2 Oxygen Delivery Method Nasal Cannula Weight: 183 lb 6.793 oz Body Mass Index (BMI) 26.3 Intake & Output: Intake and Output for Last 24 Hours 03/20/25 03/21/25 03/22/25 23:59 23:59 23:59 Intake Total 1150 / 1390 340 / 340 Output Total 775 / 1100 700 / 700 Balance 1150 / 965 -435 / -760 -700 / -700 Lab / Micro Data Attestation: I reviewed the patient's lab results. 03/22/25 04:53 03/22/25 04:53 Labs: Laboratory Results - last 24 hr 03/21/25 12:38: POC Glucose 182 H 03/21/25 16:51: POC Glucose 211 H 03/21/25 21:30: POC Glucose 103 03/22/25 04:53: WBC 9.5, RBC 4.84, Hgb 15.6, Hct 46.9, MCV 96.9 H, MCH 32.2 H, MCHC 33.3, RDW Std Deviation 49.1 H, RDW Coeff of Adri 13.6, Plt Count 198, MPV 9.4, Sodium 138, Potassium 4.6, Chloride 104, Carbon Dioxide 22.8, Anion Gap 11,BUN 48 H, Creatinine 1.67 H, Estim Creat Clear Calc 35.21 L, Est GFR (MDRD) Non-Af 41 L, BUN/Creatinine Ratio 28.9 H, Glucose 79, Calcium 9.1, Phosphorus 3.7, Magnesium 2.3 H 03/22/25 06:10: POC Glucose 104 Micro: Microbiology 03/20/25 03:42 Blood Culture (Wb) - Anticubital Right Blood Culture - Preliminary No growth in 48 hours. Rhythm Strip Rhythm Strip: Sinus Rhythm Rate: 65 Cardiology Labs/Tests 03/22/25 04:53: WBC 9.5, RBC 4.84, Hgb 15.6, Hct 46.9, MCV 96.9 H, MCH 32.2 H, MCHC 33.3, Plt Count 198, MPV 9.4, Sodium 138, Potassium 4.6, Chloride 104, Carbon Dioxide 22.8, Anion Gap 11, BUN 48 H, Creatinine 1.67 H, Est GFR (MDRD) Non-Af 41 L, BUN/Creatinine Ratio 28.9 H, Glucose 79, Calcium 9.1, Phosphorus 3.7, Magnesium 2.3 H Rhythm: EKG: ECHO: Stress Test: Cardiac Cath: PCI: CT Surgery: Holter monitor: EPS: PPM: CXR: Chest CT Scan: Radiography Diagnostic Testing: Radiology Impression Chest X-Ray 03/22/25 04:55 IMPRESSION: AICD is in good position. Unremarkable median sternotomy wires. Unchanged bilateral pleural effusions with passive atelectatic airspace disease of the lower lobes. Unchanged central pulmonary venous congestion. Enlarged cardiac silhouette. Unchanged displaced fractures of the right ribs. Reading Location: [place] [address] Physical Exam Const alert and oriented x3 HEENT normocephalic Neck no JVD Chest Chest: midline sternotomy incision and left pectoral incision Resp Effort and Inspection: uses accessory muscles Auscultation: crackles bilateral base and diminished lung sounds bilateral lower Cardio Cardio Narrative: Distant heart tones due to body habitus Rate: regular rate Rhythm: regular rhythm Heart Sounds: S1 normal and S2 normal; Negative for click, gallop or murmur GI GI Narrative: Obese Extremity General Extremity: edema right lower extremity mild and left lower extremity moderate Neuro Neuro Narrative: Alert and oriented x 3 Psych mental status grossly normal Assessment & Plan Assessment/Plan (1) Acute exacerbation of chronic heart failure: PLAN: Patient has a history of ischemic cardiomyopathy. He is known to be severely impaired with an EF in the 10% range. He does have an ICD in place andhas a chronic left bundle branch block. His guideline directed medical therapy has been titrated over the last couple of days. He now appears to be tolerating4 drug therapy. Patient is status post bypass graft surgery and stenting. He denies any anginal symptoms at this point in time. He does plan on following upwith his canal equipment maintenance supervisor in [place] I have asked that we try to get records from [place] to know where his coronary anatomy is bypass. The patient is on Jardiance 10 mg daily, furosemide 40 mg daily, hydralazine 25 mg 3 times daily Imdur 60 mg daily, and metoprolol succinate 25 mg daily. He isalso on spironolactone 25 mg daily. Renal function and electrolytes are tolerating his current medical regiment. The patient continues to have some lower extremity edema but he reports it is improving over the last couple of days. (2) Presence of combination internal cardiac defibrillator (ICD) and pacemaker: PLAN: Patient is not aware if this is [employer]LO[employer]NAGER?D implant or if it was not just an ICDwith pacemaker. I do not have access to the records from [place] yet. (3) CKD (chronic kidney disease): QUALIFIERS: Chronic kidney disease stage: stage 3 (moderate) Chronic kidney disease stage 3 subtype: stage 3b (GFR 30-44) Qualified Code(s): N18.32 - Chronic kidney disease, stage 3b PLAN: Patient's GFR is 41. Need to monitor this closely and watch his potassium. PLAN: Plan 1. Continue current medical therapy. 2. Monitor electrolytes and renal function. Would avoid ARB/PADMINI inhibitor therapy at this point in time. 3. Continue hydralazine and nitrates in combination with spironolactone Jardiance and beta-glo therapy. 4. If the patient cannot get back to [place] for follow-up we would be more than happy to see him in the [facility] office. Charges/Coding Visit Charges Inpatient E&M: 03114 Subs Hosp L2 03/22/25 1034 <Electronically signed by Eder Pickett MD> Cosigner Signature (if applicable): CC: ~ Signed [facility] Work Phone: [phone] 331-550509-15-2025 Progress note [facility] Medical Records Department [address] [place] [address] Progress Note - Cardiology 03/22/25 1025 MR#: [id number] Acct: [id number] Name: CECILIA KUHN Rep #:[id number] : 1945 80 From: Eder Pickett MD PCP: ULI ALCALA Status:ADM IN Location: [place] [address] Subjective Subjective Patient is tolerating his guideline directed medical therapy. He reports he is breathing easier hishemodynamics are adequate. His lower extremity edema is getting better his left is slightly worse than his right. The patient does have a history of ischemic mediated heart failure with reduced ejection fraction. 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 He is planning on going back to [place] for follow-up. Patient's telemetry shows that he is in normal sinus rhythm at 65 bpm with occasional atrially paced rhythm. ECG shows normal sinus rhythm left bundle branch block within demand atrial paced rhythm. Objective Data Vital Signs: Vital Signs Temp Pulse Resp BP Pulse Ox O2 Del Method O2 Flow Rate 97.4 F L 60 20 H 118/85 H 96 Nasal Cannula 2 03/22/25 09:30 03/22/25 09:30 03/22/25 09:30 03/22/25 09:30 03/22/25 09:30 03/22/25 09:30 03/22/25 09:30 FiO2 25 03/22/25 03:33 Oxygen Flow Rate (L/min) 2 Oxygen Delivery Method Nasal Cannula Weight: 183 lb 6.793 oz Body Mass Index (BMI) 26.3 Intake & Output: Intake and Output for Last 24 Hours 03/20/25 03/21/25 03/22/25 23:59 23:59 23:59 Intake Total 1150 / 1390 340 / 340 Output Total 775 / 1100 700 / 700 Balance 1150 / 965 -435 / -760 -700 / -700 Lab / Micro Data Attestation: I reviewed the patient's lab results. 03/22/25 04:53 03/22/25 04:53 Labs: Laboratory Results - last 24 hr 03/21/25 12:38: POC Glucose 182 H 03/21/25 16:51: POC Glucose 211 H 03/21/25 21:30: POC Glucose 103 03/22/25 04:53: WBC 9.5, RBC 4.84, Hgb 15.6, Hct 46.9, MCV 96.9 H, MCH 32.2 H, MCHC 33.3, RDW Std Deviation 49.1 H, RDW Coeff of Adri 13.6, Plt Count 198, MPV 9.4, Sodium 138, Potassium 4.6, Chloride 104, Carbon Dioxide 22.8, Anion Gap 11,BUN 48 H, Creatinine 1.67 H, Estim Creat Clear Calc 35.21 L, Est GFR (MDRD) Non-Af 41 L, BUN/Creatinine Ratio 28.9 H, Glucose 79, Calcium 9.1, Phosphorus 3.7, Magnesium 2.3 H 03/22/25 06:10: POC Glucose 104 Micro: Microbiology 03/20/25 03:42 Blood Culture (Wb) - Anticubital Right Blood Culture - Preliminary No growth in 48 hours. Rhythm Strip Rhythm Strip: Sinus Rhythm Rate: 65 Cardiology Labs/Tests 03/22/25 04:53: WBC 9.5, RBC 4.84, Hgb 15.6, Hct 46.9, MCV 96.9 H, MCH 32.2 H, MCHC 33.3, Plt [id number], MPV 9.4, Sodium 138, Potassium 4.6, Chloride 104, Carbon Dioxide 22.8, Anion Gap 11, BUN 48 H,Creatinine 1.67 H, Est GFR (MDRD) Non-Af 41 L, BUN/Creatinine Ratio 28.9 H, Glucose 79, Calcium 9.1, Phosphorus 3.7, Magnesium 2.3 H Rhythm: EKG: ECHO: Stress Test: Cardiac Cath: PCI: CT Surgery: Holter monitor: EPS: PPM: CXR: Chest CT Scan: Radiography Diagnostic Testing: Radiology Impression Chest X-Ray 03/22/25 04:55 IMPRESSION: AICD is in good position. Unremarkable median sternotomy wires. Unchanged bilateral pleural effusions with passive atelectatic airspace disease of the lower lobes. Unchanged central pulmonary venous congestion. Enlarged cardiac silhouette. Unchanged displaced fractures of the right ribs. Reading Location: [place] [address] Physical Exam Const alert and oriented x3 HEENT normocephalic Neck no JVD Chest Chest: midline sternotomy incision and left pectoral incision Resp Effort and Inspection: uses accessory muscles Auscultation: crackles bilateral base and diminished lung sounds bilateral lower Cardio Cardio Narrative: Distant heart tones due to body habitus Rate: regular rate Rhythm: regular rhythm Heart Sounds: S1 normal and S2 normal; Negative for click, gallop or murmur GI GI Narrative: Obese Extremity General Extremity: edema right lower extremity mild and left lower extremity moderate Neuro Neuro Narrative: Alert and oriented x 3 Psych mental status grossly normal Assessment & Plan Assessment/Plan (1) Acute exacerbation of chronic heart failure: PLAN: Patient has a history of ischemic cardiomyopathy. He is known to be severely impaired with anEF in the 10% range. He does have an ICD in place andhas a chronic left bundle branch block. His guideline directed medical therapy has been titrated over the last couple of days. He now appears to be tolerating4 drug therapy. Patient is status post bypass graft surgery and stenting. He denies any anginal symptoms at this point in time. He does plan on following upwith his canal equipment maintenance supervisor in [place] I have asked that we try to get records from [place] to know where his coronary anatomyis bypass. The patient is on Jardiance 10 mg daily, furosemide 40 mg daily, hydralazine 25 mg 3 times daily Imdur 60 mg daily, and metoprolol succinate 25 mg daily. He isalso on spironolactone 25 mg daily. Renal function and electrolytes are tolerating his current medical regiment. The patient continues to have some lower extremity edema but he reports it is improving over the last couple of days. (2) Presence of combination internal cardiac defibrillator (ICD) and pacemaker: PLAN: Patient is not aware if this is [employer]GER?D implant or if it was not just an ICDwith pacemaker. I do not have access to the records from [place] yet. (3) CKD (chronic kidney disease): QUALIFIERS: Chronic kidney disease stage: stage 3 (moderate) Chronic kidney disease stage 3 subtype: stage 3b (GFR 30-44) Qualified Code(s): N18.32 - Chronic kidney disease, stage 3b PLAN: Patient's GFR is 41. Need to monitor this closely and watch his potassium. PLAN: Plan 1. Continue current medical therapy. 2. Monitor electrolytes and renal function. Would avoid ARB/PADMINI inhibitor therapy at this point in time. 3. Continue hydralazine and nitrates in combination with spironolactone Jardiance and beta-glo therapy. 4. If the patient cannot get back to [place] for follow-up we would be more than happy to seehim in the [facility] office. Charges/Coding Visit Charges Inpatient E&M: 88850 Subs Hosp L2 03/22/25 1034 Cosigner Signature (if applicable): CC: ~ Signed [facility]09-15-2025 Radiology Diagnostic study note [facility] Imaging Services [address] [place] [id number] Chest 1 View (Portable) MR#: [id number] Acct: [id number] Name: CECILIA KUHN Rep #: [id number] : 1945 M 80 From: Sergio Salazar MD PCP: ULI ALCALA Status: ADM IN Study:Chest 1 View (Portable) Date of Exam: 03/22/25 Exam# [id number] Ordering Dr: Jemma Pathak DO PROCEDURE: CHEST 1 VIEW (PORTABLE) 03/22/2025 REASON FOR EXAM: B PLEURAL EFFUSION FOLLOWUP TECHNIQUE: Frontal view of the chest. COMPARISON: 03/20/2025. FINDINGS: AICD is in good position. Unremarkable median sternotomy wires. Unchanged bilateral pleural effusions with passive atelectatic airspace disease of the lower lobes. Unchanged central pulmonary venous congestion. Enlarged cardiac silhouette. Unchanged displaced fractures of the right ribs. Normal mediastinum and paul. Normal visualized pulmonary arteries. Atheromatous plaques of the visualized aortic arch and descending thoracic aorta. Diffuse spondylosis of the visualized thoracic spine. Normal visualized ribs, clavicles. Degenerative joint disease. There is no demonstrated abnormality of the visualized soft tissue structures ofthe upper abdomen. RAD/Chest 1 View (Portable) IMPRESSION: AICD is in good position. Unremarkable median sternotomy wires. Unchanged bilateral pleural effusions with passive atelectatic airspace disease of the lower lobes. Unchanged central pulmonary venous congestion. Enlarged cardiac silhouette. Unchanged displaced fractures of the right ribs. Reading [facility] CC: Dr. Dipti Pathak, DO; ULI ALCALA ~ Counter Maker: Signed [facility]09-14-2025 Progress note Author Sherin Webb [facility] Note Date/Time March 21, 2025 12:56pm [facility] Medical Records Department [address] [place] [address] Progress Note - Cardiology 03/21/25 1253 MR#: [id number] Acct: [id number] Name: CECILIA KUHN [place] Rep #:[id number] : 1945 80 From: Sherin Webb MD PCP: ULI ALCALA Status:ADM IN Location: [place] [address] Subjective Subjective His breathing is getting better. Objective Data Vital Signs: Vital Signs Temp Pulse Resp BP Pulse Ox O2 Del Method O2 Flow Rate 97.7 F L 73 20 H 127/88 H 97 Nasal Cannula 2 03/21/25 09:25 03/21/25 09:25 03/21/25 09:25 03/21/25 09:25 03/21/25 09:03/21/25 10:00 03/21/25 10:00 FiO2 25 03/21/25 04:30 Oxygen Flow Rate (L/min) 2 Oxygen Delivery Method Nasal Cannula Weight: 183 lb 6.793 oz Body Mass Index (BMI) 26.3 Intake & Output: Intake and Output for Last 24 Hours 03/19/25 03/20/25 03/21/25 23:59 23:59 23:59 Intake Total 1150 / 1390 340 / 340 Output Total 775 / 775 Balance 1150 / 965 -435 / -435 Lab / Micro Data 03/21/25 05:25 03/21/25 05:25 Labs: Laboratory Results - last 24 hr 03/20/25 17:00: POC Glucose 175 H 03/20/25 21:22: POC Glucose 227 H 03/21/25 05:25: WBC 13.4 H, RBC 4.61, Hgb 15.0, Hct 44.5, MCV 96.5 H, MCH 32.5 H, MCHC 33.7, RDW Std Deviation 48.4 H, RDW Coeff of Adri 13.5, Plt Count 201, MPV9.2, Immature Gran % (Auto) 0.500, Neut % (Auto) 87.1 H, Lymph % (Auto) 5.9 L, [place] % (Auto) 6.4, Eos % (Auto) 0.0, Baso % (Auto) 0.1, Absolute Neuts (auto) 11.7 H, Absolute Lymphs (auto) 0.79 L, Nucleated RBC % 0, Sodium 135, Potassium 4.6, Chloride 102, Carbon Dioxide 21.6, Anion Gap 11, BUN 32 H, Creatinine 1.62 H, Estim Creat Clear Calc 36.30 L, Est GFR (MDRD) Non-Af 42 L, BUN/Creatinine Ratio 19.6, Glucose 190 H, Hemoglobin A1c 5.9 H, Calcium 9.0, Phosphorus 3.7, Total Bilirubin 0.54, AST 20, ALT 13, Alkaline Phosphatase 64, [place] [address] H, Total Protein 6.9, Albumin 3.5, Globulin 3.4, Albumin/Globulin Ratio 1.1, Triglycerides 65, Cholesterol 117, LDL Cholesterol, Calc 47, VLDL Cholesterol 13, HDL Cholesterol 57, Cholesterol/HDL Ratio 2.06 03/21/25 06:40: POC Glucose 196 H Micro: Microbiology 03/20/25 07:12 Mucosa - Nasopharyngeal Respiratory Panel (PCR) - Final Cardiology Labs/Tests 03/21/25 05:25: WBC 13.4 H, RBC 4.61, Hgb 15.0, Hct 44.5, MCV 96.5 H, MCH 32.5 H, MCHC 33.7, Plt Count 201, MPV 9.2, Immature Gran % (Auto) 0.500, Neut % (Auto)87.1 H, Lymph % (Auto) 5.9 L, [place] % (Auto) 6.4, Eos % (Auto) 0.0, Baso % (Auto)0.1, Absolute Neuts (auto) 11.7 H, Nucleated RBC % 0, Sodium 135, Potassium 4.6,Chloride 102, Carbon Dioxide 21.6, Anion Gap 11, BUN 32 H, Creatinine 1.62 H, Est GFR (MDRD) Non-Af 42 L, BUN/Creatinine Ratio 19.6, Glucose 190 H, Hemoglobin A1c 5.9 H, Calcium 9.0, Phosphorus 3.7, Total Bilirubin 0.54, Triglycerides 65, Cholesterol 117, VLDL Cholesterol 13, HDL Cholesterol 57, Cholesterol/HDL Ratio 2.06 Rhythm: EKG: NSR ECHO: 10% Physical Exam Const alert HEENT normocephalic Eyes PERRL Neck full ROM Lymph Lymphatic: no lymphadenopathy noted Chest inspection of chest normal Resp Auscultation: crackles Cardio regular rate, regular rhythm, S1 normal heart sound and S2 normal heart sound GI normal to inspection, nondistended, normoactive bowel sounds no CVA tenderness Back/Spine no CVA tenderness Extremity normal to inspection Skin no rashes or lesions noted Assessment & Plan Assessment/Plan (1) Acute exacerbation of chronic heart failure: PLAN: Acute on chronic decompensated HF 10% with RV failure NYHA III stage C Currently reaching euvolemia, switch IV lasix to once daily 40 mg Continue with Hydralazine to 25 TID Continue with IMDUR 60 mg daily Once we have a better idea if this ANTHONY or CKD,we will switch him to ACEi Restart Jardiance 10 mg daily Continue with Spironolactone 25 mg daily Start metoprolol succinate 25 mg daily (2) Acute hypoxic respiratory failure: PLAN: In the setting of HFrEF and COPD exacerbation (3) History of coronary artery bypass graft: PLAN: Continue with aspirin 81 mg daily Continue with Atorvastatin 40 mg daily Continue with clopidogrel 75 mg daily Continue with Ranolazine Once kidney function improve. we will proceed with ischemic evaluation 03/21/25 1668 <Electronically signed by Sherin Webb MD> Cosigner Signature (if applicable): CC: ~ Signed [facility] Work Phone: [phone]) 553-284809-14-2025 Progress note Author Dipti Pathak [facility] Note Date/Time March 21, 2025 12:10pm [facility] Medical Records Department [address] [place] [address] Progress Note - Hospitalist 03/21/25 0728 MR#: [id number] Acct: [id number] Name: CECILIA KUHN Rep #:[id number] : 1945 80 From: Dipti Patahk DO PCP: ULI ALCALA Status:ADM IN Location: [place] [address] Reason for Visit Chief Complaint: Chest Tightness and SOB. Subjective Subjective Patient states he is feeling better today. States his shortness of breath is improved. States he had a good night overall and felt it was beneficial for himto wear BiPAP. Objective Data Objective Data Vital Signs: Vital Signs Temp Pulse Resp BP Pulse Ox O2 Del Method O2 Flow Rate 97.7 F L 54 L 21 H 118/94 H 96 Room Air 2 03/21/25 03:25 03/21/25 06:42 03/21/25 04:30 03/21/25 03:25 03/21/25 04:30 03/21/25 03:25 03/21/25 02:30 FiO2 03/21/25 04:30 Oxygen Flow Rate (L/min) 2 Oxygen Delivery Method Room Air Weight: 83.2 kg Body Mass Index (BMI) 26.3 Intake & Output: Intake and Output for Last 24 Hours 03/19/25 03/20/25 03/21/25 23:59 23:59 23:59 Intake Total 1150 / 1390 240 / 240 Output Total 775 / 775 Balance 1150 / 965 -535 / -535 Lab / Micro Data 03/21/25 05:25 03/21/25 05:25 Labs: Laboratory Results - last 24 hr 03/20/25 04:20: TSH 1.400 03/20/25 07:08: Troponin T Hi Sens 4Hr 75 H* 03/20/25 07:10: POC Glucose 199 H 03/20/25 07:45: Urine Color Yellow, Urine Clarity Clear, Urine pH 6.0, Ur Specific [place] 1.010, Urine Protein 30 H, Urine Glucose (UA) 1000 H, Urine Ketones Negative, Urine Occult Blood Negative, Urine Nitrite Negative, Urine Bilirubin Negative, Urine Urobilinogen Normal, Ur Leukocyte Esterase 25 H, UrineRBC 0 SEEN, Urine WBC 0 SEEN, Ur Squamous Epith Cells 0-5 SEEN, Urine Bacteria 0SEEN, Urine Mucus 0 SEEN 03/20/25 11:33: POC Glucose 274 H 03/20/25 17:00: POC Glucose 175 H 03/20/25 21:22: POC Glucose 227 H 03/21/25 05:25: WBC 13.4 H, RBC 4.61, Hgb 15.0, Hct 44.5, MCV 96.5 H, MCH 32.5 H, MCHC 33.7, RDW Std Deviation 48.4 H, RDW Coeff of Adri 13.5, Plt Count 201, MPV9.2, Immature Gran % (Auto) 0.500, Neut % (Auto) 87.1 H, Lymph % (Auto) 5.9 L, [place] % (Auto) 6.4, Eos % (Auto) 0.0, Baso % (Auto) 0.1, Absolute Neuts (auto) 11.7 H, Absolute Lymphs (auto) 0.79 L, Nucleated RBC % 0, Sodium 135, Potassium 4.6, Chloride 102, Carbon Dioxide 21.6, Anion Gap 11, BUN 32 H, Creatinine 1.62 H, Estim Creat Clear Calc 36.30 L, Est GFR (MDRD) Non-Af 42 L, BUN/Creatinine Ratio 19.6, Glucose 190 H, Hemoglobin A1c 5.9 H, Calcium 9.0, Phosphorus 3.7, Total Bilirubin 0.54, AST 20, ALT 13, Alkaline Phosphatase 64, [place] [address] H, Total Protein 6.9, Albumin 3.5, Globulin 3.4, Albumin/Globulin Ratio 1.1, Triglycerides 65, Cholesterol 117, LDL Cholesterol, Calc 47, VLDL Cholesterol 13, HDL Cholesterol 57, Cholesterol/HDL Ratio 2.06 03/21/25 06:40: POC Glucose 196 H Micro: Microbiology 03/20/25 07:12 Mucosa - Nasopharyngeal Respiratory Panel (PCR) - Final 03/20/25 07:30 Urine, Clean Catch Legionella Antigen - Final 03/20/25 07:30 Urine, Clean Catch Streptococcus pneumoniae Antigen (M - Final 03/20/25 02:16 Mucosa - Nose SARS-CoV-2, Influenza & RSV (PCR) - Final Radiography Diagnostic Testing: Radiology Impression Echocardiogram 03/20/25 06:49 Interpretation Summary The LV ejection fraction is 10 %. Stage 3 diastolic dysfunction. Severe global left ventricular systolic dysfunction. Severely dilated left ventricle. Mild segmental dysfunction of right ventricle. Ordering Physician: Matthew Grullon Referring Physician: no pcp Performed By: Qian White RCS Physical Exam Const alert, oriented x3, no apparent distress, average body habitus and well nourished; Negative for healthy appearing Constitutional Narrative: Elderly, white male, reclining in a chair at the bedside, watching television, appears comfortable, nontoxic General Appearance: cooperative HEENT normocephalic, head/scalp atraumatic and moist oral mucous membranes HEENT Narrative: Mallampati 3, no thrush Resp normal respiratory effort, no retractions, no use of accessory muscles and No clear to auscultation bilaterally Resp Narrative: Diminished at bases bilaterally with decreased crackles Auscultation: crackles; Negative for rhonchi or wheezes Cardio regular rate, regular rhythm, S1 normal heart sound, S2 normal heart sound, no murmurs, no rub, no gallops and no clicks GI normal to inspection, nondistended, normoactive bowel sounds, soft to palpation and non-tender GI Narrative: Obese. Extremity Extremity Narrative: Trace to 1+ bilateral lower extremity pitting edema, no cyanosis or clubbing Neuro moves all extremities and no focal motor deficits Speech: speech normal Psych affect normal Assessment & Plan Assessment/Plan (1) Acute hypoxic respiratory failure: (2) Acute exacerbation of chronic heart failure: (3) Elevated troponin: (4) Chest tightness: (5) Lactic acidosis: PLAN: Plan Acute hypoxic respiratory failure secondary to acute on chronic heart failure with reduced ejection fraction - Baseline EF is unknown but patient does appear to have ischemic cardiomyopathy -Currently has been weaned off BiPAP to 2 L nasal cannula and is doing well - Records have been requested from [facility] as that were his previous care had been provided - Current echocardiogram shows an EF of 10% with stage III diastolic dysfunction, severe global LV dysfunction, severely dilated LV and mild segmental dysfunction of the RV - Continue home Jardiance - Continue hydralazine to 25 3 times daily - Continue Imdur as ordered - Continue Aldactone - Start metoprolol 25 mg XL daily - Will transition to oral diuretics - Patient has defibrillator - Cardiology following-appreciate input Bilateral pleural effusion - Small to moderate - May need to consider thoracentesis depending on respiratory status - Reevaluate tomorrow with ambulatory pulse ox - Repeat chest x-ray in a.m. Leukocytosis - Patient was initially given steroids - No signs of infection - Suspect demargination related to steroid dosing Lactic acidosis - Secondary to the above - Resolved quickly Elevated troponin/chest tightness - Suspect related to acute decompensated heart failure and demand ischemia from hypoxemia - Echocardiogram with no specific LV wall motion abnormality however patient does have a globally depressed EF - Plan is for cardiac catheterization once renal function stabilizes - Cardiology is following Elevated serum creatinine - No baseline established in our records - We have requested records from [facility] - Highly suspect patient has CKD but unclear at this time - Monitor response to diuresis as patient may have component of cardiorenal syndrome especially with EF of 10% - Creatinine is relatively stable with slight trend up despite diuresis will transition from IV diuretics to oral diuretics DM-2 - A1c is 5.9 - Continue home 75/25 insulin - Continue home Jardiance - SSI as ordered - Accu-Cheks as ordered Essential hypertension/hyperlipidemia/CAD - Continue aspirin - Continue atorvastatin - Continue Plavix - Continue hydralazine but increase dose as noted above - Continue isosorbide mononitrate - Continue home Ranexa - Continue home Aldactone Suspected COPD - Patient is a chronic longtime smoker of cigarettes and still smokes - nicotine patch available - Recommend cessation - Does not appear to be in acute exacerbation so we will discontinue steroids - continue as needed nebulizers 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 - Watch for any signs of urinary retention History of mechanical fall with multiple rib fractures and pneumothorax - January 2025 - Now living locally as he was too far away from family - PT/OT is following DVT prophylaxis - Continue enoxaparin CODE STATUS -DNR CCA okay for short-term intubation Charges/Coding Visit Charges Inpatient E&M: 30458 Subs Hosp L2 03/21/25 1210 <Electronically signed by Dipti Lawson DO> Cosigner Signature (if applicable): CC: ~ Signed [facility] Work Phone: [phone]) 659-889309-14-2025 Progress note [facility] Medical Records Department [address] [place] [address] Progress Note - Cardiology 03/21/25 1253 MR#: [id number] Acct: [id number] Name: CECILIA KUHN Rep #:[id number] : 1945 80 From: Sherin Webb MD PCP: ULI ALCALA Status:ADM IN Location: [place] [address] Subjective Subjective His breathing is getting better. Objective Data Vital Signs: Vital Signs Temp Pulse Resp BP Pulse Ox O2 Del Method O2 Flow Rate 97.7 F L 73 20 H 127/88 H 97 Nasal Cannula 2 03/21/25 09:25 03/21/25 09:25 03/21/25 09:25 03/21/25 09:25 03/21/25 09:25 03/21/25 10:00 03/21/25 10:00 FiO2 03/21/25 04:30 Oxygen Flow Rate (L/min) 2 Oxygen Delivery Method Nasal Cannula Weight: 183 lb 6.793 oz Body Mass Index (BMI) 26.3 Intake & Output: Intake and Output for Last 24 Hours 03/19/25 03/20/25 03/21/25 23:59 23:59 23:59 Intake Total 1150 / 1390 340 / 340 Output Total 775 / 775 Balance 1150 / 965 -435 / -435 Lab / Micro Data 03/21/25 05:25 03/21/25 05:25 Labs: Laboratory Results - last 24 hr 03/20/25 17:00: POC Glucose 175 H 03/20/25 21:22: POC Glucose 227 H 03/21/25 05:25: WBC 13.4 H, RBC 4.61, Hgb 15.0, Hct 44.5, MCV 96.5 H, MCH 32.5 H, MCHC 33.7, RDW Std Deviation 48.4 H, RDW Coeff of Adri 13.5, Plt Count 201, MPV9.2, Immature Gran % (Auto) 0.500, Neut% (Auto) 87.1 H, Lymph % (Auto) 5.9 L, [place] % (Auto) 6.4, Eos % (Auto) 0.0, Baso % (Auto) 0.1, Absolute Neuts (auto) 11.7 H, Absolute Lymphs (auto) 0.79 L, Nucleated RBC % 0, Sodium 135, Potassium 4.6, Chloride 102, Carbon Dioxide 21.6, Anion Gap 11, BUN 32 H, Creatinine 1.62 H, Estim Creat Clear Calc 36.30 L, Est GFR (MDRD) Non-Af 42 L, BUN/Creatinine Ratio 19.6, Glucose 190 H, Hemoglobin A1c 5.9 H, Calcium 9.0, Phosphorus 3.7, Total Bilirubin 0.54, AST 20, ALT 13, Alkaline Phosphatase 64, [place] [address] H, Total Protein 6.9, Albumin 3.5, Globulin 3.4, Albumin/Globulin Ratio 1.1, Triglycerides 65, Cholesterol 117, LDL Cholesterol, Calc 47, VLDL Cholesterol 13, HDL Cholesterol 57, Cholesterol/HDL Ratio 2.06 03/21/25 06:40: POC Glucose 196 H Micro: Microbiology 03/20/25 07:12 Mucosa - Nasopharyngeal Respiratory Panel (PCR) - Final Cardiology Labs/Tests 03/21/25 05:25: WBC 13.4 H, RBC 4.61, Hgb 15.0, Hct 44.5, MCV 96.5 H, MCH 32.5 H, MCHC 33.7, Plt Count 201, MPV 9.2, Immature Gran % (Auto) 0.500, Neut % (Auto)87.1 H, Lymph % (Auto) 5.9 L, [place] % (Auto) 6.4, Eos % (Auto) 0.0, Baso % (Auto)0.1, Absolute Neuts (auto) 11.7 H, Nucleated RBC % 0, Sodium 135, Potassium 4.6,Chloride 102, Carbon Dioxide 21.6, Anion Gap 11, BUN 32 H, Creatinine 1.62 H, Est GFR (MDRD) Non-Af 42 L, BUN/Creatinine Ratio 19.6, Glucose 190 H, Hemoglobin A1c 5.9 H, Calcium 9.0, Phosphorus 3.7, Total Bilirubin 0.54, Triglycerides 65, Cholesterol 117, VLDL Cholesterol 13, HDL Cholesterol 57, Cholesterol/HDL Ratio 2.06 Rhythm: EKG: NSR ECHO: 10% Physical Exam Const alert HEENT normocephalic Eyes PERRL Neck full ROM Lymph Lymphatic: no lymphadenopathy noted Chest inspection of chest normal Resp Auscultation: crackles Cardio regular rate, regular rhythm, S1 normal heart sound and S2 normal heart sound GI normal to inspection, nondistended, normoactive bowel sounds no CVA tenderness Back/Spine no CVA tenderness Extremity normal to inspection Skin no rashes or lesions noted Assessment & Plan Assessment/Plan (1) Acute exacerbation of chronic heart failure: PLAN: Acute on chronic decompensated HF 10% with RV failure NYHA III stage C Currently reaching euvolemia, switch IV lasix to once daily 40 mg Continue with Hydralazine to 25 TID Continue with IMDUR 60 mg daily Once we have a better idea if this ANTHONY or CKD,we will switch him to ACEi Restart Jardiance 10 mg daily Continue with Spironolactone 25 mg daily Start metoprolol succinate 25 mg daily (2) Acute hypoxic respiratory failure: PLAN: In the setting of HFrEF and COPD exacerbation (3) History of coronary artery bypass graft: PLAN: Continue with aspirin 81 mg daily Continue with Atorvastatin 40 mg daily Continue with clopidogrel 75 mg daily Continue with Ranolazine Once kidney function improve. we will proceed with ischemic evaluation 03/21/25 1256 Cosigner Signature (if applicable): CC: ~ Signed [facility]09-14-2025 Progress note [facility] Medical Records Department [address] [place] [address] Progress Note - Hospitalist 03/21/25 0728 MR#: [id number] Acct: [id number] Name: CECILIA KUHN LAWSON Rep #:[id number] : 1945 80 From: Dipti Pathak DO PCP: ULI ALCALA Status:ADM IN Location: [place] [address] Reason for Visit Chief Complaint: Chest Tightness and SOB. Subjective Subjective Patient states he is feeling better today. States his shortness of breath is improved. States he had a good night overall and felt it was beneficial for himto wear BiPAP. Objective Data Objective Data Vital Signs: Vital Signs Temp Pulse Resp BP Pulse Ox O2 Del Method O2 Flow Rate 97.7 F L 54 L 21 H 118/94 H 96 Room Air 2 03/21/25 03:25 03/21/25 06:42 03/21/25 04:30 03/21/25 03:25 03/21/25 04:30 03/21/25 03:25 03/21/25 02:30 FiO2 03/21/25 04:30 Oxygen Flow Rate (L/min) 2 Oxygen Delivery Method Room Air Weight: 83.2 kg Body Mass Index (BMI) 26.3 Intake & Output: Intake and Output for Last 24 Hours 03/19/25 03/20/25 03/21/25 23:59 23:59 23:59 Intake Total 1150 / 1390 240 / 240 Output Total 775 / 775 Balance 1150 / 965 -535 / -535 Lab / Micro Data 03/21/25 05:25 03/21/25 05:25 Labs: Laboratory Results - last 24 hr 03/20/25 04:20: TSH 1.400 03/20/25 07:08: Troponin T Hi Sens 4Hr 75 H* 03/20/25 07:10: POC Glucose 199 H 03/20/25 07:45: Urine Color Yellow, Urine Clarity Clear, Urine pH 6.0, Ur Specific [place] 1.010, Urine Protein 30 H, Urine Glucose (UA) 1000 H, Urine Ketones Negative, Urine Occult Blood Negative, Urine Nitrite Negative, Urine Bilirubin Negative, Urine Urobilinogen Normal, Ur Leukocyte Esterase 25H, UrineRBC 0 SEEN, Urine WBC 0 SEEN, Ur Squamous Epith Cells 0-5 SEEN, Urine Bacteria 0SEEN, UrineMucus 0 SEEN 03/20/25 11:33: POC Glucose 274 H 03/20/25 17:00: POC Glucose 175 H 03/20/25 21:22: POC Glucose 227 H 03/21/25 05:25: WBC 13.4 H, RBC 4.61, Hgb 15.0, Hct 44.5, MCV 96.5 H, MCH 32.5 H, MCHC 33.7, RDW Std Deviation 48.4 H, RDW Coeff of Adri 13.5, Plt Count 201, MPV9.2, Immature Gran % (Auto) 0.500, Neut% (Auto) 87.1 H, Lymph % (Auto) 5.9 L, [place] % (Auto) 6.4, Eos % (Auto) 0.0, Baso % (Auto) 0.1, Absolute Neuts (auto) 11.7 H, Absolute Lymphs (auto) 0.79 L, Nucleated RBC % 0, Sodium 135, Potassium 4.6, Chloride 102, Carbon Dioxide 21.6, Anion Gap 11, BUN 32 H, Creatinine 1.62 H, Estim Creat Clear Calc 36.30 L, Est GFR (MDRD) Non-Af 42 L, BUN/Creatinine Ratio 19.6, Glucose 190 H, Hemoglobin A1c 5.9 H, Calcium 9.0, Phosphorus 3.7, Total Bilirubin 0.54, AST 20, ALT 13, Alkaline [place]atase 64, [place] [address] H, Total Protein 6.9, Albumin 3.5, Globulin 3.4, Albumin/Globulin Ratio 1.1, Triglycerides 65, Cholesterol 117, LDL Cholesterol, Calc 47, VLDL Cholesterol 13, HDL Cholesterol 57, Cholesterol/HDL Ratio 2.06 03/21/25 06:40: POC Glucose 196 H Micro: Microbiology 03/20/25 07:12 Mucosa - Nasopharyngeal Respiratory Panel (PCR) - Final 03/20/25 07:30 Urine, Clean Catch Legionella Antigen - Final 03/20/25 07:30 Urine, Clean Catch Streptococcus pneumoniae Antigen (M - Final 03/20/25 02:16 Mucosa - Nose SARS-CoV-2, Influenza & RSV (PCR) - Final Radiography Diagnostic Testing: Radiology Impression Echocardiogram 03/20/25 06:49 Interpretation Summary The LV ejection fraction is 10 %. Stage 3 diastolic dysfunction. Severe global left ventricular systolic dysfunction. Severely dilated left ventricle. Mild segmental dysfunction of right ventricle. Ordering Physician: Matthew Grullon Referring Physician: no pcp Performed By: Qian White RCS Physical Exam Const alert, oriented x3, no apparent distress, average body habitus and well nourished; Negative for healthy appearing Constitutional Narrative: Elderly, white male, reclining in a chair at the bedside, watching television, appears comfortable,nontoxic General Appearance: cooperative HEENT normocephalic, head/scalp atraumatic and moist oral mucous membranes HEENT Narrative: Mallampati 3, no thrush Resp normal respiratory effort, no retractions, no use of accessory muscles and No clear to auscultationbilaterally Resp Narrative: Diminished at bases bilaterally with decreased crackles Auscultation: crackles; Negative for rhonchi or wheezes Cardio regular rate, regular rhythm, S1 normal heart sound, S2 normal heart sound, no murmurs, no rub, no gallops and no clicks GI normal to inspection, nondistended, normoactive bowel sounds, soft to palpation and non-tender GI Narrative: Obese. Extremity Extremity Narrative: Trace to 1+ bilateral lower extremity pitting edema, no cyanosis or clubbing Neuro moves all extremities and no focal motor deficits Speech: speech normal Psych affect normal Assessment & Plan Assessment/Plan (1) Acute hypoxic respiratory failure: (2) Acute exacerbation of chronic heart failure: (3) Elevated troponin: (4) Chest tightness: (5) Lactic acidosis: PLAN: Plan Acute hypoxic respiratory failure secondary to acute on chronic heart failure with reduced ejectionfraction - Baseline EF is unknown but patient does appear to have ischemic cardiomyopathy -Currently has been weaned off BiPAP to 2 L nasal cannula and is doing well - Records have been requested from [facility] as that were his previous care had been provided - Current echocardiogram shows an EF of 10% with stage III diastolic dysfunction, severe global LV dysfunction, severely dilated LV and mild segmental dysfunction of the RV - Continue home Jardiance - Continue hydralazine to 25 3 times daily - Continue Imdur as ordered - Continue Aldactone - Start metoprolol 25 mg XL daily - Will transition to oral diuretics - Patient has defibrillator - Cardiology following-appreciate input Bilateral pleural effusion - Small to moderate - May need to consider thoracentesis depending on respiratory status - Reevaluate tomorrow with ambulatory pulse ox - Repeat chest x-ray in a.m. Leukocytosis - Patient was initially given steroids - No signs of infection - Suspect demargination related to steroid dosing Lactic acidosis - Secondary to the above - Resolved quickly Elevated troponin/chest tightness - Suspect related to acute decompensated heart failure and demand ischemia from hypoxemia - Echocardiogram with no specific LV wall motion abnormality however patient does have a globally depressed EF - Plan is for cardiac catheterization once renal function stabilizes - Cardiology is following Elevated serum creatinine - No baseline established in our records - We have requested records from [facility] - Highly suspect patient has CKD but unclear at this time - Monitor response to diuresis as patient may have component of cardiorenal syndrome especially with EF of 10% - Creatinine is relatively stable with slight trend up despite diuresis will transition from IV diuretics to oral diuretics DM-2 - A1c is 5.9 - Continue home 75/25 insulin - Continue home Jardiance - SSI as ordered - Accu-Cheks as ordered Essential hypertension/hyperlipidemia/CAD - Continue aspirin - Continue atorvastatin - Continue Plavix - Continue hydralazine but increase dose as noted above - Continue isosorbide mononitrate - Continue home Ranexa - Continue home Aldactone Suspected COPD - Patient is a chronic longtime smoker of cigarettes and still smokes - nicotine patch available - Recommend cessation - Does not appear to be in acute exacerbation so we will discontinue steroids - continue as needed nebulizers 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 - Watch for any signs of urinary retention History of mechanical fall with multiple rib fractures and pneumothorax - January 2025 - Now living locally as he was too far away from family - PT/OT is following DVT prophylaxis - Continue enoxaparin CODE STATUS -DNR CCA okay for short-term intubation Charges/Coding Visit Charges Inpatient E&M: 22859 Subs Hosp L2 03/21/25 1210 Cosigner Signature (if applicable): CC: ~ Signed [facility]09-13-2025 Progress note Author Dipti Pathak [facility] Note Date/Time March 20, 2025 4:25pm [facility] Medical Records Department [address] [place] [address] Progress Note - Hospitalist 03/20/25 0707 MR#: [id number] Acct: [id number] Name: BAMCECILIA LAWSON Rep #:[id number] : 1945 80 From: Dipti Pathak DO PCP: ULI ALCALA Status:ADM IN Location: [place] [address] Reason for Visit Chief Complaint: Chest Tightness and SOB. Subjective Subjective Patient states he feels much better overall. Still somewhat short of breath butwas able to move with therapy and felt okay. Has not been seen here formally bycardiology. Unfortunately, no records are available at this time. Objective Data Objective Data Vital Signs: Vital Signs Temp Pulse Resp BP Pulse Ox O2 Del Method O2 Flow Rate 97.8 F 78 22 H 131/78 H 95 Bi-pap 30 03/20/25 05:02 03/20/25 06:00 03/20/25 06:00 03/20/25 06:00 03/20/25 06:00 03/20/25 06:00 03/20/25 05:30 FiO2 30 03/20/25 06:00 Oxygen Flow Rate (L/min) 30 Oxygen Delivery Method Bi-pap Weight: 89.6 kg Body Mass Index (BMI) 31.8 Intake & Output: Intake and Output for Last 24 Hours 03/18/25 03/19/25 03/20/25 23:59 23:59 23:59 Intake Total 550 / 550 Balance 550 / 550 Lab / Micro Data 03/20/25 02:08 03/20/25 02:08 Labs: Laboratory Results - last 24 hr 03/20/25 02:05: Lactic Acid 2.2 H* 03/20/25 02:08: WBC 10.4, RBC 5.07, Hgb 16.5, Hct 50.5, MCV 99.6 H, MCH 32.5 H, MCHC 32.7, RDW Std Deviation 49.9 H, RDW Coeff of Adri 13.6, Plt Count 245, MPV 9.3, Immature Gran % (Auto) 0.400, Neut % (Auto) 55.6, Lymph % (Auto) 30.1, [place]% (Auto) 12.9 H, Eos % (Auto) 0.4, Baso % (Auto) 0.6, Absolute Neuts (auto) 5.8,Absolute Lymphs (auto) 3.12, Nucleated RBC % 0, D-Dimer Quant (PE/DVT) 1.03 H*, Sodium 141, Potassium 4.2, Chloride 105, Carbon Dioxide 22.4, Anion Gap 13, BUN 22 H, Creatinine 1.42 H, Estim Creat Clear Calc 42.05 L, Est GFR (MDRD) Non-Af 49 L, BUN/Creatinine Ratio 15.1, Glucose 170 H, Calcium 9.0, Troponin T High Sens 61 H*, NT pro BNP II 7412 H 03/20/25 04:20: Magnesium 1.7, Troponin T Hi Sens 2 Hr 56 H* 03/20/25 06:08: Lactic Acid 1.1 Micro: Microbiology 03/20/25 02:16 Mucosa - Nose SARS-CoV-2, Influenza & RSV (PCR) - Final ABG Data ABG results: ABG 03/20/25 02:20 Specimen Type ART Sample Site L Radial pH 7.32 L Bicarbonate Actual 23.1 Total CO2 25 Base Excess -3 L O2 Saturation 99 O2 % 40.0 ABG pCO2 45.0 ABG pO2 141 H Martha Test Positive O2 Delivery Device BiPAP Vent Mode Not entered POC PEEP 8 Peak Inspir Pressure 16 Radiography Diagnostic Testing: Radiology Impression Chest X-Ray 03/20/25 02:32 IMPRESSION: Diffuse interstitial edema with free-flowing bilateral pleural effusions and bibasilar atelectasis. Findings suggest CHF. Follow-up recommended to ensure resolution Minimally displaced right rib fractures, no clearly demonstrated pneumothorax Old healed and healing left rib fractures Remote CABG Reading Location: [id number] Chest CTA 03/20/25 02:59 IMPRESSION: No demonstrated pulmonary embolism. Mild cardiomegaly. Prior CABG. Moderate bilateral pleural effusions. Passive atelectatic airspace disease/consolidations of the lower lobes, possiblyrepresenting passive atelectasis and/or superimposed pneumonia. Mild interstitial pulmonary congestion. Moderate diffuse spondylosis. AICD is in good position. Mild hepatomegaly with diffuse irregularity of the hepatic contour, possibly chronic parenchymal liver disease. [facility] Physical Exam Const alert, oriented x3, no apparent distress, average body habitus and well nourished; Negative for healthy appearing Constitutional Narrative: Elderly, white male, sitting up in a chair at the bedside, family at bedside, appears comfortable, nontoxic HEENT head/scalp atraumatic and moist oral mucous membranes Head and Scalp: normocephalic Resp normal respiratory effort, no retractions, no use of accessory muscles and No clear to auscultation bilaterally Resp Narrative: Crackles at bases bilaterally, no current conversational dyspnea or signs of distress Auscultation: Negative for wheezes Cardio regular rate, regular rhythm, S1 normal heart sound, S2 normal heart sound, no murmurs, no rub, no gallops and no clicks GI normal to inspection, nondistended, normoactive bowel sounds, soft to palpation and non-tender Extremity Extremity Narrative: 1+ bilateral lower extremity pitting edema, no cyanosis or clubbing Neuro oriented x3, moves all extremities and no focal motor deficits Speech: speech normal Psych affect normal Assessment & Plan Assessment/Plan (1) Acute hypoxic respiratory failure: (2) Acute exacerbation of chronic heart failure: (3) Elevated troponin: (4) Chest tightness: (5) Lactic acidosis: PLAN: Plan Acute hypoxic respiratory failure secondary to acute on chronic heart failure with reduced ejection fraction - Baseline EF is unknown but patient does appear to have ischemic cardiomyopathy -Currently has been weaned off BiPAP to 2 L nasal cannula and is doing well - Records have been requested from [facility] as that were his previous care had been provided - Current echocardiogram shows an EF of 10% with stage III diastolic dysfunction, severe global LV dysfunction, severely dilated LV and mild segmental dysfunction of the RV - Restart home Jardiance - Increase hydralazine to 25 3 times daily - Continue Imdur as ordered -Continue Aldactone - Hold off on beta-glo and show acute exacerbation has resolved but plan is to discharge with this unless previous records indicate why we should not - Continue IV diuretics as ordered and patient will likely need to be dischargedon oral diuretics - Patient has defibrillator - Discontinue antibiotics and steroids as this does not appear to be consistent with COPD exacerbation - Cardiology following-appreciate input Lactic acidosis - Secondary to the above - Resolved quickly Elevated troponin/chest tightness - Suspect related to acute decompensated heart failure and demand ischemia from hypoxemia - Echocardiogram with no specific LV wall motion abnormality - Cardiology is following Elevated serum creatinine - No baseline established in our records - We have requested records from [facility] - Highly suspect patient has CKD but unclear at this time - Monitor response to diuresis as patient may have component of cardiorenal syndrome especially with EF of 10% DM-2 - A1c is pending - Continue home 75/25 insulin - Restart home Jardiance - SSI as ordered - Accu-Cheks as ordered Essential hypertension/hyperlipidemia/CAD - Continue aspirin - Continue atorvastatin - Continue Plavix - Continue hydralazine but increase dose as noted above - Continue isosorbide mononitrate - Continue home Ranexa - Continue home Aldactone Suspected COPD - Patient is a chronic longtime smoker of cigarettes and still smokes - nicotine patch available - Recommend cessation - Does not appear to be in acute exacerbation so we will discontinue steroids - continue as needed nebulizers 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 Extensive conversation with patient and his family at the bedside today with regards to overall prognosis especially with his markedly depressed EF and his overall cardiac conditions. They have elected to transition his CODE STATUS to DNR CCA okay for short-term intubation but patient indicates he would not want long-term mechanical ventilation. Charges/Coding Visit Charges Inpatient E&M: 23266 Subs Hosp L2 03/20/25 1628 <Electronically signed by Dipti Pathak DO> Cosigner Signature (if applicable): CC: ~ Signed [facility] Work Phone: 1(721) 282-614809-13-2025 Progress note [facility] Medical Records Department [address] [place] [address] Progress Note - Hospitalist 03/20/25 07 MR#: [id number] Acct: [id number] Name: CECILAI KUHN Rep #:[id number] : 1945 80 From: Dipti Pathak DO PCP: ULI ALCALA Status:ADM IN Location: [place] [address] Reason for Visit Chief Complaint: Chest Tightness and SOB. Subjective Subjective Patient states he feels much better overall. Still somewhat short of breath butwas able to move with therapy and felt okay. Has not been seen here formally bycardiology. Unfortunately, no records areavailable at this time. Objective Data Objective Data Vital Signs: Vital Signs Temp Pulse Resp BP Pulse Ox O2 Del Method O2 Flow Rate 97.8 F 78 22 H 131/78 H 95 Bi-pap 30 03/20/25 05:02 03/20/25 06:00 03/20/25 06:00 03/20/25 06:00 03/20/25 06:00 03/20/25 06:00 03/20/25 05:30 FiO2 30 03/20/25 06:00 Oxygen Flow Rate (L/min) 30 Oxygen Delivery Method Bi-pap Weight: 89.6 kg Body Mass Index (BMI) 31.8 Intake & Output: Intake and Output for Last 24 Hours 03/18/25 03/19/25 03/20/25 23:59 23:59 23:59 Intake Total 550 / 550 Balance 550 / 550 Lab / Micro Data 03/20/25 02:08 03/20/25 02:08 Labs: Laboratory Results - last 24 hr 03/20/25 02:05: Lactic Acid 2.2 H* 03/20/25 02:08: WBC 10.4, RBC 5.07, Hgb 16.5, Hct 50.5, MCV 99.6 H, MCH 32.5 H, MCHC 32.7, RDW Std Deviation 49.9 H, RDW Coeff of Adri 13.6, Plt Count 245, MPV 9.3, Immature Gran % (Auto) 0.400, Neut % (Auto) 55.6, Lymph % (Auto) 30.1, [place]% (Auto) 12.9 H, Eos % (Auto) 0.4, Baso % (Auto) 0.6, Absolute Neuts (auto) 5.8,Absolute Lymphs (auto) 3.12, Nucleated RBC % 0, D-Dimer Quant (PE/DVT) 1.03 H*, Sodium 141, Potassium 4.2, Chloride 105, Carbon Dioxide 22.4, Anion Gap 13, BUN 22 H, Creatinine 1.42 H, Estim Creat Clear Calc 42.05 L, Est GFR (MDRD) Non- Af 49 L, BUN/Creatinine Ratio 15.1, Glucose 170 H, Calcium 9.0, Troponin T High Sens 61 H*, NT pro BNP II 7412 H 03/20/25 04:20: Magnesium 1.7, Troponin T Hi Sens 2 Hr 56 H* 03/20/25 06:08: Lactic Acid 1.1 Micro: Microbiology 03/20/25 02:16 Mucosa - Nose SARS-CoV-2, Influenza & RSV (PCR) - Final ABG Data ABG results: ABG 03/20/25 02:20 Specimen Type ART Sample Site L Radial pH 7.32 L Bicarbonate Actual 23.1 Total CO2 25 Base Excess -3 L O2 Saturation 99 O2 % 40.0 ABG pCO2 45.0 ABG pO2 141 H Martha Test Positive O2 Delivery Device BiPAP Vent Mode Not entered POC PEEP 8 Peak Inspir Pressure 16 Radiography Diagnostic Testing: Radiology Impression Chest X-Ray 03/20/25 02:32 IMPRESSION: Diffuse interstitial edema with free-flowing bilateral pleural effusions and bibasilar atelectasis.Findings suggest CHF. Follow-up recommended to ensure resolution Minimally displaced right rib fractures, no clearly demonstrated pneumothorax Old healed and healing left rib fractures Remote CABG Reading Location: [id number] Chest CTA 03/20/25 02:59 IMPRESSION: No demonstrated pulmonary embolism. Mild cardiomegaly. Prior CABG. Moderate bilateral pleural effusions. Passive atelectatic airspace disease/consolidations of the lower lobes, possiblyrepresenting passive atelectasis and/or superimposed pneumonia. Mild interstitial pulmonary congestion. Moderate diffuse spondylosis. AICD is in good position. Mild hepatomegaly with diffuse irregularity of the hepatic contour, possibly chronic parenchymal liver disease. [facility] Physical Exam Const alert, oriented x3, no apparent distress, average body habitus and well nourished; Negative for healthy appearing Constitutional Narrative: Elderly, white male, sitting up in a chair at the bedside, family at bedside, appears comfortable, nontoxic HEENT head/scalp atraumatic and moist oral mucous membranes Head and Scalp: normocephalic Resp normal respiratory effort, no retractions, no use of accessory muscles and No clear to auscultationbilaterally Resp Narrative: Crackles at bases bilaterally, no current conversational dyspnea or signs of distress Auscultation: Negative for wheezes Cardio regular rate, regular rhythm, S1 normal heart sound, S2 normal heart sound, no murmurs, no rub, no gallops and no clicks GI normal to inspection, nondistended, normoactive bowel sounds, soft to palpation and non-tender Extremity Extremity Narrative: 1+ bilateral lower extremity pitting edema, no cyanosis or clubbing Neuro oriented x3, moves all extremities and no focal motor deficits Speech: speech normal Psych affect normal Assessment & Plan Assessment/Plan (1) Acute hypoxic respiratory failure: (2) Acute exacerbation of chronic heart failure: (3) Elevated troponin: (4) Chest tightness: (5) Lactic acidosis: PLAN: Plan Acute hypoxic respiratory failure secondary to acute on chronic heart failure with reduced ejectionfraction - Baseline EF is unknown but patient does appear to have ischemic cardiomyopathy -Currently has been weaned off BiPAP to 2 L nasal cannula and is doing well - Records have been requested from [facility] as that were his previous care had been provided - Current echocardiogram shows an EF of 10% with stage III diastolic dysfunction, severe global LV dysfunction, severely dilated LV and mild segmental dysfunction of the RV - Restart home Jardiance - Increase hydralazine to 25 3 times daily - Continue Imdur as ordered -Continue Aldactone - Hold off on beta-glo and show acute exacerbation has resolved but plan is to discharge with this unless previous records indicate why we should not - Continue IV diuretics as ordered and patient will likely need to be dischargedon oral diuretics - Patient has defibrillator - Discontinue antibiotics and steroids as this does not appear to be consistent with COPD exacerbation - Cardiology following-appreciate input Lactic acidosis - Secondary to the above - Resolved quickly Elevated troponin/chest tightness - Suspect related to acute decompensated heart failure and demand ischemia from hypoxemia - Echocardiogram with no specific LV wall motion abnormality - Cardiology is following Elevated serum creatinine - No baseline established in our records - We have requested records from [facility] - Highly suspect patient has CKD but unclear at this time - Monitor response to diuresis as patient may have component of cardiorenal syndrome especially with EF of 10% DM-2 - A1c is pending - Continue home 75/25 insulin - Restart home Jardiance - SSI as ordered - Accu-Cheks as ordered Essential hypertension/hyperlipidemia/CAD - Continue aspirin - Continue atorvastatin - Continue Plavix - Continue hydralazine but increase dose as noted above - Continue isosorbide mononitrate - Continue home Ranexa - Continue home Aldactone Suspected COPD - Patient is a chronic longtime smoker of cigarettes and still smokes - nicotine patch available - Recommend cessation - Does not appear to be in acute exacerbation so we will discontinue steroids - continue as needed nebulizers 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 Extensive conversation with patient and his family at the bedside today with regards to overall prognosis especially with his markedly depressed EF and his overall cardiac conditions. They have elected to transition his CODE STATUS to DNR CCA okay for short-term intubation but patient indicates he would not want long-term mechanical ventilation. Charges/Coding Visit Charges Inpatient E&M: 06479 Subs Hosp L2 03/20/25 3845 Cosigner Signature (if applicable): CC: ~ Signed [facility]09-13-2025 Consult note Author Sherin Webb [facility] Note Date/Time March 20, 2025 12:02pm [facility] Medical Records Department [address] [place] [address] Consultation - Cardiology 03/20/25 1011 MR#: [id number] Acct: [id number] Name: CECILIA KUHN Rep #:[id number] : 1945 80 From: Sherin Webb MD PCP: ULI ALCALA Status:ADM IN Location: [place] [id number]- Assessment & Plan Assessment/Plan (1) Acute exacerbation of chronic heart failure: PLAN: Acute on chronic decompensated HF 10% with RV failure Currently reaching euvolemia, switch IV lasix to once daily 40 mg Increase Hydralazine to 25 TID Continue with IMDUR 60 mg daily Once we have a better idea if this ANTHONY or CKD,we will switch him to ACEi restart Jardiance 10 mg daily Continue with Spironolactone 25 mg daily Hold off starting beta glo now in the setting of lactic acidosis and decompensated HF (2) History of coronary artery bypass graft: PLAN: Continue with aspirin 81 mg daily Continue with Atorvastatin 40 mg daily Continue with clopidogrel 75 mg daily Continue with Ranolazine Once kidney function improve. we will proceed with ischemic evaluation (3) Acute hypoxic respiratory failure: PLAN: In the setting of HFrEF and COPD exacerbation HPI Consult Data Date of Consult: 03/20/25 HPI Narrative HPI Narrative: CECILIA KUHN, is a 80 M with a past medical history of: # Hypertension # Diabetes # CAD status post CABG and PCI in the past # COPD # Hyperlipidemia # History of HFrEF status post ICD # Smoker # Mechanical fall with multiple rib fractures and pneumothorax 01/2025 # BMI 31 He moved recently from [facility] and he lives with his daughter presented with shortness of breath, orthopnea and PND. On presentation he had chest tightness. He denies any chest pain now. He has NYHA class III. He has bilateral lower extremity edema. He denies any fever, chills and recent infection. He has shortness of breath with minimal exertion. His breathing has been getting worse over the last few months. n the ER he was noted to have an elevated NT pro-BNP of 7,412 pg/mL present on admission with a CXR that revealed pulmonary vascular congestion with moderate Right pleural effusion He had Acute Hypoxic Respiratory Failure requiring BIPAP. [facility] Medical History Pleural effusion Heart failure Presence of combination internal cardiac defibrillator (ICD) and pacemaker Diabetes Home Medications ?Medication ?Instructions ?Recorded ?Last Taken ?Type aspirin 81 mg tablet 81 mg PO DAILY 03/20/25 Unkn own History atorvastatin 40 mg tablet (Lipitor) 40 mg PO DAILY Unknown History clopidogrel 75 mg tablet 75 mg PO DAILY 03/20/25 Unkn own History empagliflozin 10 mg tablet 10 mg PO DAILY 03/20/25 Unk nown History (Jardiance) finasteride 5 mg tablet 5 mg PO DAILY 03/20/25 Unkno wn History hydralazine 10 mg tablet 10 mg PO BID 03/20/25 Unknow n History insulin lispro protamine-lispro 20 unit subcut BID Unknown History 100 unit/mL (75-25) subcutaneous pen (Humalog Mix 75-25 KwikPen) isosorbide mononitrate 60 mg 60 mg PO DAILY 03/20/25 U nknown History tablet,extended release 24 hr methocarbamol 500 mg tablet 500 mg PO Q6H PRN muscle s pasm 03/20/25 Unknown History ranolazine 1,000 mg 1,000 mg PO BID 03/20/25 Unk nown History tablet,extended release,12 hr spironolactone 25 mg tablet 25 mg PO DAILY 03/20/25 Un known History (Aldactone) Allergy/AdvReac Type Severity Reaction Status Date / Time No Known Allergies Allergy Verified 03/20/25 02:04 Surgical History H/O heart artery stent Social History Smoking Status: Current some day smoker tobacco type: cigars Physical Exam Const alert and oriented x3 HEENT normocephalic Eyes PERRL Neck full ROM Lymph Lymphatic: no lymphadenopathy noted Chest inspection of chest normal Resp normal respiratory effort Cardio regular rate and regular rhythm Jugular Venous Distention: JVD GI normal to inspection, nondistended, normoactive bowel sounds no CVA tenderness Back/Spine no CVA tenderness Extremity normal to inspection Skin no rashes or lesions noted Objective Data Vital Signs: Vital Signs Temp Pulse Resp BP Pulse Ox O2 Del Method O2 Flow Rate 97.6 F L 65 24 H 145/83 H 96 Bi-pap 30 03/20/25 09:37 03/20/25 09:53 03/20/25 09:37 03/20/25 09:37 03/20/25 09:37 03/20/25 09:37 03/20/25 05:30 FiO2 03/20/25 09:37 Oxygen Flow Rate (L/min) 30 Oxygen Delivery Method Bi-pap Weight: 185 lb 6.54 oz Body Mass Index (BMI) 26.6 Intake & Output: Intake and Output for Last 24 Hours 03/18/25 03/19/25 03/20/25 23:59 23:59 23:59 Intake Total 800 / 800 Balance 800 / 800 Lab / Micro Data 03/20/25 02:08 03/20/25 02:08 Labs: Laboratory Results - last 24 hr 03/20/25 02:05: Lactic Acid 2.2 H* 03/20/25 02:08: WBC 10.4, RBC 5.07, Hgb 16.5, Hct 50.5, MCV 99.6 H, MCH 32.5 H, MCHC 32.7, RDW Std Deviation 49.9 H, RDW Coeff of Adri 13.6, Plt Count 245, MPV 9.3, Immature Gran % (Auto) 0.400, Neut % (Auto) 55.6, Lymph % (Auto) 30.1, [place]% (Auto) 12.9 H, Eos % (Auto) 0.4, Baso % (Auto) 0.6, Absolute Neuts (auto) 5.8,Absolute Lymphs (auto) 3.12, Nucleated RBC % 0, D-Dimer Quant (PE/DVT) 1.03 H*, Sodium 141, Potassium 4.2, Chloride 105, Carbon Dioxide 22.4, Anion Gap 13, BUN 22 H, Creatinine 1.42 H, Estim Creat Clear Calc 42.05 L, Est GFR (MDRD) Non-Af 49 L, BUN/Creatinine Ratio 15.1, Glucose 170 H, Calcium 9.0, Troponin T High Sens 61 H*, NT pro BNP II 7412 H 03/20/25 04:20: Magnesium 1.7, Troponin T Hi Sens 2 Hr 56 H*, TSH 1.400 03/20/25 06:08: Lactic Acid 1.1 03/20/25 07:08: Troponin T Hi Sens 4Hr 75 H* 03/20/25 07:10: POC Glucose 199 H 03/20/25 07:45: Urine Color Yellow, Urine Clarity Clear, Urine pH 6.0, Ur Specific [place] 1.010, Urine Protein 30 H, Urine Glucose (UA) 1000 H, Urine Ketones Negative, Urine Occult Blood Negative, Urine Nitrite Negative, Urine Bilirubin Negative, Urine Urobilinogen Normal, Ur Leukocyte Esterase 25 H, UrineRBC 0 SEEN, Urine WBC 0 SEEN, Ur Squamous Epith Cells 0-5 SEEN, Urine Bacteria 0SEEN, Urine Mucus 0 SEEN Micro: Microbiology 03/20/25 07:30 Urine, Clean Catch Legionella Antigen - Final 03/20/25 07:30 Urine, Clean Catch Streptococcus pneumoniae Antigen (M - Final 03/20/25 02:16 Mucosa - Nose SARS-CoV-2, Influenza & RSV (PCR) - Final ABG Data ABG results: ABG 03/20/25 02:20 Specimen Type ART Sample Site L Radial pH 7.32 L Bicarbonate Actual 23.1 Total CO2 25 Base Excess -3 L O2 Saturation 99 O2 % 40.0 ABG pCO2 45.0 ABG pO2 141 H Martha Test Positive O2 Delivery Device BiPAP Vent Mode Not entered POC PEEP 8 Peak Inspir Pressure 16 Cardiology Labs/Tests 03/20/25 02:05: Lactic Acid 2.2 H* 03/20/25 02:08: WBC 10.4, RBC 5.07, Hgb 16.5, Hct 50.5, MCV 99.6 H, MCH 32.5 H, MCHC 32.7, Plt Count 245, MPV 9.3, Immature Gran % (Auto) 0.400, Neut % (Auto) 55.6, Lymph % (Auto) 30.1, [place] % (Auto) 12.9 H, Eos % (Auto) 0.4, Baso % (Auto)0.6, Absolute Neuts (auto) 5.8, Nucleated RBC % 0, D-Dimer Quant (PE/DVT) 1.03 H*, Sodium 141, Potassium 4.2, Chloride 105, Carbon Dioxide 22.4, Anion Gap 13, BUN 22 H, Creatinine 1.42 H, Est GFR (MDRD) Non-Af 49 L, BUN/Creatinine Ratio 15.1, Glucose 170 H, Calcium 9.0 03/20/25 02:20: pH 7.32 L, Bicarbonate Actual 23.1, Base Excess -3 L, O2 Saturation 99, ABG pCO2 45.0, ABG pO2 141 H, Martha Test Positive 03/20/25 04:20: Magnesium 1.7 03/20/25 06:08: Lactic Acid 1.1 03/20/25 07:45: Urine Color Yellow, Urine Clarity Clear, Urine pH 6.0, Ur Specific [place] 1.010, Urine Protein 30 H, Urine Glucose (UA) 1000 H, Urine Ketones Negative, Urine Occult Blood Negative, Urine Nitrite Negative, Urine Bilirubin Negative, Urine Urobilinogen Normal, Ur Leukocyte Esterase 25 H, UrineRBC 0 SEEN, Urine WBC 0 SEEN EKG: NSR ECHO: EF 15% Radiography Diagnostic Testing: Radiology Impression Chest X-Ray 03/20/25 02:32 IMPRESSION: Diffuse interstitial edema with free-flowing bilateral pleural effusions and bibasilar atelectasis. Findings suggest CHF. Follow-up recommended to ensure resolution Minimally displaced right rib fractures, no clearly demonstrated pneumothorax Old healed and healing left rib fractures Remote CABG Reading Location: [facility] Chest CTA 03/20/25 02:59 IMPRESSION: No demonstrated pulmonary embolism. Mild cardiomegaly. Prior CABG. Moderate bilateral pleural effusions. Passive atelectatic airspace disease/consolidations of the lower lobes, possiblyrepresenting passive atelectasis and/or superimposed pneumonia. Mild interstitial pulmonary congestion. Moderate diffuse spondylosis. AICD is in good position. Mild hepatomegaly with diffuse irregularity of the hepatic contour, possibly chronic parenchymal liver disease. Reading Location: [place] [address] [place] Risk Score for UA/STEMI Assesmment (YES = 1) Risk Stratification Applicable: No 03/20/25 1202 <Electronically signed by Sherin Webb MD> Cosigner Signature (if applicable): CC: ULI ALCALA~ Signed [facility] Work Phone: [phone] 136-792509-13-2025 Consult note [facility] Medical Records Department [address] [place] [address] Consultation - Cardiology 03/20/25 1011 MR#: [id number] Acct: [id number] Name: CECILIA KUHN Rep #:[id number] : 1945 80 From: Sherin Webb MD PCP: ULI ALCALA Status:ADM IN Location: [place] [address] Assessment & Plan Assessment/Plan (1) Acute exacerbation of chronic heart failure: PLAN: Acute on chronic decompensated HF 10% with RV failure Currently reaching euvolemia, switch IV lasix to once daily 40 mg Increase Hydralazine to 25 TID Continue with IMDUR 60 mg daily Once we have a better idea if this ANTHONY or CKD,we will switch him to ACEi restart Jardiance 10 mg daily Continue with Spironolactone 25 mg daily Hold off starting beta glo now in the setting of lactic acidosis and decompensated HF (2) History of coronary artery bypass graft: PLAN: Continue with aspirin 81 mg daily Continue with Atorvastatin 40 mg daily Continue with clopidogrel 75 mg daily Continue with Ranolazine Once kidney function improve. we will proceed with ischemic evaluation (3) Acute hypoxic respiratory failure: PLAN: In the setting of HFrEF and COPD exacerbation HPI Consult Data Date of Consult: 03/20/25 HPI Narrative HPI Narrative: CECILIA KUHN, is a 80 M with a past medical history of: # Hypertension # Diabetes # CAD status post CABG and PCI in the past # COPD # Hyperlipidemia # History of HFrEF status post ICD # Smoker # Mechanical fall with multiple rib fractures and pneumothorax 01/2025 # BMI 31 He moved recently from [facility] and he lives with his daughter presented with shortness of breath, orthopnea and PND. On presentation he had chest tightness. He denies any chest pain now. He has NYHA class III. He has bilateral lower extremity edema. He denies any fever, chills and recent infection.He has shortness of breath with minimal exertion. His breathing has been getting worse over the last few months. n the ER he was noted to have an elevated NT pro-BNP of 7,412 pg/mL present on admission with a CXRthat revealed pulmonary vascular congestion with moderate Right pleural effusion He had Acute Hypoxic Respiratory Failure requiring BIPAP. [facility] Medical History Pleural effusion Heart failure Presence of combination internal cardiac defibrillator (ICD) and pacemaker Diabetes Home Medications ?Medication ?Instructions ?Recorded ?Last Taken ?Type aspirin 81 mg tablet 81 mg PO DAILY 03/20/25 Unkn own History atorvastatin 40 mg tablet (Lipitor) 40 mg PO DAILY Unknown History clopidogrel 75 mg tablet 75 mg PO DAILY 03/20/25 Unkn own History empagliflozin 10 mg tablet 10 mg PO DAILY 03/20/25 Unk nown History (Jardiance) finasteride 5 mg tablet 5 mg PO DAILY 03/20/25 Unkno wn History hydralazine 10 mg tablet 10 mg PO BID 03/20/25 Unknow n History insulin lispro protamine-lispro 20 unit subcut BID Unknown History 100 unit/mL (75-25) subcutaneous pen (Humalog Mix 75-25 KwikPen) isosorbide mononitrate 60 mg 60 mg PO DAILY 03/20/25 U nknown History tablet,extended release 24 hr methocarbamol 500 mg tablet 500 mg PO Q6H PRN muscle s pasm 03/20/25 Unknown History ranolazine 1,000 mg 1,000 mg PO BID 03/20/25 Unk nown History tablet,extended release,12 hr spironolactone 25 mg tablet 25 mg PO DAILY 03/20/25 Un known History (Aldactone) Allergy/AdvReac Type Severity Reaction Status Date / Time No Known Allergies Allergy Verified 03/20/25 02:04 Surgical History H/O heart artery stent Social History Smoking Status: Current some day smoker tobacco type: cigars Physical Exam Const alert and oriented x3 HEENT normocephalic Eyes PERRL Neck full ROM Lymph Lymphatic: no lymphadenopathy noted Chest inspection of chest normal Resp normal respiratory effort Cardio regular rate and regular rhythm Jugular Venous Distention: JVD GI normal to inspection, nondistended, normoactive bowel sounds no CVA tenderness Back/Spine no CVA tenderness Extremity normal to inspection Skin no rashes or lesions noted Objective Data Vital Signs: Vital Signs Temp Pulse Resp BP Pulse Ox O2 Del Method O2 Flow Rate 97.6 F L 65 24 H 145/83 H 96 Bi-pap 30 03/20/25 09:37 03/20/25 09:53 03/20/25 09:37 03/20/25 09:37 03/20/25 09:37 03/20/25 09:37 03/20/25 05:30 FiO2 03/20/25 09:37 Oxygen Flow Rate (L/min) 30 Oxygen Delivery Method Bi-pap Weight: 185 lb 6.54 oz Body Mass Index (BMI) 26.6 Intake & Output: Intake and Output for Last 24 Hours 03/18/25 03/19/25 03/20/25 23:59 23:59 23:59 Intake Total 800 / 800 Balance 800 / 800 Lab / Micro Data 03/20/25 02:08 03/20/25 02:08 Labs: Laboratory Results - last 24 hr 03/20/25 02:05: Lactic Acid 2.2 H* 03/20/25 02:08: WBC 10.4, RBC 5.07, Hgb 16.5, Hct 50.5, MCV 99.6 H, MCH 32.5 H, MCHC 32.7, RDW Std Deviation 49.9 H, RDW Coeff of Adri 13.6, Plt Count 245, MPV 9.3, Immature Gran % (Auto) 0.400, Neut % (Auto) 55.6, Lymph % (Auto) 30.1, [place]% (Auto) 12.9 H, Eos % (Auto) 0.4, Baso % (Auto) 0.6, Absolute Neuts (auto) 5.8,Absolute Lymphs (auto) 3.12, Nucleated RBC % 0, D-Dimer Quant (PE/DVT) 1.03 H*, Sodium 141, Potassium 4.2, Chloride 105, Carbon Dioxide 22.4, Anion Gap 13, BUN 22 H, Creatinine 1.42 H, Estim Creat Clear Calc 42.05 L, Est GFR (MDRD) Non- Af 49 L, BUN/Creatinine Ratio 15.1, Glucose 170 H, Calcium 9.0, Troponin T High Sens 61 H*, NT pro BNP II 7412 H 03/20/25 04:20: Magnesium 1.7, Troponin T Hi Sens 2 Hr 56 H*, TSH 1.400 03/20/25 06:08: Lactic Acid 1.1 03/20/25 07:08: Troponin T Hi Sens 4Hr 75 H* 03/20/25 07:10: POC Glucose 199 H 03/20/25 07:45: Urine Color Yellow, Urine Clarity Clear, Urine pH 6.0, Ur Specific [place] 1.010, Urine Protein 30 H, Urine Glucose (UA) 1000 H, Urine Ketones Negative, Urine Occult Blood Negative, Urine Nitrite Negative, Urine Bilirubin Negative, Urine Urobilinogen Normal, Ur Leukocyte Esterase 25H, UrineRBC 0 SEEN, Urine WBC 0 SEEN, Ur Squamous Epith Cells 0-5 SEEN, Urine Bacteria 0SEEN, UrineMucus 0 SEEN Micro: Microbiology 03/20/25 07:30 Urine, Clean Catch Legionella Antigen - Final 03/20/25 07:30 Urine, Clean Catch Streptococcus pneumoniae Antigen (M - Final 03/20/25 02:16 Mucosa - Nose SARS-CoV-2, Influenza & RSV (PCR) - Final ABG Data ABG results: ABG 03/20/25 02:20 Specimen Type ART Sample Site L Radial pH 7.32 L Bicarbonate Actual 23.1 Total CO2 25 Base Excess -3 L O2 Saturation 99 O2 % 40.0 ABG pCO2 45.0 ABG pO2 141 H Martha Test Positive O2 Delivery Device BiPAP Vent Mode Not entered POC PEEP 8 Peak Inspir Pressure 16 Cardiology Labs/Tests 03/20/25 02:05: Lactic Acid 2.2 H* 03/20/25 02:08: WBC 10.4, RBC 5.07, Hgb 16.5, Hct 50.5, MCV 99.6 H, MCH 32.5 H, MCHC 32.7, Plt Count 245, MPV 9.3, Immature Gran % (Auto) 0.400, Neut % (Auto) 55.6, Lymph % (Auto) 30.1, [place] % (Auto)12.9 H, Eos % (Auto) 0.4, Baso % (Auto)0.6, Absolute Neuts (auto) 5.8, Nucleated RBC % 0, D-Dimer Quant (PE/DVT) 1.03 H*, Sodium 141, Potassium 4.2, Chloride 105, Carbon Dioxide 22.4, Anion Gap 13, BUN 22 H, Creatinine 1.42 H, Est GFR (MDRD) Non-Af 49 L, BUN/Creatinine Ratio 15.1, Glucose 170 H, Calcium 9.0 03/20/25 02:20: pH 7.32 L, Bicarbonate Actual 23.1, Base Excess -3 L, O2 Saturation 99, ABG pCO2 45.0, ABG pO2 141 H, Martha Test Positive 03/20/25 04:20: Magnesium 1.7 03/20/25 06:08: Lactic Acid 1.1 03/20/25 07:45: Urine Color Yellow, Urine Clarity Clear, Urine pH 6.0, Ur Specific [place] 1.010, Urine Protein 30 H, Urine Glucose (UA) 1000 H, Urine Ketones Negative, Urine Occult Blood Negative, Urine Nitrite Negative, Urine Bilirubin Negative, Urine Urobilinogen Normal, Ur Leukocyte Esterase 25H, UrineRBC 0 SEEN, Urine WBC 0 SEEN EKG: NSR ECHO: EF 15% Radiography Diagnostic Testing: Radiology Impression Chest X-Ray 03/20/25 02:32 IMPRESSION: Diffuse interstitial edema with free-flowing bilateral pleural effusions and bibasilar atelectasis.Findings suggest CHF. Follow-up recommended to ensure resolution Minimally displaced right rib fractures, no clearly demonstrated pneumothorax Old healed and healing left rib fractures Remote CABG Reading Location: [facility] Chest CTA 03/20/25 02:59 IMPRESSION: No demonstrated pulmonary embolism. Mild cardiomegaly. Prior CABG. Moderate bilateral pleural effusions. Passive atelectatic airspace disease/consolidations of the lower lobes, possiblyrepresenting passive atelectasis and/or superimposed pneumonia. Mild interstitial pulmonary congestion. Moderate diffuse spondylosis. AICD is in good position. Mild hepatomegaly with diffuse irregularity of the hepatic contour, possibly chronic parenchymal liver disease. Reading Location: [address] Risk Score for UA/STEMI Assesmment (YES = 1) Risk Stratification Applicable: No 03/20/25 1202 Cosigner Signature (if applicable): CC: ULI ALCALA~ Signed [facility]09-13-2025 History and physical note Author Matthew Whitaker [facility] Note Date/Time March 20, 2025 6:44am [facility] Medical Records Department [address] [place] [address] H&P Exam - Hospitalist 03/20/25 0454 MR#: [id number] Acct: [id number] Name: CECILIA KUHN Rep #:[id number] : 1945 80 From: Matthew Angela DO PCP: ULI ALCALA Status:ADM IN Location: [place] [id number] 1 HPI - General General Date of Admission: 03/20/25 Date of Service: 03/20/25 Chief Complaint: Chest Tightness and SOB. HPI Narrative CECILIA KUHN, is a 80 M with a past medical history of essential hypertension; on hydralazine and spironolactone, hyperlipidemia; on atorvastatin, chronic tobaccoabuse, obesity (class I); with BMI of 31.9 this admission, DM-2; of unknown control on empagliflozin plus insulin lispro BID, CAD; s/p CABG and stent on BASA, clopidogrel, ISMO and ranolazine BID, history of CHF; of uncertain type, history of arrhythmia; s/p PPM/AICD, BPH; on finasteride, OA; with muscle spasmson methocarbamol QID prn and history of mechanical fall with multiple rib fractures and pneumothorax in January 2025 causing him to leave [place] to stay with his daughter locally who presents to [facility] ER complaining of chest tightness and SOB. Mr. Kuhn reports his symptoms began approximately 2-3 days prior to admission with SAUER that progressed to SOB at rest in addition to cough. He also admits toassociated chest tightness that is mild but made worse with activity along with ~1+ bilateral lower extremity edema so his daughter activated EMS with patient treated en- route with SL NTG, 4 BASA and Duo-Neb. He arrived here on CPAP due to respiratory distress. There was no report of fever, chills, runny nose, sorethroat, ear pain, abdominal pain, nausea, vomiting, diarrhea, constipation, dysuria, hematuria, headache or rash. In the ER he was noted to have an elevated NT pro-BNP of 7,412 pg/mL present on admission with a CXR that revealedpulmonary vascular congestion with moderate Right pleural effusion with PPM in place in addition to sternotomy wires in place consistent with AE CHF; of uncertain type complicated by clinical evidence of Acute Hypoxic Respiratory Failure evidenced by ABG of 7.32/ PCO2 45 mmHg/ PO2 141 mmHg/ HCO3 23.1 mmol/L on BiPAP with 40% FiO2 and rate of 16 with 8 PEEP compounded by mildly elevated troponin T of 61 ng/L and Lactic Acidosis of 2.2 mmol/L with ER physician suspecting superimposed AE COPD with underlying Pneumonia. He was then admittedto the PCU for ongoing care for a stay that is expected to extend beyond 2 midnights. [facility] Medical History (Updated 03/20/25 @ 05:[address] Matthew Grullon, ) Pleural effusion Heart failure Presence of combination internal cardiac defibrillator (ICD) and pacemaker Diabetes Home Medications ?Medication ?Instructions ?Recorded ?Last Taken ?Type aspirin 81 mg tablet 81 mg PO DAILY 03/20/25 Unkn own History atorvastatin 40 mg tablet (Lipitor) 40 mg PO DAILY Unknown History clopidogrel 75 mg tablet 75 mg PO DAILY 03/20/25 Unkn own History empagliflozin 10 mg tablet 10 mg PO DAILY 03/20/25 Unk nown History (Jardiance) finasteride 5 mg tablet 5 mg PO DAILY 03/20/25 Unkno wn History hydralazine 10 mg tablet 10 mg PO BID 03/20/25 Unknow n History insulin lispro protamine-lispro 20 unit subcut BID Unknown History 100 unit/mL (75-25) subcutaneous pen (Humalog Mix 75-25 KwikPen) isosorbide mononitrate 60 mg 60 mg PO DAILY 03/20/25 U nknown History tablet,extended release 24 hr methocarbamol 500 mg tablet 500 mg PO Q6H PRN muscle s pasm 03/20/25 Unknown History ranolazine 1,000 mg 1,000 mg PO BID 03/20/25 Unk nown History tablet,extended release,12 hr spironolactone 25 mg tablet 25 mg PO DAILY 03/20/25 Un known History (Aldactone) Allergy/AdvReac Type Severity Reaction Status Date / Time No Known Allergies Allergy Verified 03/20/25 02:04 Surgical History (Updated 03/20/25 @ 05:[address] Matthew Grullon DO) H/O heart artery stent Social History Smoking Status: Current every day smoker tobacco type: cigarettes ROS ROS Narrative Review of Systems: Constitutional: Patient denies fever or chills. Eyes: Patient denies changes in vision or discharge from eyes. ENT: Patient denies runny nose, sore throat or ear pain. Resp: Patient admits to SOB an cough. CV: Patient admits to chest tightness and ~1+ LE edema as per HPI. He denies palpitations or heart racing. GI: Patient denies abdominal pain, nausea, vomiting, diarrhea or constipation. : Patient denies dysuria or hematuria. MSK: Patient denies arthralgias or myalgias. Skin: Patient denies rash, abscess, wounds or jaundice. Psych: Patient denies symptoms of uncontrolled depression or anxiety. Neuro: Patient denies headache, paresthesias or focal neurologic deficits. Allergy: Patient denies lip swelling, tongue swelling or urticaria. Hematology: Patient denies easy bleeding or easy bruisability. Endocrinology: Patient denies polyuria, polydipsia, polyphagia or heat/cold intolerance. 14 point ROS otherwise negative except for positives noted above in HPI. Vital Signs Vital Signs Vital Signs: 03/20/25 02:03 03/20/25 02:09 03/20/25 02:09 Temperature 97.3 F L 97.3 F L Temperature Source Temporal Temporal Pulse Rate 98 96 Respiratory Rate 25 H 35 H Respiratory Effort Respiratory Depth Respiratory Pattern Blood Pressure 162/100 H 162/100 H Blood Pressure Mean 120 120 Pulse Ox 100 100 Oxygen Delivery Method CPAP CPAP Bi-pap Fraction of Inspired Oxygen (FIO2) 60 60 60 03/20/25 02:12 03/20/25 02:18 03/20/25 02:19 Temperature Temperature Source Pulse Rate 89 90 Respiratory Rate 33 H 30 H Respiratory Effort Short of Breath Respiratory Depth Deep Respiratory Pattern Tachypnea Tachypnea Tachypnea Blood Pressure Blood Pressure Mean Pulse Ox 99 Oxygen Delivery Method CPAP Fraction of Inspired Oxygen (FIO2) 60 30 03/20/25 02:33 03/20/25 03:09 03/20/25 03:30 Temperature 97.8 F Temperature Source Temporal Pulse Rate 78 87 85 Respiratory Rate 19 H 26 H 24 H Respiratory Effort Respiratory Depth Respiratory Pattern Blood Pressure 144/85 H 144/85 H Blood Pressure Mean 104 104 Pulse Ox 100 95 95 Oxygen Delivery Method Bi-pap Bi-pap Bi-pap Fraction of Inspired Oxygen (FIO2) 30 30 30 03/20/25 04:00 03/20/25 04:30 03/20/25 04:30 Temperature Temperature Source Pulse Rate 83 73 76 Respiratory Rate 20 H 21 H 21 H Respiratory Effort Respiratory Depth Respiratory Pattern Tachypnea Blood Pressure 136/90 H 133/76 H Blood Pressure Mean 105 95 Pulse Ox 96 95 97 Oxygen Delivery Method Bi-pap Bi-pap Fraction of Inspired Oxygen (FIO2) 30 30 30 Weight Weight: 197 lb 8.547 oz Body Mass Index (BMI) 31.8 Physical Exam Const alert and oriented x3 Constitutional Narrative: Patient appears comfortable on BiPAP. General Appearance: cooperative HEENT normocephalic, head/scalp atraumatic and hearing grossly normal bilaterally HEENT Narrative: Mucous membraes dry. Eyes PERRL, EOMs intact bilaterally and conjunctivae normal Neck no lymphadenopathy, supple and no JVD Resp Resp Narrative: Diminished breath sounds throughout with coarse bibasilar rales and increased work of breathing. Auscultation: rales Cardio regular rate and regular rhythm GI normal to inspection, nondistended, normoactive bowel sounds, soft to palpation,non-tender and non-distended GI Narrative: Obese. Extremity Extremity Narrative: ~1+ bilateral LE edema. Skin Skin Narrative: Patient has no evidence of rash, abscess, wounds or jaundice. Neuro oriented x3, CN's II-XII intact bilaterally, moves all extremities and no focal motor deficits Sensorium / Orientation: awake, alert, oriented to person, oriented to place andoriented to time Speech: speech normal Psych affect normal Results Medical Records Data Attestation: I reviewed the patient's medical records Lab / Micro Data Attestation: I reviewed the patient's lab results. 03/20/25 02:08 03/20/25 02:08 Labs: Laboratory Results - last 24 hr 03/20/25 02:05: Lactic Acid 2.2 H* 03/20/25 02:08: WBC 10.4, RBC 5.07, Hgb 16.5, Hct 50.5, MCV 99.6 H, MCH 32.5 H, MCHC 32.7, RDW Std Deviation 49.9 H, RDW Coeff of Adri 13.6, Plt Count 245, MPV 9.3, Immature Gran % (Auto) 0.400, Neut % (Auto) 55.6, Lymph % (Auto) 30.1, [place]% (Auto) 12.9 H, Eos % (Auto) 0.4, Baso % (Auto) 0.6, Absolute Neuts (auto) 5.8,Absolute Lymphs (auto) 3.12, Nucleated RBC % 0, D-Dimer Quant (PE/DVT) 1.03 H*, Sodium 141, Potassium 4.2, Chloride 105, Carbon Dioxide 22.4, Anion Gap 13, BUN 22 H, Creatinine 1.42 H, Estim Creat Clear Calc 42.05 L, Est GFR (MDRD) Non-Af 49 L, BUN/Creatinine Ratio 15.1, Glucose 170 H, Calcium 9.0, Troponin T High Sens 61 H*, NT pro BNP II 7412 H 03/20/25 04:20: Troponin T Hi Sens 2 Hr 56 H* Micro: Microbiology 03/20/25 02:16 Mucosa - Nose SARS-CoV-2, Influenza & RSV (PCR) - Final ABG Data ABG results: ABG 03/20/25 02:20 Specimen Type ART Sample Site L Radial pH 7.32 L Bicarbonate Actual 23.1 Total CO2 25 Base Excess -3 L O2 Saturation 99 O2 % 40.0 ABG pCO2 45.0 ABG pO2 141 H Martha Test Positive O2 Delivery Device BiPAP Vent Mode Not entered POC PEEP 8 Peak Inspir Pressure 16 Imaging [facility] Imaging Services [address] [place] [id number] Chest 1 View (Portable) MR#: [id number] Acct: [id number] Name: CECILIA KUHN Rep #: [id number] : 1945 M 80 From: César Salazar MD PCP: ULI ALCALA Status: ADM IN Study: Chest 1 View (Portable) Date of Exam: 03/20/25 Exam# [id number] Ordering Dr: Jhoan Maldonado DO PROCEDURE: CHEST 1 VIEW (PORTABLE) 03/20/2025 REASON FOR EXAM: SHORTNESS OF BREATH TECHNIQUE: Frontal view of the chest. COMPARISON: CT chest from earlier today FINDINGS: Hardware: EKG leads overlie the chest. Stable appearance of the left subclavianpacemaker Heart: Remote CABG Lungs: Lungs are expanded with superimposed interstitial edema and bilateral pleural effusions with bibasilar atelectasis suggesting CHF. Follow-up recommended to ensure resolution. Bones: Bony structures show degenerative change. There are acute displaced right rib fractures and old healed and healing left rib fractures. Other: Despite the right rib fractures, no pneumothorax is noted RAD/Chest 1 View (Portable) IMPRESSION: Diffuse interstitial edema with free-flowing bilateral pleural effusions and bibasilar atelectasis. Findings suggest CHF. Follow-up recommended to ensure resolution Minimally displaced right rib fractures, no clearly demonstrated pneumothorax Old healed and healing left rib fractures Remote CABG Reading Location: [id number] CC: Dr. Jhoan Maldonado DO; ULI ALCALA ~ Counter Maker: Signed ----- [facility] Imaging Services [address] [place] [address] CTA Chest W/WO Contrast MR#: [id number] Acct: [id number] Name: CECILIA KUHN Rep #: [id number] : 1945 M 80 From: Blanco Salazar MD PCP: ULI ALCALA Status: ADM IN Study: CTA Chest W/WO Contrast Date of Exam: 03/20/25 Exam# [id number] Ordering Dr: Jhoan Maldonado DO ADDENDUM by Dr. Blanco Salazar MD on 03/20/25 at 0606 Subacute fractures in the axillary and posterior arches of the right 5th, 6, 7th, 8th and 9th ribs. Reading Location[facility] 03/20/25 0607 Date cc: Dr. Jhoan Maldonado DO; ULI ALCALA ~* Signed PROCEDURE: CTA CHEST W/WO CONTRAST 03/20/2025 REASON FOR EXAM: PE, ELEVATED DIMER TECHNIQUE: Procedure Code: CTCTACHWW Modality: CT Procedure: CTA CHEST W/WO CONTRAST Multiplanar Sagittal and Coronal images were obtained. CONTRAST: Isovue 370 VOLUME: 100 mL One or more dose reduction techniques were used (e.g., Automated exposure control, adjustment of the mA and/or kV according to patient size, use of iterative reconstruction technique). RADIATION DOSE SUMMARY: CTDlvol: 15.45 mGy DLP: 466 mGycm COMPARISON: Chest radiograph on 03/20/2025. FINDINGS: Mild cardiomegaly. Prior CABG. Moderate bilateral pleural effusions. Passive atelectatic airspace disease/consolidations of the lower lobes, possiblyrepresenting passive atelectasis and/or superimposed pneumonia. Mild interstitial pulmonary congestion. Moderate diffuse spondylosis. AICD is in good position. Mild hepatomegaly with diffuse irregularity of the hepatic contour, possibly chronic parenchymal liver disease. Mild ascites. Normal enhancement of the main pulmonary artery and right and left pulmonary arteries. Normal enhancement of the bilateral peripheral pulmonary arteries. There is no demonstrated pulmonary embolism. Suboptimal enhancement of the thoracic aorta limiting its evaluation. There is no demonstrated aortic dissection. Normal pericardium. Normal mediastinum. Normal hilar regions. Normal visualized trachea and bronchi. CT/CTA Chest W/WO Contrast IMPRESSION: No demonstrated pulmonary embolism. Mild cardiomegaly. Prior CABG. Moderate bilateral pleural effusions. Passive atelectatic airspace disease/consolidations of the lower lobes, possiblyrepresenting passive atelectasis and/or superimposed pneumonia. Mild interstitial pulmonary congestion. Moderate diffuse spondylosis. AICD is in good position. Mild hepatomegaly with diffuse irregularity of the hepatic contour, possibly chronic parenchymal liver disease. Reading Location[facility] CC: Dr. Jhoan Braun-Yuri, DO; ULI ALCALA ~ Counter Maker: Signed Assessment & Plan Assessment/Plan (1) Acute exacerbation of chronic heart failure: (2) Pleural effusion: (3) COPD exacerbation: (4) Pneumonia: QUALIFIERS: Laterality: unspecified laterality Lung location: unspecified part of lung Pneumonia type: due to unspecified organism Qualified Code(s): J18.9 - Pneumonia, unspecified organism (5) Acute hypoxic respiratory failure: (6) Elevated troponin: (7) Chest tightness: (8) History of coronary artery bypass graft: (9) History of coronary artery stent placement: (10) Lactic acidosis: (11) Obesity (BMI 30.0-34.9): (12) Tobacco abuse: PLAN: Plan 1. Elevated NT pro-BNP of 7,412 pg/mL present on admission with a CXR that revealed pulmonary vascular congestion with moderate Right pleural effusion withPPM in place in addition to sternotomy wires in place consistent with AE of chronic CHF; of uncertain type - Admit to PCU. Continue IV furosemide begun in the ER and add supplemental KCl and magnesium. Check echocardiogram to evaluateLVEF. Give ondansetron IV prn for nausea or vomiting. Give acetaminophen prn for [id number] (level 1-5/10) pain or fever. Give morphine IV prn for severe (level 6-10/10) pain. Finally, we will consult [facility] to see this patient on-rounds in the AM for further recommendations with help appreciated in advance. 2. AE COPD with possible superimposed Pneumonia causing Acute Hypoxic Respiratory Failure requiring BiPAP in the setting of ongoing Tobacco abuse complicating #1 - Continue IV methylprednisolone in addition to IV ceftriaxone and IV azithromycin begun in ER and check viral respiratory panel and urinary antigens to Streptococcus pneumonia and Legionella. Wean BiPAP as tolerated. Tobacco Cessation will be strongly encouraged with Nicotine patch offered to control cravings. 3. Elevated troponin T of 61 ng/L arising from Acute Cardiac Strain with Chest Tightness due to #1 & #2 in the setting of previously known CAD; s/p CABG plus stent and PPM/AICD - Serialize troponin. 4. Lactic Acidosis of 2.2 mmol/L present on admission adding to the medical complexity of #1 - #3 - Serialize lactate to follow trend. 5. Obesity (class I); with BMI of 31.9 this admission adding to the burden of disease outlined from #1 - #4 - Weight loss will be recommended. Check TSH. This complicates his case and may hamper recovery. 6. History of mechanical fall with multiple rib fractures and pneumothorax in January 2025 causing him to leave [place] to stay with his daughter locally - Noted. PT/OT and Case Management to consult and treat on-rounds in AM for further recommendations with help appreciated in advance. 7. Essential hypertension; on hydralazine and spironolactone - Home regimen to be maintained as previous. 8. Hyperlipidemia; on atorvastatin - Continue statin and check Lipid Profile. 9. DM-2; of unknown control on empagliflozin plus insulin lispro BID - Keep NPOwhile on BiPAP. Resume insulin lispro. Check FSBS q. 6 hours plus lowest intensity SSI. Check HgbA1c to objectively assess quality of diabetic control. 10. BPH; on finasteride - Maintain present therapy. 11. OA; with muscle spasms on methocarbamol QID prn - Continue current treatment. 12. DVT/GI prophylaxis - Start enoxaparin 40 mg sq daily plus SCD's. Pantoprazole 40 mg IV daily. Total time: Approximately (but not less than) 75 minutes. Charges/Coding Visit Charges Inpatient E&M: 18901 Init Hosp L3 03/20/25 0644 <Electronically signed by Matthew Grullon DO> Cosigner Signature (if applicable): CC: Dr. Matthew Grullon DO; ULI ALCALA~ Signed [facility] Work Phone: [phone] Discharge summary Author Jhoan Maldonado [facility] Note Date/Time March 20, 2025 6:10am [facility] Medical Records Department [address] [place] [address] Emergency Department Summary 03/20/25 MR#: [id number] Acct: [id number] Name: CECILIA KUHN Rep #:[id number] : 1945 80 From: Jhoan price DO PCP: ULI ALCALA Status:ADM IN Location: [place] [address] HPI History of Present Illness Chief Complaint: Chest Pain Narrative Narrative: Chief complaint and HPI: 80-year-old male with past medical history of CAD with history of CABG/PCI, ICD/pacemaker, DM, CHF presents via EMS for evaluation of shortness of breath. Daughter gives majority of the history. Daughter states her father is visiting from [place] since January after he had a mechanical fall that resulted in rib fractures and pneumothorax. She states he has been doing well until the past couple days he has had increasing shortness of breath and cough. This evening shortness of breath worsened. He endorses chest tightness associated with it. He denies any fever, chills, abdominal pain, nausea, vomiting. Tobacco abuser. Review of systems: See HPI Medications: As listed on the chart Allergies: As listed on the chart PFSH: Per chart Vital signs: As listed on the chart. Reviewed. Physical exam: Gen: A&O x3 Head: Normocephalic, atraumatic Eyes: No sclera icterus, conjunctiva clear, PERRL ENT: Mildly dry mucous membranes Neck: Trachea midline, No JVD CV: RRR, no murmurs, +1 pitting peripheral bilateral edema, midline scar healed well, no cellulitis overlying pacemaker/ICD Resp: Lungs diminished in the bilateral bases, mildly coarse, tachypneic, respiratory distress GI: Abd soft, non-distended, non-tender, no r/r/g Musc: Full ROM, no deformity Skin: Warm, dry Neuro: Alert, oriented, grossly intact, sensation intact Psych: Cooperative [facility] Medical History (Updated 03/20/25 @ 02:06 by Nidia Leo) Heart failure Presence of combination internal cardiac defibrillator (ICD) and pacemaker Diabetes Home Medications ?Medication ?Instructions ?Recorded ?Last Taken ?Type aspirin 81 mg tablet 81 mg PO DAILY 03/20/25 Unkn own History atorvastatin 40 mg tablet (Lipitor) 40 mg PO DAILY Unknown History clopidogrel 75 mg tablet 75 mg PO DAILY 03/20/25 Unkn own History empagliflozin 10 mg tablet 10 mg PO DAILY 03/20/25 Unk nown History (Jardiance) finasteride 5 mg tablet 5 mg PO DAILY 03/20/25 Unkno wn History hydralazine 10 mg tablet 10 mg PO BID 03/20/25 Unknow n History insulin lispro protamine-lispro 20 unit subcut BID Unknown History 100 unit/mL (75-25) subcutaneous pen (Humalog Mix 75-25 KwikPen) isosorbide mononitrate 60 mg 60 mg PO DAILY 03/20/25 U nknown History tablet,extended release 24 hr methocarbamol 500 mg tablet 500 mg PO Q6H PRN muscle s pasm 03/20/25 Unknown History ranolazine 1,000 mg 1,000 mg PO BID 03/20/25 Unk nown History tablet,extended release,12 hr spironolactone 25 mg tablet 25 mg PO DAILY 03/20/25 Un known History (Aldactone) Allergy/AdvReac Type Severity Reaction Status Date / Time No Known Allergies Allergy Verified 03/20/25 02:04 Surgical History (Updated 03/20/25 @ 02:06 by Nidia Leo) H/O heart artery stent Social History Smoking Status: Current every day smoker tobacco type: cigarettes EXAM Physical Exam Const Vital Signs: 03/20/25 02:03 03/20/25 02:09 03/20/25 02:09 Temperature 97.3 F L 97.3 F L Temperature Source Temporal Temporal Pulse Rate 98 96 Respiratory Rate 25 H 35 H Respiratory Effort Respiratory Depth Respiratory Pattern Blood Pressure 162/100 H 162/100 H Blood Pressure Mean 120 120 Pulse Ox 100 100 Oxygen Delivery Method CPAP CPAP Bi-pap Fraction of Inspired Oxygen (FIO2) 60 60 60 03/20/25 02:12 03/20/25 02:18 03/20/25 02:19 Temperature Temperature Source Pulse Rate 89 90 Respiratory Rate 33 H 30 H Respiratory Effort Short of Breath Respiratory Depth Deep Respiratory Pattern Tachypnea Tachypnea Tachypnea Blood Pressure Blood Pressure Mean Pulse Ox 99 Oxygen Delivery Method CPAP Fraction of Inspired Oxygen (FIO2) 60 30 03/20/25 02:33 03/20/25 03:09 03/20/25 03:30 Temperature 97.8 F Temperature Source Temporal Pulse Rate 78 87 85 Respiratory Rate 19 H 26 H 24 H Respiratory Effort Respiratory Depth Respiratory Pattern Blood Pressure 144/85 H 144/85 H Blood Pressure Mean 104 104 Pulse Ox 100 95 95 Oxygen Delivery Method Bi-pap Bi-pap Bi-pap Fraction of Inspired Oxygen (FIO2) 30 30 30 03/20/25 04:00 03/20/25 04:30 03/20/25 04:30 Temperature Temperature Source Pulse Rate 83 73 76 Respiratory Rate 20 H 21 H 21 H Respiratory Effort Respiratory Depth Respiratory Pattern Tachypnea Blood Pressure 136/90 H 133/76 H Blood Pressure Mean 105 95 Pulse Ox 96 95 97 Oxygen Delivery Method Bi-pap Bi-pap Fraction of Inspired Oxygen (FIO2) 30 30 30 MDM MDM MDM Narrative Medical decision making narrative: 80-year-old male with past medical history of CAD with history of CABG/PCI, ICD/pacemaker, DM, CHF presents via EMS for evaluation of shortness of breath. Daughter gives majority of the history. Daughter states her father is visiting from [place] since January after he had a mechanical fall that resulted in rib fractures and pneumothorax. She states he has been doing well until the past couple days he has had increasing shortness of breath and cough. This evening shortness of breath worsened. He endorses chest tightness associated with it. On arrival, patient arrives on CPAP machine. He is tachypneic in respiratory distress. He received nitro, 4 baby aspirin, and DuoNeb prior to arrival. Patient was switched over to BiPAP with improvement in respiratory distress. Differential diagnosis includes but is not limited to COPD exacerbation, pneumonia, CHF, ACS, PE, electrolyte abnormality, arrhythmia. EKGreviewed. Chest x-ray reviewed, suspect more pulmonary edema/CHF exacerbation however given I cannot rule out pneumonia we will give Rocephin and azithromycin. ABG with mild acidosis of 7.32. Oxygenating well on BiPAP. Willdecrease FiO2. No hypercapnia. CBC without leukocytosis, anemia, platelet dysfunction. D- dimer elevated at 1.03. Cannot rule out PE. CT chest ordered. BMP shows renal insufficiency of 1.42. Unknown patient's baseline. May be chronic versus acute. Lactic acid 2.2. Patient receiving only 500 cc bolus. Will be judicial with fluids given CHF. BNP elevated at 7412. IV Lasix ordered. Troponin 61 and 56. CTA chest cannot be read by radiology secondary to having technical difficulties. I did personally review the CTA. No obvious PE. Patient has bilateral pulmonary effusions, worse on the right compared to the left. Right sided atelectasis. On reevaluation, patient's respiratory status has improved on BiPAP. We did try to take him off during CT however patient could not tolerate this. Patient was updated of all the results and theplan for admission. He confirmed understanding the plan. Patient discussed with Dr. Menezes. He accepted admission. EKG: Interpreted by me/EM physician: EKG shows sinus rhythm with PVCs. Left bundle branch block. Heart rate 97. Diagnostic: Interpreted by me/EM physician: No pneumothorax. Patient has cardiomegaly. Bilateral effusions. Worse on the right compared to the left. Cannot rule out pneumonia. Cannot compare to radiology read as we are having technical difficulties and they cannot see any of the imaging. 30 minutes of critical care time utilized in managing the patient. This is due to high probability of and deterioration of the patient based on the patient's condition and excludes any separately billable procedures. Impression: 1. Acute hypoxia with respiratory distress requiring BiPAP 2. CHF exacerbation 3. Possible pneumonia 4. Elevated troponin likely secondary to #2 5. Lactic acidosis 6. Renal insufficiency, acute versus chronic Lab Data Labs: Laboratory Results - last 24 hr 03/20/25 03/20/25 03/20/25 02:05 02:08 04:20 WBC 10.4 RBC 5.07 Hgb 16.5 Hct 50.5 MCV 99.6 H MCH 32.5 H MCHC 32.7 RDW Std Deviation 49.9 H RDW Coeff of Adri 13.6 Plt Count 245 MPV 9.3 Immature Gran % (Auto) 0.400 Neut % (Auto) 55.6 Lymph % (Auto) 30.1 [place] % (Auto) 12.9 H Eos % (Auto) 0.4 Baso % (Auto) 0.6 Absolute Neuts (auto) 5.8 Absolute Lymphs (auto) 3.12 Nucleated RBC % 0 D-Dimer Quant (PE/DVT) 1.03 H* Sodium 141 Potassium 4.2 Chloride 105 Carbon Dioxide 22.4 Anion Gap 13 BUN 22 H Creatinine 1.42 H Estim Creat Clear Calc 42.05 L Est GFR (MDRD) Non-Af 49 L BUN/Creatinine Ratio 15.1 Glucose 170 H Lactic Acid 2.2 H* Calcium 9.0 Troponin T High Sens 61 H* Troponin T Hi Sens 2 Hr 56 H* NT pro BNP II 7412 H ABG Data ABG results: ABG 03/20/25 02:20 Specimen Type ART Sample Site L Radial pH 7.32 L Bicarbonate Actual 23.1 Total CO2 25 Base Excess -3 L O2 Saturation 99 O2 % 40.0 ABG pCO2 45.0 ABG pO2 141 H Martha Test Positive O2 Delivery Device BiPAP Vent Mode Not entered POC PEEP 8 Peak Inspir Pressure 16 Discharge Plan Triage Chief Complaint: Chest Pain ED Provider: Jhoan Maldonado Dx/Rx/DC Orders Prescriptions: No Action methocarbamol 500 mg tablet 500 mg PO Q6H PRN (Reason: muscle spasm) isosorbide mononitrate 60 mg tablet extended release 24 hr 60 mg PO DAILY atorvastatin [Lipitor] 40 mg tablet 40 mg PO DAILY finasteride 5 mg tablet 5 mg PO DAILY spironolactone [Aldactone] 25 mg tablet 25 mg PO DAILY hydralazine 10 mg tablet 10 mg PO BID ranolazine 1,000 mg tablet extended release 12 hr 1,000 mg PO BID aspirin 81 mg tablet 81 mg PO DAILY clopidogrel 75 mg tablet 75 mg PO DAILY Jardiance 10 mg tablet 10 mg PO DAILY insulin lispro protamin-lispro [Humalog Mix 75-25 KwikPen] 100 unit/mL (75- 25)insulin pen 20 unit subcut BID Primary Care Provider: ULI ALCALA Referrals: [facility] Doctor,Out of [Non-Staff] - Print Language: Scottish What to do if you have Problems For any increased pain, shortness of breath, bleeding, nausea or vomiting, chestpain, or any unexpected problems, contact your Primary Care Provider. Call [facility] ([phone]) or report to the closest Emergency Room. Call 911 if necessary. 03/20/25 0502 <Electronically signed by Jhoan Maldonado DO> Cosigner Signature (if applicable): CC: ULI ALCALA ~ Signed ADDENDUM by Dr. Jhoan Maldonado DO on 03/20/25 at 0610 CTA chest negative for PE. Mild cardiomegaly. Moderate bilateral pleural effusions. Atelectasis and/or superimposed pneumonia. Mild interstitial pulmonary congestion. X-ray shows diffuse interstitial edema with pleural effusions. Findings suggestive of CHF. Minimally displaced right rib fractures, no pneumothorax. Old healed and healing left rib fractures. 03/20/25 0610<Electronically signed by Jhoan Maldonado DO> Cosigner Signature (if applicable): cc: ULI ALCALA ~* Signed [facility] Work Phone: 1(391) 970-589809-13-2025 Evaluation note* Diagnosis Onset Date Resolution Status Admit Date Acute exacerbation of chroni c heart failure acute March 20, 2025 5:38am Acute hypoxic respiratory failure acute March 20, 2025 5:38am Chest tightness acute March 20, 2025 5:38am Elevated troponin acute Septemb er 2024 5:38am History of coronary artery bypass graft acute March 20, 2025 5:38am History of coronary artery stent placement acute March 20, 2025 5:38am Lactic acidosis acute March 20, 2025 5:38am Obesity (BMI 30.0-34.9) acute S eptember 2024 5:38am Pleural effusion acute Septembe r 2024 5:38am Pneumonia acute March 5:38am Presence of combination internal cardiac defibrillator (ICD) and pacemaker acute March 202024 5:38am Tobacco abuse acute March 082024 5:38am CKD (chronic kidney disease) chronic March 20, 2025 5:38am COPD exacerbation chronic Septemb er 2024 5:38am [facility] Work Phone: 1(958) 418-463209-13-2025 Evaluation note* Diagnosis Onset Date Resolution Status Admit Date [facility] CKD (chronic kidney disease) chronic March 20, 2025 5:38am Presence of combination internal cardiac defibrillator (ICD) and pacemaker chronic March 202024 5:38am Acute exacerbation of chroni c heart failure resolved March 20, 2025 5:38am COPD exacerbation [facility] 2024 5:38am Acute hypoxic respiratory failure inactive March 20, 2025 5:38am Chest tightness inactive March 20, 2025 5:38am Elevated troponin inactive [facility] 2024 5:38am History of coronary artery bypass graft inactive March 20, 2025 5:38am History of coronary artery stent placement inactive March 20, 2025 5:38am Lactic acidosis inactive March 20, 2025 5:38am Obesity (BMI 30.0-34.9) inactive S eptember 2024 5:38am Pneumonia inactive March 5:38am Tobacco abuse inactive March 082024 5:38am Diabetes acute April 23, 2025 10:05am Heart failure acute April 10:05am CKD (chronic kidney disease) chronic April 23, 2025 10:05am Presence of combination internal cardiac defibrillator (ICD) and pacemaker chronic April 10:05am Ischemic cardiomyopathy chronic O ctober 2024 12:53pm Presence of combination internal cardiac defibrillator (ICD) and pacemaker chronic April 12:53pm [facility] Work Phone: 1(385) 778-960609-13-2025 History and physical note [facility] Medical Records Department [address] [place] [address] H&P Exam - Hospitalist 03/20/25 0454 MR#: [id number] Acct: [id number] Name: CECILIA KUHN Rep #:[id number] : 1945 80 From: Matthew Angela DO PCP: ULI ALCALA Status:ADM IN Location: [place] [address] HPI - General General Date of Admission: 03/20/25 Date of Service: 03/20/25 Chief Complaint: Chest Tightness and SOB. HPI Aguilar KUHN, is a 80 M with a past medical history of essential hypertension; on hydralazine and spironolactone, hyperlipidemia; on atorvastatin, chronic tobaccoabuse, obesity (class I); with BMI of 31.9 this admission, DM-2; of unknown control on empagliflozin plus insulin lispro BID, CAD; s/p CABGand stent on BASA, clopidogrel, ISMO and ranolazine BID, history of CHF; of uncertain type, historyof arrhythmia; s/p PPM/AICD, BPH; on finasteride, OA; with muscle spasmson methocarbamol QID prn and history of mechanical fall with multiple rib fractures and pneumothorax in January 2025 causing him to leave [place] to stay with his daughter locally who presents to [facility] ER complaining of chest tightness and SOB. Mr. Kuhn reports his symptoms began approximately 2-3 days prior to admission with SAUER that progressed to SOB at rest in addition to cough. He also admits toassociated chest tightness that is mild but made worse with activity along with ~1+ bilateral lower extremity edema so his daughter activated EMS with patient treated en-route with SL NTG, 4 BASA and Duo-Neb. He arrived here on CPAP due to respiratory distress. There was no report of fever, chills, runny nose, sorethroat, ear pain, abdominal pain, nausea, vomiting, diarrhea, constipation, dysuria, hematuria, headache or rash. In the ER he was noted to have an elevated NT pro-BNP of 7,412 pg/mL present on admission with a CXR that revealedpulmonary vascular congestion with moderate Right pleural effusion with PPM in place in additionto sternotomy wires in place consistent with AE CHF; of uncertain type complicated by clinical evidence of Acute Hypoxic Respiratory Failure evidenced by ABG of 7.32/ PCO2 45 mmHg/ PO2 141 mmHg/ XAO594.1 mmol/L on BiPAP with 40% FiO2 and rate of 16 with 8 PEEP compounded by mildly elevated troponin T of 61 ng/L and Lactic Acidosis of 2.2 mmol/L with ER physician suspecting superimposed AE COPD with underlying Pneumonia. He was then admittedto the PCU for ongoing care for a stay that is expected to extend beyond 2 midnights. [facility] Medical History (Updated 03/20/25 @ 05:[address] Matthew Grullon DO) Pleural effusion Heart failure Presence of combination internal cardiac defibrillator (ICD) and pacemaker Diabetes Home Medications ?Medication ?Instructions ?Recorded ?Last Taken ?Type aspirin 81 mg tablet 81 mg PO DAILY 03/20/25 Unkn own History atorvastatin 40 mg tablet (Lipitor) 40 mg PO DAILY Unknown History clopidogrel 75 mg tablet 75 mg PO DAILY 03/20/25 Unkn own History empagliflozin 10 mg tablet 10 mg PO DAILY 03/20/25 Unk nown History (Jardiance) finasteride 5 mg tablet 5 mg PO DAILY 03/20/25 Unkno wn History hydralazine 10 mg tablet 10 mg PO BID 03/20/25 Unknow n History insulin lispro protamine-lispro 20 unit subcut BID Unknown History 100 unit/mL (75-25) subcutaneous pen (Humalog Mix 75-25 KwikPen) isosorbide mononitrate 60 mg 60 mg PO DAILY 03/20/25 U nknown History tablet,extended release 24 hr methocarbamol 500 mg tablet 500 mg PO Q6H PRN muscle s pasm 03/20/25 Unknown History ranolazine 1,000 mg 1,000 mg PO BID 03/20/25 Unk nown History tablet,extended release,12 hr spironolactone 25 mg tablet 25 mg PO DAILY 03/20/25 Un known History (Aldactone) Allergy/AdvReac Type Severity Reaction Status Date / Time No Known Allergies Allergy Verified 03/20/25 02:04 Surgical History (Updated 03/20/25 @ 05:[address] Matthew Grullon DO) H/O heart artery stent Social History Smoking Status: Current every day smoker tobacco type: cigarettes ROS ROS Narrative Review of Systems: Constitutional: Patient denies fever or chills. Eyes: Patient denies changes in vision or discharge from eyes. ENT: Patient denies runny nose, sore throat or ear pain. Resp: Patient admits to SOB an cough. CV: Patient admits to chest tightness and ~1+ LE edema as per HPI. He denies palpitations or heart racing. GI: Patient denies abdominal pain, nausea, vomiting, diarrhea or constipation. : Patient denies dysuria or hematuria. MSK: Patient denies arthralgias or myalgias. Skin: Patient denies rash, abscess, wounds or jaundice. Psych: Patient denies symptoms of uncontrolled depression or anxiety. Neuro: Patient denies headache, paresthesias or focal neurologic deficits. Allergy: Patient denies lip swelling, tongue swelling or urticaria. Hematology: Patient denies easy bleeding or easy bruisability. Endocrinology: Patient denies polyuria, polydipsia, polyphagia or heat/cold intolerance. 14 point ROS otherwise negative except for positives noted above in HPI. Vital Signs Vital Signs Vital Signs: 03/20/25 02:03 03/20/25 02:09 03/20/25 02:09 Temperature 97.3 F L 97.3 F L Temperature Source Temporal Temporal Pulse Rate 98 96 Respiratory Rate 25 H 35 H Respiratory Effort Respiratory Depth Respiratory Pattern Blood Pressure 162/100 H 162/100 H Blood Pressure Mean 120 120 Pulse Ox 100 100 Oxygen Delivery Method CPAP CPAP Bi-pap Fraction of Inspired Oxygen (FIO2) 60 60 60 03/20/25 02:12 03/20/25 02:18 03/20/25 02:19 Temperature Temperature Source Pulse Rate 89 90 Respiratory Rate 33 H 30 H Respiratory Effort Short of Breath Respiratory Depth Deep Respiratory Pattern Tachypnea Tachypnea Tachypnea Blood Pressure Blood Pressure Mean Pulse Ox 99 Oxygen Delivery Method CPAP Fraction of Inspired Oxygen (FIO2) 60 30 03/20/25 02:33 03/20/25 03:09 03/20/25 03:30 Temperature 97.8 F Temperature Source Temporal Pulse Rate 78 87 85 Respiratory Rate 19 H 26 H 24 H Respiratory Effort Respiratory Depth Respiratory Pattern Blood Pressure 144/85 H 144/85 H Blood Pressure Mean 104 104 Pulse Ox 100 95 95 Oxygen Delivery Method Bi-pap Bi-pap Bi-pap Fraction of Inspired Oxygen (FIO2) 30 30 30 03/20/25 04:00 03/20/25 04:30 03/20/25 04:30 Temperature Temperature Source Pulse Rate 83 73 76 Respiratory Rate 20 H 21 H 21 H Respiratory Effort Respiratory Depth Respiratory Pattern Tachypnea Blood Pressure 136/90 H 133/76 H Blood Pressure Mean 105 95 Pulse Ox 96 95 97 Oxygen Delivery Method Bi-pap Bi-pap Fraction of Inspired Oxygen (FIO2) 30 30 30 Weight Weight: 197 lb 8.547 oz Body Mass Index (BMI) 31.8 Physical Exam Const alert and oriented x3 Constitutional Narrative: Patient appears comfortable on BiPAP. General Appearance: cooperative HEENT normocephalic, head/scalp atraumatic and hearing grossly normal bilaterally HEENT Narrative: Mucous membraes dry. Eyes PERRL, EOMs intact bilaterally and conjunctivae normal Neck no lymphadenopathy, supple and no JVD Resp Resp Narrative: Diminished breath sounds throughout with coarse bibasilar rales and increased work of breathing. Auscultation: rales Cardio regular rate and regular rhythm GI normal to inspection, nondistended, normoactive bowel sounds, soft to palpation,non-tender and non-distended GI Narrative: Obese. Extremity Extremity Narrative: ~1+ bilateral LE edema. Skin Skin Narrative: Patient has no evidence of rash, abscess, wounds or jaundice. Neuro oriented x3, CN's II-XII intact bilaterally, moves all extremities and no focal motor deficits Sensorium / Orientation: awake, alert, oriented to person, oriented to place andoriented to time Speech: speech normal Psych affect normal Results Medical Records Data Attestation: I reviewed the patient's medical records Lab / Micro Data Attestation: I reviewed the patient's lab results. 03/20/25 02:08 03/20/25 02:08 Labs: Laboratory Results - last 24 hr 03/20/25 02:05: Lactic Acid 2.2 H* 03/20/25 02:08: WBC 10.4, RBC 5.07, Hgb 16.5, Hct 50.5, MCV 99.6 H, MCH 32.5 H, MCHC 32.7, RDW Std Deviation 49.9 H, RDW Coeff of Adri 13.6, Plt Count 245, MPV 9.3, Immature Gran % (Auto) 0.400, Neut % (Auto) 55.6, Lymph % (Auto) 30.1, [place]% (Auto) 12.9 H, Eos % (Auto) 0.4, Baso % (Auto) 0.6, Absolute Neuts (auto) 5.8,Absolute Lymphs (auto) 3.12, Nucleated RBC % 0, D-Dimer Quant (PE/DVT) 1.03 H*, Sodium 141, Potassium 4.2, Chloride 105, Carbon Dioxide 22.4, Anion Gap 13, BUN 22 H, Creatinine 1.42 H, Estim Creat Clear Calc 42.05 L, Est GFR (MDRD) Non- Af 49 L, BUN/Creatinine Ratio 15.1, Glucose 170 H, Calcium 9.0, Troponin T High Sens 61 H*, NT pro BNP II 7412 H 03/20/25 04:20: Troponin T Hi Sens 2 Hr 56 H* Micro: Microbiology 03/20/25 02:16 Mucosa - Nose SARS-CoV-2, Influenza & RSV (PCR) - Final ABG Data ABG results: ABG 03/20/25 02:20 Specimen Type ART Sample Site L Radial pH 7.32 L Bicarbonate Actual 23.1 Total CO2 25 Base Excess -3 L O2 Saturation 99 O2 % 40.0 ABG pCO2 45.0 ABG pO2 141 H Martha Test Positive O2 Delivery Device BiPAP Vent Mode Not entered POC PEEP 8 Peak Inspir Pressure 16 Imaging [facility] Imaging Services [address] [place] [address] Chest 1 View (Portable) MR#: [id number] Acct: [id number] Name: CECILIA KUHN Rep #: [id number] : 1945 M 80 From: César Salazar MD PCP: ULI ALCALA Status: ADM IN Study: Chest 1 View (Portable) Date of Exam: 03/20/25 Exam# [id number] Ordering Dr: Jhoan Maldonado DO PROCEDURE: CHEST 1 VIEW (PORTABLE) 03/20/2025 REASON FOR EXAM: SHORTNESS OF BREATH TECHNIQUE: Frontal view of the chest. COMPARISON: CT chest from earlier today FINDINGS: Hardware: EKG leads overlie the chest. Stable appearance of the left subclavianpacemaker Heart: Remote CABG Lungs: Lungs are expanded with superimposed interstitial edema and bilateral pleural effusions withbibasilar atelectasis suggesting CHF. Follow-up recommended to ensure resolution. Bones: Bony structures show degenerative change. There are acute displaced right rib fractures and old healed and healing left rib fractures. Other: Despite the right rib fractures, no pneumothorax is noted RAD/Chest 1 View (Portable) IMPRESSION: Diffuse interstitial edema with free-flowing bilateral pleural effusions and bibasilar atelectasis.Findings suggest CHF. Follow-up recommended to ensure resolution Minimally displaced right rib fractures, no clearly demonstrated pneumothorax Old healed and healing left rib fractures Remote CABG Reading Location: [id number] CC: Dr. Jhoan Maldonado DO; ULI ALCALA ~ Counter Maker: Signed [facility] Imaging Services [address] [place] [address] CTA Chest W/WO Contrast MR#: [id number] Acct: [id number] Name: CECILIA KUHN Rep #: [id number] : 1945 80 From: Blanco Salazar MD PCP: ULI ALCALA Status: ADM IN Study: CTA Chest W/WO Contrast Date of Exam: 03/20/25 Exam# [id number] Ordering Dr: Jhoan Maldonado DO ADDENDUM by Dr. Blanco Salazar MD on 03/20/25 at 0606 Subacute fractures in the axillary and posterior arches of the right 5th, 6, 7th, 8th and 9th ribs. Reading Location[facility] 03/20/25 0607 Date cc: Dr. Jhoan Maldonado DO; ULI ALCALA ~* Signed PROCEDURE: CTA CHEST W/WO CONTRAST 03/20/2025 REASON FOR EXAM: PE, ELEVATED DIMER TECHNIQUE: Procedure Code: CTCTACHWW Modality: CT Procedure: CTA CHEST W/WO CONTRAST Multiplanar Sagittal and Coronal images were obtained. CONTRAST: Isovue 370 VOLUME: 100 mL One or more dose reduction techniques were used (e.g., Automated exposure control, adjustment of the mA and/or kV according to patient size, use of iterative reconstruction technique). RADIATION DOSE SUMMARY: CTDlvol: 15.45 mGy DLP: 466 mGycm COMPARISON: Chest radiograph on 03/20/2025. FINDINGS: Mild cardiomegaly. Prior CABG. Moderate bilateral pleural effusions. Passive atelectatic airspace disease/consolidations of the lower lobes, possiblyrepresenting passive atelectasis and/or superimposed pneumonia. Mild interstitial pulmonary congestion. Moderate diffuse spondylosis. AICD is in good position. Mild hepatomegaly with diffuse irregularity of the hepatic contour, possibly chronic parenchymal liver disease. Mild ascites. Normal enhancement of the main pulmonary artery and right and left pulmonary arteries. Normal enhancement of the bilateral peripheral pulmonary arteries. There is no demonstrated pulmonary embolism. Suboptimal enhancement of the thoracic aorta limiting its evaluation. There is no demonstrated aortic dissection. Normal pericardium. Normal mediastinum. Normal hilar regions. Normal visualized trachea and bronchi. CT/CTA Chest W/WO Contrast IMPRESSION: No demonstrated pulmonary embolism. Mild cardiomegaly. Prior CABG. Moderate bilateral pleural effusions. Passive atelectatic airspace disease/consolidations of the lower lobes, possiblyrepresenting passive atelectasis and/or superimposed pneumonia. Mild interstitial pulmonary congestion. Moderate diffuse spondylosis. AICD is in good position. Mild hepatomegaly with diffuse irregularity of the hepatic contour, possibly chronic parenchymal liver disease. Reading Location: [id number] CC: Dr. Jhoan Maldonado DO; ULI ALCALA ~ Counter Maker: Signed Assessment & Plan Assessment/Plan (1) Acute exacerbation of chronic heart failure: (2) Pleural effusion: (3) COPD exacerbation: (4) Pneumonia: QUALIFIERS: Laterality: unspecified laterality Lung location: unspecified part of lung Pneumonia type: due to unspecified organism Qualified Code(s): J18.9 - Pneumonia, unspecified organism (5) Acute hypoxic respiratory failure: (6) Elevated troponin: (7) Chest tightness: (8) History of coronary artery bypass graft: (9) History of coronary artery stent placement: (10) Lactic acidosis: (11) Obesity (BMI 30.0-34.9): (12) Tobacco abuse: PLAN: Plan 1. Elevated NT pro-BNP of 7,412 pg/mL present on admission with a CXR that revealed pulmonary vascular congestion with moderate Right pleural effusion withPPM in place in addition to sternotomy wiresin place consistent with AE of chronic CHF; of uncertain type - Admit to PCU. Continue IV furosemide begun in the ER and add supplemental KCl and magnesium. Check echocardiogram to evaluateLVEF. Giveondansetron IV prn for nausea or vomiting. Give acetaminophen prn for [id number] (level 1-5/10) pain or fever. Give morphine IV prn for severe (level 6-10/10) pain. Finally, we will consult [facility] to see this patient on-rounds in the AM for further recommendations with help apprec iated in advance. 2. AE COPD with possible superimposed Pneumonia causing Acute Hypoxic Respiratory Failure requiringBiPAP in the setting of ongoing Tobacco abuse complicating #1 - Continue IV methylprednisolone in addition to IV ceftriaxone and IV azithromycin begun in ER and check viral respiratory panel and urinary antigens to Streptococcus pneumonia and Legionella. Wean BiPAP as tolerated. Tobacco Cessation will be strongly encouraged with Nicotine patch offered to control cravings. 3. Elevated troponin T of 61 ng/L arising from Acute Cardiac Strain with Chest Tightness due to #1 & #2 in the setting of previously known CAD; s/p CABG plus stent and PPM/AICD - Serialize troponin. 4. Lactic Acidosis of 2.2 mmol/L present on admission adding to the medical complexity of #1 - #3 -Serialize lactate to follow trend. 5. Obesity (class I); with BMI of 31.9 this admission adding to the burden of disease outlined from#1 - #4 - Weight loss will be recommended. Check TSH. This complicates his case and may hamper recovery. 6. History of mechanical fall with multiple rib fractures and pneumothorax in January 2025 causing [place] leave [place] to stay with his daughter locally - Noted. PT/OT and Case Management to consult and treat on-rounds in AM for further recommendations with help appreciated in advance. 7. Essential hypertension; on hydralazine and spironolactone - Home regimen to be maintained as previous. 8. Hyperlipidemia; on atorvastatin - Continue statin and check Lipid Profile. 9. DM-2; of unknown control on empagliflozin plus insulin lispro BID - Keep NPOwhile on BiPAP. Resume insulin lispro. Check FSBS q. 6 hours plus lowest intensity SSI. Check HgbA1c to objectively assess quality of diabetic control. 10. BPH; on finasteride - Maintain present therapy. 11. OA; with muscle spasms on methocarbamol QID prn - Continue current treatment. 12. DVT/GI prophylaxis - Start enoxaparin 40 mg sq daily plus SCD's. Pantoprazole 40 mg IV daily. Total time: Approximately (but not less than) 75 minutes. Charges/Coding Visit Charges Inpatient E&M: 93476 Init Hosp 03/20/25 0644 Cosigner Signature (if applicable): CC: Dr. Matthew Grullon, ; ULI ALCALA~ Signed [facility]09-13-2025 Discharge summary [facility] Medical Records Department [address] [place] [address] Emergency Department Summary 03/20/25 MR#: [id number] Acct: [id number] Name: CECILIA KUHN Rep #:[id number] : 1945 80 From: Jhoan price DO PCP: ULI ALCALA Status:ADM IN Location: [place] [address] HPI History of Present Illness Chief Complaint: Chest Pain Narrative Narrative: Chief complaint and HPI: 80-year-old male with past medical history of CAD with history of CABG/PCI, ICD/pacemaker, DM, CHF presents via EMS for evaluation of shortness of breath. Daughter gives majority of the history. Daughter states her father is visiting from [place] since January after he had a mechanical fall that resulted in rib fractures and pneumothorax. She states he has been doing we ll until the past couple days he has had increasing shortness of breath and cough. This evening shortness of breath worsened. He endorses chest tightness associated with it. He denies any fever, chills, abdominal pain, nausea, vomiting. Tobacco abuser. Review of systems: See HPI Medications: As listed on the chart Allergies: As listed on the chart PFSH: Per chart Vital signs: As listed on the chart. Reviewed. Physical exam: Gen: A&O x3 Head: Normocephalic, atraumatic Eyes: No sclera icterus, conjunctiva clear, PERRL ENT: Mildly dry mucous membranes Neck: Trachea midline, No JVD CV: RRR, no murmurs, +1 pitting peripheral bilateral edema, midline scar healed well, no cellulitisoverlying pacemaker/ICD Resp: Lungs diminished in the bilateral bases, mildly coarse, tachypneic, respiratory distress GI: Abd soft, non-distended, non-tender, no r/r/g Musc: Full ROM, no deformity Skin: Warm, dry Neuro: Alert, oriented, grossly intact, sensation intact Psych: Cooperative [facility] Medical History (Updated 03/20/25 @ 02:06 by Nidia Leo) Heart failure Presence of combination internal cardiac defibrillator (ICD) and pacemaker Diabetes Home Medications ?Medication ?Instructions ?Recorded ?Last Taken ?Type aspirin 81 mg tablet 81 mg PO DAILY 03/20/25 Unkn own History atorvastatin 40 mg tablet (Lipitor) 40 mg PO DAILY Unknown History clopidogrel 75 mg tablet 75 mg PO DAILY 03/20/25 Unkn own History empagliflozin 10 mg tablet 10 mg PO DAILY 03/20/25 Unk nown History (Jardiance) finasteride 5 mg tablet 5 mg PO DAILY 03/20/25 Unkno wn History hydralazine 10 mg tablet 10 mg PO BID 03/20/25 Unknow n History insulin lispro protamine-lispro 20 unit subcut BID Unknown History 100 unit/mL (75-25) subcutaneous pen (Humalog Mix 75-25 KwikPen) isosorbide mononitrate 60 mg 60 mg PO DAILY 03/20/25 U nknown History tablet,extended release 24 hr methocarbamol 500 mg tablet 500 mg PO Q6H PRN muscle s pasm 03/20/25 Unknown History ranolazine 1,000 mg 1,000 mg PO BID 03/20/25 Unk nown History tablet,extended release,12 hr spironolactone 25 mg tablet 25 mg PO DAILY 03/20/25 Un known History (Aldactone) Allergy/AdvReac Type Severity Reaction Status Date / Time No Known Allergies Allergy Verified 03/20/25 02:04 Surgical History (Updated 03/20/25 @ 02:06 by Nidia Leo) H/O heart artery stent Social History Smoking Status: Current every day smoker tobacco type: cigarettes EXAM Physical Exam Const Vital Signs: 03/20/25 02:03 03/20/25 02:09 03/20/25 02:09 Temperature 97.3 F L 97.3 F L Temperature Source Temporal Temporal Pulse Rate 98 96 Respiratory Rate 25 H 35 H Respiratory Effort Respiratory Depth Respiratory Pattern Blood Pressure 162/100 H 162/100 H Blood Pressure Mean 120 120 Pulse Ox 100 100 Oxygen Delivery Method CPAP CPAP Bi-pap Fraction of Inspired Oxygen (FIO2) 60 60 60 03/20/25 02:12 03/20/25 02:18 03/20/25 02:19 Temperature Temperature Source Pulse Rate 89 90 Respiratory Rate 33 H 30 H Respiratory Effort Short of Breath Respiratory Depth Deep Respiratory Pattern Tachypnea Tachypnea Tachypnea Blood Pressure Blood Pressure Mean Pulse Ox 99 Oxygen Delivery Method CPAP Fraction of Inspired Oxygen (FIO2) 60 30 03/20/25 02:33 03/20/25 03:09 03/20/25 03:30 Temperature 97.8 F Temperature Source Temporal Pulse Rate 78 87 85 Respiratory Rate 19 H 26 H 24 H Respiratory Effort Respiratory Depth Respiratory Pattern Blood Pressure 144/85 H 144/85 H Blood Pressure Mean 104 104 Pulse Ox 100 95 95 Oxygen Delivery Method Bi-pap Bi-pap Bi-pap Fraction of Inspired Oxygen (FIO2) 30 30 30 03/20/25 04:00 03/20/25 04:30 03/20/25 04:30 Temperature Temperature Source Pulse Rate 83 73 76 Respiratory Rate 20 H 21 H 21 H Respiratory Effort Respiratory Depth Respiratory Pattern Tachypnea Blood Pressure 136/90 H 133/76 H Blood Pressure Mean 105 95 Pulse Ox 96 95 97 Oxygen Delivery Method Bi-pap Bi-pap Fraction of Inspired Oxygen (FIO2) 30 30 30 MDM MDM MDM Narrative Medical decision making narrative: 80-year-old male with past medical history of CAD with history of CABG/PCI, ICD/pacemaker, DM, CHF presents via EMS for evaluation of shortness of breath. Daughter gives majority of the history. Daughter states her father is visiting from [place] since January after he had a mechanical fall thatresulted in rib fractures and pneumothorax. She states he has been doing well until the past coupledays he has had increasing shortness of breath and cough. This evening shortness of breath worsened. He endorses chest tightness associated with it. On arrival, patient arrives on CPAP machine. He istachypneic in respiratory distress. He received nitro, 4 baby aspirin, and DuoNeb prior to arrival.Patient was switched over to BiPAP with improvement in respiratory distress. Differential diagnosisincludes but is not limited to COPD exacerbation, pneumonia, CHF, ACS, PE, electrolyte abnormality,arrhythmia. EKGreviewed. Chest x-ray reviewed, suspect more pulmonary edema/CHF exacerbation however given I cannot rule out pneumonia we will give Rocephin and azithromycin. ABG with mild acidosis of 7.32. Oxygenating well on BiPAP. Willdecrease FiO2. No hypercapnia. CBC without leukocytosis, anemia, platelet dysfunction. D-dimer elevated at 1.03. Cannot rule out PE. CT chest ordered. BMP shows renal insufficiency of 1.42. Unknown patient's baseline. May be chronic versus acute. Lactic acid 2.2. Patient receiving only 500 cc bolus. Will be judicial with fluids given CHF. BNP elevated at 7412. IV Lasix ordered. Troponin 61 and 56. CTA chest cannot be read by radiology secondary to having technical difficulties. I did personally review the CTA. No obvious PE. Patient has bilateral pulmonary effusions, worse on the right compared to the left. Right sided atelectasis. On reevaluation, patient's respiratory status has improved on BiPAP. We did try to take him off during CT however patientcould not tolerate this. Patient was updated of all the results and theplan for admission. He confirmed understanding the plan. Patient discussed with Dr. Menezes. He accepted admission. EKG: Interpreted by me/EM physician: EKG shows sinus rhythm with PVCs. Left bundle branch block. Heart rate 97. Diagnostic: Interpreted by me/EM physician: No pneumothorax. Patient has cardiomegaly. Bilateral effusions. Worse on the right compared to the left. Cannot rule out pneumonia. Cannot compare to radiology read aswe are having technical difficulties and they cannot see any of the imaging. 30 minutes of critical care time utilized in managing the patient. This is due to high probability of and deterioration of the patient based on the patient's condition and excludes any separately billable procedures. Impression: 1. Acute hypoxia with respiratory distress requiring BiPAP 2. CHF exacerbation 3. Possible pneumonia 4. Elevated troponin likely secondary to #2 5. Lactic acidosis 6. Renal insufficiency, acute versus chronic Lab Data Labs: Laboratory Results - last 24 hr 03/20/25 03/20/25 03/20/25 02:05 02:08 04:20 WBC 10.4 RBC 5.07 Hgb 16.5 Hct 50.5 MCV 99.6 H MCH 32.5 H MCHC 32.7 RDW Std Deviation 49.9 H RDW Coeff of Adri 13.6 Plt Count 245 MPV 9.3 Immature Gran % (Auto) 0.400 Neut % (Auto) 55.6 Lymph % (Auto) 30.1 [place] % (Auto) 12.9 H Eos % (Auto) 0.4 Baso % (Auto) 0.6 Absolute Neuts (auto) 5.8 Absolute Lymphs (auto) 3.12 Nucleated RBC % 0 D-Dimer Quant (PE/DVT) 1.03 H* Sodium 141 Potassium 4.2 Chloride 105 Carbon Dioxide 22.4 Anion Gap 13 BUN 22 H Creatinine 1.42 H Estim Creat Clear Calc 42.05 L Est GFR (MDRD) Non-Af 49 L BUN/Creatinine Ratio 15.1 Glucose 170 H Lactic Acid 2.2 H* Calcium 9.0 Troponin T High Sens 61 H* Troponin T Hi Sens 2 Hr 56 H* NT pro BNP II 7412 H ABG Data ABG results: ABG 03/20/25 02:20 Specimen Type ART Sample Site L Radial pH 7.32 L Bicarbonate Actual 23.1 Total CO2 25 Base Excess -3 L O2 Saturation 99 O2 % 40.0 ABG pCO2 45.0 ABG pO2 141 H Martha Test Positive O2 Delivery Device BiPAP Vent Mode Not entered POC PEEP 8 Peak Inspir Pressure 16 Discharge Plan Triage Chief Complaint: Chest Pain ED Provider: Jhoan Maldonado Dx/Rx/DC Orders Prescriptions: No Action methocarbamol 500 mg tablet 500 mg PO Q6H PRN (Reason: muscle spasm) isosorbide mononitrate 60 mg tablet extended release 24 hr 60 mg PO DAILY atorvastatin [Lipitor] 40 mg tablet 40 mg PO DAILY finasteride 5 mg tablet 5 mg PO DAILY spironolactone [Aldactone] 25 mg tablet 25 mg PO DAILY hydralazine 10 mg tablet 10 mg PO BID ranolazine 1,000 mg tablet extended release 12 hr 1,000 mg PO BID aspirin 81 mg tablet 81 mg PO DAILY clopidogrel 75 mg tablet 75 mg PO DAILY Jardiance 10 mg tablet 10 mg PO DAILY insulin lispro protamin-lispro [Humalog Mix 75-25 KwikPen] 100 unit/mL (75- 25)insulin pen 20 unit subcut BID Primary Care Provider: ULI ALCALA Referrals: [facility] Doctor,Out of [Non-Staff] - Print Language: Scottish What to do if you have Problems For any increased pain, shortness of breath, bleeding, nausea or vomiting, chestpain, or any unexpected problems, contact your Primary Care Provider. Call [facility] ([phone]) or report tothe closest Emergency Room. Call 911 if necessary. 03/20/25 0502 Cosigner Signature (if applicable): CC: ULI ALCALA ~ Signed ADDENDUM by Dr. Jhoan Maldonado DO on 03/20/25 at 0610 CTA chest negative for PE. Mild cardiomegaly. Moderate bilateral pleural effusions. Atelectasis and/or superimposed pneumonia. Mild interstitial pulmonary congestion. X-ray shows diffuse interstitialedema with pleural effusions. Findings suggestive of CHF. Minimally displaced right rib fractures, no pneumothorax. Old healed and healing left rib fractures. 03/20/25 0610 Cosigner Signature (if applicable): cc: ULI ALCALA ~* Signed [facility]09-13-2025 Radiology Diagnostic study note [facility] Imaging Services [address] [place], [place] [address] CTA Chest W/WO Contrast MR#: [id number] Acct: [id number] Name: CECILIA KUHN Rep #: [id number] : 1945 M 80 From: Sergio Salazar MD PCP: ULI ALCALA Status: ADM IN Study:CTA Chest W/WO Contrast Date of Exam: 03/20/25 Exam# [id number] Ordering Dr: Jhoan Gomes DO ADDENDUM by Dr. Blanco Salazar MD on 03/20/25 at 0606 Subacute fractures in the axillary and posterior arches of the right 5th, 6, 7th, 8th and 9th ribs. Reading [facility] 03/20/25 0607 Date cc: Dr. Jhoan Maldonado DO; ULIKEAGAN ALCALA ~* Signed PROCEDURE: CTA CHEST W/WO CONTRAST 03/20/2025 REASON FOR EXAM: PE, ELEVATED DIMER TECHNIQUE: Procedure Code: CTCTACHWW Modality: CT Procedure: CTA CHEST W/WO CONTRAST Multiplanar Sagittal and Coronal images were obtained. CONTRAST: Isovue 370 VOLUME: 100 mL One or more dose reduction techniques were used (e.g., Automated exposure control, adjustment of the mA and/or kV according to patient size, use of iterative reconstruction technique). RADIATION DOSE SUMMARY: CTDlvol: 15.45 mGy DLP: 466 mGycm COMPARISON: Chest radiograph on 03/20/2025. FINDINGS: Mild cardiomegaly. Prior CABG. Moderate bilateral pleural effusions. Passive atelectatic airspace disease/consolidations of the lower lobes, possiblyrepresenting passive atelectasis and/or superimposed pneumonia. Mild interstitial pulmonary congestion. Moderate diffuse spondylosis. AICD is in good position. Mild hepatomegaly with diffuse irregularity of the hepatic contour, possibly chronic parenchymal liver disease. Mild ascites. Normal enhancement of the main pulmonary artery and right and left pulmonary arteries. Normal enhancement of the bilateral peripheral pulmonary arteries. There is no demonstrated pulmonary embolism. Suboptimal enhancement of the thoracic aorta limiting its evaluation. There is no demonstrated aortic dissection. Normal pericardium. Normal mediastinum. Normal hilar regions. Normal visualized trachea and bronchi. CT/CTA Chest W/WO Contrast IMPRESSION: No demonstrated pulmonary embolism. Mild cardiomegaly. Prior CABG. Moderate bilateral pleural effusions. Passive atelectatic airspace disease/consolidations of the lower lobes, possiblyrepresenting passive atelectasis and/or superimposed pneumonia. Mild interstitial pulmonary congestion. Moderate diffuse spondylosis. AICD is in good position. Mild hepatomegaly with diffuse irregularity of the hepatic contour, possibly chronic parenchymal liver disease. [facility] CC: Dr. Jhoan Maldonado DO; ULI ALCALA ~ Counter Maker: Signed [facility]09-13-2025 Radiology Diagnostic study note [facility] Imaging Services [address] [place], [place] [address] Chest 1 View (Portable) MR#: [id number] Acct: [id number] Name: CECILIA KUHN Rep #: [id number] : 1945 M 80 From: Luis E Salazar MD PCP: ULI ALCALA Status: ADM IN Study:Chest 1 View (Portable) Date of Exam: 03/20/25 Exam# [id number] Ordering Dr: Jhoan Gomes DO PROCEDURE: CHEST 1 VIEW (PORTABLE) 03/20/2025 REASON FOR EXAM: SHORTNESS OF BREATH TECHNIQUE: Frontal view of the chest. COMPARISON: CT chest from earlier today FINDINGS: Hardware: EKG leads overlie the chest. Stable appearance of the left subclavianpacemaker Heart: Remote CABG Lungs: Lungs are expanded with superimposed interstitial edema and bilateral pleural effusions withbibasilar atelectasis suggesting CHF. Follow-up recommended to ensure resolution. Bones: Bony structures show degenerative change. There are acute displaced right rib fractures and old healed and healing left rib fractures. Other: Despite the right rib fractures, no pneumothorax is noted RAD/Chest 1 View (Portable) IMPRESSION: Diffuse interstitial edema with free-flowing bilateral pleural effusions and bibasilar atelectasis.Findings suggest CHF. Follow-up recommended to ensure resolution Minimally displaced right rib fractures, no clearly demonstrated pneumothorax Old healed and healing left rib fractures Remote CABG Reading Location: [id number] CC: Dr. Jhoan Maldonado DO; ULI ALCALA ~ Counter Maker: Signed [facility] Author [place] Byrnes [facility] Note Date/Time March 24, 2025 4:01pm [facility] Medical Records Department [address] [place] [address] Counseling Note - Pharmacy 03/24/25 1519 MR#: [id number] Acct: [id number] Name: CECILIA KUHN Rep #:[id number] : 1945 80 From: Florida Byrnes PCP: ULI ALCALA Status:ADM IN Y Location: [place] [address] Pharmacy [facility] Counseling Pharmacy Service has performed discharge medication reconciliation and counseling for this patient. 1. LASIX 40MG PO DAILY 2. METOPROLOL SUCCINATE 25MG PO DAILY 3. HYDRALAZINE CHANGED TO 25MG PO TID The patient's discharge medication list was reviewed for discrepancies and discrepancies were resolved. The patient was counseled on the following discharge medications and changes in medications for homegoing were reviewed. The Reason for Use, instructions for use, and potential side effects were reviewed for all new medications. The patient's questions regarding all of their medications were answered. The patient was able to verbally demonstrate an understanding of their dischargemedications. Medications at Discharge Home Medications aspirin 81 mg tablet 81 mg PO DAILY heart health 03/20/25 atorvastatin 40 mg tablet (Lipitor) 40 mg PO DAILY cholesterol 03/20/25 clopidogrel 75 mg tablet 75 mg PO DAILY anti platelet 03/20/25 empagliflozin 10 mg tablet (Jardiance) 10 mg PO DAILY diabetes 03/20/25 finasteride 5 mg tablet 5 mg PO DAILY prostate 03/20/25 insulin lispro protamine-lispro 100 unit/mL (75-25) subcutaneous pen (Humalog Mix 75-25 KwikPen) 20 unit subcut BID diabetes 03/20/25 methocarbamol 500 mg tablet 500 mg PO Q6H PRN muscle spasm 03/20/25 ranolazine 1,000 mg tablet,extended release,12 hr 1,000 mg PO BID heart 03/20/25 spironolactone 25 mg tablet (Aldactone) 25 mg PO DAILY diuretic 03/20/25 furosemide 40 mg tablet 40 mg PO DAILY #30 tabs 03/24/25 hydralazine 25 mg tablet 25 mg PO TID #90 tabs 03/24/25 isosorbide mononitrate 60 mg tablet,extended release 24 hr 60 mg PO DAILY #30 tabs 03/24/25 metoprolol succinate 25 mg tablet,extended release 24 hr 25 mg PO DAILY #30 tabs03/24/25 03/24/25 1519 <Electronically signed by [place] Byrnes> Date _ [place] Byrnes Cosigner Signature (if applicable): Date CC: ~ Signed [facility] Work Phone: Discharge summary Author Jhoan Maldonado [facility] Note Date/Time March 20, 2025 6:10am [facility] Medical Records Department [address] [place] [address] Emergency Department Summary 03/20/25 MR#: [id number] Acct: [id number] Name: CECILIA KUHN Rep #:[id number] : 1945 80 From: Jhoan Harvey ggfélix DO PCP: ULI ALCALA Status:ADM IN Location: [place] [address] HPI History of Present Illness Chief Complaint: Chest Pain Narrative Narrative: Chief complaint and HPI: 80-year-old male with past medical history of CAD with history of CABG/PCI, ICD/pacemaker, DM, CHF presents via EMS for evaluation of shortness of breath. Daughter gives majority of the history. Daughter states her father is visiting from [place] since January after he had a mechanical fall that resulted in rib fractures and pneumothorax. She states he has been doing well until the past couple days he has had increasing shortness of breath and cough. This evening shortness of breath worsened. He endorses chest tightness associated with it. He denies any fever, chills, abdominal pain, nausea, vomiting. Tobacco abuser. Review of systems: See HPI Medications: As listed on the chart Allergies: As listed on the chart PFSH: Per chart Vital signs: As listed on the chart. Reviewed. Physical exam: Gen: A&O x3 Head: Normocephalic, atraumatic Eyes: No sclera icterus, conjunctiva clear, PERRL ENT: Mildly dry mucous membranes Neck: Trachea midline, No JVD CV: RRR, no murmurs, +1 pitting peripheral bilateral edema, midline scar healed well, no cellulitis overlying pacemaker/ICD Resp: Lungs diminished in the bilateral bases, mildly coarse, tachypneic, respiratory distress GI: Abd soft, non-distended, non-tender, no r/r/g Musc: Full ROM, no deformity Skin: Warm, dry Neuro: Alert, oriented, grossly intact, sensation intact Psych: Cooperative [facility] Medical History (Updated 03/20/25 @ 02:06 by Nidia Leo) Heart failure Presence of combination internal cardiac defibrillator (ICD) and pacemaker Diabetes Home Medications ?Medication ?Instructions ?Recorded ?Last Taken ?Type aspirin 81 mg tablet 81 mg PO DAILY 03/20/25 Unkn own History atorvastatin 40 mg tablet (Lipitor) 40 mg PO DAILY Unknown History clopidogrel 75 mg tablet 75 mg PO DAILY 03/20/25 Unkn own History empagliflozin 10 mg tablet 10 mg PO DAILY 03/20/25 Unk nown History (Jardiance) finasteride 5 mg tablet 5 mg PO DAILY 03/20/25 Unkno wn History hydralazine 10 mg tablet 10 mg PO BID 03/20/25 Unknow n History insulin lispro protamine-lispro 20 unit subcut BID Unknown History 100 unit/mL (75-25) subcutaneous pen (Humalog Mix 75-25 KwikPen) isosorbide mononitrate 60 mg 60 mg PO DAILY 03/20/25 U nknown History tablet,extended release 24 hr methocarbamol 500 mg tablet 500 mg PO Q6H PRN muscle s pasm 03/20/25 Unknown History ranolazine 1,000 mg 1,000 mg PO BID 03/20/25 Unk nown History tablet,extended release,12 hr spironolactone 25 mg tablet 25 mg PO DAILY 03/20/25 Un known History (Aldactone) Allergy/AdvReac Type Severity Reaction Status Date / Time No Known Allergies Allergy Verified 03/20/25 02:04 Surgical History (Updated 03/20/25 @ 02:06 by Nidia Leo) H/O heart artery stent Social History Smoking Status: Current every day smoker tobacco type: cigarettes EXAM Physical Exam Const Vital Signs: 03/20/25 02:03 03/20/25 02:09 03/20/25 02:09 Temperature 97.3 F L 97.3 F L Temperature Source Temporal Temporal Pulse Rate 98 96 Respiratory Rate 25 H 35 H Respiratory Effort Respiratory Depth Respiratory Pattern Blood Pressure 162/100 H 162/100 H Blood Pressure Mean 120 120 Pulse Ox 100 100 Oxygen Delivery Method CPAP CPAP Bi-pap Fraction of Inspired Oxygen (FIO2) 60 60 60 03/20/25 02:12 03/20/25 02:18 03/20/25 02:19 Temperature Temperature Source Pulse Rate 89 90 Respiratory Rate 33 H 30 H Respiratory Effort Short of Breath Respiratory Depth Deep Respiratory Pattern Tachypnea Tachypnea Tachypnea Blood Pressure Blood Pressure Mean Pulse Ox 99 Oxygen Delivery Method CPAP Fraction of Inspired Oxygen (FIO2) 60 30 03/20/25 02:33 03/20/25 03:09 03/20/25 03:30 Temperature 97.8 F Temperature Source Temporal Pulse Rate 78 87 85 Respiratory Rate 19 H 26 H 24 H Respiratory Effort Respiratory Depth Respiratory Pattern Blood Pressure 144/85 H 144/85 H Blood Pressure Mean 104 104 Pulse Ox 100 95 95 Oxygen Delivery Method Bi-pap Bi-pap Bi-pap Fraction of Inspired Oxygen (FIO2) 30 30 30 03/20/25 04:00 03/20/25 04:30 03/20/25 04:30 Temperature Temperature Source Pulse Rate 83 73 76 Respiratory Rate 20 H 21 H 21 H Respiratory Effort Respiratory Depth Respiratory Pattern Tachypnea Blood Pressure 136/90 H 133/76 H Blood Pressure Mean 105 95 Pulse Ox 96 95 97 Oxygen Delivery Method Bi-pap Bi-pap Fraction of Inspired Oxygen (FIO2) 30 30 30 MDM MDM MDM Narrative Medical decision making narrative: 80-year-old male with past medical history of CAD with history of CABG/PCI, ICD/pacemaker, DM, CHF presents via EMS for evaluation of shortness of breath. Daughter gives majority of the history. Daughter states her father is visiting from [place] since January after he had a mechanical fall that resulted in rib fractures and pneumothorax. She states he has been doing well until the past couple days he has had increasing shortness of breath and cough. This evening shortness of breath worsened. He endorses chest tightness associated with it. On arrival, patient arrives on CPAP machine. He is tachypneic in respiratory distress. He received nitro, 4 baby aspirin, and DuoNeb prior to arrival. Patient was switched over to BiPAP with improvement in respiratory distress. Differential diagnosis includes but is not limited to COPD exacerbation, pneumonia, CHF, ACS, PE, electrolyte abnormality, arrhythmia. EKGreviewed. Chest x-ray reviewed, suspect more pulmonary edema/CHF exacerbation however given I cannot rule out pneumonia we will give Rocephin and azithromycin. ABG with mild acidosis of 7.32. Oxygenating well on BiPAP. Willdecrease FiO2. No hypercapnia. CBC without leukocytosis, anemia, platelet dysfunction. D- dimer elevated at 1.03. Cannot rule out PE. CT chest ordered. BMP shows renal insufficiency of 1.42. Unknown patient's baseline. May be chronic versus acute. Lactic acid 2.2. Patient receiving only 500 cc bolus. Will be judicial with fluids given CHF. BNP elevated at 7412. IV Lasix ordered. Troponin 61 and 56. CTA chest cannot be read by radiology secondary to having technical difficulties. I did personally review the CTA. No obvious PE. Patient has bilateral pulmonary effusions, worse on the right compared to the left. Right sided atelectasis. On reevaluation, patient's respiratory status has improved on BiPAP. We did try to take him off during CT however patient could not tolerate this. Patient was updated of all the results and theplan for admission. He confirmed understanding the plan. Patient discussed with Dr. Menezes. He accepted admission. EKG: Interpreted by me/EM physician: EKG shows sinus rhythm with PVCs. Left bundle branch block. Heart rate 97. Diagnostic: Interpreted by me/EM physician: No pneumothorax. Patient has cardiomegaly. Bilateral effusions. Worse on the right compared to the left. Cannot rule out pneumonia. Cannot compare to radiology read as we are having technical difficulties and they cannot see any of the imaging. 30 minutes of critical care time utilized in managing the patient. This is due to high probability of and deterioration of the patient based on the patient's condition and excludes any separately billable procedures. Impression: 1. Acute hypoxia with respiratory distress requiring BiPAP 2. CHF exacerbation 3. Possible pneumonia 4. Elevated troponin likely secondary to #2 5. Lactic acidosis 6. Renal insufficiency, acute versus chronic Lab Data Labs: Laboratory Results - last 24 hr 03/20/25 03/20/25 03/20/25 02:05 02:08 04:20 WBC 10.4 RBC 5.07 Hgb 16.5 Hct 50.5 MCV 99.6 H MCH 32.5 H MCHC 32.7 RDW Std Deviation 49.9 H RDW Coeff of Adri 13.6 Plt Count 245 MPV 9.3 Immature Gran % (Auto) 0.400 Neut % (Auto) 55.6 Lymph % (Auto) 30.1 [place] % (Auto) 12.9 H Eos % (Auto) 0.4 Baso % (Auto) 0.6 Absolute Neuts (auto) 5.8 Absolute Lymphs (auto) 3.12 Nucleated RBC % 0 D-Dimer Quant (PE/DVT) 1.03 H* Sodium 141 Potassium 4.2 Chloride 105 Carbon Dioxide 22.4 Anion Gap 13 BUN 22 H Creatinine 1.42 H Estim Creat Clear Calc 42.05 L Est GFR (MDRD) Non-Af 49 L BUN/Creatinine Ratio 15.1 Glucose 170 H Lactic Acid 2.2 H* Calcium 9.0 Troponin T High Sens 61 H* Troponin T Hi Sens 2 Hr 56 H* NT pro BNP II 7412 H ABG Data ABG results: ABG 03/20/25 02:20 Specimen Type ART Sample Site L Radial pH 7.32 L Bicarbonate Actual 23.1 Total CO2 25 Base Excess -3 L O2 Saturation 99 O2 % 40.0 ABG pCO2 45.0 ABG pO2 141 H Martha Test Positive O2 Delivery Device BiPAP Vent Mode Not entered POC PEEP 8 Peak Inspir Pressure 16 Discharge Plan Triage Chief Complaint: Chest Pain ED Provider: Jhoan Maldonado Dx/Rx/DC Orders Prescriptions: No Action methocarbamol 500 mg tablet 500 mg PO Q6H PRN (Reason: muscle spasm) isosorbide mononitrate 60 mg tablet extended release 24 hr 60 mg PO DAILY atorvastatin [Lipitor] 40 mg tablet 40 mg PO DAILY finasteride 5 mg tablet 5 mg PO DAILY spironolactone [Aldactone] 25 mg tablet 25 mg PO DAILY hydralazine 10 mg tablet 10 mg PO BID ranolazine 1,000 mg tablet extended release 12 hr 1,000 mg PO BID aspirin 81 mg tablet 81 mg PO DAILY clopidogrel 75 mg tablet 75 mg PO DAILY Jardiance 10 mg tablet 10 mg PO DAILY insulin lispro protamin-lispro [Humalog Mix 75-25 KwikPen] 100 unit/mL (75- 25)insulin pen 20 unit subcut BID Primary Care Provider: ULI ALCALA Referrals: [facility] Doctor,Out of [Non-Staff] - Print Language: Scottish What to do if you have Problems For any increased pain, shortness of breath, bleeding, nausea or vomiting, chestpain, or any unexpected problems, contact your Primary Care Provider. Call [facility] ([phone]) or report to the closest Emergency Room. Call 911 if necessary. 03/20/25 0502 <Electronically signed by Jhoan Maldonado DO> Cosigner Signature (if applicable): CC: ULI ALCALA ~ Signed ADDENDUM by Dr. Jhoan Maldonado DO on 03/20/25 at 0610 CTA chest negative for PE. Mild cardiomegaly. Moderate bilateral pleural effusions. Atelectasis and/or superimposed pneumonia. Mild interstitial pulmonary congestion. X-ray shows diffuse interstitial edema with pleural effusions. Findings suggestive of CHF. Minimally displaced right rib fractures, no pneumothorax. Old healed and healing left rib fractures. 03/20/25 0610<Electronically signed by Jhoan Maldonado DO> Cosigner Signature (if applicable): cc: ULI ALCALA ~* Signed [facility] Work Phone: Evaluation note* Diagnosis Onset Date Resolution Status Admit Date Acute exacerbation of chroni c heart failure acute March 20, 2025 5:38am Acute hypoxic respiratory failure acute March 20, 2025 5:38am Chest tightness acute March 20, 2025 5:38am Elevated troponin acute 2024 5:38am History of coronary artery bypass graft acute March 20, 2025 5:38am History of coronary artery stent placement acute March 20, 2025 5:38am Lactic acidosis acute March 20, 2025 5:38am Obesity (BMI 30.0-34.9) acute S eptember 2024 5:38am Pleural effusion acute Septembe r 2024 5:38am Pneumonia acute Love 2024 5:38am Tobacco abuse acute March 082024 5:38am COPD exacerbation chronic Septemb er 2024 5:38am [facility] Work Phone: Hospital Discharge instructionsAmbulatory Orders* Cardiology Location: None Selected [facility] Work Phone: Progress note Author Eder Pickett [facility] Note Date/Time April 23, 2025 1 0:40am [facility] [address] [place], [place] [address] OFFICE VISIT Date of Service: 04/23/25 MR#: [id number] Acct: [id number] Name: CECILIA KUHN Rep #: [id number] : 1945 Provider: Dr. Drew Pickett MD Age/Sex: 80/M Location: [facility] Status: Signed with Addenda ADDENDUM by Dr. 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 He had a vein graft to the first diagonal with proximal stents that were patent there was a 90% hazy thrombotic lesion that was treated with restenting. The left circumflex artery had mild disease the vein graft to the OM branch was occluded. The right coronary in the mid was totally occluded the distal right coronary fills via collaterals from the left system and the vein graft to the RCA was noted to be occluded. The left ventricular end-diastolic pressure was normal. The LAD is well-perfused with a FLORES and the vein graft to the diagonal which was revascularized August 2022. The vein graft to the OM branch of the circumflex is occluded and the vein graft to the distal right coronary is occluded. I am not sure where the fifth graft was located it may have been thateither the circumflex or the right coronary artery grafts were sequential grafts. Assessment and Plan Assessment and Plan (1) Heart failure: Status: Acute Qualifiers: Heart failure type: systolic Heart failure chronicity: chronic Qualified Code(s): I50.22 - Chronic systolic (congestive) heart failure (2) CKD (chronic kidney disease): Status: Chronic Qualifiers: Chronic kidney disease stage: stage 3 (moderate) Chronic kidney diseasestage 3 subtype: stage 3b (GFR 30-44) Qualified Code(s): N18.32 - Chronic kidney disease, stage 3b (3) Presence of combination internal cardiac defibrillator (ICD) and pacemaker: Status: Acute (4) Diabetes: Status: Acute Qualifiers: Diabetes mellitus type: type 2 Diabetes mellitus group home insulin use:with middle or intermediate school principal use Diabetes mellitus complication status: with circulatory complication Diabetes mellitus complication detail: with other circulatory complications Qualified Code(s): E11.59 - Type 2 diabetes mellitus with other circulatory complications; Z79.4 - shelter (current) use of insulin Orders: Orders Comprehensive Metabolic Profil Today I50.9 - Heart failure, unspecified Pro- Brain NATRIURETIC PEPTIDE Today I50.9 - Heart failure, unspecified Referrals Cardiology E11.9 - Type 2 diabetes mellitus without complications, I50.9 - Heart failure, unspecified, N18.32 - Chronic kidney disease, stage 3b, Z95.810 - Presence of automatic (implantable) cardiac defibrillator Plan Details Follow Up: 3 Months (With JAREN and as needed) 6 Months (With Dr. Pickett and as needed) 04/23/25 9421 <Electronically signed by Eder nguyen MD> Date _ Eder Pickett MD cc: ~* Signed HPI HPI History of Present Illness Details: Patient is a 80-year-old white male that comes in today for monitor of his cardiovascular status. Patient carries a history of heart failure with reduced ejection fraction EF wasestimated 10% on the recent echocardiogram March 2025. Patient has a long history of an ischemic cardiomyopathy dating back [facility] [place] He subsequently underwent a reevaluation invasively in [facility] in 2022 where he had a stent placed to an unknown vessel. He had a 5 vessel bypass in 2005 he does not know where the grafts are and I do not have access to any of his records. We are trying to obtain the records from [place]. The patient also has a history of an ICD implanted in 2016 in [place] he is transferring his device care to the [facility] as he is relocated from [place] to live with his family here in [place]. The patient is also diabetic his last hemoglobin A1c was 6.3. He has a history of chronic kidney disease when he was hospitalized in March his BUN was 48 creatinine 1.53. Since discharge the patient reports that he is getting around in his home he uses a cane for ambulation he has no lower extremity edema he denies any PND orthopnea but he does have shortness of breath with activities. He feels that he is pretty much back to baseline. He denies any anginal type symptoms. Intake Vital Signs 03/20/25 13:44 04/23/25 06:57 Height 5 ft 10 in 5 ft 10 in Weight: 177 lb BMI 25.4 BP 128/72 H Blood Pressure Location Lt brachial Position Sitting Respiration 20 H Pulse 60 Pulse Source Monitor Pulse Oximetry (%) 98 Intake Visit Reasons: HOSPITAL F/U, [facility] 03/24/25 Bread Packer Required: No Is patient in pain?: No Allergies No Known Allergies Allergy (Verified 04/23/25 10:09) Medications ?Medication ?Instructions ?Recorded ?Confirmed ?Type aspirin 81 mg tablet 81 mg PO DAILY heart health 03/20/25 04/23/25 History atorvastatin 40 mg tablet (Lipitor) 40 mg PO DAILY cho lesterol 03/20/25 04/23/25 History clopidogrel 75 mg tablet 75 mg PO DAILY anti platelet 03/20/25 04/23/25 History empagliflozin 10 mg tablet 10 mg PO DAILY diabetes 04/23/25 History (Jardiance) finasteride 5 mg tablet 5 mg PO DAILY prostate 03/2004/23/25 History insulin lispro protamine-lispro 20 unit subcut BID venkatesh betes 03/20/25 04/23/25 History 100 unit/mL (75-25) subcutaneous pen (Humalog Mix 75-25 KwikPen) methocarbamol 500 mg tablet 500 mg PO Q6H PRN muscle s pasm 03/20/25 04/23/25 History ranolazine 1,000 mg 1,000 mg PO BID heart 04/23/25 History tablet,extended release,12 hr spironolactone 25 mg tablet 25 mg PO DAILY diuretic 04/23/25 History (Aldactone) furosemide 40 mg tablet 40 mg PO DAILY #30 tabs 03/0804/23/25 Rx hydralazine 25 mg tablet 25 mg PO TID #90 tabs 04/23/25 Rx isosorbide mononitrate 60 mg 60 mg PO DAILY #30 tabs 0 03/24/25 04/23/25 Rx tablet,extended release 24 hr metoprolol succinate 25 mg 25 mg PO DAILY #30 tabs 04/23/25 Rx tablet,extended release 24 hr nitroglycerin 0.4 mg sublingual 0.4 mg sublingual Q5M PRN 04/23/25 04/23/25 History tablet semaglutide 0.25 mg or 0.5 mg (2 0.25 mg subcut QWEEK 04/23/25 04/23/25 History mg/3 mL) subcutaneous pen injector (Ozempic) Ejection fraction %: 10 Have you fallen in the past year?: Yes PFSH Medical History CKD (chronic kidney disease) Presence of combination internal cardiac defibrillator (ICD) and pacemaker Tobacco abuse Obesity (BMI 30.0-34.9) Lactic acidosis Chest tightness Elevated troponin Acute hypoxic respiratory failure Pneumonia Hyperglycemia Pleural effusion Heart failure Diabetes Surgical History History of coronary artery stent placement History of coronary artery bypass graft H/O heart artery stent Social History Smoking Status: Current some day smoker tobacco type: cigars ROS Const Const: Negative for fatigue, weakness, headache(s) or frequent falls Eyes Eyes: Negative for blurry vision ENT ENT: Negative for headache(s), dizziness or Nosebleed/epistaxis Cardio Chest Pain: No Palpitations: No Edema: None Muscle aches with walking: None Resp Respiratory: Positive for SOB with activity and SOB at rest; Negative for SOB orthopnea\SOB lying down GI GI: Negative nausea, vomiting, heartburn, bright, red blood in stools or black,tarry stools : Negative for hematuria Neuro Neuro: Negative for dizziness, lightheadedness, near syncope, syncope, frequent falls, headache(s), weakness or blurry vision Endo Endo: Negative for fatigue Cardiology Exam Const Appearance: cooperative, comfortable, no acute distress and frail appearing Head Head: normal to inspection Eyes General: appearance normal, both eyes and all related structures Neck Neck: normal visual inspection and no JVD Carotids: Negative bruit Chest Chest inspection: normal inspection of the chest and Pacemaker/ICD Yes left pectoral incision Auscultation: Bilateral: Crackles (Posteriorly) Cardio Rate: regular rate Rhythm: regular rhythm Heart sounds: S1 normal, S2 normal and murmur; Negative rub or gallop Murmur: Grade 1/6, mid systolic and LLSB GI GI: other (Mildly protuberant) Neuro General: patient alert and patient oriented x3 Walks with a cane Extremities Lower Extremity Edema: None: Bilateral Psych Psychological: normal affect Supplemental Info Supplemental Information Labs: HDL Cholesterol, (40-) 57 mg/dL Cholesterol, (<=200) 117 mg/dL Triglycerides, (-199) 65 mg/dL Diagnostics: Electrocardiogram Echocardiogram Chest X-Ray Chest CTA Past Visits: Cardiology Visit Today Assessment and Plan Assessment and Plan (1) Heart failure: Status: Acute Qualifiers: Heart failure type: systolic Heart failure chronicity: chronic Qualified Code(s): I50.22 - Chronic systolic (congestive) heart failure Plan: Patient has a longstanding history of ischemic cardiomyopathy dating back to 2005. He had an ICD placed in 2017. He reports that his been told that his heart muscle was very weak for several years. March 2025 he was admitted for heart failure and discharged on March 24. His EF was estimated 10% withstage III diastolic dysfunction with severe global systolic dysfunction documented. He has severely dilated left ventricle there was mild segmental dysfunction of the right ventricle noted. The patient has been titrated on guideline directed medical therapy he is currently on Jardiance 10 mg daily furosemide 40 mg daily hydralazine 25 mg 3 times daily Isorbid mononitrate 60 mg daily metoprolol 25 mg daily he is also onOzempic 0.25 mg subcu weekly and spironolactone 25 mg daily. The patient is to have lab work done today. Will evaluate a CMP and BNP today. The patient appears to be well compensated at this point in time given his overall medical situation. He is asking about LVAD candidacy. I am not sure that he is an ideal candidate for LVAD but would recommend that he be evaluated in advanced heart failure center and I will refer him to Dr. Tony Brink at [facility]. (2) CKD (chronic kidney disease): Status: Chronic Qualifiers: Chronic kidney disease stage: stage 3 (moderate) Chronic kidney diseasestage 3 subtype: stage 3b (GFR 30-44) Qualified Code(s): N18.32 - Chronic kidney disease, stage 3b Plan: Will reevaluate the patient's blood work today. His last BUN and creatinine were 48 and 1.53 in March 2025. (3) Presence of combination internal cardiac defibrillator (ICD) and pacemaker: Status: Acute Plan: Patient has a [employer] ICD dual-chamber device. He has both an atrial and ventricular lead. He is transferring management and monitoring of his device to the [facility]. Historically had been cared for in [place]. He is to be set up with Zuly Garvey our device nurse in the next few weeks. The patient does have remote transmission device with him here in [place]. I have asked him to call the [employer] number on the monitoring equipment to set up the change for it to be referred to the [facility] device clinic. (4) Diabetes: Status: Acute Qualifiers: Diabetes mellitus type: type 2 Diabetes mellitus middle or intermediate school principal insulin use:with middle or intermediate school principal use Diabetes mellitus complication status: with circulatory complication Diabetes mellitus complication detail: with other circulatory complications Qualified Code(s): E11.59 - Type 2 diabetes mellitus with other circulatory complications; Z79.4 - joint terminal attack controller (current) use of insulin Plan: Patient's last hemoglobin A1c was 6.3. He does not have a primary care physician at this time but he is going to find one. Orders: Orders Comprehensive Metabolic Profil Today I50.9 - Heart failure, unspecified Pro- Brain NATRIURETIC PEPTIDE Today I50.9 - Heart failure, unspecified Referrals Cardiology E11.9 - Type 2 diabetes mellitus without complications, I50.9 - Heart failure, unspecified, N18.32 - Chronic kidney disease, stage 3b, Z95.810 - Presence of automatic (implantable) cardiac defibrillator Plan 1. We did send refills all of his cardiovascular medical therapy. 2. I have strongly encouraged him to find a local primary care physician. 3. To be followed up with Zuly Garvey our [facility] device nurse. 4. Patient will have CMP and BNP done today and we will follow-up by phone. 5. Patient will follow-up in 3 months with advanced practitioner and as needed in the [facility]. Plan Details Additional Comments: This note was generated with [employer] software. It may contain incorrectwords, spelling, and punctuation that were not noted in checking the note beforesigning. Follow Up: 3 Months (With JAREN and as needed) 6 Months (With Dr. Pickett and as needed) Coding Level of Care Code Off vis,est,level 4 Diagnoses Chronic systolic heart failure I50.22 Heart failure type: systolic Heart failure chronicity: chronic Stage 3b chronic kidney disease N18.32 Chronic kidney disease stage: stage 3 (moderate) Chronic kidney disease stage 3 subtype: stage 3b (GFR 30-44) Presence of combination internal cardiac defibrillator (ICD) and pacemaker Z95.810 Type 2 diabetes mellitus with other circulatory complication, with long-term current use of insulin E11.59; Z79.4 Diabetes mellitus type: type 2 Diabetes mellitus group home insulin use: with middle or intermediate school principal use Diabetes mellitus complication status: with circulatory complication Diabetes mellitus complication detail: with other circulatory complications Coding Level of Care Code Off vis,est,level 4 Diagnoses Chronic systolic heart failure I50.22 Heart failure type: systolic Heart failure chronicity: chronic Stage 3b chronic kidney disease N18.32 Chronic kidney disease stage: stage 3 (moderate) Chronic kidney disease stage 3 subtype: stage 3b (GFR 30-44) Presence of combination internal cardiac defibrillator (ICD) and pacemaker Z95.810 Type 2 diabetes mellitus with other circulatory complication, with long-term current use of insulin E11.59; Z79.4 Diabetes mellitus type: type 2 Diabetes mellitus middle or intermediate school principal insulin use: with group home use Diabetes mellitus complication status: with circulatory complication Diabetes mellitus complication detail: with other circulatory complications Clinical Quality Measures Falls Risk Screening/Assistive Devices Have you fallen in the past year?: Yes Cardiac Ejection fraction %: 10 04/23/25 1050 <Electronically signed by Eder nguyen MD> Date _ Eder Shaver Signature: Date (if applicable) CC: ~ [facility] Work Phone: Reason for referral (narrative)No reason for referral information availableWMercy [facility] Work Phone: Chief Complaint and Reason for Visit Chief Complaint Admit Date AE CHF, AE COPD, PNA, RESP FAILURE & Sep tember 2024 5:38am Reason for Visit Admit Date Acute exacerbation of chronic heart fail ure March 20, 2025 5:38am Acute hypoxic respiratory failure Sept2024 5:38am Chest tightness March 20, 2025 5:38am Elevated troponin March 20, 2025 5:38am History of coronary artery bypass graft March 20, 2025 5:38am History of coronary artery stent placeme nt March 20, 2025 5:38am Lactic acidosis March 20, 2025 5:38am Obesity (BMI 30.0-34.9) March 20, 2025 5:38am Pleural effusion March 20, 2025 5:38am Pneumonia March 20, 2025 5:38am Tobacco abuse March 20, 2025 5:38am COPD exacerbation March 20, 2025 5:38am Chief Complaint Admit Date AE CHF, AE COPD, PNA, RESP FAILURE & Mar tem2024 5:38am AE CHF, AE COPD, PNA, RESP FAILURE & Mar tember 2024 10:11am AE CHF, AE COPD, PNA, RESP FAILURE & Mar tember 2024 7:28am AE CHF, AE COPD, PNA, RESP FAILURE & Mar tember 2024 12:53pm AE CHF, AE COPD, PNA, RESP FAILURE & Mar tember 2024 10:25am AE CHF, AE COPD, PNA, RESP FAILURE & Marber 2024 2:45pm AE CHF, AE COPD, PNA, RESP FAILURE & Sep tember 2024 8:40am AE CHF, AE COPD, PNA, RESP FAILURE & Mar 1:50pm AE CHF, AE COPD, PNA, RESP FAILURE & Mar 11:58am Reason for Visit Admit Date Acute exacerbation of chronic heart fail ure March 20, 2025 5:38am Acute hypoxic respiratory failure Septem 2024 5:38am Chest tightness March 20, 2025 5:38am Elevated troponin March 20, 2025 5:38am History of coronary artery bypass graft March 20, 2025 5:38am History of coronary artery stent placeme nt March 20, 2025 5:38am Lactic acidosis March 20, 2025 5:38am Obesity (BMI 30.0-34.9) March 20, 2025 5:38am Pleural effusion March 20, 2025 5:38am Pneumonia March 20, 2025 5:38am Presence of combination inte rnal cardiac defibrillator (ICD) and pacemaker March 20, 2025 5:38am Tobacco abuse March 20, 2025 5:38am CKD (chronic kidney disease) March 082024 5:38am COPD exacerbation March 20, 2025 5:38am Chief Complaint Admit Date AE CHF, AE COPD, PNA, RESP FAILURE & Mar 5:38am AE CHF, AE COPD, PNA, RESP FAILURE & Mar 10:11am AE CHF, AE COPD, PNA, RESP FAILURE & Mar 7:28am AE CHF, AE COPD, PNA, RESP FAILURE & Mar 12:53pm AE CHF, AE COPD, PNA, RESP FAILURE & Mar 10:25am AE CHF, AE COPD, PNA, RESP FAILURE & Mar 2:45pm AE CHF, AE COPD, PNA, RESP FAILURE & Mar 8:40am AE CHF, AE COPD, PNA, RESP FAILURE & Mar 1:50pm AE CHF, AE COPD, PNA, RESP FAILURE & Mar 11:58am HOSPITAL F/U, [facility] 03/24/25 April 23, 2025 10:05am E ORDERS April 23, 2025 1 0:49am Pacer Check Remote April 27, 2025 9 :00am NEW [place] April 27, 2025 1 2:53pm Reason for Visit Admit Date Pleural effusion March 20, 2025 5:38am CKD (chronic kidney disease) March 082024 5:38am Presence of combination inte rnal cardiac defibrillator (ICD) and pacemaker March 20, 2025 5:38am Acute exacerbation of chronic heart fail ure March 20, 2025 5:38am COPD exacerbation March 20, 2025 5:38am Acute hypoxic respiratory failure Septem 2024 5:38am Chest tightness March 20, 2025 5:38am Elevated troponin March 20, 2025 5:38am History of coronary artery bypass graft March 20, 2025 5:38am History of coronary artery stent placeme nt March 20, 2025 5:38am Lactic acidosis March 20, 2025 5:38am Obesity (BMI 30.0-34.9) March 20, 2025 5:38am Pneumonia March 20, 2025 5:38am Tobacco abuse March 20, 2025 5:38am Diabetes April 23, 2025 1 0:05am Heart failure April 23, 2025 1 0:05am CKD (chronic kidney disease) April 10:05am Presence of combination inte rnal cardiac defibrillator (ICD) and pacemaker April 23, 2025 10:05am Ischemic cardiomyopathy April 27 12:53pm Presence of combination inte rnal cardiac defibrillator (ICD) and pacemaker April 27, 2025 12:53pm Advance Directives Advance Directive Response Recorded Date/ Time Do you have a Healthcare Power of Consulting Project Director? Yes March 20, 2025 2:09am Advance Directive Response Recorded Date/ Time Do you have a Healthcare Power of Consulting Project Director? Yes March 20, 2025 6:51am Advance Directive Response Recorded Date/ Time Do you have a Healthcare Power of Consulting Project Director? Yes March 20, 2025 5:51am Summary Purpose Family History No Family History Records FoundNo Family History Records Found Additional Source Comments Care Teams (unrecognized sec tion and content) Team Status: Active Member Role/Relationship Status Dates ULI ALCALA Primary Care Provider Active Team Status: Active Member Role/Relationship Status Dates Dr. Jhoan Maldonado DO Emergency Provider Active Start: March CARI MCNALLY Primary Care Provider Active Star t: March 20, 2025 NOAH HEIN Other Provider Active Start : March 20, 2025 Dr. Matthew Grullon DO Admit Provider Active Start: March 20, 2025 Dr. Matthew Grullon DO Attending Provider Active Start: March 20, 2025 Team Status: Active Member Role/Relationship Status Dates ULI ALCALA Primary care physician Active Team Status: Inactive Member Role/Relationship Status Dates Dr. Jhoan Maldonado DO Emergency Department Physician Active Start: March 20, 2025 End: March 24, 2025 CARI MCNALLY Primary care physician Active Sta rt: March 20, 2025 End: March 24, 2025 NOAH HEIN Nurse Practitioner Active S tart: March 20, 2025 End: March 24, 2025 Dr. Matthew Grullon DO Admitting physician Active Start: March 20, 2025 End: March 24, 2025 Dr. Matthew Grullon DO Nurse Practitioner Active Start: March 20, 2025 End: March 24, 2025 Dr. Faheem Pantoja MD Nurse Practitioner Active St art: March 20, 2025 End: March 24, 2025 Dr. Sherin Webb MD Nurse Practitioner Active S tart: March 20, 2025 End: March 24, 2025 Dr. Aniyah Fried MD Nurse Practitioner Active S tart: March 20, 2025 End: March 24, 2025 Dr. Rene Nava MD Nurse Practitioner Active Start: March 20, 2025 End: March 24, 2025 Dr. Chun Dallas MD Nurse Practitioner Active Start: March 20, 2025 End: March 24, 2025 Dr. Jordi Odell MD Nurse Practitioner Active Start: March 20, 2025 End: March 24, 2025 Dr. Nate Tavarez MD Nurse Practitioner Active Start: March 20, 2025 End: March 24, 2025 Dr. Jerome Ching MD Nurse Practitioner Active S tart: March 20, 2025 End: March 24, 2025 Dr. Matthew Dunne , DO Nurse Practitioner Active Start: March 20, 2025 End: March 24, 2025 Dr. Fred Machado MD Nurse Practitioner Active Start: March 20, 2025 End: March 24, 2025 Dr. Eder Pickett MD Nurse Practitioner Active Start: March 20, 2025 End: March 24, 2025 Dr. Balwinder Faustin MD Nurse Practitioner Active Start: March End: March 24, 2025 Dr. Romi Boss MD Nurse Practitioner Active S tart: March 20, 2025 End: March 24, 2025 Dr. Bryn Garcia MD Nurse Practitioner Active Start: March 20, 2025 End: March 24, 2025 Dr. Ron Holman MD Nurse Practitioner Active Start: March 20, 2025 End: March 24, 2025 Robert Ahn WALL COVERING CONTRACTOR, WALL COVERING CONTRACTOR-C Nurse Practitioner Active S tart: March 20, 2025 End: March 24, 2025 Mariana Downs PA, PA Nurse Practitioner Active Start: March End: March 24, 2025 IVANNA Newman Nurse Practitioner Active St art: March 20, 2025 End: March 24, 2025 Dr. Lisha Ramirez MD Attending physician Active Start: March 20, 2025 End: March 24, 2025 Dr. Dipti Pathak , DO Nurse Practitioner Active S tart: March 20, 2025 End: March 24, 2025 Team Status: Active Member Role/Relationship Status Dates Dr. Jhoan Maldonado , DO Emergency Department Physician Active Start: March 20, 2025 CARI MCNALLY Primary care physician Active Sta rt: March 20, 2025 NOAH HEIN Nurse Practitioner Active S tart: March 20, 2025 Dr. Matthew Grullon , DO Admitting physician Active Start: March 20, 2025 Dr. Matthew Grullon , DO Nurse Practitioner Active Start: March 20, 2025 Dr. Dipit Pathak , DO Nurse Practitioner Active S tart: March 20, 2025 Dr. Faheem Pantoja MD Nurse Practitioner Active St art: March 20, 2025 Dr. Sherin Webb MD Attending physician Active Start: March 20, 2025 Dr. Sherin Webb MD Nurse Practitioner Active S tart: March 20, 2025 Dr. Aniyah Fried MD Nurse Practitioner Active S tart: March 20, 2025 Dr. Rene Nava MD Nurse Practitioner Active Start: March 20, 2025 Dr. Chun Dallas MD Nurse Practitioner Active Start: March 20, 2025 Dr. Jordi Odell MD Nurse Practitioner Active Start: March 20, 2025 Dr. Nate Tavarez MD Nurse Practitioner Active Start: March 20, 2025 Dr. Jerome Ching MD Nurse Practitioner Active S tart: March 20, 2025 Dr. Matthew Dunne , Nurse Practitioner Active Start: March 20, 2025 Dr. Fred Machado MD Nurse Practitioner Active Start: March 20, 2025 Dr. Eder Pickett MD Nurse Practitioner Active Start: March 20, 2025 Dr. Balwinder Faustin MD Nurse Practitioner Active Start: March Dr. Romi Boss MD Nurse Practitioner Active S tart: March 20, 2025 Dr. Bryn Garcia MD Nurse Practitioner Active Start: March 20, 2025 Dr. Ron Holman MD Nurse Practitioner Active Start: March 20, 2025 Robert Ahn WALL COVERING CONTRACTOR, WALL COVERING CONTRACTOR-C Nurse Practitioner Active S tart: March 20, 2025 Mariana Downs PA, PA Nurse Practitioner Active Start: March IVANNA Newman Nurse Practitioner Active St art: March 20, 2025 Team Status: Active Member Role/Relationship Status Dates Dr. Jhoan Maldonado , Emergency Department Physician Active Start: March 21, 2025 CARI MCNALLY Primary care physician Active Sta rt: March 21, 2025 NOAH HEIN Nurse Practitioner Active S tart: March 21, 2025 Dr. Matthew Grullon , Admitting physician Active Start: March 21, 2025 Dr. Matthew Grullon , Nurse Practitioner Active Start: March 21, 2025 Dr. Dipti Pathak , Attending physician Active Start: March 21, 2025 Dr. Dipti Pathak , Nurse Practitioner Active S tart: March 21, 2025 Dr. Faheem Pantoja MD Nurse Practitioner Active St art: March 21, 2025 Dr. Sherin Webb MD Nurse Practitioner Active S tart: March 21, 2025 Dr. Aniyah Fried MD Nurse Practitioner Active S tart: March 21, 2025 Dr. Rene Nava MD Nurse Practitioner Active Start: March 21, 2025 Dr. Chun Dallas MD Nurse Practitioner Active Start: March 21, 2025 Dr. Jordi Odell MD Nurse Practitioner Active Start: March 21, 2025 Dr. Nate Tavarez MD Nurse Practitioner Active Start: March 21, 2025 Dr. Jerome Ching MD Nurse Practitioner Active S tart: March 21, 2025 Dr. Matthew Dunne , Nurse Practitioner Active Start: March 21, 2025 Dr. Fred Machado MD Nurse Practitioner Active Start: March 21, 2025 Dr. Eder Pickett MD Nurse Practitioner Active Start: March 21, 2025 Dr. Balwinder Faustin MD Nurse Practitioner Active Start: March Dr. Romi Boss MD Nurse Practitioner Active S tart: March 21, 2025 Dr. Bryn Garcia MD Nurse Practitioner Active Start: March 21, 2025 Dr. Ron Holman MD Nurse Practitioner Active Start: March 21, 2025 Robert Ahn WALL COVERING CONTRACTOR, W[employer] COVERING [employer]OR-C Nurse Practitioner Active S tart: March 21, 2025 Mariana Downs PA, PA Nurse Practitioner Active Start: March Sam Tabor , IVANNA Nurse Practitioner Active St art: March 21, 2025 Team Status: Active Member Role/Relationship Status Dates Dr. Jhoan Maldonado , Emergency Department Physician Active Start: March 21, 2025 CARI MCNALLY Primary care physician Active Sta rt: March 21, 2025 NOAH HEIN Nurse Practitioner Active S tart: March 21, 2025 Dr. Matthew Grullon DO Admitting physician Active Start: March 21, 2025 Dr. Matthew Grullon , DO Nurse Practitioner Active Start: March 21, 2025 Dr. Dipti Pathak , DO Nurse Practitioner Active S tart: March 21, 2025 Dr. Faheem Pantoja MD Nurse Practitioner Active St art: March 21, 2025 Dr. Sherin Webb MD Attending physician Active Start: March 21, 2025 Dr. Sherin Webb MD Nurse Practitioner Active S tart: March 21, 2025 Dr. Aniyah Fried MD Nurse Practitioner Active S tart: March 21, 2025 Dr. Rene Nava MD Nurse Practitioner Active Start: March 21, 2025 Dr. Chun Dallas MD Nurse Practitioner Active Start: March 21, 2025 Dr. Jordi Odell MD Nurse Practitioner Active Start: March 21, 2025 Dr. Nate Tavarez MD Nurse Practitioner Active Start: March 21, 2025 Dr. Jreome Ching MD Nurse Practitioner Active S tart: March 21, 2025 Dr. Matthew Dunne , DO Nurse Practitioner Active Start: March 21, 2025 Dr. Fred Machado MD Nurse Practitioner Active Start: March 21, 2025 Dr. Eder Pickett MD Nurse Practitioner Active Start: March 21, 2025 Dr. Balwinder Faustin MD Nurse Practitioner Active Start: March Dr. Romi Boss MD Nurse Practitioner Active S tart: March 21, 2025 Dr. Bryn Garcia MD Nurse Practitioner Active Start: March 21, 2025 Dr. Ron Holman MD Nurse Practitioner Active Start: March 21, 2025 Robert Ahn WALL COVERING CONTRACTOR, W[employer] COVERING [employer]OR-C Nurse Practitioner Active S tart: March 21, 2025 Mariana Downs PA, PA Nurse Practitioner Active Start: March IVANNA Newman Nurse Practitioner Active St art: March 21, 2025 Team Status: Active Member Role/Relationship Status Dates Dr. Jhoan Maldonado DO Emergency Department Physician Active Start: March 22, 2025 CARI MCNALLY Primary care physician Active Sta rt: March 22, 2025 NOAH HEIN Nurse Practitioner Active S tart: March 22, 2025 Dr. Matthew Grullon , DO Admitting physician Active Start: March 22, 2025 Dr. Matthew Grullon , Nurse Practitioner Active Start: March 22, 2025 Dr. Faheem Pantoja MD Nurse Practitioner Active St art: March 22, 2025 Dr. Sherin Webb MD Nurse Practitioner Active S tart: March 22, 2025 Dr. Aniyah Fried MD Nurse Practitioner Active S tart: March 22, 2025 Dr. Rene Nava MD Nurse Practitioner Active Start: March 22, 2025 Dr. Chun Dallas MD Nurse Practitioner Active Start: March 22, 2025 Dr. Jordi Odell MD Nurse Practitioner Active Start: March 22, 2025 Dr. Nate Tavarez MD Nurse Practitioner Active Start: March 22, 2025 Dr. Jerome Ching MD Nurse Practitioner Active S tart: March 22, 2025 Dr. Matthew Dunne , Nurse Practitioner Active Start: March 22, 2025 Dr. Fred Machado MD Nurse Practitioner Active Start: March 22, 2025 Dr. Eder Pickett MD Attending physician Active Start: March 22, 2025 Dr. Eder Pickett MD Nurse Practitioner Active Start: March 22, 2025 Dr. Balwinder Faustin MD Nurse Practitioner Active Start: March Dr. Romi Boss MD Nurse Practitioner Active S tart: March 22, 2025 Dr. Bryn Garcia MD Nurse Practitioner Active Start: March 22, 2025 Dr. Ron Holman MD Nurse Practitioner Active Start: March 22, 2025 Robert Ahn WALL COVERING CONTRACTOR, WALL COVERING CONTRACTOR-C Nurse Practitioner Active S tart: March 22, 2025 Mariana Downs PA, PA Nurse Practitioner Active Start: March IVANNA Newman Nurse Practitioner Active St art: March 22, 2025 Dr. Lisha Ramirez MD Nurse Practitioner Active Start: March 22, 2025 Dr. Dipti Pathak , Nurse Practitioner Active S tart: March 22, 2025 Team Status: Active Member Role/Relationship Status Dates Dr. Jhoan Maldonado DO Emergency Department Physician Active Start: March 22, 2025 CARI MCNALLY Primary care physician Active Sta rt: March 22, 2025 NOAH HEIN Nurse Practitioner Active S tart: March 22, 2025 Dr. Matthew Grullon , Admitting physician Active Start: March 22, 2025 Dr. Matthew Grullno , Nurse Practitioner Active Start: March 22, 2025 Dr. Faheem Pantoja MD Nurse Practitioner Active St art: March 22, 2025 Dr. Sherin Webb MD Nurse Practitioner Active S tart: March 22, 2025 Dr. Aniyah Fried MD Nurse Practitioner Active S tart: March 22, 2025 Dr. Rene Nava MD Nurse Practitioner Active Start: March 22, 2025 Dr. Chun Dallas MD Nurse Practitioner Active Start: March 22, 2025 Dr. Jordi Odell MD Nurse Practitioner Active Start: March 22, 2025 Dr. Nate Tavarez MD Nurse Practitioner Active Start: March 22, 2025 Dr. Jerome Ching MD Nurse Practitioner Active S tart: March 22, 2025 Dr. Matthew Dunne , Nurse Practitioner Active Start: March 22, 2025 Dr. Fred Machado MD Nurse Practitioner Active Start: March 22, 2025 Dr. Eder Pickett MD Nurse Practitioner Active Start: March 22, 2025 Dr. Balwinder Faustin MD Nurse Practitioner Active Start: March Dr. Romi Boss MD Nurse Practitioner Active S tart: March 22, 2025 Dr. Bryn Garcia MD Nurse Practitioner Active Start: March 22, 2025 Dr. Ron Holman MD Nurse Practitioner Active Start: March 22, 2025 Robert Ahn WALL COVERING CONTRACTOR, WALL COVERING CONTRACTOR-C Nurse Practitioner Active S tart: March 22, 2025 Mariana Downs PA, PA Nurse Practitioner Active Start: March IVANNA Newman Nurse Practitioner Active St art: March 22, 2025 Dr. Lisha Ramirez MD Attending physician Active Start: March 22, 2025 Dr. Lisha Ramirez MD Nurse Practitioner Active Start: March 22, 2025 Dr. Dipti Pathak , DO Nurse Practitioner Active S tart: March 22, 2025 Team Status: Active Member Role/Relationship Status Dates Dr. Jhoan Maldonado , DO Emergency Department Physician Active Start: March 23, 2025 CARI MCNALLY Primary care physician Active Sta rt: March 23, 2025 NOAH HEIN Nurse Practitioner Active S tart: March 23, 2025 Dr. Matthew Grullon , DO Admitting physician Active Start: March 23, 2025 Dr. Matthew Grullon , DO Nurse Practitioner Active Start: March 23, 2025 Dr. Faheem Pantoja MD Nurse Practitioner Active St art: March 23, 2025 Dr. Sherin Webb MD Nurse Practitioner Active S tart: March 23, 2025 Dr. Aniyah Fried MD Nurse Practitioner Active S tart: March 23, 2025 Dr. Rene Nava MD Nurse Practitioner Active Start: March 23, 2025 Dr. Chun Dallas MD Nurse Practitioner Active Start: March 23, 2025 Dr. Jordi Odell MD Nurse Practitioner Active Start: March 23, 2025 Dr. Nate Tavarez MD Nurse Practitioner Active Start: March 23, 2025 Dr. Jerome Ching MD Nurse Practitioner Active S tart: March 23, 2025 Dr. Matthew Dunne , DO Nurse Practitioner Active Start: March 23, 2025 Dr. Fred Machado MD Nurse Practitioner Active Start: March 23, 2025 Dr. Eder Pickett MD Attending physician Active Start: March 23, 2025 Dr. Eder Pickett MD Nurse Practitioner Active Start: March 23, 2025 Dr. Balwinder Faustin MD Nurse Practitioner Active Start: March Dr. Romi Boss MD Nurse Practitioner Active S tart: March 23, 2025 Dr. Bryn Garcia MD Nurse Practitioner Active Start: March 23, 2025 Dr. Ron Holman MD Nurse Practitioner Active Start: March 23, 2025 Robert Ahn WALL COVERING CONTRACTOR, WALL COVERING CONTRACTOR-C Nurse Practitioner Active S tart: March 23, 2025 Mariana GONCALVES, PA Nurse Practitioner Active Start: March IVANNA Newman Nurse Practitioner Active St art: March 23, 2025 Dr. Lisha Ramirez MD Nurse Practitioner Active Start: March 23, 2025 Dr. Dipti Pathak DO Nurse Practitioner Active S tart: March 23, 2025 Team Status: Active Member Role/Relationship Status Dates Dr. Jhoan Maldonado DO Emergency Department Physician Active Start: March 23, 2025 CARI MCNALLY Primary care physician Active Sta rt: March 23, 2025 NOAH HEIN Nurse Practitioner Active S tart: March 23, 2025 Dr. Matthew Grullon , DO Admitting physician Active Start: March 23, 2025 Dr. Matthew Grullon DO Nurse Practitioner Active Start: March 23, 2025 Dr. Faheem Pantoja MD Nurse Practitioner Active St art: March 23, 2025 Dr. Sherin Webb MD Nurse Practitioner Active S tart: March 23, 2025 Dr. Aniyah Fried MD Nurse Practitioner Active S tart: March 23, 2025 Dr. Rene Nava MD Nurse Practitioner Active Start: March 23, 2025 Dr. Chun Dallas MD Nurse Practitioner Active Start: March 23, 2025 Dr. Jordi Odell MD Nurse Practitioner Active Start: March 23, 2025 Dr. Nate Tavarez MD Nurse Practitioner Active Start: March 23, 2025 Dr. Jerome Ching MD Nurse Practitioner Active S tart: March 23, 2025 Dr. Matthew Dunne , Nurse Practitioner Active Start: March 23, 2025 Dr. Fred Machado MD Nurse Practitioner Active Start: March 23, 2025 Dr. Eder Pickett MD Nurse Practitioner Active Start: March 23, 2025 Dr. Balwinder Faustin MD Nurse Practitioner Active Start: March Dr. Romi Boss MD Nurse Practitioner Active S tart: March 23, 2025 Dr. Bryn Garcia MD Nurse Practitioner Active Start: March 23, 2025 Dr. Ron Holman MD Nurse Practitioner Active Start: March 23, 2025 Robert Ahn WALL COVERING CONTRACTOR, WALL COVERING CONTRACTOR-C Nurse Practitioner Active S tart: March 23, 2025 Mariana Downs PA, PA Nurse Practitioner Active Start: March IVANNA Newman Nurse Practitioner Active St art: March 23, 2025 Dr. Lisha Ramirez MD Attending physician Active Start: March 23, 2025 Dr. Lisha Ramirez MD Nurse Practitioner Active Start: March 23, 2025 Dr. Dipti Pathak , Nurse Practitioner Active S tart: March 23, 2025 Team Status: Active Member Role/Relationship Status Dates Dr. Jhoan Maldonado DO Emergency Department Physician Active Start: March 24, 2025 CARI MCNALLY Primary care physician Active Sta rt: March 24, 2025 NOAH HEIN Nurse Practitioner Active S tart: March 24, 2025 Dr. Matthew Grullon , DO Admitting physician Active Start: March 24, 2025 Dr. Matthew Grullon , Nurse Practitioner Active Start: March 24, 2025 Dr. Faheem Pantoja MD Nurse Practitioner Active St art: March 24, 2025 Dr. Sherin Webb MD Nurse Practitioner Active S tart: March 24, 2025 Dr. Aniyah Fried MD Nurse Practitioner Active S tart: March 24, 2025 Dr. Rene Nava MD Nurse Practitioner Active Start: March 24, 2025 Dr. Chun Dallas MD Nurse Practitioner Active Start: March 24, 2025 Dr. Jordi Odell MD Nurse Practitioner Active Start: March 24, 2025 Dr. Nate Tavarez MD Nurse Practitioner Active Start: March 24, 2025 Dr. Jerome Ching MD Nurse Practitioner Active S tart: March 24, 2025 Dr. Matthew Dunne , Nurse Practitioner Active Start: March 24, 2025 Dr. Fred Machado MD Nurse Practitioner Active Start: March 24, 2025 Dr. Eder Pickett MD Nurse Practitioner Active Start: March 24, 2025 Dr. Balwinder Faustin MD Nurse Practitioner Active Start: March Dr. Romi Boss MD Nurse Practitioner Active S tart: March 24, 2025 Dr. Bryn Garcia MD Nurse Practitioner Active Start: March 24, 2025 Dr. Ron Holman MD Nurse Practitioner Active Start: March 24, 2025 Robert Ahn NP, WALL COVERING CONTRACTOR-C Nurse Practitioner Active S tart: March 24, 2025 Mariana GONCALVES, PA Nurse Practitioner Active Start: March IVANNA Newman Nurse Practitioner Active St art: March 24, 2025 Dr. Lisha Ramirez MD Attending physician Active Start: March 24, 2025 Dr. Lisha Ramirez MD Nurse Practitioner Active Start: March 24, 2025 Dr. Dipti Pathak DO Nurse Practitioner Active S tart: March 24, 2025 Team Status: Active Member Role/Relationship Status Dates RICKY PolancoC Primary care physician Active Team Status: Inactive Member Role/Relationship Status Dates Dr. Eder Pickett MD Attending physician Active Start: April 23, 2025 End: April 23, 2025 No Primary Care Physician Primary care physician Activ e Start: April 23, 2025 End: April 23, 2025 No Primary Care Physician Referring Provider Active Start: April 23, 2025 End: April 23, 2025 Team Status: Inactive Member Role/Relationship Status Dates No Primary Care Physician Primary care physician Activ e Start: April 23, 2025 End: April 23, 2025 Dr. Eder Pickett MD Attending physician Active Start: April 23, 2025 End: April 23, 2025 Dr. Eder Pickett MD Referring Provider Active Start: April 23, 2025 End: April 23, 2025 Team Status: Inactive Member Role/Relationship Status Dates SUSAN Polanco Primary care physician Active Start: April 27, 2025 End: April 27, 2025 Dr. Jerome Ching MD Attending physician Active Start: April 27, 2025 End: April 27, 2025 Team Status: Inactive Member Role/Relationship Status Dates No Primary Care Physician Referring Provider Active Start: April 27, 2025 End: April 27, 2025 Aliyah Garvey Attending physician Active Start: April 27, 2025 End: April 27, 2025 RICKY PolancoC Primary care physician Active Start: April 27, 2025 End: April 27, 2025 Goals (unrecognized section and content) Goals may be documented in a n alternate section (unrecognized sect ion and content) No Status Records FoundNo Status Records Found INFORMATION SOURCE (unrecogn ized section and content) DATE CREATED AUTHOR 04/22/2025 [facility] DATE CREATED AUTHOR AUTHOR'S JACKIE RAND 05/05/2025 [facility] FOR RECORDS PERTAINING TO PATIENTS WHO ARE OR HAVE BEEN ENROLLED IN A CHEMICAL DEPENDENCY/SUBSTANCEABUSE PROGRAM, SOME INFORMATION MAY BE OMITTED. This clinical summary was aggregated from multiple sources. Caution should be exercised in using it in the provision of clinical care. This summary normalizes information from multiple sources, and as a consequence, information in this document may materially change the coding, format and clinical context of patient data. In addition, data may be omitted in some cases. CLINICAL DECISIONS SHOULD BE BASED ON THE PRIMARY CLINICAL RECORDS. [facility] [employer] [facility]. provides no warranty or guarantee of the accuracy or completeness of information in this document.
[2025-05-26 10:24] LABS: AST(SGOT) 22 U/L (<=37); Alanine Aminotransfer ALT/SGPT 32 U/L (<=46); Albumin, Serum 4.0 g/dL (3.4-4.8); Alkaline Phosphatase 75 U/L (40-129); Anion Gap 14 (5-15); BUN 37 mg/dL (4-19); BUN/Creat Ratio 21.7 RATIO (10-20); Calcium,Total 9.5 mg/dL (7.6-11.0); Carbon Dioxide 21.6 mmol/L (21.0-32.0); Chloride 100 mmol/L (98-108); Globulin 3.4 g/dL (2.2-4.2); Glucose 141 mg/dL (70-99); Potassium 4.1 mmol/L (3.3-5.1)
== END | disposition home or self-care (01) ==
LOC: BFHLAB 13:18
PROVIDERS: PCP Nurse Practitioner Family; Visit Provider Nurse Practitioner Family
DX: I12.9 Hypertensive chronic kidney disease with stage 1 through stage 4 chronic kidney disease, or unspecified chronic kidney disease (principal); N18.9 Chronic kidney disease, unspecified; E78.5 Hyperlipidemia, unspecified; Z12.5 Encounter for screening for malignant neoplasm of prostate
CPT/HCPCS: 36415; 80053; 80061; 84153; 85025; G0103